=== PATIENT | female | born 1970 | race Caucasian/White ===

== ENCOUNTER 2017-05-19 19:11 | Inpatient (IN) | payer MEDICAID ==
[~2017-05-19] VITALS: Ht 157.5 cm; Wt 62.4 kg
[~2017-05-19 19:11] MED LIST: CALC-600 PO; IRON18TA PO; PREN1TAB49 PO
--- NOTE | 2017-05-19 22:09 | RADRPT ---
PROCEDURE: CHEST - 1 VIEW CLINICAL INDICATION: 46-year-old female with hemoptysis. TECHNIQUE: A single frontal AP semi-erect portable view of the chest was performed. The images we re reviewed on a PACS workstation. COMPARISON: None. FINDINGS: The cardiomediastinal silhouette has a normal appearance. There is a subtle right perihilar infiltr ate with air bronchograms. There is no evidence for congestive heart failure. There is no evidence for pneumothorax. The osseous structures are intact. IMPRESSION: Right perihilar infiltrate. .Delmar Kennedy MD, Date Time Electronically viewed and signed by .Delmar Kennedy MD, on 05/19/2017 22:09 .Momo/
[2017-05-19] MEDS ORDERED: SOD CHLORIDE 0.9% 100 ML ONE (22:23)
[2017-05-19] MEDS ORDERED: IOHEXOL 300MG/ML 150 ML BTL ONE (22:23)
--- NOTE | 2017-05-19 23:34 | RADRPT ---
PROCEDURE: CT Chest with contrast. CLINICAL INDICATION: Hemoptysis. TECHNIQUE: A CT scan of the chest with contrast was performed. Coronal and sagittal reformatted im ages were obtained from the axial source images. 90 cc Omnipaque 300 were administered during examin ation without complication. CTDIvol: 6.18 mGy. DLP: 246.56 mGy-cm. One or more of the following dose reduction techniques were used: - Automated exposure control. - Adjustment of the mA and/or kV according to patient size. - Use of iterative reconstruction technique. COMPARISON: None. FINDINGS: There is no suspicious thyroid lesion. No thoracic lymphadenopathy is seen. The trachea and mainst em bronchi are patent. The heart is not enlarged. There is no pericardial effusion. There is patchy airspace opacities throughout both lungs, most prominent in both upper lobes. There is no pleural effusion or pneumothorax. The patient is status post cholecystectomy. There is no suspicious osseous lesion. IMPRESSION: 1. Patchy airspace opacities throughout both lungs, most consistent with a multifocal pneumonia. RPTAT: HTAR .Benigno Flaherty MD, Date Time Electronically viewed and signed by .Benigno Flaherty MD, on 05/19/2017 23:33 .R/
[2017-05-20] VITALS (10 sets, daily range): BP systolic 96–108; BP diastolic 50–67; PULSE 61–78; RESP 16–18; TEMP 99.4; Ht 157.5 cm; Wt 62.4 kg
[2017-05-20] MEDS ORDERED: ONDANSETRON 4 MG INJ IV PRN
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
[2017-05-20] MEDS: SOD CHLORIDE 0.9% 1,000 ML IV SCH ×2 (01:44→04:59)
[2017-05-20] MEDS ORDERED: NACL 0.9% 3 ML SYG IV SCH (02:00)
[2017-05-20] MEDS ORDERED: ACETAMINOPHEN 325 MG TAB PO PRN ×2 (02:00)
[2017-05-20] MEDS ORDERED: morphine 2 MG INJ IV PRN (02:00)
[2017-05-20] MEDS: PANTOPRAZOLE 40 MG INJ IV SCH ×3 (03:02→17:42)
[2017-05-20] MEDS ORDERED: PANTOPRAZOLE 40 MG INJ IV SCH (06:00)
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
[2017-05-20] MEDS: CEFTRIAXONE 1 GM/50 ML (PMX) 50 ML IVPB SCH (08:15)
[2017-05-20] MEDS ORDERED: POTASSIUM CHLORIDE (SR) 20 MEQ TAB PO STA (11:52)
--- NOTE | 2017-05-20 14:53 | CONS ---
DATE OF ADMISSION: 05/19/2017 DATE OF CONSULTATION: 05/20/2017 REASON FOR CONSULTATION: Hemoptysis. HISTORY OF PRESENT ILLNESS: This is a 46-year-old lady with no past medical history, no prior medications. She had 1 episode of significant hemoptysis yesterday. The patient states it was approximately half a cup of fresh blood. She takes no medications including aspirin or anticoagulation. She has had no sick contacts. No recent travel history. States she was tested for TB 10 years ago and was unremarkable. No fever, no chills. No chest pain or palpitations. On admission, CT chest was performed and demonstrated patchy multifocal pneumonia. PAST MEDICAL HISTORY: Nil. ALLERGIES: NONE. SOCIAL HISTORY: Nonsmoker. No alcohol. No history of drug use. FAMILY HISTORY: Noncontributory. REVIEW OF SYSTEMS: A 12 point review of systems is negative other than that mentioned above. PHYSICAL EXAMINATION: GENERAL: Well-nourished, well-developed lady comfortable at rest, talking in complete sentences. VITAL SIGNS: Currently afebrile, pulse is 72, blood pressure 105/67. O2 saturation is 96 percent on room air. NECK: Supple. No JVD. HEART: S1, S2. No added sounds or murmurs. CHEST: Diminished air entry bilaterally. ABDOMEN: Soft, nontender. No guarding or rebound. EXTREMITIES: No cyanosis, clubbing or edema. NEUROLOGIC: Grossly intact. No focal deficits. IMAGING: CT findings as above. LABORATORY: White count 9.3, hemoglobin 12.4, platelets within normal limits. INR was 1. D-dimer unremarkable. Chemistry within normal limits. IMPRESSION: Hemoptysis with multifocal pneumonia, concerning for atypical organisms and/or Mycobacterium tuberculosis. PLAN: I have requested a sputum, AFB x3. QuantiFERON gold coccidioidomycosis serology. Patient should stay until these are ruled out. In the meantime, she can continue antibiotics for community-acquired pneumonia. Dictated By: Memo Osei MD /beverly/patrick /Document#: [id number]
[2017-05-21] VITALS (12 sets, daily range): BP systolic 97–103; BP diastolic 50–57; PULSE 60–75; RESP 18–19
[2017-05-21] MEDS: PANTOPRAZOLE 40 MG INJ IV SCH ×2 (06:10→18:49)
[2017-05-21] MEDS: SOD CHLORIDE 0.9% 1,000 ML IV SCH ×3 (06:10→14:14)
[2017-05-21] MEDS: CEFTRIAXONE 1 GM/50 ML (PMX) 50 ML IVPB SCH (06:10)
--- NOTE | 2017-05-21 10:36 | PN ---
Date/Time of Note Date/Time of Note DATE: 05/21/17 TIME: 10:33 Assessment/Plan VTE Prophylaxis VTE Prophylaxis Intervention: ambulation Lines/Catheters IV [facility]from [facility] Saline Lock Urinary Cath still in place: No Assessment/Plan Chief Complaint/Hosp Course 1. Hemoptysis. Etiology unclear. The patient is being ruled out for any pulmonary tuberculosis and other causes. Chest CT showing patchy airspace opacities in both lungs consistent with multifocal pneumonia. Stable H&H. 2. Bilateral patchy airspace opacities suggesting multifocal pneumonia. Continue treatment for community acquired pneumonia. The patient being ruled out for atypical causes including coccidioidomycosis and pulmonary tuberculosis. 3. Fluids, electrolytes, and nutrition. Regular diet. 4. DVT prophylaxis. Ambulation. 5. Plan. Continue antimicrobials. Await further studies including sputum AFB , TB QuantiFERON gold, and coccidioidomycosis serology. Case discussed with Dr. White. Problems: Subjective 24 Hr Interval Summary Free Text/Dictation Denies any hemoptysis. Denies any dyspnea. Exam/Review of Systems Vital Signs Vitals Vital Signs Date Time Temp Pulse Resp B/P Pulse Ox O2 Delivery O2 Flow Rate FiO2 05/21/17 08:00 74 05/21/17 07:53 98.0 18 99/55 98 05/20/17 03:00 Room Air 05/19/17 22:30 2.0 Intake and Output 05/20/17 05/20/17 05/21/17 15:00 23:00 07:00 Intake Total 50 ml 490 ml Balance 50 ml 490 ml Exam General: Adequately build 46 year-old female lying in bed in no apparent distress. HEENT: Normocephalic, atraumatic. Eyes: Anicteric sclerae, conjunctivae clear. ENT: Nasal septum midline, oral mucosa moist. Neck supple, no JVD noticed. Respiratory: Bilaterally clear breath sounds. No use of accessory muscles of respiration. No adventitious breath sounds. Cardiovascular: S1, S2 heard. No murmurs or gallops. Abdomen: Soft, nontender, and nondistended. Bowel sounds positive in all 4 quadrants. Genitourinary: Deferred. Extremities: No cyanosis, no clubbing, no edema. Peripheral pulses palpable. Neurologic: Cranial nerves II through XII grossly intact. The patient is awake, alert, and oriented. Skin: Normal skin turgor. No skin rashes. Results Result Diagram: 05/21/17 0656 05/21/17 0656 Results 24 hrs Laboratory Tests Test 05/20/17 11:51 05/20/17 14:05 05/20/17 18:19 05/21/17 06:56 Hemoglobin 12.1 11.8 L 11.6 L Hematocrit 35.8 L 35.3 L 34.3 L Erythrocyte Sedimentation Rate 20 White Blood Count 6.8 # Red Blood Count 3.62 L Mean Corpuscular Volume 94.8 Mean Corpuscular Hemoglobin 32.0 Mean Corpuscular Hemoglobin Concent 33.8 Red Cell Distribution Width 12.8 Platelet Count 157 Mean Platelet Volume 12.0 H Neutrophils % 66.4 Lymphocytes % 25.5 Monocytes % 6.3 Eosinophils % 1.2 Basophils % 0.3 Nucleated Red Blood Cells % 0.0 Neutrophils # 4.5 Lymphocytes # 1.7 Monocytes # 0.4 Eosinophils # 0.1 Basophils # 0.0 Nucleated Red Blood Cells # 0.0 Sodium Level 140 Potassium Level 4.1 Chloride Level 113 H Carbon Dioxide Level 20 L Anion Gap 11 Blood Urea Nitrogen 11 Creatinine 0.59 Glucose Level 99 Calcium Level 8.4 Phosphorus Level 3.3 Magnesium Level 2.1 Medications Medications Current Medications Sodium Chloride (NS) 1,000 ml @ 70 mls/hr [id number] IV Last administered on 05/21 06:20; Admin Dose 70 MLS/HR; Start 05/20/17 at 01:44 Ondansetron HCl (Zofran Inj) 4 mg Q6H PRN IV NAUSEA AND/OR VOMITING; Start 05/20/17 at 02:00 Acetaminophen (Tylenol Tab) 650 mg Q6H PRN PO PAIN LEVEL 1-3 OR FEVER; Start 05/20/17 at 02:00 Morphine Sulfate (morphine) 2 mg Q4H PRN IV PAIN LEVEL 7-10; Start 05/20/17 at 02:00 Pantoprazole 40 mg 40 mg BID@06,18 IV Last administered on 05/21/17 06:10; Admin Dose 40 MG; Start 05/20/17 at 02:00 Ceftriaxone Sodium (Rocephin) 50 ml @ 100 mls/hr Q24H IVPB Last administered on 05/21/17 06:10; Admin Dose 100 MLS/HR; Start 05/20/17 at 07:00 KIKI FERREIRA NP May 21, 2017 10:36
[2017-05-21] MEDS: AZITHROMYCIN 500MG/NS (PMX) 250 ML IVPB SCH (11:32)
--- NOTE | 2017-05-21 16:55 | CONS ---
Date/Time of Note Date/Time of Note DATE: 05/21/17 TIME: 16:51 Consult Date/Type/Reason Admit Date/Time May 19, 2017 at 23:53 Initial Consult Date Type of Consultation: Pulm Subjective No events. No hemoptysis noted. Objective Vital Signs Date Time Temp Pulse Resp B/P Pulse Ox O2 Delivery O2 Flow Rate FiO2 05/21/17 16:00 74 05/21/17 15:59 98.0 18 101/57 98 05/20/17 03:00 Room Air 05/19/17 22:30 2.0 Intake and Output 05/20/17 05/20/17 05/21/17 15:00 23:00 07:00 Intake Total 50 ml 490 ml Balance 50 ml 490 ml Exam HEENT: Neck supple; no JVD; no LAD CVS: RRR, S1 and S2 CHEST: Clear ABD: Soft, NT, + BS EXT: No c/c/e Results/Medications Result Diagram: 05/21/17 0656 05/21/17 0656 Results 24 hrs Laboratory Tests Test 05/20/17 18:19 05/21/17 06:56 Hemoglobin 11.8 L 11.6 L Hematocrit 35.3 L 34.3 L White Blood Count 6.8 # Red Blood Count 3.62 L Mean Corpuscular Volume 94.8 Mean Corpuscular Hemoglobin 32.0 Mean Corpuscular Hemoglobin Concent 33.8 Red Cell Distribution Width 12.8 Platelet Count 157 Mean Platelet Volume 12.0 H Neutrophils % 66.4 Lymphocytes % 25.5 Monocytes % 6.3 Eosinophils % 1.2 Basophils % 0.3 Nucleated Red Blood Cells % 0.0 Neutrophils # 4.5 Lymphocytes # 1.7 Monocytes # 0.4 Eosinophils # 0.1 Basophils # 0.0 Nucleated Red Blood Cells # 0.0 Sodium Level 140 Potassium Level 4.1 Chloride Level 113 H Carbon Dioxide Level 20 L Anion Gap 11 Blood Urea Nitrogen 11 Creatinine 0.59 Glucose Level 99 Calcium Level 8.4 Phosphorus Level 3.3 Magnesium Level 2.1 Medications Current Medications Sodium Chloride (NS) 1,000 ml @ 70 mls/hr [id number] IV Last administered on 05/21t 14:14; Admin Dose 70 MLS/HR; Start 05/20/17 at 01:44 Ondansetron HCl (Zofran Inj) 4 mg Q6H PRN IV NAUSEA AND/OR VOMITING; Start 05/20/17 at 02:00 Acetaminophen (Tylenol Tab) 650 mg Q6H PRN PO PAIN LEVEL 1-3 OR FEVER; Start 05/20/17 at 02:00 Morphine Sulfate (morphine) 2 mg Q4H PRN IV PAIN LEVEL 7-10; Start 05/20/17 at 02:00 Pantoprazole 40 mg 40 mg BID@06,18 IV Last administered on 05/21/17 06:10; Admin Dose 40 MG; Start 05/20/17 at 02:00 Ceftriaxone Sodium 50 ml @ 100 mls/hr Q24H IVPB Last administered on 06:10; Admin Dose 100 MLS/HR; Start 05/20/17 at 07:00 Azithromycin (Zithromax 500mg/ NS (Pmx)) 250 ml @ 250 mls/hr Q24H IVPB Last administered on 05/21/17 11:32; Admin Dose 250 MLS/HR; Start 05/21/17 at 11:30 Assessment/Plan Additional Assessment/Plan IMP: 1. B/L Centrilobular Ground Glass Nodular/Micronodular Opacities--concerning for an bronchocentric process such as mild alveolar hemorrhage vs. subacute HP and less likely atypical infections such as MTB. RECS: 1. Agree with TB work-up 2. Quantify all hemoptysis 3. Obtain SHOLA FAUSTIN NADER MD May 21, 2017 16:55
[2017-05-21] MEDS: ONDANSETRON 4 MG INJ IV PRN (22:54)
[2017-05-22] VITALS (14 sets, daily range): BP systolic 91–128; BP diastolic 58–71; PULSE 64–102; RESP 17–22
[2017-05-22] MEDS: SOD CHLORIDE 0.9% 1,000 ML IV SCH ×2 (06:16→21:27)
[2017-05-22] MEDS: CEFTRIAXONE 1 GM/50 ML (PMX) 50 ML IVPB SCH (06:16)
[2017-05-22] MEDS: PANTOPRAZOLE 40 MG INJ IV SCH ×2 (06:16→17:12)
[2017-05-22] MEDS: AZITHROMYCIN 500MG/NS (PMX) 250 ML IVPB SCH (11:52)
--- NOTE | 2017-05-22 13:57 | PN ---
Date/Time of Note Date/Time of Note DATE: 05/22/17 TIME: 13:56 Assessment/Plan VTE Prophylaxis VTE Prophylaxis Intervention: ambulation Lines/Catheters IV [facility]from [facility] Peripheral IV Urinary Cath still in place: No Assessment/Plan Chief Complaint/Hosp Course 1. Hemoptysis. Etiology unclear. The patient is being ruled out for any pulmonary tuberculosis and other causes. Chest CT showing patchy airspace opacities in both lungs consistent with multifocal pneumonia. Stable H&H. 2. Bilateral patchy airspace opacities suggesting multifocal pneumonia. Continue treatment for community acquired pneumonia. The patient being ruled out for atypical causes including coccidioidomycosis and pulmonary tuberculosis. 3. Fluids, electrolytes, and nutrition. Regular diet. 4. DVT prophylaxis. Ambulation. 5. Plan. Continue antimicrobials. Await further studies including sputum AFB , TB QuantiFERON gold, and coccidioidomycosis serology. Case discussed with Dr. White. Plan of care was explained to the patient's family who was at the bedside. Problems: Subjective 24 Hr Interval Summary Free Text/Dictation The patient had 2 episodes of hemoptysis last night. Exam/Review of Systems Vital Signs Vitals Vital Signs Date Time Temp Pulse Resp B/P Pulse Ox O2 Delivery O2 Flow Rate FiO2 05/22/17 13:36 98.0 78 18 108/59 98 05/20/17 03:00 Room Air 05/19/17 22:30 2.0 Intake and Output 05/21/17 05/21/17 05/22/17 15:00 23:00 07:00 Intake Total 800 ml 200 ml Balance 800 ml 200 ml Exam General: Adequately build 46 year-old female lying in bed in no apparent distress. HEENT: Normocephalic, atraumatic. Eyes: Anicteric sclerae, conjunctivae clear. ENT: Nasal septum midline, oral mucosa moist. Neck supple, no JVD noticed. Respiratory: Bilaterally clear breath sounds. No use of accessory muscles of respiration. No adventitious breath sounds. Cardiovascular: S1, S2 heard. No murmurs or gallops. Abdomen: Soft, nontender, and nondistended. Bowel sounds positive in all 4 quadrants. Genitourinary: Deferred. Extremities: No cyanosis, no clubbing, no edema. Peripheral pulses palpable. Neurologic: Cranial nerves II through XII grossly intact. The patient is awake, alert, and oriented. Skin: Normal skin turgor. No skin rashes. Results Result Diagram: 05/22/17 0728 05/21/17 0656 Results 24 hrs Laboratory Tests Test 05/22/17 07:28 White Blood Count 5.9 Red Blood Count 3.34 L Hemoglobin 10.4 L Hematocrit 31.3 L Mean Corpuscular Volume 93.7 Mean Corpuscular Hemoglobin 31.1 Mean Corpuscular Hemoglobin Concent 33.2 Red Cell Distribution Width 13.0 Platelet Count 151 Mean Platelet Volume 11.9 H Neutrophils % 68.3 Lymphocytes % 24.4 Monocytes % 5.4 Eosinophils % 1.2 Basophils % 0.5 Nucleated Red Blood Cells % 0.0 Neutrophils # 4.0 Lymphocytes # 1.4 Monocytes # 0.3 Eosinophils # 0.1 Basophils # 0.0 Nucleated Red Blood Cells # 0.0 Medications Medications Current Medications Ondansetron HCl (Zofran Inj) 4 mg Q6H PRN IV NAUSEA AND/OR VOMITING Last administered on 05/21/17 22:54; Admin Dose 4 MG; Start 05/20/17 at 02:00 Acetaminophen (Tylenol Tab) 650 mg Q6H PRN PO PAIN LEVEL 1-3 OR FEVER Last administered on 05/21/17 23:08; Admin Dose 650 MG; Start 05/20/17 at 02:00 Morphine Sulfate (morphine) 2 mg Q4H PRN IV PAIN LEVEL 7-10; Start 05/20/17 at 02:00 Pantoprazole 40 mg 40 mg BID@06,18 IV Last administered on 05/22/17 06:16; Admin Dose 40 MG; Start 05/20/17 at 02:00 Ceftriaxone Sodium 50 ml @ 100 mls/hr Q24H IVPB Last administered on 06:16; Admin Dose 100 MLS/HR; Start 05/20/17 at 07:00 Azithromycin (Zithromax 500mg/ NS (Pmx)) 250 ml @ 250 mls/hr Q24H IVPB Last administered on 05/22/17 11:52; Admin Dose 250 MLS/HR; Start 05/21/17 at 11:30 KIKI FERREIRA NP May 22, 2017 13:57
--- NOTE | 2017-05-22 16:54 | CONS ---
Date/Time of Note Date/Time of Note DATE: 05/22/17 TIME: 16:45 Consult Date/Type/Reason Admit Date/Time May 19, 2017 at 23:53 Type of Consultation: Pulm Subjective 2 episodes of hemoptysis ~ 120 ml overnight. Now feels well. Objective Vital Signs Date Time Temp Pulse Resp B/P Pulse Ox O2 Delivery O2 Flow Rate FiO2 05/22/17 16:41 98.0 67 18 112/68 98 05/20/17 03:00 Room Air 05/19/17 22:30 2.0 Intake and Output 05/21/17 05/21/17 05/22/17 15:00 23:00 07:00 Intake Total 800 ml 200 ml Balance 800 ml 200 ml Exam HEENT: Neck supple; no JVD; no LAD CVS: RRR, S1 and S2 CHEST: Clear ABD: Soft, NT, + BS EXT: No c/c/e Results/Medications Result Diagram: 05/22/17 0728 05/21/17 0656 Results 24 hrs Laboratory Tests Test 05/22/17 07:28 White Blood Count 5.9 Red Blood Count 3.34 L Hemoglobin 10.4 L Hematocrit 31.3 L Mean Corpuscular Volume 93.7 Mean Corpuscular Hemoglobin 31.1 Mean Corpuscular Hemoglobin Concent 33.2 Red Cell Distribution Width 13.0 Platelet Count 151 Mean Platelet Volume 11.9 H Neutrophils % 68.3 Lymphocytes % 24.4 Monocytes % 5.4 Eosinophils % 1.2 Basophils % 0.5 Nucleated Red Blood Cells % 0.0 Neutrophils # 4.0 Lymphocytes # 1.4 Monocytes # 0.3 Eosinophils # 0.1 Basophils # 0.0 Nucleated Red Blood Cells # 0.0 Medications Current Medications Ondansetron HCl (Zofran Inj) 4 mg Q6H PRN IV NAUSEA AND/OR VOMITING Last administered on 05/21/17 22:54; Admin Dose 4 MG; Start 05/20/17 at 02:00 Acetaminophen (Tylenol Tab) 650 mg Q6H PRN PO PAIN LEVEL 1-3 OR FEVER Last administered on 05/21/17 23:08; Admin Dose 650 MG; Start 05/20/17 at 02:00 Morphine Sulfate (morphine) 2 mg Q4H PRN IV PAIN LEVEL 7-10; Start 05/20/17 at 02:00 Pantoprazole 40 mg 40 mg BID@06,18 IV Last administered on 05/22/17 06:16; Admin Dose 40 MG; Start 05/20/17 at 02:00 Ceftriaxone Sodium 50 ml @ 100 mls/hr Q24H IVPB Last administered on 06:16; Admin Dose 100 MLS/HR; Start 05/20/17 at 07:00 Azithromycin (Zithromax 500mg/ NS (Pmx)) 250 ml @ 250 mls/hr Q24H IVPB Last administered on 05/22/17 11:52; Admin Dose 250 MLS/HR; Start 05/21/17 at 11:30 Assessment/Plan Additional Assessment/Plan IMP: 1. Hemoptysis with B/L Centrilobular Ground Glass Nodular/Micronodular Opacities --concerning for an bronchocentric process such as mild alveolar hemorrhage vs. subacute HP and less likely atypical infections such as MTB. RECS: 1. Agree with TB work-up 2. Quantify all hemoptysis 3. Obtain ROXIE, ANCA 4. Check CXR now 5. If hemoptysis of 100 ml or more/hr--> transfer to ICU for observation 6. A bronchoscopy may be needed particularly as we are concerned about alveolar hemorrhage TR ARRINGTON MD May 22, 2017 16:54
--- NOTE | 2017-05-22 17:45 | RADRPT ---
PROCEDURE: Portable chest x-ray. CLINICAL INDICATION: 46 years of age, female. Hemoptysis. TECHNIQUE: Portable AP view of the chest. COMPARISON: Chest x-ray and chest CT May 19, 2017 FINDINGS: Cardiomediastinal contours are normal. There is multi focal ground-glass opacity greatest in the right lower lung zone but also in the righ t upper lung zone and left lower lung zone that is similar to prior chest x-ray. This corresponds to ground-glass opacities seen on chest CT. No new pulmonary infiltrates are identified. Negative for pleural effusion or pneumothorax. No acute bony abnormality. IMPRESSION: Multi focal ground-glass opacity in the right greater than left lungs is unchanged from May 19 017. In this clinical setting of hemoptysis, the ground-glass opacities likely represent pulmonary h emorrhage. The appearance may be seen with pulmonary renal syndromes such as Goodpasture's syndrome, idiopathic pulmonary hemorrhage or vasculitis. Pulmonology consultation is advised. RPTAT: HCTS Physician Alexia Date Time Electronically viewed and signed by Physician Alexia on 05/22/2017 17:45 CS/
[2017-05-22] MEDS ORDERED: SOD CHLORIDE 0.9% 1,000 ML IV SCH (19:00)
--- NOTE | 2017-05-22 19:18 | EN ---
Date/Time of Note Date/Time of Note DATE: 05/22/17 TIME: 19:11 Event Note Medicine Medicine Event Note ALLOCATIONS CLERK called on patient secondary to large amount of hemoptysis with desaturation to 89% on room air. Patient BP and HR was stable. Patient c/o discomfort in her throat but denies any chest pain, nausea, dizziness, headache, or shortness of breath. Stat H/H was obtained and patient started on supplemental O2 with improvement of saturations to 90%. Patient was also started on maintenance fluids and transferred to ICU per instructions from Dr. Roblero, Pulmonology earlier today. Dr. Adrian is covering and recommended starting patient on Hycodan 5ml q4hr PRN to suppress urge to cough. Will most likely need bronchoscopy. Instructed also to keep specimen which was radha blood with large clot. Awaiting H/H results and will transfuse if <7 HENNA WARE MD May 22, 2017 19:18
--- NOTE | 2017-05-22 19:18 | EN ---
Date/Time of Note Date/Time of Note DATE: 05/22/17 TIME: 19:11 Event Note Medicine Medicine Event Note MEDIA SALES CONSULTANT called on patient secondary to large amount of hemoptysis with desaturation to 89% on room air. Patient BP and HR was stable. Patient c/o discomfort in her throat but denies any chest pain, nausea, dizziness, headache, or shortness of breath. Stat H/H was obtained and patient started on supplemental O2 with improvement of saturations to 90%. Patient was also started on maintenance fluids and transferred to ICU per instructions from Dr. Roblero, Pulmonology earlier today. Dr. Adrian is covering and recommended starting patient on Hycodan 5ml q4hr PRN to suppress urge to cough. Will most likely need bronchoscopy. Instructed also to keep specimen which was radha blood with large clot. Awaiting H/H results and will transfuse if <7 HENNA WARE MD May 22, 2017 19:18
[2017-05-22] MEDS ORDERED: METHYLPRED. NA SUCC 1,000 MG in DEXTROSE 5% 50 ML IVPB ONE (20:00)
[2017-05-22] MEDS: HYDROCODONE/HOMATROPINE 5ML CUP PO PRN (21:27)
[2017-05-23] VITALS (24 sets, daily range): BP systolic 76–118; BP diastolic 38–81; PULSE 64–102; RESP 16–23
[2017-05-23] MEDS: SOD CHLORIDE 0.9% 1,000 ML IV SCH ×4 (06:53→21:24)
[2017-05-23] MEDS: PANTOPRAZOLE 40 MG INJ IV SCH (06:53)
[2017-05-23] MEDS: CEFTRIAXONE 1 GM/50 ML (PMX) 50 ML IVPB SCH (06:56)
--- NOTE | 2017-05-23 11:30 | CONS ---
Date/Time of Note Date/Time of Note DATE: 05/23/17 TIME: 11:29 Assessment/Plan Assessment/Plan Additional Assessment/Plan Assessment and recommendations; 1. Patient admitted with bilateral pneumonia with significant hemoptysis with complete interval resolution. 2. There has been interval radiological improvement as well. Etiologies possibly include atypical infection. Continue current treatment. Sputum is still pending for AFB stain. Obtain follow-up chest x-ray in 24 hours. Continue current antibiotic regimen. Consultation Date/Type/Reason Admit Date/Time May 19, 2017 at 23:53 Initial Consult Date Type of Consultation: Pulm 24 HR Interval Summary Free Text/Dictation Patient's condition is stable. Denies any further hemoptysis. Denies any shortness of breath, chest pain, wheezing or cough. Denies any fever chills. General exam; young woman, awake and alert. Currently in no distress. Exam/Review of Systems Vital Signs Vitals Vital Signs Date Time Temp Pulse Resp B/P Pulse Ox O2 Delivery O2 Flow Rate FiO2 05/23/17 09:00 72 23 96/62 96 Nasal Cannula 2.0 05/23/17 08:00 98.4 Intake and Output 05/22/17 05/22/17 05/23/17 15:00 23:00 07:00 Intake Total 150 ml 800 ml Output Total 500 ml Balance 150 ml 300 ml Exam HEENT exam; supple neck, no JVD. No lymphadenopathy. Midline trachea. No thyromegaly. Pharynx clear. Patient has good dentition. No oral bleeding seen. Pupils are midsize and reactive to light. Chest exam; clear to auscultation. S1-S2 audible, no murmurs. Regular rhythm. Abdomen exam; soft, nontender. No organomegaly. Bowel sounds audible. Extremities; no peripheral edema. No clubbing. Pulses 2+ bilaterally. RISK REDUCTION COUNSELOR exam; no focal deficit. Results Result Diagram: 05/23/17 0610 05/21/17 0656 Results 24 hrs Laboratory Tests Test 05/22/17 18:58 05/22/17 21:19 05/23/17 06:10 White Blood Count 6.9 5.9 Red Blood Count 3.43 L 3.28 L Hemoglobin 11.2 L 10.5 L Hematocrit 32.0 L 30.7 L Mean Corpuscular Volume 93.3 93.6 Mean Corpuscular Hemoglobin 32.7 32.0 Mean Corpuscular Hemoglobin Concent 35.0 34.2 Red Cell Distribution Width 12.6 12.3 Platelet Count 159 166 Mean Platelet Volume 11.5 H 11.8 H Neutrophils % 55.7 86.0 H Lymphocytes % 37.8 13.3 L Monocytes % 5.3 0.3 Eosinophils % 1.0 0.0 Basophils % 0.1 0.2 Nucleated Red Blood Cells % 0.0 0.0 Neutrophils # 3.8 5.1 Lymphocytes # 2.6 0.8 Monocytes # 0.4 0.0 L Eosinophils # 0.1 0.0 Basophils # 0.0 0.0 Nucleated Red Blood Cells # 0.0 0.0 Creatine Kinase 57 Creatine Kinase Index 0.8 Creatinine Kinase MB (Mass) 0.43 Troponin I < 0.012 Prothrombin Time 14.2 Prothrombin Time Ratio 1.1 INR International Normalized Ratio 1.10 Activated Partial Thromboplast Time 25.8 Medications Medications Current Medications Ondansetron HCl (Zofran Inj) 4 mg Q6H PRN IV NAUSEA AND/OR VOMITING Last administered on 05/21/17 22:54; Admin Dose 4 MG; Start 05/20/17 at 02:00 Acetaminophen (Tylenol Tab) 650 mg Q6H PRN PO PAIN LEVEL 1-3 OR FEVER Last administered on 05/21/17 23:08; Admin Dose 650 MG; Start 05/20/17 at 02:00 Morphine Sulfate (morphine) 2 mg Q4H PRN IV PAIN LEVEL 7-10; Start 05/20/17 at 02:00 Pantoprazole 40 mg 40 mg BID@06,18 IV Last administered on 05/23/17 06:53; Admin Dose 40 MG; Start 05/20/17 at 02:00 Ceftriaxone Sodium 50 ml @ 100 mls/hr Q24H IVPB Last administered on 06:56; Admin Dose 100 MLS/HR; Start 05/20/17 at 07:00 Azithromycin (Zithromax 500mg/ NS (Pmx)) 250 ml @ 250 mls/hr Q24H IVPB Last administered on 05/22/17 11:52; Admin Dose 250 MLS/HR; Start 05/21/17 at 11:30 Hydrocodone Bit/ Homatropine Methylb 5 ml 5 ml Q4 PRN PO cough Last administered on 05/22/17 21:27; Admin Dose 5 ML; Start 05/22/17 at 19:30 Sodium Chloride (NS) 1,000 ml @ 100 mls/hr Q10H IV Last administered on 06:53; Admin Dose 100 MLS/HR; Start 05/22/17 at 19:30; Stop 05/23/17 at 19: 29 PHOEBE HARRIS May 23, 2017 11:30
[2017-05-23] MEDS: AZITHROMYCIN 500MG/NS (PMX) 250 ML IVPB SCH (11:38)
--- NOTE | 2017-05-23 14:37 | PN ---
Date/Time of Note Date/Time of Note DATE: 05/23/17 TIME: 14:35 Assessment/Plan VTE Prophylaxis VTE Prophylaxis Intervention: SCD's Lines/Catheters IV [facility] Type [facility]from [facility] Peripheral IV Urinary Cath still in place: No Assessment/Plan Chief Complaint/Hosp Course Assessment and plan 1. Hemoptysis. First AFB culture negative. Initial CT scan of the chest showed findings consistent with multifocal pneumonia. Recent imaging improved. Continue with antibiotic therapy. Golf Cart Mechanic following. 2. Multifocal pneumonia. Continue with antibiotics. Follow-up on final AFB cultures. DVT prophylaxis: Examination. Disposition plan: Appears to be improving at this time. H&H remained stable. Transfer out of ICU when cleared by consultants. Discussed plan of care with Dr. Merritt Critical CARE time: 30 minutes Problems: Subjective 24 Hr Interval Summary Free Text/Dictation Patient in bed. No reports of shortness of breath. No other further reports of hemoptysis. Exam/Review of Systems Vital Signs Vitals Vital Signs Date Time Temp Pulse Resp B/P Pulse Ox O2 Delivery O2 Flow Rate FiO2 05/23/17 13:00 74 19 88/59 97 Nasal Cannula 05/23/17 12:00 97.9 05/23/17 10:00 2.0 Intake and Output 05/22/17 05/22/17 05/23/17 15:00 23:00 07:00 Intake Total 150 ml 800 ml Output Total 500 ml Balance 150 ml 300 ml Exam Constitutional: alert, oriented Psych: nl mood/affect Head: normocephalic Eyes: nl conjunctiva Neck: non-tender, supple Respiratory: clear to auscultation, normal air movement Cardiovascular: regular rate and rhythm Gastrointestinal: non-tender, soft Musculoskeletal: nl extremities to inspection Neurological: BRICKLAYER PAVING BRICK II-XII intact, nl mental status, nl speech Skin: nl turgor Results Result Diagram: 05/23/17 0610 05/21/17 0656 Results 24 hrs Laboratory Tests Test 05/22/17 18:58 05/22/17 21:19 05/23/17 06:10 White Blood Count 6.9 5.9 Red Blood Count 3.43 L 3.28 L Hemoglobin 11.2 L 10.5 L Hematocrit 32.0 L 30.7 L Mean Corpuscular Volume 93.3 93.6 Mean Corpuscular Hemoglobin 32.7 32.0 Mean Corpuscular Hemoglobin Concent 35.0 34.2 Red Cell Distribution Width 12.6 12.3 Platelet Count 159 166 Mean Platelet Volume 11.5 H 11.8 H Neutrophils % 55.7 86.0 H Lymphocytes % 37.8 13.3 L Monocytes % 5.3 0.3 Eosinophils % 1.0 0.0 Basophils % 0.1 0.2 Nucleated Red Blood Cells % 0.0 0.0 Neutrophils # 3.8 5.1 Lymphocytes # 2.6 0.8 Monocytes # 0.4 0.0 L Eosinophils # 0.1 0.0 Basophils # 0.0 0.0 Nucleated Red Blood Cells # 0.0 0.0 Creatine Kinase 57 Creatine Kinase Index 0.8 Creatinine Kinase MB (Mass) 0.43 Troponin I < 0.012 Prothrombin Time 14.2 Prothrombin Time Ratio 1.1 INR International Normalized Ratio 1.10 Activated Partial Thromboplast Time 25.8 Medications Medications Current Medications Ondansetron HCl (Zofran Inj) 4 mg Q6H PRN IV NAUSEA AND/OR VOMITING Last administered on 05/21/17 22:54; Admin Dose 4 MG; Start 05/20/17 at 02:00 Acetaminophen (Tylenol Tab) 650 mg Q6H PRN PO PAIN LEVEL 1-3 OR FEVER Last administered on 05/21/17 23:08; Admin Dose 650 MG; Start 05/20/17 at 02:00 Morphine Sulfate (morphine) 2 mg Q4H PRN IV PAIN LEVEL 7-10; Start 05/20/17 at 02:00 Pantoprazole 40 mg 40 mg BID@06,18 IV Last administered on 05/23/17 06:53; Admin Dose 40 MG; Start 05/20/17 at 02:00 Ceftriaxone Sodium 50 ml @ 100 mls/hr Q24H IVPB Last administered on 06:56; Admin Dose 100 MLS/HR; Start 05/20/17 at 07:00 Azithromycin (Zithromax 500mg/ NS (Pmx)) 250 ml @ 250 mls/hr Q24H IVPB Last administered on 05/23/17 11:38; Admin Dose 250 MLS/HR; Start 05/21/17 at 11:30 Hydrocodone Bit/ Homatropine Methylb 5 ml 5 ml Q4 PRN PO cough Last administered on 05/22/17 21:27; Admin Dose 5 ML; Start 05/22/17 at 19:30 Sodium Chloride (NS) 1,000 ml @ 100 mls/hr Q10H IV Last administered on 06:53; Admin Dose 100 MLS/HR; Start 05/22/17 at 19:30; Stop 05/23/17 at 19: 29 YADIRA SWANSON May 23, 2017 14:37
[2017-05-23] MEDS: FAMOTIDINE 20 MG INJ IV SCH (21:23)
[2017-05-24] VITALS (23 sets, daily range): BP systolic 85–124; BP diastolic 54–86; PULSE 68–116; RESP 14–26
[2017-05-24] MEDS: PANTOPRAZOLE 40 MG INJ IV SCH ×2 (06:20→18:55)
[2017-05-24] MEDS: CEFTRIAXONE 1 GM/50 ML (PMX) 50 ML IVPB SCH (06:20)
[2017-05-24] MEDS: SOD CHLORIDE 0.9% 1,000 ML IV SCH ×2 (06:21→16:22)
--- NOTE | 2017-05-24 08:39 | RADRPT ---
PROCEDURE: XR Chest 1 View. CLINICAL INDICATION: Shortness of breath. TECHNIQUE: AP view of the chest was obtained. COMPARISON: CHEST 05/22/2017 FINDINGS: The cardiomediastinal silhouette is within normal limits. Diffuse interstitial prominence in both kari ngs is unchanged. Superimposed potential alveolar infiltrates in the bilateral lower lobes are stabl e. Osseous structures are intact. IMPRESSION: Stable diffuse interstitial prominence in both lungs. Interstitial prominence could be chronic. Stable superimposed potential alveolar infiltrates in the bilateral lower lobes. RPTAT: AA .Eris Wilson MD, MD Date Time Electronically viewed and signed by .Eris Wilson MD, MD on 05/24/2017 08:39 .P/
[2017-05-24] MEDS: FAMOTIDINE 20 MG INJ IV SCH ×2 (09:46→21:18)
--- NOTE | 2017-05-24 10:08 | CONS ---
Date/Time of Note Date/Time of Note DATE: 05/24/17 TIME: 10:05 Assessment/Plan Assessment/Plan Additional Assessment/Plan Chest x-ray was reviewed from today which is showing stable bilateral lower lobe interstitial prominence. Assessment and recommendations; 1. Patient admitted with significant hemoptysis with bilateral pneumonia with marked clinical improvement. Possibilities include atypical pneumonia. AFB stain is negative on sputum sample. Continue current treatment. Transfer to medicine floor. Consultation Date/Type/Reason Admit Date/Time May 19, 2017 at 23:53 Type of Consultation: Pulm 24 HR Interval Summary Free Text/Dictation Patient's condition is stable. Denies any further hemoptysis. Denies any shortness of breath, chest pain, wheezing, sputum production. Any fever or chills. General exam; young woman, awake alert, currently in no distress. Exam/Review of Systems Vital Signs Vitals Vital Signs Date Time Temp Pulse Resp B/P Pulse Ox O2 Delivery O2 Flow Rate FiO2 05/24/17 08:00 98.4 74 20 102/67 94 Room Air 05/24/17 07:00 2.0 Intake and Output 05/23/17 05/23/17 05/24/17 15:00 23:00 07:00 Intake Total 1100 ml 1260 ml 700 ml Output Total 600 ml 750 ml 750 ml Balance 500 ml 510 ml -50 ml Exam HEENT exam; supple neck, no JVD. No lymphadenopathy. Midline trachea. No thyromegaly. Pharynx clear. Patient has good dentition. Chest exam; clear to auscultation. S1-S2 audible, no murmurs. Regular rhythm. Abdomen exam; soft, no organomegaly. Nontender. Bowel sounds audible. Extremity exam; no peripheral edema. No clubbing. TALENT ACQUISITION SOURCER exam; no focal deficit. Results Result Diagram: 05/24/17 0500 05/24/17 0500 Results 24 hrs Laboratory Tests Test 05/24/17 05:00 White Blood Count 10.2 # Red Blood Count 2.82 L Hemoglobin 9.0 L Hematocrit 26.3 L Mean Corpuscular Volume 93.3 Mean Corpuscular Hemoglobin 31.9 Mean Corpuscular Hemoglobin Concent 34.2 Red Cell Distribution Width 12.7 Platelet Count 162 Mean Platelet Volume 11.8 H Neutrophils % 76.7 Lymphocytes % 15.9 Monocytes % 7.0 Eosinophils % 0.0 Basophils % 0.1 Nucleated Red Blood Cells % 0.0 Neutrophils # 7.9 H Lymphocytes # 1.6 Monocytes # 0.7 Eosinophils # 0.0 Basophils # 0.0 Nucleated Red Blood Cells # 0.0 Sodium Level 138 Potassium Level 3.8 Chloride Level 113 H Carbon Dioxide Level 22 Anion Gap 7 L Blood Urea Nitrogen 15 Creatinine 0.60 Glucose Level 117 Calcium Level 8.2 L Medications Medications Current Medications Ondansetron HCl (Zofran Inj) 4 mg Q6H PRN IV NAUSEA AND/OR VOMITING Last administered on 05/21/17 22:54; Admin Dose 4 MG; Start 05/20/17 at 02:00 Acetaminophen (Tylenol Tab) 650 mg Q6H PRN PO PAIN LEVEL 1-3 OR FEVER Last administered on 05/21/17 23:08; Admin Dose 650 MG; Start 05/20/17 at 02:00 Morphine Sulfate 2 mg 2 mg Q4H PRN IV PAIN LEVEL 7-10; Start 05/20/17 at 02:00 Ceftriaxone Sodium 50 ml @ 100 mls/hr Q24H IVPB Last administered on 06:20; Admin Dose 100 MLS/HR; Start 05/20/17 at 07:00 Azithromycin (Zithromax 500mg/ NS (Pmx)) 250 ml @ 250 mls/hr Q24H IVPB Last administered on 05/23/17 11:38; Admin Dose 250 MLS/HR; Start 05/21/17 at 11:30 Hydrocodone Bit/ Homatropine Methylb (Hycodan Liquid) 5 ml Q4 PRN PO cough Last administered on 05/22/17 21:27; Admin Dose 5 ML; Start 05/22/17 at 19:30 Famotidine (Pepcid Iv) 20 mg Q12 IV Last administered on 05/24/17 09:46; Admin Dose 20 MG; Start 05/23/17 at 21:00 Pantoprazole 40 mg 40 mg BID@06,18 IV Last administered on 05/24/17 06:20; Admin Dose 40 MG; Start 05/24/17 at 06:00 Sodium Chloride (NS) 1,000 ml @ 100 mls/hr Q10H IV Last administered on 06:21; Admin Dose 100 MLS/HR; Start 05/23/17 at 19:27 PHOEBE HARRIS May 24, 2017 10:08
--- NOTE | 2017-05-24 11:24 | PN ---
Date/Time of Note Date/Time of Note DATE: 05/24/17 TIME: 11:22 Assessment/Plan VTE Prophylaxis VTE Prophylaxis Intervention: SCD's Lines/Catheters IV Catheter Type (from [facility]): Peripheral IV Urinary Cath still in place: No Assessment/Plan Chief Complaint/Hosp Course Assessment and plan 1. Hemoptysis. 2 AFB culture negative. Initial CT scan of the chest showed findings consistent with multifocal pneumonia. Recent imaging improved. Continue with antibiotic therapy. Document Review Specialist following. Appears to be improving at present. 2. Multifocal pneumonia. Continue with antibiotics. Follow-up on final AFB cultures. DVT prophylaxis: Examination. Disposition plan: Appears to be improving at this time. H&H remained stable. We will transfer to [facility] today Discussed plan of care with Dr. Merritt Critical CARE time: 30 minutes Problems: Subjective 24 Hr Interval Summary Free Text/Dictation Seen on room air. Reports that her breathing at this time. No further reports of hemoptysis Exam/Review of Systems Vital Signs Vitals Vital Signs Date Time Temp Pulse Resp B/P Pulse Ox O2 Delivery O2 Flow Rate FiO2 05/24/17 10:00 79 18 88/61 94 Room Air 05/24/17 08:00 98.4 05/24/17 07:00 2.0 Intake and Output 05/23/17 05/23/17 05/24/17 15:00 23:00 07:00 Intake Total 1100 ml 1260 ml 800 ml Output Total 600 ml 750 ml 750 ml Balance 500 ml 510 ml 50 ml Exam Constitutional: alert, oriented Psych: nl mood/affect Head: normocephalic Respiratory: clear to auscultation, normal air movement Cardiovascular: regular rate and rhythm Gastrointestinal: non-tender, soft Musculoskeletal: nl extremities to inspection Neurological: BIOMEDICAL ENGINEERING TECHNOLOGIST II-XII intact, nl mental status Skin: nl turgor Results Result Diagram: 05/24/17 0500 05/24/17 0500 Results 24 hrs Laboratory Tests Test 05/24/17 05:00 White Blood Count 10.2 # Red Blood Count 2.82 L Hemoglobin 9.0 L Hematocrit 26.3 L Mean Corpuscular Volume 93.3 Mean Corpuscular Hemoglobin 31.9 Mean Corpuscular Hemoglobin Concent 34.2 Red Cell Distribution Width 12.7 Platelet Count 162 Mean Platelet Volume 11.8 H Neutrophils % 76.7 Lymphocytes % 15.9 Monocytes % 7.0 Eosinophils % 0.0 Basophils % 0.1 Nucleated Red Blood Cells % 0.0 Neutrophils # 7.9 H Lymphocytes # 1.6 Monocytes # 0.7 Eosinophils # 0.0 Basophils # 0.0 Nucleated Red Blood Cells # 0.0 Sodium Level 138 Potassium Level 3.8 Chloride Level 113 H Carbon Dioxide Level 22 Anion Gap 7 L Blood Urea Nitrogen 15 Creatinine 0.60 Glucose Level 117 Calcium Level 8.2 L Medications Medications Current Medications Ondansetron HCl (Zofran Inj) 4 mg Q6H PRN IV NAUSEA AND/OR VOMITING Last administered on 05/21/17 22:54; Admin Dose 4 MG; Start 05/20/17 at 02:00 Acetaminophen (Tylenol Tab) 650 mg Q6H PRN PO PAIN LEVEL 1-3 OR FEVER Last administered on 05/21/17 23:08; Admin Dose 650 MG; Start 05/20/17 at 02:00 Morphine Sulfate 2 mg 2 mg Q4H PRN IV PAIN LEVEL 7-10; Start 05/20/17 at 02:00 Ceftriaxone Sodium 50 ml @ 100 mls/hr Q24H IVPB Last administered on 06:20; Admin Dose 100 MLS/HR; Start 05/20/17 at 07:00 Azithromycin (Zithromax 500mg/ NS (Pmx)) 250 ml @ 250 mls/hr Q24H IVPB Last administered on 05/23/17 11:38; Admin Dose 250 MLS/HR; Start 05/21/17 at 11:30 Hydrocodone Bit/ Homatropine Methylb (Hycodan Liquid) 5 ml Q4 PRN PO cough Last administered on 05/22/17 21:27; Admin Dose 5 ML; Start 05/22/17 at 19:30 Famotidine (Pepcid Iv) 20 mg Q12 IV Last administered on 05/24/17 09:46; Admin Dose 20 MG; Start 05/23/17 at 21:00 Pantoprazole 40 mg 40 mg BID@06,18 IV Last administered on 05/24/17 06:20; Admin Dose 40 MG; Start 05/24/17 at 06:00 Sodium Chloride (NS) 1,000 ml @ 100 mls/hr Q10H IV Last administered on 06:21; Admin Dose 100 MLS/HR; Start 05/23/17 at 19:27 YADIRA SWANSON May 24, 2017 11:24
--- NOTE | 2017-05-24 11:24 | PN ---
Date/Time of Note Date/Time of Note DATE: 05/24/17 TIME: 11:22 Assessment/Plan VTE Prophylaxis VTE Prophylaxis Intervention: SCD's Lines/Catheters IV [facility]ter Type (from [facility]): Peripheral IV Urinary Cath still in place: No Assessment/Plan Chief Complaint/Hosp Course Assessment and plan 1. Hemoptysis. 2 AFB culture negative. Initial CT scan of the chest showed findings consistent with multifocal pneumonia. Recent imaging improved. Continue with antibiotic therapy. Bobbin Trucker following. Appears to be improving at present. 2. Multifocal pneumonia. Continue with antibiotics. Follow-up on final AFB cultures. DVT prophylaxis: Examination. Disposition plan: Appears to be improving at this time. H&H remained stable. We will transfer to [facility] today Discussed plan of care with Dr. Merritt Critical CARE time: 30 minutes Problems: Subjective 24 Hr Interval Summary Free Text/Dictation Seen on room air. Reports that her breathing at this time. No further reports of hemoptysis Exam/Review of Systems Vital Signs Vitals Vital Signs Date Time Temp Pulse Resp B/P Pulse Ox O2 Delivery O2 Flow Rate FiO2 05/24/17 10:00 79 18 88/61 94 Room Air 05/24/17 08:00 98.4 05/24/17 07:00 2.0 Intake and Output 05/23/17 05/23/17 05/24/17 15:00 23:00 07:00 Intake Total 1100 ml 1260 ml 800 ml Output Total 600 ml 750 ml 750 ml Balance 500 ml 510 ml 50 ml Exam Constitutional: alert, oriented Psych: nl mood/affect Head: normocephalic Respiratory: clear to auscultation, normal air movement Cardiovascular: regular rate and rhythm Gastrointestinal: non-tender, soft Musculoskeletal: nl extremities to inspection Neurological: SENIOR STAFF ACCOUNTANT II-XII intact, nl mental status Skin: nl turgor Results Result Diagram: 05/24/17 0500 05/24/17 0500 Results 24 hrs Laboratory Tests Test 05/24/17 05:00 White Blood Count 10.2 # Red Blood Count 2.82 L Hemoglobin 9.0 L Hematocrit 26.3 L Mean Corpuscular Volume 93.3 Mean Corpuscular Hemoglobin 31.9 Mean Corpuscular Hemoglobin Concent 34.2 Red Cell Distribution Width 12.7 Platelet Count 162 Mean Platelet Volume 11.8 H Neutrophils % 76.7 Lymphocytes % 15.9 Monocytes % 7.0 Eosinophils % 0.0 Basophils % 0.1 Nucleated Red Blood Cells % 0.0 Neutrophils # 7.9 H Lymphocytes # 1.6 Monocytes # 0.7 Eosinophils # 0.0 Basophils # 0.0 Nucleated Red Blood Cells # 0.0 Sodium Level 138 Potassium Level 3.8 Chloride Level 113 H Carbon Dioxide Level 22 Anion Gap 7 L Blood Urea Nitrogen 15 Creatinine 0.60 Glucose Level 117 Calcium Level 8.2 L Medications Medications Current Medications Ondansetron HCl (Zofran Inj) 4 mg Q6H PRN IV NAUSEA AND/OR VOMITING Last administered on 05/21/17 22:54; Admin Dose 4 MG; Start 05/20/17 at 02:00 Acetaminophen (Tylenol Tab) 650 mg Q6H PRN PO PAIN LEVEL 1-3 OR FEVER Last administered on 05/21/17 23:08; Admin Dose 650 MG; Start 05/20/17 at 02:00 Morphine Sulfate 2 mg 2 mg Q4H PRN IV PAIN LEVEL 7-10; Start 05/20/17 at 02:00 Ceftriaxone Sodium 50 ml @ 100 mls/hr Q24H IVPB Last administered on 06:20; Admin Dose 100 MLS/HR; Start 05/20/17 at 07:00 Azithromycin (Zithromax 500mg/ NS (Pmx)) 250 ml @ 250 mls/hr Q24H IVPB Last administered on 05/23/17 11:38; Admin Dose 250 MLS/HR; Start 05/21/17 at 11:30 Hydrocodone Bit/ Homatropine Methylb (Hycodan Liquid) 5 ml Q4 PRN PO cough Last administered on 05/22/17 21:27; Admin Dose 5 ML; Start 05/22/17 at 19:30 Famotidine (Pepcid Iv) 20 mg Q12 IV Last administered on 05/24/17 09:46; Admin Dose 20 MG; Start 05/23/17 at 21:00 Pantoprazole 40 mg 40 mg BID@06,18 IV Last administered on 05/24/17 06:20; Admin Dose 40 MG; Start 05/24/17 at 06:00 Sodium Chloride (NS) 1,000 ml @ 100 mls/hr Q10H IV Last administered on 06:21; Admin Dose 100 MLS/HR; Start 05/23/17 at 19:27 YADIRA SWANSON May 24, 2017 11:24
[2017-05-24] MEDS: AZITHROMYCIN 500MG/NS (PMX) 250 ML IVPB SCH (11:32)
[2017-05-24] MEDS: ONDANSETRON 4 MG INJ IV PRN ×2 (15:03→21:43)
[2017-05-24] MEDS: HYDROCODONE/HOMATROPINE 5ML CUP PO PRN ×3 (15:04→21:43)
[2017-05-25] MEDS: SOD CHLORIDE 0.9% 1,000 ML IV SCH ×3 (00:41→21:32)
[2017-05-25 01:51] VITALS: BP 90/53; RESP 20
[2017-05-25] MEDS: PANTOPRAZOLE 40 MG INJ IV SCH (05:53)
[2017-05-25] MEDS: CEFTRIAXONE 1 GM/50 ML (PMX) 50 ML IVPB SCH (06:00)
[2017-05-25 08:20] VITALS: BP 105/59; RESP 18
[2017-05-25] MEDS: FAMOTIDINE 20 MG INJ IV SCH ×2 (09:15→21:32)
--- NOTE | 2017-05-25 10:10 | PN ---
Date/Time of Note Date/Time of Note DATE: 05/25/17 TIME: 10:09 Assessment/Plan VTE Prophylaxis VTE Prophylaxis Intervention: SCD's Lines/Catheters IV C[facility] Type [facility]from [facility] Peripheral IV Urinary Cath still in place: No Assessment/Plan Chief Complaint/Hosp Course Assessment and plan 1. Hemoptysis. First AFB culture negative. Initial CT scan of the chest showed findings consistent with multifocal pneumonia. Recent imaging improved. Continue with antibiotic therapy. Insurance Sales Associate following. 2. Multifocal pneumonia. Continue with antibiotics. Follow-up on final AFB cultures. DVT prophylaxis: Examination. Disposition plan: Appears to be improving at this time. H&H remained stable. Transfer out of ICU when cleared by consultants. Discussed plan of care with Dr. Merritt Critical CARE time: 30 minutes Problems: Subjective 24 Hr Interval Summary Free Text/Dictation No signs or symptoms of distress at this time. Reports better breathing. Exam/Review of Systems Vital Signs Vitals Vital Signs Date Time Temp Pulse Resp B/P Pulse Ox O2 Delivery O2 Flow Rate FiO2 05/25/17 08:20 98.0 72 18 105/59 97 05/25/17 00:15 Nasal Cannula 2.0 Intake and Output 05/24/17 05/24/17 05/25/17 15:00 23:00 07:00 Intake Total 1600 ml 800 ml 800 ml Balance 1600 ml 800 ml 800 ml Exam Constitutional: alert, oriented Psych: nl mood/affect Head: normocephalic Eyes: nl conjunctiva Neck: non-tender, supple Respiratory: clear to auscultation Gastrointestinal: non-tender, soft Musculoskeletal: nl extremities to inspection Extremities: normal pulses Neurological: LAUNDRY SUPERVISOR II-XII intact, nl mental status, nl speech Results Result Diagram: 05/25/17 0529 05/25/1729 Results 24 hrs Laboratory Tests Test 05/25/17 05:29 White Blood Count 6.9 # Red Blood Count 2.71 L Hemoglobin 8.4 L Hematocrit 25.5 L Mean Corpuscular Volume 94.1 Mean Corpuscular Hemoglobin 31.0 Mean Corpuscular Hemoglobin Concent 32.9 Red Cell Distribution Width 13.1 Platelet Count 154 Mean Platelet Volume 11.5 H Neutrophils % 47.9 Lymphocytes % 45.0 Monocytes % 5.8 Eosinophils % 0.6 Basophils % 0.4 Nucleated Red Blood Cells % 0.0 Neutrophils # 3.3 Lymphocytes # 3.1 H Monocytes # 0.4 Eosinophils # 0.0 Basophils # 0.0 Nucleated Red Blood Cells # 0.0 Sodium Level 139 Potassium Level 3.7 Chloride Level 111 H Carbon Dioxide Level 24 Anion Gap 8 Blood Urea Nitrogen 13 Creatinine 0.61 Glucose Level 88 Calcium Level 7.7 L Medications Medications Current Medications Ondansetron HCl (Zofran Inj) 4 mg Q6H PRN IV NAUSEA AND/OR VOMITING Last administered on 05/24/17 21:43; Admin Dose 4 MG; Start 05/20/17 at 02:00 Acetaminophen (Tylenol Tab) 650 mg Q6H PRN PO PAIN LEVEL 1-3 OR FEVER Last administered on 05/21/17 23:08; Admin Dose 650 MG; Start 05/20/17 at 02:00 Morphine Sulfate 2 mg 2 mg Q4H PRN IV PAIN LEVEL 7-10; Start 05/20/17 at 02:00 Ceftriaxone Sodium 50 ml @ 100 mls/hr Q24H IVPB Last administered on 06:00; Admin Dose 100 MLS/HR; Start 05/20/17 at 07:00 Azithromycin (Zithromax 500mg/ NS (Pmx)) 250 ml @ 250 mls/hr Q24H IVPB Last administered on 05/24/17 11:32; Admin Dose 250 MLS/HR; Start 05/21/17 at 11:30 Hydrocodone Bit/ Homatropine Methylb (Hycodan Liquid) 5 ml Q4 PRN PO cough Last administered on 05/24/17 21:43; Admin Dose 5 ML; Start 05/22/17 at 19:30 Famotidine (Pepcid Iv) 20 mg Q12 IV Last administered on 05/25/17 09:15; Admin Dose 20 MG; Start 05/23/17 at 21:00 Pantoprazole 40 mg 40 mg BID@06,18 IV Last administered on 05/25/17 05:53; Admin Dose 40 MG; Start 05/24/17 at 06:00 Sodium Chloride (NS) 1,000 ml @ 100 mls/hr Q10H IV Last administered on 00:41; Admin Dose 100 MLS/HR; Start 05/23/17 at 19:27 YADIRA SWANSON May 25, 2017 10:10
[2017-05-25] MEDS: AZITHROMYCIN 500MG/NS (PMX) 250 ML IVPB SCH (11:35)
--- NOTE | 2017-05-25 12:10 | CONS ---
Date/Time of Note Date/Time of Note DATE: 05/25/17 TIME: 12:08 Assessment/Plan Assessment/Plan Additional Assessment/Plan Assessment and recommendations; 1. Patient admitted with significant hemoptysis and bilateral irregular nodular infiltrates more pronounced in the upper lobes on CT imaging of the chest. 2. AP standing negative on sputum sample. 3. Drop in hematocrit. Continue current treatment. Patient to undergo bronchoscopy today with transbronchial biopsy from right upper lobe area. Procedure was discussed with the patient and she is agreeable. Consultation Date/Type/Reason Admit Date/Time May 19, 2017 at 23:53 Type of Consultation: Pulm 24 HR Interval Summary Free Text/Dictation Patient's condition is stable. Has been transferred out of ICU to medical floor. According to the patient she had an episode of scant hemoptysis last night. Denies any shortness of breath, fever, chest pain. General exam; young woman, awake alert, currently in no distress. Exam/Review of Systems Vital Signs Vitals Vital Signs Date Time Temp Pulse Resp B/P Pulse Ox O2 Delivery O2 Flow Rate FiO2 05/25/17 08:20 98.0 72 18 105/59 97 05/25/17 00:15 Nasal Cannula 2.0 Intake and Output 05/24/17 05/24/17 05/25/17 15:00 23:00 07:00 Intake Total 1600 ml 800 ml 800 ml Balance 1600 ml 800 ml 800 ml Exam HEENT exam; supple neck, no JVD. No lymphadenopathy. Midline trachea. No thyromegaly. No oral bleeding seen. Patient has fair dentition. Pupils are equal and reactive to light. Chest exam; clear to auscultation. S1-S2 audible, no murmurs. Regular rhythm. Abdomen exam; soft, nontender. No organomegaly. Bowel sounds audible. Extremity exam; no peripheral edema. No clubbing. Pulses 1+ bilaterally. STREET LIGHT REPAIRER HELPER exam; no focal deficit. Results Result Diagram: 05/25/1729 05/25/17 05 Results 24 hrs Laboratory Tests Test 05/25/17 05:29 White Blood Count 6.9 # Red Blood Count 2.71 L Hemoglobin 8.4 L Hematocrit 25.5 L Mean Corpuscular Volume 94.1 Mean Corpuscular Hemoglobin 31.0 Mean Corpuscular Hemoglobin Concent 32.9 Red Cell Distribution Width 13.1 Platelet Count 154 Mean Platelet Volume 11.5 H Neutrophils % 47.9 Lymphocytes % 45.0 Monocytes % 5.8 Eosinophils % 0.6 Basophils % 0.4 Nucleated Red Blood Cells % 0.0 Neutrophils # 3.3 Lymphocytes # 3.1 H Monocytes # 0.4 Eosinophils # 0.0 Basophils # 0.0 Nucleated Red Blood Cells # 0.0 Sodium Level 139 Potassium Level 3.7 Chloride Level 111 H Carbon Dioxide Level 24 Anion Gap 8 Blood Urea Nitrogen 13 Creatinine 0.61 Glucose Level 88 Calcium Level 7.7 L Medications Medications Current Medications Ondansetron HCl (Zofran Inj) 4 mg Q6H PRN IV NAUSEA AND/OR VOMITING Last administered on 05/24/17 21:43; Admin Dose 4 MG; Start 05/20/17 at 02:00 Acetaminophen (Tylenol Tab) 650 mg Q6H PRN PO PAIN LEVEL 1-3 OR FEVER Last administered on 05/21/17 23:08; Admin Dose 650 MG; Start 05/20/17 at 02:00 Morphine Sulfate 2 mg 2 mg Q4H PRN IV PAIN LEVEL 7-10; Start 05/20/17 at 02:00 Ceftriaxone Sodium 50 ml @ 100 mls/hr Q24H IVPB Last administered on 06:00; Admin Dose 100 MLS/HR; Start 05/20/17 at 07:00 Azithromycin (Zithromax 500mg/ NS (Pmx)) 250 ml @ 250 mls/hr Q24H IVPB Last administered on 05/25/17 11:35; Admin Dose 250 MLS/HR; Start 05/21/17 at 11:30 Hydrocodone Bit/ Homatropine Methylb (Hycodan Liquid) 5 ml Q4 PRN PO cough Last administered on 05/24/17 21:43; Admin Dose 5 ML; Start 05/22/17 at 19:30 Famotidine 20 mg 20 mg Q12 IV Last administered on 05/25/17 09:15; Admin Dose 20 MG; Start 05/23/17 at 21:00 Sodium Chloride (NS) 1,000 ml @ 100 mls/hr Q10H IV Last administered on 11:33; Admin Dose 100 MLS/HR; Start 05/23/17 at 19:27 PHOEBE HARRIS May 25, 2017 12:10
[2017-05-25 13:30] VITALS: BP 98/53; RESP 18
[2017-05-25 20:22] VITALS: BP 100/49; RESP 20
[2017-05-25] MEDS: HYDROCODONE/HOMATROPINE 5ML CUP PO PRN (22:21)
[2017-05-25] MEDS: ONDANSETRON 4 MG INJ IV PRN (22:21)
[2017-05-26] VITALS (33 sets, daily range): BP systolic 81–121; BP diastolic 51–87; PULSE 73–118; RESP 12–41
[2017-05-26] MEDS: ONDANSETRON 4 MG INJ IV PRN (05:33)
[2017-05-26] MEDS: HYDROCODONE/HOMATROPINE 5ML CUP PO PRN (05:33)
[2017-05-26] MEDS: CEFTRIAXONE 1 GM/50 ML (PMX) 50 ML IVPB SCH (06:07)
[2017-05-26] MEDS: SOD CHLORIDE 0.9% 1,000 ML IV SCH ×2 (08:38→13:27)
[2017-05-26] MEDS: FAMOTIDINE 20 MG INJ IV SCH ×2 (08:38→20:27)
--- NOTE | 2017-05-26 10:23 | CONS ---
Date/Time of Note Date/Time of Note DATE: 05/26/17 TIME: 10:23 Consultation Date/Type/Reason Admit Date/Time May 19, 2017 at 23:53 Type of Consultation: Pulm 24 HR Interval Summary Free Text/Dictation dictated [id number] Exam/Review of Systems Vital Signs Vitals Vital Signs Date Time Temp Pulse Resp B/P Pulse Ox O2 Delivery O2 Flow Rate FiO2 05/26/17 08:08 98.0 79 18 93/51 97 05/26/17 05:08 2.0 05/25/17 00:15 Nasal Cannula Intake and Output 05/25/17 05/25/17 05/26/17 15:00 23:00 07:00 Intake Total 850 ml 1020 ml 750 ml Balance 850 ml 1020 ml 750 ml Results Result Diagram: 05/25/1752805/25/17528 Medications Medications Current Medications Ondansetron HCl (Zofran Inj) 4 mg Q6H PRN IV NAUSEA AND/OR VOMITING Last administered on 05/26/17 05:33; Admin Dose 4 MG; Start 05/20/17 at 02:00 Acetaminophen (Tylenol Tab) 650 mg Q6H PRN PO PAIN LEVEL 1-3 OR FEVER Last administered on 05/21/17 23:08; Admin Dose 650 MG; Start 05/20/17 at 02:00 Morphine Sulfate 2 mg 2 mg Q4H PRN IV PAIN LEVEL 7-10; Start 05/20/17 at 02:00 Ceftriaxone Sodium 50 ml @ 100 mls/hr Q24H IVPB Last administered on 06:07; Admin Dose 100 MLS/HR; Start 05/20/17 at 07:00 Azithromycin (Zithromax 500mg/ NS (Pmx)) 250 ml @ 250 mls/hr Q24H IVPB Last administered on 05/25/17 11:35; Admin Dose 250 MLS/HR; Start 05/21/17 at 11:30 Hydrocodone Bit/ Homatropine Methylb (Hycodan Liquid) 5 ml Q4 PRN PO cough Last administered on 05/26/17 05:33; Admin Dose 5 ML; Start 05/22/17 at 19:30 Famotidine 20 mg 20 mg Q12 IV Last administered on 05/26/17 08:38; Admin Dose 20 MG; Start 05/23/17 at 21:00 Sodium Chloride (NS) 1,000 ml @ 100 mls/hr Q10H IV Last administered on 08:38; Admin Dose 100 MLS/HR; Start 05/23/17 at 19:27 PHOEBE HARRIS May 26, 2017 10:23
[2017-05-26] MEDS ORDERED: LIDOCAINE 2% (MDV) 20 ML INJ ONE (10:25)
--- NOTE | 2017-05-26 11:29 | OPPN ---
Date/Time of Note Date/Time of Note DATE: 05/26/17 TIME: 11:23 Operative Report Preoperative Diagnosis hemoptyses Postoperative Diagnosis massive alveolar hemorrhage Operation/Procedure Performed patient brought to OR. Sedated by anesthesiologist. Topical anesthesia achieved by 1% lidocaine above cords. Bronchoscope introduced via mouth. pharynx was normal. Vocal cords were normal. Bleeding seen in trachea. Massive amounts of fresh blood seen coming from left lung. patient intubated and had O2 desaturation. Required suctioning with improved )2 saturation. Stat CXER showing right upper lobe infiltrate. Bronchoscopy deferred for now. patient to be transferred to ICU intubated. maintained stable blood pressure. Surgeon see signature line financial assistance advisor dR HARRIS Anesthesia: general Estimated blood loss: 100 - 150 ml's Transfusion Required none Specimen BLOOD CLOT LEFT LUNG. Grafts/Implants none Complications none PHOEBE HARRIS May 26, 2017 11:29
--- NOTE | 2017-05-26 11:29 | OPPN ---
Date/Time of Note Date/Time of Note DATE: 05/26/17 TIME: 11:23 Operative Report Preoperative Diagnosis hemoptyses Postoperative Diagnosis massive alveolar hemorrhage Operation/Procedure Performed patient brought to OR. Sedated by anesthesiologist. Topical anesthesia achieved by 1% lidocaine above cords. Bronchoscope introduced via mouth. pharynx was normal. Vocal cords were normal. Bleeding seen in trachea. Massive amounts of fresh blood seen coming from left lung. patient intubated and had O2 desaturation. Required suctioning with improved )2 saturation. Stat CXER showing right upper lobe infiltrate. Bronchoscopy deferred for now. patient to be transferred to ICU intubated. maintained stable blood pressure. Surgeon see signature line veterinary technician assistant dR HARRIS Anesthesia: general Estimated blood loss: 100 - 150 ml's Transfusion Required none Specimen BLOOD CLOT LEFT LUNG. Grafts/Implants none Complications none PHOEBE HARRIS May 26, 2017 11:29
--- NOTE | 2017-05-26 11:55 | CONS ---
DATE OF ADMISSION: 05/19/2017 DATE OF CONSULTATION: 05/26/2017 HISTORY OF PRESENT ILLNESS: Ms. Greene's condition is stable. The patient, however, still pickard ving significant hemoptysis but denies any shortness of breath, fever, chest pain, wheezing. PHYSICAL EXAMINATION: GENERAL: Young woman, awake, alert, currently in no distress. VITAL SIGNS: Temperature 98 degree Fahrenheit, respiratory rate is 18 per minute, heart rate 80 per minute, blood pressure 130/70, O2 sat 95% on room air. HEENT: Supple neck, no JVD, no lymphadenopathy, midline trachea, no thyromegaly. Pharynx clear, no neck bruits. Patient has good dentition. CHEST: Clear to auscultation. HEART: S1, S2 audible. No murmurs, regular rhythm. ABDOMEN: Soft, nontender, nondistended. Bowel sounds audible. EXTREMITIES: No peripheral edema, no clubbing. Pulses 2+ bilaterally. NEUROLOGIC: No focal deficit. MEDICATIONS: Patient currently on Zithromax and Rocephin. All doses were reviewed. ASSESSMENT AND PLAN: The patient admitted for significant hemoptysis. Bilateral nodular infiltrate s most involving the upper lobes. Etiology is unclear. EB stain is negative on sputum sample. RECOMMENDATIONS: Continue current treatment. Patient is scheduled for bronchoscopy. Procedure was discussed in detail with her. She has signed a consent. A transbronchial biopsy from the right up per lobe also would be obtained. Dictated By: PHOEBE ARDON/SEAMUS Conf#: [id number] [facility]#: [id number]
--- NOTE | 2017-05-26 12:07 | RADRPT ---
PROCEDURE: XR Chest 1 View. CLINICAL INDICATION: Shortness of breath. Apophysis. TECHNIQUE: AP view of the chest was obtained. COMPARISON: May 24, 2017 FINDINGS: The cardiomediastinal silhouette is within normal limits. Endotracheal tube has its tip approximatel y 5.2 cm above the david. Patchy infiltrates are seen throughout the right lung. Scattered atelecta sis is noted in the left lower lobe. Osseous structures are intact. IMPRESSION: Endotracheal tube with its tip approximately 5.2 cm above the david. Patchy infiltrates throughout the right lung. Scattered atelectasis in the left lower lobe. RPTAT: AA .Eris Wilson MD, MD Date Time Electronically viewed and signed by .Eris Wilson MD, on 05/26/2017 12:06 .P/
[2017-05-26] MEDS: PROPOFOL 100 ML IV SCH ×3 (12:33→22:37)
[2017-05-26] MEDS ORDERED: METHYLPREDNISOLONE 125 MG INJ IV SCH ×3 (13:14→18:00)
[2017-05-26] MEDS ORDERED: POTASSIUM CHLORIDE 20 MEQ in SOD CHLORIDE 0.9% 100 ML IVPB ONE (14:45)
[2017-05-26] MEDS ORDERED: METHYLPRED. NA SUCC 1,000 MG in DEXTROSE 5% 50 ML IVPB ONE (15:00)
[2017-05-26] MEDS: FENTAnyl (DRIP) 1000 mcg/100mL 100 ML IV SCH (17:53)
[2017-05-26] MEDS: AZITHROMYCIN 500MG/NS (PMX) 250 ML IVPB SCH (18:09)
[2017-05-26] MEDS: METHYLPRED. NA SUCC 250 MG in DEXTROSE 5% 50 ML IV SCH ×2 (20:27→23:28)
--- NOTE | 2017-05-26 21:34 | PN ---
Date/Time of Note Date/Time of Note DATE: 05/26/17 TIME: 21:27 Assessment/Plan VTE Prophylaxis VTE Prophylaxis Intervention: SCD's Lines/Catheters IV C[facility] Type (from [facility] Peripheral IV Urinary Cath still in place: Yes Reason Cath still needed: other (indicate) (monitor I&O) Assessment/Plan Chief Complaint/Hosp Course Assessment and plan 1. Hemoptysis. s/p bronchoscopy with reported moderate hemorrhaging. Intubated now in ICU. Monitor H&H and provide blood products as needed. Workup for vasculitis pending 2. Multifocal pneumonia. Continue with antibiotics. 2 AFB negative so far. Follow-up on final results DVT prophylaxis: Examination. Disposition plan: Status post bronchoscopy with noted moderate hemorrhaging requiring intubation. Bronchoscopy unable to be fully complete due to hemorrhaging. Vasculitis workup pending. Monitor H&H. Provide a blood products as needed. Discussed plan of care with Dr. Merritt Critical CARE time: 30 minutes Problems: Subjective 24 Hr Interval Summary Free Text/Dictation Patient was seen in ICU. Intubated and sedated. Reportedly had large amounts of bleeding during bronchoscopy. H&H remained stable. Family and RN at bedside Exam/Review of Systems Vital Signs Vitals Vital Signs Date Time Temp Pulse Resp B/P Pulse Ox O2 Delivery O2 Flow Rate FiO2 05/26/17 20:30 80 15 95/56 100 05/26/17 20:00 99.1 Mechanical Ventilator 05/26/17 18:00 70 05/26/17 05:08 2.0 Intake and Output 05/25/17 05/25/17 05/26/17 15:00 23:00 07:00 Intake Total 850 ml 1020 ml 800 ml Balance 850 ml 1020 ml 800 ml Exam Constitutional: other (Sedated and intubated) Head: normocephalic Respiratory: other (Diminished bilateral lung torres. Intubated on mechanical ventilation) Cardiovascular: other Gastrointestinal: soft (Regular rate tachycardic), No tender Neurological: other (intubated ) Results Result Diagram: 05/26/17 6788 05/26/17 1205 Results 24 hrs Laboratory Tests Test 05/26/17 12:05 05/26/17 13:15 05/26/17 13:32 05/26/17 14:40 White Blood Count 5.8 Red Blood Count 2.52 L Hemoglobin 7.8 L 9.2 L Hematocrit 23.6 L 26.5 L Mean Corpuscular Volume 93.7 Mean Corpuscular Hemoglobin 31.0 Mean Corpuscular Hemoglobin Concent 33.1 Red Cell Distribution Width 12.8 Platelet Count 144 Mean Platelet Volume 11.2 H Neutrophils % 62.5 Lymphocytes % 30.5 Monocytes % 5.7 Eosinophils % 0.9 Basophils % 0.2 Nucleated Red Blood Cells % 0.0 Neutrophils # 3.6 Lymphocytes # 1.8 Monocytes # 0.3 Eosinophils # 0.1 Basophils # 0.0 Nucleated Red Blood Cells # 0.0 Prothrombin Time 14.7 H Prothrombin Time Ratio 1.1 INR International Normalized Ratio 1.15 Activated Partial Thromboplast Time 26.4 Sodium Level 138 Potassium Level 3.3 L Chloride Level 109 Carbon Dioxide Level 24 Anion Gap 8 Blood Urea Nitrogen 15 Creatinine 0.55 Glucose Level 100 Calcium Level 7.7 L C-Reactive Protein < 0.5 Complement C3 82 L Complement C4 22 Blood Gas Specimen Source Blood arterial Arterial Blood Date Drawn 05/26/2017 1:20:41 PM Arterial Blood pH (Temp corrected) 7.364 Arterial Blood pCO2 (Temp correct) 35.8 Arterial Blood pO2 (Temp corrected) 147.6 H Arterial Blood HCO3 20.0 L Arterial Blood Base Excess -4.8 L Arterial Blood Oxygen Saturation 98.3 H Reginald Test ACCEPTAB Arterial Blood Gas Puncture Site Left Radial Arterial Blood Carboxyhemoglobin 0.2 Arterial Blood Methemoglobin 0.2 Blood Gas A-a O2 Differential 313.0 H Oxyhemoglobin Percent 97.9 Total Hemoglobin 10.1 L Blood Gas Temperature 37.0 Blood Gas Respiration Rate 12.0 Blood Gas Actual Respiration Rate 21 Blood Gas Modality VENT - AC FiO2 70.0 Blood Gas Tidal Volume 400.0 Blood Gas Low PEEP Setting 5.0 Blood Gas Notified Whom JLD Blood Gas Notified Time 05/26/2017 1:41:36 PM Erythrocyte Sedimentation Rate 12 Test 05/26/17 17:58 Hemoglobin 9.5 L Hematocrit 26.8 L Medications Medications Current Medications Ondansetron HCl (Zofran Inj) 4 mg Q6H PRN IV NAUSEA AND/OR VOMITING Last administered on 05/26/17t 05:33; Admin Dose 4 MG; Start 05/20/17 at 02:00 Acetaminophen (Tylenol Tab) 650 mg Q6H PRN PO PAIN LEVEL 1-3 OR FEVER Last administered on 05/21/17 23:08; Admin Dose 650 MG; Start 05/20/17 at 02:00 Morphine Sulfate 2 mg 2 mg Q4H PRN IV PAIN LEVEL 7-10; Start 05/20/17 at 02:00 ; Status Future Hold Ceftriaxone Sodium 50 ml @ 100 mls/hr Q24H IVPB Last administered on 06:07; Admin Dose 100 MLS/HR; Start 05/20/17 at 07:00 Azithromycin (Zithromax 500mg/ NS (Pmx)) 250 ml @ 250 mls/hr Q24H IVPB Last administered on 05/26/17 18:09; Admin Dose 250 MLS/HR; Start 05/21/17 at 11:30 Hydrocodone Bit/ Homatropine Methylb (Hycodan Liquid) 5 ml Q4 PRN PO cough Last administered on 05/26/17 05:33; Admin Dose 5 ML; Start 05/22/17 at 19:30 Famotidine 20 mg 20 mg Q12 IV Last administered on 05/26/17 20:27; Admin Dose 20 MG; Start 05/23/17 at 21:00 Sodium Chloride 1,000 ml @ 100 mls/hr Q10H IV Last administered on 05/26/17 13:27; Admin Dose 100 MLS/HR; Start 05/23/17 at 19:27 Propofol 100 ml @ 1.872 mls/ hr Q12H IV Last administered on 05/26/17 17:53 ; Admin Dose 18.72 MLS/HR; Start 05/26/17 at 12:00 Fentanyl 100 ml @ 2.5 mls/hr TITRATE IV Last administered on 05/26/17 17:53 ; Admin Dose 2.5 MLS/HR; Start 05/26/17 at 12:00 Methylprednisolone Sodium Succinate/ Dextrose (Solu-Medrol/D5W) 54 ml @ 108 mls /hr Q6 IV Last administered on 05/26/17 20:27; Admin Dose 108 MLS/HR; Start 05/26/17 at 20:00 YADIRA SWANSON May 26, 2017 21:34
[2017-05-27] VITALS (67 sets, daily range): BP systolic 82–111; BP diastolic 48–71; PULSE 66–130; RESP 10–20
[2017-05-27] MEDS: SOD CHLORIDE 0.9% 1,000 ML IV SCH ×2 (02:26→12:46)
[2017-05-27] MEDS: METHYLPRED. NA SUCC 250 MG in DEXTROSE 5% 50 ML IV SCH ×4 (06:33→23:56)
[2017-05-27] MEDS: CEFTRIAXONE 1 GM/50 ML (PMX) 50 ML IVPB SCH (06:33)
[2017-05-27] MEDS: PROPOFOL 100 ML IV SCH ×2 (06:43→12:31)
[2017-05-27] MEDS: FAMOTIDINE 20 MG INJ IV SCH ×2 (08:03→20:42)
--- NOTE | 2017-05-27 10:01 | CONS ---
Date/Time of Note Date/Time of Note DATE: 05/27/17 TIME: 09:55 Assessment/Plan Assessment/Plan Additional Assessment/Plan Ventilator settings; assist control of 12, tidal volume 400, PEEP of 5, 45% FiO2. Patient is currently on fentanyl at 50 mics per hour, propofol 25 mics per kilogram per minute. Assessment and recommendations; 1. Patient admitted with hemoptysis and underwent bronchoscopic evaluation yesterday after getting an AFB negative sputum sample. However as soon as the bronchoscope was introduced into the left main stem bronchus, patient had massive alveolar hemorrhage which required intubation. Etiology of alveolar hemorrhage is currently undiagnosed. Patient is awaiting further workup including connective tissue disease workup. Has been started on high-dose Solu- Medrol with significant improvement in alveolar hemorrhage. 2. Anemia. 3. No clinical evidence of any coagulopathy. 4. Bilateral pneumonia with upper lobe nodular predominance. Continue current supportive care. Transfuse 1 unit packed RBC. Will obtain follow-up chest x-ray. Patient will need to have an open lung biopsy performed. Continue Solu-Medrol at current dosing with tapering in the next 24 hours. Current antibiotics as well. 35 minutes of critical care time was spent evaluating the patient. Consultation Date/Type/Reason Admit Date/Time May 19, 2017 at 23:53 Type of Consultation: Pulmonary/critical care 24 HR Interval Summary Free Text/Dictation Patient's condition is critical but stable. Patient underwent bronchoscopy yesterday however as soon as the scope was inserted into the left mainstem bronchus there was a massive gush of blood which was seen coming from the left lower lobe this was followed by intubation by the anesthesiologist, the patient did have O2 desaturation however after intubation the patient was revived successfully and was then transferred to ICU intubated and on mechanical ventilation. A stat chest x-ray was done which is showing increasing right upper lobe infiltrate indicative of alveolar hemorrhage. The patient has not required any blood transfusion or any other blood products. There is marked reduction in hemorrhagic secretions through the endotracheal tube. Patient also has remained hemodynamically stable. General exam; young woman, orally intubated, sedated, currently in no distress. Exam/Review of Systems Vital Signs Vitals Vital Signs Date Time Temp Pulse Resp B/P Pulse Ox O2 Delivery O2 Flow Rate FiO2 05/27/17 08:00 98.7 77 11 94/65 95 Mechanical Ventilator 05/27/17 06:09 45 05/26/17 05:08 2.0 Intake and Output 05/26/17 05/26/17 05/27/17 15:00 23:00 07:00 Intake Total 1634.498 ml 1338.644 ml 1078.496 ml Output Total 1550 ml 1655 ml 270 ml Balance 84.498 ml -316.356 ml 808.496 ml Exam HEENT exam; supple neck, no JVD. No lymphadenopathy. Midline trachea. No thyromegaly. Orally intubated. Patient has fair dentition. Pupils are midsize and reactive to light. Chest exam; clear to auscultation. S1-S2 audible, no murmurs. Regular rhythm. Abdomen exam; soft, no organomegaly. Bowel sounds audible. Abdomen is nondistended. Extremity exam; no edema. Pulses 1+ bilaterally. [employer]IST exam; patient is sedated. Results Result Diagram: 05/27/17 0606 05/27/17 0606 Results 24 hrs Laboratory Tests Test 05/26/17 12:05 05/26/17 13:15 05/26/17 13:32 05/26/17 14:40 White Blood Count 5.8 Red Blood Count 2.52 L Hemoglobin 7.8 L 9.2 L Hematocrit 23.6 L 26.5 L Mean Corpuscular Volume 93.7 Mean Corpuscular Hemoglobin 31.0 Mean Corpuscular Hemoglobin Concent 33.1 Red Cell Distribution Width 12.8 Platelet Count 144 Mean Platelet Volume 11.2 H Neutrophils % 62.5 Lymphocytes % 30.5 Monocytes % 5.7 Eosinophils % 0.9 Basophils % 0.2 Nucleated Red Blood Cells % 0.0 Neutrophils # 3.6 Lymphocytes # 1.8 Monocytes # 0.3 Eosinophils # 0.1 Basophils # 0.0 Nucleated Red Blood Cells # 0.0 Prothrombin Time 14.7 H Prothrombin Time Ratio 1.1 INR International Normalized Ratio 1.15 Activated Partial Thromboplast Time 26.4 Sodium Level 138 Potassium Level 3.3 L Chloride Level 109 Carbon Dioxide Level 24 Anion Gap 8 Blood Urea Nitrogen 15 Creatinine 0.55 Glucose Level 100 Calcium Level 7.7 L C-Reactive Protein < 0.5 Complement C3 82 L Complement C4 22 Blood Gas Specimen Source Blood arterial Arterial Blood Date Drawn 05/26/2017 1:20:41 PM Arterial Blood pH (Temp corrected) 7.364 Arterial Blood pCO2 (Temp correct) 35.8 Arterial Blood pO2 (Temp corrected) 147.6 H Arterial Blood HCO3 20.0 L Arterial Blood Base Excess -4.8 L Arterial Blood Oxygen Saturation 98.3 H Reginald Test ACCEPTAB Arterial Blood Gas Puncture Site Left Radial Arterial Blood Carboxyhemoglobin 0.2 Arterial Blood Methemoglobin 0.2 Blood Gas A-a O2 Differential 313.0 H Oxyhemoglobin Percent 97.9 Total Hemoglobin 10.1 L Blood Gas Temperature 37.0 Blood Gas Respiration Rate 12.0 Blood Gas Actual Respiration Rate 21 Blood Gas Modality VENT - AC FiO2 70.0 Blood Gas Tidal Volume 400.0 Blood Gas Low PEEP Setting 5.0 Blood Gas Notified Whom STEVAND Blood Gas Notified Time 05/26/2017 1:41:36 PM Rheumatoid Factor Screen NEGATIVE Erythrocyte Sedimentation Rate 12 Test 05/26/17 17:58 05/27/17 00:27 05/27/17 05:00 05/27/17 06:06 Hemoglobin 9.5 L 8.0 L 7.5 L Hematocrit 26.8 L 23.5 L 21.9 L Blood Gas Specimen Source Blood arterial Arterial Blood Date Drawn 05/27/2017 5:40:32 AM Arterial Blood pH (Temp corrected) 7.373 Arterial Blood pCO2 (Temp correct) 40.9 Arterial Blood pO2 (Temp corrected) 128.9 H Arterial Blood HCO3 23.3 Arterial Blood Base Excess -1.8 Arterial Blood Oxygen Saturation 97.9 Reginald Test ACCEPTAB Arterial Blood Gas Puncture Site Right Radial Arterial Blood Carboxyhemoglobin 0.3 Arterial Blood Methemoglobin 0.4 Blood Gas A-a O2 Differential 217.8 H Oxyhemoglobin Percent 97.2 Total Hemoglobin 9.0 L Blood Gas Temperature 37.0 Blood Gas Respiration Rate 12.0 Blood Gas Actual Respiration Rate 15 Blood Gas Modality VENT - AC FiO2 55.0 Blood Gas Tidal Volume 400.0 Blood Gas Low PEEP Setting 5.0 Blood Gas Notified Whom MARY JANE Blood Gas Notified Time 05/27/2017 5:54:23 AM White Blood Count 8.5 # Red Blood Count 2.38 L Mean Corpuscular Volume 92.0 Mean Corpuscular Hemoglobin 31.5 Mean Corpuscular Hemoglobin Concent 34.2 Red Cell Distribution Width 12.9 Platelet Count 164 Mean Platelet Volume 11.6 H Neutrophils % 91.5 H Lymphocytes % 7.3 L Monocytes % 0.5 Eosinophils % 0.0 Basophils % 0.0 Nucleated Red Blood Cells % 0.0 Neutrophils # 7.8 H Lymphocytes # 0.6 L Monocytes # 0.0 L Eosinophils # 0.0 Basophils # 0.0 Nucleated Red Blood Cells # 0.0 Sodium Level 138 Potassium Level 4.1 Chloride Level 110 Carbon Dioxide Level 23 Anion Gap 9 Blood Urea Nitrogen 15 Creatinine 0.49 Glucose Level 148 # Calcium Level 8.1 L Magnesium Level 2.0 Medications Medications Current Medications Ondansetron HCl (Zofran Inj) 4 mg Q6H PRN IV NAUSEA AND/OR VOMITING Last administered on 05/26/17 05:33; Admin Dose 4 MG; Start 05/20/17 at 02:00 Acetaminophen (Tylenol Tab) 650 mg Q6H PRN PO PAIN LEVEL 1-3 OR FEVER Last administered on 05/21/17 23:08; Admin Dose 650 MG; Start 05/20/17 at 02:00 Morphine Sulfate 2 mg 2 mg Q4H PRN IV PAIN LEVEL 7-10; Start 05/20/17 at 02:00 ; Status Future Hold Ceftriaxone Sodium 50 ml @ 100 mls/hr Q24H IVPB Last administered on 06:33; Admin Dose 100 MLS/HR; Start 05/20/17 at 07:00 Azithromycin (Zithromax 500mg/ NS (Pmx)) 250 ml @ 250 mls/hr Q24H IVPB Last administered on 05/26/17 18:09; Admin Dose 250 MLS/HR; Start 05/21/17 at 11:30 Hydrocodone Bit/ Homatropine Methylb (Hycodan Liquid) 5 ml Q4 PRN PO cough Last administered on 05/26/17 05:33; Admin Dose 5 ML; Start 05/22/17 at 19:30 Famotidine 20 mg 20 mg Q12 IV Last administered on 05/27/17 08:03; Admin Dose 20 MG; Start 05/23/17 at 21:00 Sodium Chloride 1,000 ml @ 100 mls/hr Q10H IV Last administered on 05/27/17 02:26; Admin Dose 100 MLS/HR; Start 05/23/17 at 19:27 Propofol 100 ml @ 1.872 mls/ hr Q12H IV Last administered on 05/27/17 06:43 ; Admin Dose 11.232 MLS/HR; Start 05/26/17 at 12:00 Fentanyl 100 ml @ 2.5 mls/hr TITRATE IV Last administered on 05/26/17 17:53 ; Admin Dose 2.5 MLS/HR; Start 05/26/17 at 12:00 Methylprednisolone Sodium Succinate/ Dextrose (Solu-Medrol/D5W) 54 ml @ 108 mls /hr Q6 IV Last administered on 05/27/17 06:33; Admin Dose 108 MLS/HR; Start 05/26/17 at 20:00 PHOEBE HARRIS May 27, 2017 10:01
--- NOTE | 2017-05-27 10:16 | RADRPT ---
PROCEDURE: Chest radiograph CLINICAL INDICATION: Hemoptysis. COMPARISON: Radiograph 05/26/2017. TECHNIQUE: Single frontal chest radiograph. FINDINGS: The endotracheal tube terminates approximately 6 cm above the david. The enteric tube courses below the diaphragm of the field of view. Alveolar opacity in the right upper, mid, and lower lung which may represent pneumonia or blood. The left lung is clear. No pleural effusions. The cardiomediastinal silhouette is normal. No suspicious bone lesion. IMPRESSION: 1. Alveolar opacity right upper, mid, and lower lung which may represent pneumonia, edema, or alveo lar blood. 2. All support lines and tubes in appropriate position. RPTAT: AA Physician Eloisa Date Time Electronically viewed and signed by Physician Eloisa on 05/27/2017 10:16 LG/
[2017-05-27] MEDS: AZITHROMYCIN 500MG/NS (PMX) 250 ML IVPB SCH (11:53)
[2017-05-27] MEDS: FENTAnyl (DRIP) 1000 mcg/100mL 100 ML IV SCH (12:31)
--- NOTE | 2017-05-27 14:22 | PN ---
Date/Time of Note Date/Time of Note DATE: 05/27/17 TIME: 14:19 Assessment/Plan VTE Prophylaxis VTE Prophylaxis Intervention: SCD's Lines/Catheters IV C[facility]ter Type (from [facility] Peripheral IV Urinary Cath still in place: Yes Reason Cath still needed: other (indicate) (intubated on ventilator ) Assessment/Plan Assessment/Plan . 1. Acute respiratory failure due to hemoptysis- Intubated on ventilator 2. Hemoptysis s/p Bronchoscopy showed moderate hemorrhaging, vasculitis work up has been sent, pending so far. 3. Multifocal pneumonia. Continue with antibiotics. 2 AFB negative so far. DVT prophylaxis: SCD, no heparin/lovenox due to hemoptysis Subjective 24 Hr Interval Summary Free Text/Dictation remains intubated, s/p bronchoscopy which showed pulmonary hemorrhages and pt required intubation. Subjective hx not possible: pt non-verbal, pt critical status Exam/Review of Systems Vital Signs Vitals Vital Signs Date Time Temp Pulse Resp B/P Pulse Ox O2 Delivery O2 Flow Rate FiO2 05/27/17 12:45 92 15 98/67 96 05/27/17 12:00 99.1 Mechanical Ventilator 05/27/17 11:00 45 05/26/17 05:08 2.0 Intake and Output 05/26/17 05/26/17 05/27/17 15:00 23:00 07:00 Intake Total 1634.498 ml 1338.644 ml 1078.496 ml Output Total 1550 ml 1655 ml 270 ml Balance 84.498 ml -316.356 ml 808.496 ml Exam Constitutional: other (Sedated and intubated) Head: normocephalic Respiratory: other (Diminished bilateral lung torres. Intubated on mechanical ventilation) Cardiovascular: other Gastrointestinal: soft (Regular rate tachycardic), No tender Neurological: other (intubated ) Results Result Diagram: 05/27/17 1156 05/27/17 0606 Results 24 hrs Laboratory Tests Test 05/26/17 14:40 05/26/17 17:58 05/27/17 00:27 05/27/17 05:00 Erythrocyte Sedimentation Rate 12 Hemoglobin 9.5 L 8.0 L Hematocrit 26.8 L 23.5 L Blood Gas Specimen Source Blood arterial Arterial Blood Date Drawn 05/27/2017 5:40:32 AM Arterial Blood pH (Temp corrected) 7.373 Arterial Blood pCO2 (Temp correct) 40.9 Arterial Blood pO2 (Temp corrected) 128.9 H Arterial Blood HCO3 23.3 Arterial Blood Base Excess -1.8 Arterial Blood Oxygen Saturation 97.9 Reginald Test ACCEPTAB Arterial Blood Gas Puncture Site Right Radial Arterial Blood Carboxyhemoglobin 0.3 Arterial Blood Methemoglobin 0.4 Blood Gas A-a O2 Differential 217.8 H Oxyhemoglobin Percent 97.2 Total Hemoglobin 9.0 L Blood Gas Temperature 37.0 Blood Gas Respiration Rate 12.0 Blood Gas Actual Respiration Rate 15 Blood Gas Modality VENT - AC FiO2 55.0 Blood Gas Tidal Volume 400.0 Blood Gas Low PEEP Setting 5.0 Blood Gas Notified Whom MA Blood Gas Notified Time 05/27/2017 5:54:23 AM Test 05/27/17 06:06 05/27/17 11:56 White Blood Count 8.5 # Red Blood Count 2.38 L Hemoglobin 7.5 L 9.0 L Hematocrit 21.9 L 27.0 #L Mean Corpuscular Volume 92.0 Mean Corpuscular Hemoglobin 31.5 Mean Corpuscular Hemoglobin Concent 34.2 Red Cell Distribution Width 12.9 Platelet Count 164 Mean Platelet Volume 11.6 H Neutrophils % 91.5 H Lymphocytes % 7.3 L Monocytes % 0.5 Eosinophils % 0.0 Basophils % 0.0 Nucleated Red Blood Cells % 0.0 Neutrophils # 7.8 H Lymphocytes # 0.6 L Monocytes # 0.0 L Eosinophils # 0.0 Basophils # 0.0 Nucleated Red Blood Cells # 0.0 Sodium Level 138 Potassium Level 4.1 Chloride Level 110 Carbon Dioxide Level 23 Anion Gap 9 Blood Urea Nitrogen 15 Creatinine 0.49 Glucose Level 148 # Calcium Level 8.1 L Magnesium Level 2.0 Medications Medications Current Medications Ondansetron HCl (Zofran Inj) 4 mg Q6H PRN IV NAUSEA AND/OR VOMITING Last administered on 05/26/17 05:33; Admin Dose 4 MG; Start 05/20/17 at 02:00 Acetaminophen (Tylenol Tab) 650 mg Q6H PRN PO PAIN LEVEL 1-3 OR FEVER Last administered on 05/21/17 23:08; Admin Dose 650 MG; Start 05/20/17 at 02:00 Morphine Sulfate 2 mg 2 mg Q4H PRN IV PAIN LEVEL 7-10; Start 05/20/17 at 02:00 ; Status Future Hold Ceftriaxone Sodium 50 ml @ 100 mls/hr Q24H IVPB Last administered on 06:33; Admin Dose 100 MLS/HR; Start 05/20/17 at 07:00 Azithromycin (Zithromax 500mg/ NS (Pmx)) 250 ml @ 250 mls/hr Q24H IVPB Last administered on 05/27/17 11:53; Admin Dose 250 MLS/HR; Start 05/21/17 at 11:30 Hydrocodone Bit/ Homatropine Methylb (Hycodan Liquid) 5 ml Q4 PRN PO cough Last administered on 05/26/17 05:33; Admin Dose 5 ML; Start 05/22/17 at 19:30 Famotidine 20 mg 20 mg Q12 IV Last administered on 05/27/17 08:03; Admin Dose 20 MG; Start 05/23/17 at 21:00 Sodium Chloride 1,000 ml @ 100 mls/hr Q10H IV Last administered on 05/27/17 12:46; Admin Dose 100 MLS/HR; Start 05/23/17 at 19:27 Propofol 100 ml @ 1.872 mls/ hr Q12H IV Last administered on 05/27/17 12:31 ; Admin Dose 11.232 MLS/HR; Start 05/26/17 at 12:00 Fentanyl 100 ml @ 2.5 mls/hr TITRATE IV Last administered on 05/27/17 12:31 ; Admin Dose 5 MLS/HR; Start 05/26/17 at 12:00 Methylprednisolone Sodium Succinate/ Dextrose (Solu-Medrol/D5W) 54 ml @ 108 mls /hr Q6 IV Last administered on 05/27/17 12:37; Admin Dose 108 MLS/HR; Start 05/26/17 at 20:00 MADHU ANTHONY MD May 27, 2017 14:22
--- NOTE | 2017-05-27 15:58 | CONS ---
DATE OF ADMISSION: 05/19/2017 DATE OF CONSULTATION: REASON FOR CONSULTATION: Evaluation for possible lung biopsy. HISTORY OF PRESENT ILLNESS: This is a 47-year-old female admitted because of hemoptysis, underwent a bronchoscopy which was negative except for signs of hemorrhage. The patient does not have a diagn osis at the present time and I have been asked to evaluate the patient for a possible open lung biop sy. PAST MEDICAL HISTORY: Anemia bilateral pneumonia. ALLERGIES: NONE. SOCIAL HISTORY: No smoking, drinking or drug use. MEDICATIONS: List reviewed. PHYSICAL EXAMINATION: GENERAL: The patient is awake. VITAL SIGNS: Blood pressure is 98/67, pulse is 92, respirations 15, saturation 96% on room air. CARDIOVASCULAR: Regular rate and rhythm. LUNGS: Diminished breath sounds at bases. ABDOMEN: Soft. EXTREMITIES: Warm. LABORATORY VALUES: Hemoglobin 9, platelet count 164. INR 1.15 with a PTE of 14.7, PTT of 26.4. Chest CT has been done which has showed patchy airspace opacities throughout both lungs, most consis tent with multifocal pneumonia. IMPRESSION: Multifocal pneumonia, possible vasculitis. RECOMMENDATIONS: We will proceed with video-assisted thoracic surgery, lung biopsy. Discussed with the pulmonary service. Will discuss with the patient. Dictated By: NASH AVENDANO/SEAMUS Conf#: [id number] DID#: [id number]
[2017-05-28] VITALS (35 sets, daily range): BP systolic 83–115; BP diastolic 46–89; PULSE 70–106; RESP 11–25
[2017-05-28] MEDS: PROPOFOL 100 ML IV SCH (02:08)
[2017-05-28] MEDS: SOD CHLORIDE 0.9% 1,000 ML IV SCH ×2 (02:08→16:39)
[2017-05-28] MEDS: CEFTRIAXONE 1 GM/50 ML (PMX) 50 ML IVPB SCH (06:06)
[2017-05-28] MEDS: METHYLPRED. NA SUCC 250 MG in DEXTROSE 5% 50 ML IV SCH (06:06)
[2017-05-28] MEDS: FENTAnyl (DRIP) 1000 mcg/100mL 100 ML IV SCH (06:14)
[2017-05-28] MEDS: FAMOTIDINE 20 MG INJ IV SCH ×2 (09:43→21:08)
--- NOTE | 2017-05-28 09:46 | CONS ---
Date/Time of Note Date/Time of Note DATE: 05/28/17 TIME: 09:45 Consultation Date/Type/Reason Admit Date/Time May 19, 2017 at 23:53 Type of Consultation: Pulmonary/critical care 24 HR Interval Summary Free Text/Dictation dictated [id number] Exam/Review of Systems Vital Signs Vitals Vital Signs Date Time Temp Pulse Resp B/P Pulse Ox O2 Delivery O2 Flow Rate FiO2 05/28/17 08:00 99.0 77 12 98/63 96 Mechanical Ventilator 05/28/17 05:06 45 05/26/17 05:08 2.0 Intake and Output 05/27/17 05/27/17 05/28/17 15:00 23:00 07:00 Intake Total 1230.112 ml 706.464 ml 1054 ml Output Total 370 ml 430 ml 260 ml Balance 860.112 ml 276.464 ml 794 ml Results Result Diagram: 05/28/17 0448 05/28/17 0448 Results 24 hrs Laboratory Tests Test 05/27/17 11:56 05/27/17 18:05 05/28/17 04:48 05/28/17 05:03 Hemoglobin 9.0 L 8.5 L 8.2 L Hematocrit 27.0 #L 24.6 L 23.9 L White Blood Count 12.2 #H Red Blood Count 2.55 L Mean Corpuscular Volume 93.7 Mean Corpuscular Hemoglobin 32.2 Mean Corpuscular Hemoglobin Concent 34.3 Red Cell Distribution Width 13.8 Platelet Count 169 Mean Platelet Volume 11.6 H Neutrophils % 93.3 H Lymphocytes % 4.7 L Monocytes % 1.5 Eosinophils % 0.0 Basophils % 0.1 Nucleated Red Blood Cells % 0.0 Neutrophils # 11.4 H Lymphocytes # 0.6 L Monocytes # 0.2 L Eosinophils # 0.0 Basophils # 0.0 Nucleated Red Blood Cells # 0.0 Sodium Level 140 Potassium Level 3.5 Chloride Level 109 Carbon Dioxide Level 25 Anion Gap 10 Blood Urea Nitrogen 16 Creatinine 0.47 Glucose Level 162 Calcium Level 8.0 L Lab Scanned Report BLOOD TRANSFUSION Medications Medications Current Medications Ondansetron HCl (Zofran Inj) 4 mg Q6H PRN IV NAUSEA AND/OR VOMITING Last administered on 05/26/17t 05:33; Admin Dose 4 MG; Start 05/20/17 at 02:00 Acetaminophen (Tylenol Tab) 650 mg Q6H PRN PO PAIN LEVEL 1-3 OR FEVER Last administered on 05/21/17 23:08; Admin Dose 650 MG; Start 05/20/17 at 02:00 Morphine Sulfate 2 mg 2 mg Q4H PRN IV PAIN LEVEL 7-10; Start 05/20/17 at 02:00 ; Status Future Hold Ceftriaxone Sodium 50 ml @ 100 mls/hr Q24H IVPB Last administered on 06:06; Admin Dose 100 MLS/HR; Start 05/20/17 at 07:00 Azithromycin (Zithromax 500mg/ NS (Pmx)) 250 ml @ 250 mls/hr Q24H IVPB Last administered on 05/27/17 11:53; Admin Dose 250 MLS/HR; Start 05/21/17 at 11:30 Hydrocodone Bit/ Homatropine Methylb (Hycodan Liquid) 5 ml Q4 PRN PO cough Last administered on 05/26/17 05:33; Admin Dose 5 ML; Start 05/22/17 at 19:30 Famotidine 20 mg 20 mg Q12 IV Last administered on 05/27/17 20:42; Admin Dose 20 MG; Start 05/23/17 at 21:00 Sodium Chloride 1,000 ml @ 75 mls/hr [id number] IV Last administered on 02:08; Admin Dose 75 MLS/HR; Start 05/23/17 at 19:27 Propofol 100 ml @ 1.872 mls/ hr Q12H IV Last administered on 05/28/17 02:08 ; Admin Dose 11.232 MLS/HR; Start 05/26/17 at 12:00 Fentanyl 100 ml @ 2.5 mls/hr TITRATE IV Last administered on 05/28/17 06:14 ; Admin Dose 5 MLS/HR; Start 05/26/17 at 12:00 Methylprednisolone Sodium Succinate/ Dextrose (Solu-Medrol/D5W) 54 ml @ 108 mls /hr Q6 IV Last administered on 05/28/17 06:06; Admin Dose 108 MLS/HR; Start 05/26/17 at 20:00 PHOEBE HARRIS May 28, 2017 09:45
--- NOTE | 2017-05-28 12:57 | PN ---
Date/Time of Note Date/Time of Note DATE: 05/28/17 TIME: 12:50 Assessment/Plan VTE Prophylaxis VTE Prophylaxis Intervention: SCD's Lines/Catheters IV C[facility]ter Type (from [facility]): Peripheral IV Urinary Cath still in place: Yes Reason Cath still needed: other (indicate) (monitor I&O) Assessment/Plan Chief Complaint/Hosp Course Assessment and plan 1. Hemoptysis. s/p bronchoscopy with reported moderate hemorrhaging. Was intubated now extubated. Remains in ICU. Tentative plan for lung biopsy. Will follow up. 2. Multifocal pneumonia. Continue with antibiotics. AFB negative 3. 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 DVT prophylaxis: Examination. Disposition plan: Vasculitis workup is pending. Tentative plan for lung biopsy on May 30, 2017. Will follow up Discussed plan of care with Dr. Merritt Critical CARE time: 30 minutes Problems: Subjective 24 Hr Interval Summary Free Text/Dictation Extubated at this time. No reports of shortness of breath. Comfortable at present. Exam/Review of Systems Vital Signs Vitals Vital Signs Date Time Temp Pulse Resp B/P Pulse Ox O2 Delivery O2 Flow Rate FiO2 05/28/17 12:00 94 05/28/17 11:00 16 104/58 93 Mechanical Ventilator 05/28/17 08:00 99.0 05/28/17 05:06 45 05/26/17 05:08 2.0 Intake and Output 05/27/17 05/27/17 05/28/17 15:00 23:00 07:00 Intake Total 1230.112 ml 706.464 ml 1054 ml Output Total 370 ml 430 ml 260 ml Balance 860.112 ml 276.464 ml 794 ml Exam Constitutional: alert, oriented Psych: nl mood/affect Head: normocephalic Eyes: nl conjunctiva Neck: non-tender, supple Respiratory: clear to auscultation, normal air movement Cardiovascular: regular rate and rhythm Gastrointestinal: non-tender, soft Extremities: normal pulses Neurological: nl mental status, nl speech Skin: nl turgor Results Result Diagram: 05/28/17 0448 05/28/17 0448 Results 24 hrs Laboratory Tests Test 05/27/17 18:05 05/28/17 04:48 05/28/17 05:03 Hemoglobin 8.5 L 8.2 L Hematocrit 24.6 L 23.9 L White Blood Count 12.2 #H Red Blood Count 2.55 L Mean Corpuscular Volume 93.7 Mean Corpuscular Hemoglobin 32.2 Mean Corpuscular Hemoglobin Concent 34.3 Red Cell Distribution Width 13.8 Platelet Count 169 Mean Platelet Volume 11.6 H Neutrophils % 93.3 H Lymphocytes % 4.7 L Monocytes % 1.5 Eosinophils % 0.0 Basophils % 0.1 Nucleated Red Blood Cells % 0.0 Neutrophils # 11.4 H Lymphocytes # 0.6 L Monocytes # 0.2 L Eosinophils # 0.0 Basophils # 0.0 Nucleated Red Blood Cells # 0.0 Sodium Level 140 Potassium Level 3.5 Chloride Level 109 Carbon Dioxide Level 25 Anion Gap 10 Blood Urea Nitrogen 16 Creatinine 0.47 Glucose Level 162 Calcium Level 8.0 L Lab Scanned Report BLOOD TRANSFUSION Medications Medications Current Medications Ondansetron HCl (Zofran Inj) 4 mg Q6H PRN IV NAUSEA AND/OR VOMITING Last administered on 05/26/17 05:33; Admin Dose 4 MG; Start 05/20/17 at 02:00 Acetaminophen (Tylenol Tab) 650 mg Q6H PRN PO PAIN LEVEL 1-3 OR FEVER Last administered on 05/21/17 23:08; Admin Dose 650 MG; Start 05/20/17 at 02:00 Morphine Sulfate 2 mg 2 mg Q4H PRN IV PAIN LEVEL 7-10; Start 05/20/17 at 02:00 ; Status Future Hold Ceftriaxone Sodium 50 ml @ 100 mls/hr Q24H IVPB Last administered on 06:06; Admin Dose 100 MLS/HR; Start 05/20/17 at 07:00 Azithromycin (Zithromax 500mg/ NS (Pmx)) 250 ml @ 250 mls/hr Q24H IVPB Last administered on 05/27/17 11:53; Admin Dose 250 MLS/HR; Start 05/21/17 at 11:30 Hydrocodone Bit/ Homatropine Methylb (Hycodan Liquid) 5 ml Q4 PRN PO cough Last administered on 05/26/17 05:33; Admin Dose 5 ML; Start 05/22/17 at 19:30 Famotidine 20 mg 20 mg Q12 IV Last administered on 05/28/17 09:43; Admin Dose 20 MG; Start 05/23/17 at 21:00 Sodium Chloride 1,000 ml @ 75 mls/hr [id number] IV Last administered on 02:08; Admin Dose 75 MLS/HR; Start 05/23/17 at 19:27 Propofol 100 ml @ 1.872 mls/ hr Q12H IV Last administered on 05/28/17 02:08 ; Admin Dose 11.232 MLS/HR; Start 05/26/17 at 12:00 Fentanyl (Sublimaze) 100 ml @ 2.5 mls/hr TITRATE IV Last administered on 05/28 06:14; Admin Dose 5 MLS/HR; Start 05/26/17 at 12:00 Methylprednisolone Sodium Succinate (Solu-Medrol) 125 mg Q8 IV ; Start at 14:00 YADIRA SWANSON May 28, 2017 12:57
[2017-05-28] MEDS: AZITHROMYCIN 500MG/NS (PMX) 250 ML IVPB SCH (12:59)
--- NOTE | 2017-05-28 13:55 | CONS ---
DATE OF ADMISSION: 05/19/2017 DATE OF CONSULTATION: 05/28/2017 HISTORY OF PRESENT ILLNESS: Ms. Greene's condition remains critical, but stable. The patient despite being on sedation is completely awake, alert and has remained hemodynamically stable. There has been marked reduction in hemorrhagic secretions coming from the endotracheal tube. GENERAL: Young woman, awake, alert, currently in no distress, orally intubated. VITAL SIGNS: Temperature 98 degree Fahrenheit, respiratory rate is 18 per minute, heart rate 80 per minute, blood pressure 110/70, O2 sat 98% on current ventilator settings. HEENT: Supple neck, no JVD, no lymphadenopathy, midline trachea, no thyromegaly , orally intubated. Patient has fair dentition. Pupils are mid-size, reactive to light. CHEST: Clear to auscultation. HEART: S1, S2 audible. No murmurs, regular rhythm. ABDOMEN: Soft, nontender, nondistended. Bowel sounds audible. EXTREMITIES: No edema, no clubbing. NEUROLOGIC: No focal deficit. LABORATORY DATA: Today white count is 12.2, hemoglobin 8.2, platelet count of 169. BNP panel is normal. MEDICATIONS: Reviewed. The patient is currently on Solu-Medrol 250 mg q.6h. Intravenous Zithromax and Rocephin. Other medications were reviewed as well. Ventilator settings are AC of 12, tidal volume 400, PEEP of 5, 35% FIO2. The patient is currently on propofol 25 mcg/kg per minute and fentanyl 50 mcg per hour. ASSESSMENT AND PLAN: 1. Patient admitted with hemoptysis with CT scan and chest x-ray findings showing multifocal nodular infiltrates with upper lobe predominance. The patient underwent bronchoscopic evaluation; however, as soon as the scope was introduced in the left mainstem there was massive amount of blood seen coming through the left main stem bronchus. The procedure was aborted. The patient did not undergo any kind of biopsy, was intubated and transferred to ICU and started on high dose Solu-Medrol with marked clinical improvement. 2. Possible underlying vasculitis. 3. Anemia, status post 1 unit packed RBC transfusion yesterday. RECOMMENDATIONS: Currently, she is doing well. I would recommend extubating her. The patient has been seen by Dr. Ennis, the cardiothoracic surgeon and is scheduled for open lung biopsy sometime early next week. I did have a very detailed discussion with the patient's at bedside and answered all his questions. Meanwhile Solu-Medrol dosing would be reduced to 125 mg q.6 hours for an additional 24 hours. We will obtain followup chest x-ray in 24 hours as well. Dictated By: PHOEBE ARDON/SEAMUS Conf#: [id number] DID#: [id number] MTDD
[2017-05-28] MEDS: METHYLPREDNISOLONE 125 MG INJ IV SCH ×2 (15:43→21:08)
--- NOTE | 2017-05-28 15:52 | PN ---
Date/Time of Note Date/Time of Note DATE: 05/28/17 TIME: 15:52 Assessment/Plan Lines/Catheters IV Catheter Type (from Nrsg): Peripheral IV Carlson in Place (from Nrsg): Yes Assessment/Plan Chief Complaint/Hosp Course IMPRESSION: Multifocal pneumonia, possible vasculitis. RECOMMENDATIONS: We will proceed with video-assisted thoracic surgery, lung biopsy.next week Discussed with the pulmonary service. Will discuss with the patient. Problems: Subjective 24 Hr Interval Summary Constitutional: improved Pain Control: mild Exam/Review of Systems Vital Signs Vitals Vital Signs Date Time Temp Pulse Resp B/P Pulse Ox O2 Delivery O2 Flow Rate FiO2 05/28/17 12:00 94 05/28/17 11:00 16 104/58 93 Mechanical Ventilator 05/28/17 09:44 3.0 05/28/17 08:37 35 05/28/17 08:00 99.0 Intake and Output 05/27/17 05/27/17 05/28/17 15:00 23:00 07:00 Intake Total 1230.112 ml 706.464 ml 1054 ml Output Total 370 ml 430 ml 260 ml Balance 860.112 ml 276.464 ml 794 ml Exam Neck: non-tender, supple Respiratory: clear to auscultation, normal air movement Cardiovascular: nl pulses, regular rate and rhythm Results Result Diagram: 05/28/178 05/28/17447 NASH ZAVALA MD May 28, 2017 15:52
[2017-05-29] VITALS (24 sets, daily range): BP systolic 91–118; BP diastolic 56–80; PULSE 56–98; RESP 15–25
[2017-05-29] MEDS: CEFTRIAXONE 1 GM/50 ML (PMX) 50 ML IVPB SCH (06:35)
[2017-05-29] MEDS: METHYLPREDNISOLONE 125 MG INJ IV SCH (06:35)
[2017-05-29] MEDS: SOD CHLORIDE 0.9% 1,000 ML IV SCH ×2 (06:35→20:48)
[2017-05-29] MEDS: FAMOTIDINE 20 MG INJ IV SCH ×2 (08:34→20:46)
--- NOTE | 2017-05-29 09:02 | RADRPT ---
PROCEDURE: XR Chest 1 View. CLINICAL INDICATION: Shortness of breath. TECHNIQUE: AP view of the chest was obtained. COMPARISON: May 27, 2017 FINDINGS: The cardiomediastinal silhouette is within normal limits. Patchy infiltrates throughout the right kari ng have decreased. Mild residual remains. Scattered atelectasis is noted in the left lower lobe. End otracheal and nasogastric tubes have been removed. Osseous structures are intact. IMPRESSION: Interval decrease in patchy infiltrates throughout the right lung. Mild residual remains. Scattered atelectasis in the left lower lobe. RPTAT: AA .Eris Wilson MD, Date Time Electronically viewed and signed by .Eris Wilson MD, on 05/29/2017 09:02 .P/
--- NOTE | 2017-05-29 09:42 | PN ---
Date/Time of Note Date/Time of Note DATE: 05/29/17 TIME: 09:41 Assessment/Plan Lines/Catheters IV Catheter Type (from Nrs): Peripheral IV Carlson in Place (from Nrsg): Yes Assessment/Plan Chief Complaint/Hosp Course IMPRESSION: Multifocal pneumonia, possible vasculitis. RECOMMENDATIONS: We will proceed with video-assisted thoracic surgery, lung biopsy.tomorrow Discussed with the pulmonary service. Will discuss with the patient. Problems: Subjective 24 Hr Interval Summary Constitutional: improved Pain Control: mild Exam/Review of Systems Vital Signs Vitals Vital Signs Date Time Temp Pulse Resp B/P Pulse Ox O2 Delivery O2 Flow Rate FiO2 05/29/17 08:00 66 05/29/17 07:00 20 103/62 94 Nasal Cannula 2.0 05/29/17 00:00 99.3 05/28/17 08:37 35 Intake and Output 05/28/17 05/28/17 05/29/17 15:00 23:00 07:00 Intake Total 867.448 ml 600 ml 575 ml Output Total 730 ml 1380 ml 425 ml Balance 137.448 ml -780 ml 150 ml Exam ENMT: mucosa pink and moist, nl external ears & nose, nl lips & teeth, nl nasal mucosa & septum Neck: non-tender, supple Respiratory: clear to auscultation, normal air movement Cardiovascular: nl pulses, regular rate and rhythm Results Result Diagram: 05/29/177 05/29/17 0427 NAHS ZAVALA MD May 29, 2017 09:42
--- NOTE | 2017-05-29 10:13 | CONS ---
Date/Time of Note Date/Time of Note DATE: 05/29/17 TIME: 10:09 Assessment/Plan Assessment/Plan Additional Assessment/Plan Chest x-ray was reviewed from today which is showing marked improvement in extensive right ill without infiltrates. Next Assessment and recommendations; 1. Patient admitted with significant hemoptysis due to alveolar hemorrhage, etiology is unclear at this point. Possibly underlying vasculitis. Connective tissue disease workup is pending. 2. Patient underwent bronchoscopic evaluation however as soon as the bronchoscope was introduced into the left mainstem bronchus there was a massive gush of blood seen coming through the left lower lobe requiring intubation and transferring the patient to ICU however patient has done very well over the last 48 hours and is now extubated with marked radiological and clinical improvement. 3. Anemia with stable hematocrit. Decrease Solu-Medrol to 40 mg every 8 hours. Continue current antibiotics. Patient potentially could benefit from a repeat CT of the chest prior to subjecting her to open lung biopsy. I would recommend waiting 48 hours for reassessment. Meanwhile continue current supportive care. Consultation Date/Type/Reason Admit Date/Time May 19, 2017 at 23:53 Type of Consultation: Pulmonary/critical care 24 HR Interval Summary Free Text/Dictation Patient's condition is stable. She was extubated yesterday afternoon. Patient denies any further hemoptysis. Complains of very minimal shortness of breath. Denies any chest pain, fever or chills. General exam; young woman, awake alert, currently in no distress. Exam/Review of Systems Vital Signs Vitals Vital Signs Date Time Temp Pulse Resp B/P Pulse Ox O2 Delivery O2 Flow Rate FiO2 05/29/17 08:00 66 05/29/17 08:00 Nasal Cannula 2.0 05/29/17 07:00 20 103/62 94 05/29/17 00:00 99.3 05/28/17 08:37 35 Intake and Output 05/28/17 05/28/17 05/29/17 15:00 23:00 07:00 Intake Total 867.448 ml 600 ml 575 ml Output Total 730 ml 1380 ml 425 ml Balance 137.448 ml -780 ml 150 ml Exam HEENT exam; supple neck, no JVD. No lymphadenopathy. Midline trachea. No thyromegaly. Pharynx is clear. Patient has fair dentition. Chest exam; clear to auscultation. S1-S2 audible, no murmurs. Regular rhythm. Abdomen exam; soft, nontender. No organomegaly. Bowel sounds audible. Extremity exam; no peripheral edema. No clubbing. Pulses 1+ bilaterally. PLASTICS FABRICATOR OR WELDER exam; no focal deficit. Results Result Diagram: 05/29/177 05/29/17426 Results 24 hrs Laboratory Tests Test 05/29/17 04:27 White Blood Count 10.9 H Red Blood Count 2.60 L Hemoglobin 8.5 L Hematocrit 24.5 L Mean Corpuscular Volume 94.2 Mean Corpuscular Hemoglobin 32.7 Mean Corpuscular Hemoglobin Concent 34.7 Red Cell Distribution Width 14.2 Platelet Count 164 Mean Platelet Volume 11.5 H Neutrophils % 88.0 H Lymphocytes % 5.5 L Monocytes % 5.6 Eosinophils % 0.0 Basophils % 0.0 Nucleated Red Blood Cells % 0.0 Neutrophils # 9.6 H Lymphocytes # 0.6 L Monocytes # 0.6 Eosinophils # 0.0 Basophils # 0.0 Nucleated Red Blood Cells # 0.0 Sodium Level 143 Potassium Level 3.4 L Chloride Level 110 Carbon Dioxide Level 26 Anion Gap 10 Blood Urea Nitrogen 13 Creatinine 0.43 L Glucose Level 145 Calcium Level 7.9 L Medications Medications Current Medications Ondansetron HCl (Zofran Inj) 4 mg Q6H PRN IV NAUSEA AND/OR VOMITING Last administered on 05/26/17 05:33; Admin Dose 4 MG; Start 05/20/17 at 02:00 Acetaminophen (Tylenol Tab) 650 mg Q6H PRN PO PAIN LEVEL 1-3 OR FEVER Last administered on 05/21/17 23:08; Admin Dose 650 MG; Start 05/20/17 at 02:00 Morphine Sulfate 2 mg 2 mg Q4H PRN IV PAIN LEVEL 7-10; Start 05/20/17 at 02:00 ; Status Future Hold Ceftriaxone Sodium 50 ml @ 100 mls/hr Q24H IVPB Last administered on 06:35; Admin Dose 100 MLS/HR; Start 05/20/17 at 07:00 Azithromycin (Zithromax 500mg/ NS (Pmx)) 250 ml @ 250 mls/hr Q24H IVPB Last administered on 05/28/17 12:59; Admin Dose 250 MLS/HR; Start 05/21/17 at 11:30 Hydrocodone Bit/ Homatropine Methylb (Hycodan Liquid) 5 ml Q4 PRN PO cough Last administered on 05/26/17 05:33; Admin Dose 5 ML; Start 05/22/17 at 19:30 Famotidine 20 mg 20 mg Q12 IV Last administered on 05/29/17 08:34; Admin Dose 20 MG; Start 05/23/17 at 21:00 Sodium Chloride (NS) 1,000 ml @ 75 mls/hr [id number] IV Last administered on 06:35; Admin Dose 75 MLS/HR; Start 05/23/17 at 19:27 Methylprednisolone Sodium Succinate (Solu-Medrol) 125 mg Q8 IV Last administered on 05/29/17 06:35; Admin Dose 125 MG; Start 05/28/17 at 14:00 PHOEBE HARRIS May 29, 2017 10:13
[2017-05-29] MEDS: HYDROCODONE/HOMATROPINE 5ML CUP PO PRN (12:04)
[2017-05-29] MEDS: AZITHROMYCIN 500MG/NS (PMX) 250 ML IVPB SCH (12:04)
--- NOTE | 2017-05-29 13:39 | PN ---
Date/Time of Note Date/Time of Note DATE: 05/29/17 TIME: 13:37 Assessment/Plan VTE Prophylaxis VTE Prophylaxis Intervention: SCD's Lines/Catheters IV [facility] Type (from [facility] Peripheral IV Urinary Cath still in place: Yes Reason Cath still needed: other (indicate) (monitor I&O) Assessment/Plan Chief Complaint/Hosp Course Assessment and plan 1. Hemoptysis. s/p bronchoscopy with reported moderate hemorrhaging. Was intubated now extubated. Remains in ICU. Tentative plan for lung biopsy. Will follow up. 2. Multifocal pneumonia. Continue with antibiotics. AFB negative 3. Follow- up with supervisor scouring pads recommendations. Chest x-ray slightly improved. Continue pulmonary regimen. DVT prophylaxis: Ambulation and SCDs Disposition plan: Vasculitis workup is pending. Tentative plan for lung biopsy on May 30, 2017. Check a.m. labs. Antitussives added for cough. Discussed plan of care with Dr. Merritt Critical CARE time: 30 minutes Problems: Subjective 24 Hr Interval Summary Free Text/Dictation Alert and oriented. No signs of distress at this time. No further reports of hemoptysis. Family remains at bedside. Exam/Review of Systems Vital Signs Vitals Vital Signs Date Time Temp Pulse Resp B/P Pulse Ox O2 Delivery O2 Flow Rate FiO2 05/29/17 10:00 78 23 96/73 94 Nasal Cannula 2.0 05/29/17 08:00 98.4 05/28/17 08:37 35 Intake and Output 05/28/17 05/28/17 05/29/17 15:00 23:00 07:00 Intake Total 867.448 ml 600 ml 575 ml Output Total 730 ml 1380 ml 600 ml Balance 137.448 ml -780 ml -25 ml Exam Constitutional: alert, oriented Psych: nl mood/affect Head: normocephalic Eyes: nl conjunctiva Neck: non-tender, supple Respiratory: clear to auscultation, normal air movement Cardiovascular: regular rate and rhythm Gastrointestinal: non-tender, soft Extremities: normal pulses Neurological: nl mental status, nl speech Skin: nl turgor Results Result Diagram: 05/29/177 05/29/17426 Results 24 hrs Laboratory Tests Test 05/29/17 04:27 White Blood Count 10.9 H Red Blood Count 2.60 L Hemoglobin 8.5 L Hematocrit 24.5 L Mean Corpuscular Volume 94.2 Mean Corpuscular Hemoglobin 32.7 Mean Corpuscular Hemoglobin Concent 34.7 Red Cell Distribution Width 14.2 Platelet Count 164 Mean Platelet Volume 11.5 H Neutrophils % 88.0 H Lymphocytes % 5.5 L Monocytes % 5.6 Eosinophils % 0.0 Basophils % 0.0 Nucleated Red Blood Cells % 0.0 Neutrophils # 9.6 H Lymphocytes # 0.6 L Monocytes # 0.6 Eosinophils # 0.0 Basophils # 0.0 Nucleated Red Blood Cells # 0.0 Sodium Level 143 Potassium Level 3.4 L Chloride Level 110 Carbon Dioxide Level 26 Anion Gap 10 Blood Urea Nitrogen 13 Creatinine 0.43 L Glucose Level 145 Calcium Level 7.9 L Medications Medications Current Medications Ondansetron HCl (Zofran Inj) 4 mg Q6H PRN IV NAUSEA AND/OR VOMITING Last administered on 05/26/17 05:33; Admin Dose 4 MG; Start 05/20/17 at 02:00 Acetaminophen (Tylenol Tab) 650 mg Q6H PRN PO PAIN LEVEL 1-3 OR FEVER Last administered on 05/21/17 23:08; Admin Dose 650 MG; Start 05/20/17 at 02:00 Morphine Sulfate 2 mg 2 mg Q4H PRN IV PAIN LEVEL 7-10; Start 05/20/17 at 02:00 ; Status Future Hold Ceftriaxone Sodium 50 ml @ 100 mls/hr Q24H IVPB Last administered on 06:35; Admin Dose 100 MLS/HR; Start 05/20/17 at 07:00 Azithromycin (Zithromax 500mg/ NS (Pmx)) 250 ml @ 250 mls/hr Q24H IVPB Last administered on 05/29/17 12:04; Admin Dose 250 MLS/HR; Start 05/21/17 at 11:30 Hydrocodone Bit/ Homatropine Methylb (Hycodan Liquid) 5 ml Q4 PRN PO cough Last administered on 05/29/17 12:04; Admin Dose 5 ML; Start 05/22/17 at 19:30 Famotidine 20 mg 20 mg Q12 IV Last administered on 05/29/17 08:34; Admin Dose 20 MG; Start 05/23/17 at 21:00 Sodium Chloride (NS) 1,000 ml @ 75 mls/hr [id number] IV Last administered on t 06:35; Admin Dose 75 MLS/HR; Start 05/23/17 at 19:27 Methylprednisolone Sodium Succinate (Solu-Medrol) 40 mg Q8 IV ; Start 05/29/17 at 14:00 Benzonatate (Tessalon) 200 mg TID PO ; Start 05/29/17 at 14:00 Guaifenesin/ Codeine Phosphate (Robitussin Ac Liquid Cup) 5 ml Q4H PRN PO cough ; Start 05/29/17 at 13:00 YADIRA SWANSON May 29, 2017 13:39
[2017-05-29] MEDS ORDERED: POTASSIUM CHLORIDE (SR) 20 MEQ TAB PO STA (13:45)
[2017-05-29] MEDS: METHYLPREDNISOLONE 40 MG INJ IV SCH ×2 (14:45→20:48)
[2017-05-29] MEDS: BENZONATATE 100 MG CAP PO SCH ×2 (14:45→20:46)
[2017-05-29] MEDS: GUAIFENESIN/CODEINE 5ML CUP PO PRN ×2 (18:27→21:23)
[2017-05-30] VITALS (35 sets, daily range): BP systolic 96–143; BP diastolic 60–81; PULSE 50–83; RESP 12–26
[2017-05-30] MEDS: CEFTRIAXONE 1 GM/50 ML (PMX) 50 ML IVPB SCH (05:22)
[2017-05-30] MEDS: METHYLPREDNISOLONE 40 MG INJ IV SCH ×3 (05:22→22:18)
[2017-05-30] MEDS: SOD CHLORIDE 0.9% 1,000 ML IV SCH ×2 (05:22→22:20)
[2017-05-30] MEDS: FAMOTIDINE 20 MG INJ IV SCH ×2 (08:13→20:54)
[2017-05-30] MEDS: BENZONATATE 100 MG CAP PO SCH ×3 (08:13→21:00)
--- NOTE | 2017-05-30 08:52 | PN ---
Date/Time of Note Date/Time of Note DATE: 05/30/17 TIME: 08:51 Assessment/Plan VTE Prophylaxis VTE Prophylaxis Intervention: SCD's Lines/Catheters IV [facility] Type [facility]from [facility] Saline Lock Urinary Cath still in place: Yes Reason Cath still needed: other (indicate) Assessment/Plan Chief Complaint/Hosp Course 1. Hemoptysis. Etiology unclear. Possible underlying vasculitis. Chest CT showing patchy airspace opacities in both lungs consistent with multifocal pneumonia. Status post bronchoscopy on 05/26/2017 that revealed bleeding in the trachea and massive amounts of fresh blood coming from the left lung. The patient was consequently intubated and transferred to ICU. The patient was later extubated. Plan for VATS and lung biopsy. 2. Bilateral patchy airspace opacities suggesting multifocal pneumonia. Continue treatment for community acquired pneumonia. 3. Anemia secondary to acute blood loss. Status post transfusion of blood products 4. Fluids, electrolytes, and nutrition. Regular diet. Currently NPO for procedure. 5. DVT prophylaxis. SCDs. 5. Plan. Await VATS and lung biopsy today. Case discussed with Dr. White. Critical Care time: 35 minutes. Plan of care was explained to the patient and the family. Problems: Subjective 24 Hr Interval Summary Free Text/Dictation Anxious about the surgery today. Denies any pain. Exam/Review of Systems Vital Signs Vitals Vital Signs Date Time Temp Pulse Resp B/P Pulse Ox O2 Delivery O2 Flow Rate FiO2 05/30/17 08:00 61 05/30/17 06:00 18 89 Nasal Cannula 5.0 05/30/17 04:00 98.1 05/28/17 08:37 35 Intake and Output 05/29/17 05/29/17 05/30/17 15:00 23:00 07:00 Intake Total 1240 ml 355 ml 1075 ml Output Total 1575 ml 400 ml 750 ml Balance -335 ml -45 ml 325 ml Exam General: Adequately build 46 year-old female lying in bed in no apparent distress. HEENT: Normocephalic, atraumatic. Eyes: Anicteric sclerae, conjunctivae clear. ENT: Nasal septum midline, oral mucosa moist. Neck supple, no JVD noticed. Respiratory: Bilaterally clear breath sounds. No use of accessory muscles of respiration. No adventitious breath sounds. Cardiovascular: S1, S2 heard. No murmurs or gallops. Abdomen: Soft, nontender, and nondistended. Bowel sounds positive in all 4 quadrants. Genitourinary: Deferred. Extremities: No cyanosis, no clubbing, no edema. Peripheral pulses palpable. Neurologic: Cranial nerves II through XII grossly intact. The patient is awake, alert, and oriented. Skin: Normal skin turgor. No skin rashes. Results Result Diagram: 05/30/17 0445 05/30/17 0445 Results 24 hrs Laboratory Tests Test 05/30/17 04:45 White Blood Count 10.6 Red Blood Count 2.75 L Hemoglobin 8.8 L Hematocrit 26.2 L Mean Corpuscular Volume 95.3 Mean Corpuscular Hemoglobin 32.0 Mean Corpuscular Hemoglobin Concent 33.6 Red Cell Distribution Width 14.0 Platelet Count 161 Mean Platelet Volume 11.3 H Neutrophils % 85.0 H Lymphocytes % 7.4 L Monocytes % 6.7 Eosinophils % 0.0 Basophils % 0.1 Nucleated Red Blood Cells % 0.2 H Neutrophils # 9.0 H Lymphocytes # 0.8 Monocytes # 0.7 Eosinophils # 0.0 Basophils # 0.0 Nucleated Red Blood Cells # 0.0 Prothrombin Time 15.1 H Prothrombin Time Ratio 1.2 INR International Normalized Ratio 1.18 Activated Partial Thromboplast Time 24.8 L Sodium Level 142 Potassium Level 3.6 Chloride Level 109 Carbon Dioxide Level 28 Anion Gap 9 Blood Urea Nitrogen 15 Creatinine 0.45 Glucose Level 128 Calcium Level 8.4 Medications Medications Current Medications Ondansetron HCl (Zofran Inj) 4 mg Q6H PRN IV NAUSEA AND/OR VOMITING Last administered on 05/26/17 05:33; Admin Dose 4 MG; Start 05/20/17 at 02:00 Acetaminophen (Tylenol Tab) 650 mg Q6H PRN PO PAIN LEVEL 1-3 OR FEVER Last administered on 05/21/17 23:08; Admin Dose 650 MG; Start 05/20/17 at 02:00 Morphine Sulfate 2 mg 2 mg Q4H PRN IV PAIN LEVEL 7-10; Start 05/20/17 at 02:00 ; Status Future Hold Ceftriaxone Sodium 50 ml @ 100 mls/hr Q24H IVPB Last administered on 05:22; Admin Dose 100 MLS/HR; Start 05/20/17 at 07:00 Azithromycin (Zithromax 500mg/ NS (Pmx)) 250 ml @ 250 mls/hr Q24H IVPB Last administered on 05/29/17 12:04; Admin Dose 250 MLS/HR; Start 05/21/17 at 11:30 Hydrocodone Bit/ Homatropine Methylb (Hycodan Liquid) 5 ml Q4 PRN PO cough Last administered on 05/29/17 12:04; Admin Dose 5 ML; Start 05/22/17 at 19:30 Famotidine 20 mg 20 mg Q12 IV Last administered on 05/30/17 08:13; Admin Dose 20 MG; Start 05/23/17 at 21:00 Sodium Chloride (NS) 1,000 ml @ 75 mls/hr [id number] IV Last administered on 05:22; Admin Dose 75 MLS/HR; Start 05/23/17 at 19:27 Methylprednisolone Sodium Succinate (Solu-Medrol) 40 mg Q8 IV Last administered on 05/30/17 05:22; Admin Dose 40 MG; Start 05/29/17 at 14:00 Benzonatate (Tessalon) 200 mg TID PO Last administered on 05/30/17 08:13; Admin Dose 200 MG; Start 05/29/17 at 14:00 Guaifenesin/ Codeine Phosphate (Robitussin Ac Liquid Cup) 5 ml Q4H PRN PO cough Last administered on 05/29/17 21:23; Admin Dose 5 ML; Start 05/29/17 at 13:00 KIKI FERREIRA NP May 30, 2017 08:52
--- NOTE | 2017-05-30 10:39 | CONS ---
Date/Time of Note Date/Time of Note DATE: 05/30/17 TIME: 10:37 Assessment/Plan Assessment/Plan Additional Assessment/Plan Assessment and recommendations; 1. Patient admitted with bilateral upper lobe pulmonary alveolar hemorrhage with significant interval improvement. Vasculitis workup is still pending. 2. Status post respiratory failure due to massive irregular hemorrhage now status post extubation. 3. Anemia. 4. No peripheral stigmata of any connective tissue disorder. 5. Preserved renal function. Patient scheduled for open lung biopsy today. Will decrease Solu-Medrol dosing. Consultation Date/Type/Reason Admit Date/Time May 19, 2017 at 23:53 Type of Consultation: Pulmonary/critical care 24 HR Interval Summary Free Text/Dictation Patient's condition remains stable. Denies any further hemoptysis. Denies any shortness of breath. General exam; young female, awake alert, currently in no distress. Exam/Review of Systems Vital Signs Vitals Vital Signs Date Time Temp Pulse Resp B/P Pulse Ox O2 Delivery O2 Flow Rate FiO2 05/30/17 10:00 73 22 109/71 92 Nasal Cannula 5.0 05/30/17 08:00 98.1 05/28/17 08:37 35 Intake and Output 05/29/17 05/29/17 05/30/17 15:00 23:00 07:00 Intake Total 1240 ml 355 ml 1200 ml Output Total 1575 ml 400 ml 975 ml Balance -335 ml -45 ml 225 ml Exam HEENT exam; supple neck, no JVD. No lymphadenopathy. Midline trachea. No thyromegaly. Pharynx is clear. Patient has good dentition. Chest exam; clear to auscultation. S1-S2 audible, no murmurs. Regular rhythm. Abdomen exam; soft, no organomegaly. Bowel sounds audible. Extremity exam; no peripheral edema. No clubbing. Pulses 2+ bilaterally. 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 Results Result Diagram: 05/30/17 0445 05/30/17 0445 Results 24 hrs Laboratory Tests Test 05/30/17 04:45 White Blood Count 10.6 Red Blood Count 2.75 L Hemoglobin 8.8 L Hematocrit 26.2 L Mean Corpuscular Volume 95.3 Mean Corpuscular Hemoglobin 32.0 Mean Corpuscular Hemoglobin Concent 33.6 Red Cell Distribution Width 14.0 Platelet Count 161 Mean Platelet Volume 11.3 H Neutrophils % 85.0 H Lymphocytes % 7.4 L Monocytes % 6.7 Eosinophils % 0.0 Basophils % 0.1 Nucleated Red Blood Cells % 0.2 H Neutrophils # 9.0 H Lymphocytes # 0.8 Monocytes # 0.7 Eosinophils # 0.0 Basophils # 0.0 Nucleated Red Blood Cells # 0.0 Prothrombin Time 15.1 H Prothrombin Time Ratio 1.2 INR International Normalized Ratio 1.18 Activated Partial Thromboplast Time 24.8 L Sodium Level 142 Potassium Level 3.6 Chloride Level 109 Carbon Dioxide Level 28 Anion Gap 9 Blood Urea Nitrogen 15 Creatinine 0.45 Glucose Level 128 Calcium Level 8.4 Medications Medications Current Medications Ondansetron HCl (Zofran Inj) 4 mg Q6H PRN IV NAUSEA AND/OR VOMITING Last administered on 05/26/17 05:33; Admin Dose 4 MG; Start 05/20/17 at 02:00 Acetaminophen (Tylenol Tab) 650 mg Q6H PRN PO PAIN LEVEL 1-3 OR FEVER Last administered on 05/21/17 23:08; Admin Dose 650 MG; Start 05/20/17 at 02:00 Morphine Sulfate 2 mg 2 mg Q4H PRN IV PAIN LEVEL 7-10; Start 05/20/17 at 02:00 ; Status Future Hold Ceftriaxone Sodium 50 ml @ 100 mls/hr Q24H IVPB Last administered on 05:22; Admin Dose 100 MLS/HR; Start 05/20/17 at 07:00 Azithromycin (Zithromax 500mg/ NS (Pmx)) 250 ml @ 250 mls/hr Q24H IVPB Last administered on 05/29/17 12:04; Admin Dose 250 MLS/HR; Start 05/21/17 at 11:30 Hydrocodone Bit/ Homatropine Methylb (Hycodan Liquid) 5 ml Q4 PRN PO cough Last administered on 05/29/17 12:04; Admin Dose 5 ML; Start 05/22/17 at 19:30 Famotidine 20 mg 20 mg Q12 IV Last administered on 05/30/17 08:13; Admin Dose 20 MG; Start 05/23/17 at 21:00 Sodium Chloride (NS) 1,000 ml @ 75 mls/hr [id number] IV Last administered on 05:22; Admin Dose 75 MLS/HR; Start 05/23/17 at 19:27 Methylprednisolone Sodium Succinate (Solu-Medrol) 40 mg Q8 IV Last administered on 05/30/17 05:22; Admin Dose 40 MG; Start 05/29/17 at 14:00 Benzonatate (Tessalon) 200 mg TID PO Last administered on 05/30/17 08:13; Admin Dose 200 MG; Start 05/29/17 at 14:00 Guaifenesin/ Codeine Phosphate (Robitussin Ac Liquid Cup) 5 ml Q4H PRN PO cough Last administered on 05/29/17 21:23; Admin Dose 5 ML; Start 05/29/17 at 13:00 PHOEBE HARRIS May 30, 2017 10:39
[2017-05-30] MEDS: AZITHROMYCIN 500MG/NS (PMX) 250 ML IVPB SCH (11:30)
[2017-05-30] MEDS ORDERED: BISACODYL (EC) 5 MG TAB PO PRN (17:00)
[2017-05-30] MEDS ORDERED: MINERAL OIL LIGHT 10 ML VIAL ONE (17:56)
[2017-05-30] MEDS ORDERED: PROPOFOL 20 ML ONE (18:10)
[2017-05-30] MEDS ORDERED: GLYCOPYRROLATE 0.4 MG INJ ONE (18:10)
[2017-05-30] MEDS ORDERED: CEFAZOLIN 1 GM INJ ONE (18:10)
[2017-05-30] MEDS ORDERED: FENTAnyl 50 MCG/ML VIAL ONE ×3 (18:10→19:46)
[2017-05-30] MEDS ORDERED: ROCURONIUM 50 MG INJ ONE (18:10)
[2017-05-30] MEDS ORDERED: DEXAMETHASONE 4 MG/ML 1 ML INJ ONE (18:11)
[2017-05-30] MEDS ORDERED: ONDANSETRON 4 MG INJ ONE (18:11)
[2017-05-30] MEDS ORDERED: MIDAZOLAM 1 MG/ML 2 ML INJ ONE (18:13)
[2017-05-30] MEDS ORDERED: SUGAMMADEX SODIUM 200 MG/2 ML VIAL IV ONE (19:27)
[2017-05-30] MEDS ORDERED: FENTAnyl 50 MCG/ML VIAL IV PRN ×3 (19:30)
[2017-05-30] MEDS ORDERED: MIDAZOLAM 1 MG/ML 2 ML INJ IV PRN (19:30)
[2017-05-30] MEDS ORDERED: TRIMETHOBENZAMIDE 100 MG/ML VIAL IM PRN (19:30)
[2017-05-30] MEDS ORDERED: DIPHENHYDRAMINE 50 MG INJ IV PRN (19:30)
[2017-05-30] MEDS ORDERED: HYDROmorphONE 0.5 MG/0.5 ML SYG IV PRN (19:30)
[2017-05-30] MEDS ORDERED: hydrALAzine 20 MG INJ IV PRN (19:30)
[2017-05-30] MEDS ORDERED: EPHEDrine SULFATE 50 MG/5 ML SYG IV PRN (19:30)
[2017-05-30] MEDS ORDERED: ALBUTEROL 0.083% (NEB) 2.5 MG/3 ML AMP HHN PRN (19:30)
[2017-05-30] MEDS ORDERED: ONDANSETRON 4 MG INJ IV PRN (19:30)
[2017-05-30] MEDS ORDERED: LABETALOL HCL 20MG INJ IV PRN (19:30)
[2017-05-30] MEDS ORDERED: HYDROmorphONE 1 MG/ML SYG IV PRN (19:30)
[2017-05-30] MEDS ORDERED: IPRATROPIUM (NEB) 0.5 MG/2.5 ML AMP HHN PRN (19:30)
--- NOTE | 2017-05-30 19:33 | OPR ---
Date/Time of Note Date/Time of Note DATE: 05/30/17 TIME: 19:29 Operative Report Procedure Date: May 30, 2017 Preoperative Diagnosis Hemoptysis Postoperative Diagnosis Hemoptysis Operation/Procedure Performed Right video-assisted thoracic surgery Lysis of adhesions, decortication Right upper lobe right lower lobe lung wedge resection Surgeon see signature line Surgical Asst None Anesthesia Type: general Estimated Blood Loss: minimal Transfusion none Specimen Right upper lobe right lower lobe Grafts/Implants Chest tube none Tubes/Drains Chest tube Complications None none Indications Dictated Procedure Description Patient was taken to the operating after induction of general anesthesia bronchoscopy was done old clot was seen in the right mainstem bronchus which was aspirated patient was placed in the left lateral decubitus position Draped in usual sterile fashion I made a 1 cm incision in the eighth intercostal space mid axillary line 12 mm trocar was advanced into the pleural cavity Arthroscopy was done Large amount of adhesions were noted Second 5 mm trocar was advanced to the tip of the scapula The third 12 mm trocar was advanced in the midclavicular line fifth intercostal space Adhesions were lysed Lung was decorticated 3 wedge resections were done to from the upper lobe one from the lower lobe There all done with the stapler By 5 cm in length No bleeding was noted 28 [place] chest tube was placed into the pleural cavity brought out through a lower stab wound secured to skin using 2 silk sutures The other 2 incisions were closed using 2-0 Vicryl suture in a running and subcuticular skin closure Tolerated procedure well Hemodynamically stable throughout the operation NASH ZAVALA MD May 30, 2017 19:33
[2017-05-30] MEDS ORDERED: FAMOTIDINE 20 MG INJ ONE (19:46)
[2017-05-30] MEDS: HYDROmorphONE 0.5 MG/0.5 ML SYG IV PRN ×2 (20:21→20:35)
[2017-05-30] MEDS: POLYETHYLENE GLYCOL 17 GM PACKET PO SCH (21:00)
--- NOTE | 2017-05-30 23:36 | RADRPT ---
PROCEDURE: XR Chest. CLINICAL INDICATION: No pneumothorax. TECHNIQUE: Single AP portable chest. COMPARISON: 04/03/2017 Chest x-ray FINDINGS: The cardiomediastinal silhouette is within normal limits of size. Right base consolidation/atelectas is and or pleural effusion. The right chest tube in place. Small persistent right apical pneumothora x of less than 5%. Mild vascular prominence. The left lung is clear The osseous structures and soft tissues are unremarkable. IMPRESSION: 1. Right chest tube in place with persistent 5% apical pneumothorax . Right chest tube in place. 2. Right base consolidation/atelectasis and/or pleural effusion. RPTAT:AAJJ Physician Haroon Date Time Electronically viewed and signed by Physician Haroon on 05/30/2017 23:36 RACHEL/
[2017-05-31] VITALS (60 sets, daily range): BP systolic 102–150; BP diastolic 55–84; PULSE 53–74; RESP 8–29
[2017-05-31] MEDS: HYDROmorphONE 1 MG/ML SYG IV PRN ×5 (00:55→21:24)
[2017-05-31] MEDS: METHYLPREDNISOLONE 40 MG INJ IV SCH ×3 (05:49→21:13)
[2017-05-31] MEDS: CEFTRIAXONE 1 GM/50 ML (PMX) 50 ML IVPB SCH (06:29)
[2017-05-31] MEDS ORDERED: POTASSIUM CHLORIDE 20 MEQ POWDER FOR ORAL SOLN PO ONE (09:00)
[2017-05-31] MEDS: POLYETHYLENE GLYCOL 17 GM PACKET PO SCH ×2 (09:00→21:00)
--- NOTE | 2017-05-31 09:03 | PN ---
Date/Time of Note Date/Time of Note DATE: 05/31/17 TIME: 09:01 Assessment/Plan VTE Prophylaxis VTE Prophylaxis Intervention: SCD's Lines/Catheters IV C[facility] Type (from [facility]): Saline Lock Urinary Cath still in place: Yes Reason Cath still needed: other (indicate) Assessment/Plan Chief Complaint/Hosp Course 1. Hemoptysis. Etiology unclear. Possible underlying vasculitis. Chest CT showing patchy airspace opacities in both lungs consistent with multifocal pneumonia. Status post bronchoscopy on 05/26/2017 that revealed bleeding in the trachea and massive amounts of fresh blood coming from the left lung. The patient was consequently intubated and transferred to ICU. The patient was later extubated. S/P right VATS with lysis of adhesions, decortication, right upper lobe right lower lobe lung wedge resection and lung biopsy on 05/30/2017. 2. Bilateral patchy airspace opacities suggesting multifocal pneumonia. Continue treatment for community acquired pneumonia. 3. Anemia secondary to acute blood loss. Status post transfusion of blood products 4. Fluids, electrolytes, and nutrition. Resume diet as tolerated. 5. DVT prophylaxis. SCDs. 5. Plan. Replete potassium. Awake further recommendations from consultants. Case discussed with Dr. White. Critical Care time: 35 minutes. Problems: Subjective 24 Hr Interval Summary Free Text/Dictation Complains of right chest wall pain. Exam/Review of Systems Vital Signs Vitals Vital Signs Date Time Temp Pulse Resp B/P Pulse Ox O2 Delivery O2 Flow Rate FiO2 05/31/17 07:30 59 11 116/61 96 05/31/17 04:00 98.0 Mask 10.0 05/28/17 08:37 35 Intake and Output 05/30/17 05/30/17 05/31/17 15:00 23:00 07:00 Intake Total 795 ml 2000 ml 525 ml Output Total 1100 ml 1115 ml 735 ml Balance -305 ml 885 ml -210 ml Exam General: Adequately build 46 year-old female lying in bed in no apparent distress. HEENT: Normocephalic, atraumatic. Eyes: Anicteric sclerae, conjunctivae clear. ENT: Nasal septum midline, oral mucosa moist. Neck supple, no JVD noticed. Respiratory: Bilaterally diminished breath sounds. No use of accessory muscles of respiration. No adventitious breath sounds. Right sided chest tube to PleurVac, draining sanguineous fluid. Cardiovascular: S1, S2 heard. No murmurs or gallops. Abdomen: Soft, nontender, and nondistended. Bowel sounds positive in all 4 quadrants. Genitourinary: Deferred. Extremities: No cyanosis, no clubbing, no edema. Peripheral pulses palpable. Neurologic: Cranial nerves II through XII grossly intact. The patient is awake, alert, and oriented. Skin: Normal skin turgor. No skin rashes. Results Result Diagram: 05/31/1742905/31/17429 Results 24 hrs Laboratory Tests Test 05/31/17 04:30 05/31/17 05:35 White Blood Count 15.1 #H Red Blood Count 3.07 L Hemoglobin 9.9 L Hematocrit 28.6 L Mean Corpuscular Volume 93.2 Mean Corpuscular Hemoglobin 32.2 Mean Corpuscular Hemoglobin Concent 34.6 Red Cell Distribution Width 14.6 H Platelet Count 158 Mean Platelet Volume 11.2 H Neutrophils % 89.3 H Lymphocytes % 4.6 L Monocytes % 5.4 Eosinophils % 0.0 Basophils % 0.1 Nucleated Red Blood Cells % 0.0 Neutrophils # 13.5 H Lymphocytes # 0.7 L Monocytes # 0.8 Eosinophils # 0.0 Basophils # 0.0 Nucleated Red Blood Cells # 0.0 Sodium Level 140 Potassium Level 3.4 L Chloride Level 108 Carbon Dioxide Level 26 Anion Gap 9 Blood Urea Nitrogen 18 Creatinine 0.41 L Glucose Level 111 Calcium Level 8.1 L Phosphorus Level 4.4 Magnesium Level 2.1 Lab Scanned Report BLOOD TRANSFUSION Medications Medications Current Medications Ondansetron HCl (Zofran Inj) 4 mg Q6H PRN IV NAUSEA AND/OR VOMITING Last administered on 05/26/17 05:33; Admin Dose 4 MG; Start 05/20/17 at 02:00 Acetaminophen (Tylenol Tab) 650 mg Q6H PRN PO PAIN LEVEL 1-3 OR FEVER Last administered on 05/21/17 23:08; Admin Dose 650 MG; Start 05/20/17 at 02:00 Morphine Sulfate 2 mg 2 mg Q4H PRN IV PAIN LEVEL 7-10; Start 05/20/17 at 02:00 ; Status Future Hold Ceftriaxone Sodium 50 ml @ 100 mls/hr Q24H IVPB Last administered on 06:29; Admin Dose 100 MLS/HR; Start 05/20/17 at 07:00 Azithromycin (Zithromax 500mg/ NS (Pmx)) 250 ml @ 250 mls/hr Q24H IVPB Last administered on 05/30/17 11:30; Admin Dose 250 MLS/HR; Start 05/21/17 at 11:30 Hydrocodone Bit/ Homatropine Methylb (Hycodan Liquid) 5 ml Q4 PRN PO cough Last administered on 05/29/17 12:04; Admin Dose 5 ML; Start 05/22/17 at 19:30 Famotidine 20 mg 20 mg Q12 IV Last administered on 05/30/17 20:54; Admin Dose 20 MG; Start 05/23/17 at 21:00 Sodium Chloride (NS) 1,000 ml @ 75 mls/hr [id number] IV Last administered on 22:20; Admin Dose 75 MLS/HR; Start 05/23/17 at 19:27 Methylprednisolone Sodium Succinate (Solu-Medrol) 40 mg Q8 IV Last administered on 05/31/17 05:49; Admin Dose 40 MG; Start 05/29/17 at 14:00 Benzonatate (Tessalon) 200 mg TID PO Last administered on 05/30/17 08:13; Admin Dose 200 MG; Start 05/29/17 at 14:00 Guaifenesin/ Codeine Phosphate (Robitussin Ac Liquid Cup) 5 ml Q4H PRN PO cough Last administered on 05/29/17 21:23; Admin Dose 5 ML; Start 05/29/17 at 13:00 Bisacodyl (Dulcolax) 10 mg DAILY PRN PO CONSTIPATION; Start 05/30/17 at 17:00 ; Stop 06/14/17 at 08:00 Polyethylene Glycol (Miralax) 17 gm BID PO ; Start 05/30/17 at 21:00; Stop at 08:00 Hydromorphone HCl (Dilaudid) 1 mg Q4H PRN IV PAIN Last administered on 05:20; Admin Dose 1 MG; Start 05/30/17 at 23:30 Potassium Chloride (Potassium Chloride Pwd/Soln) 30 meq ONCE ONCE PO ; Start 05/31/17 at 09:00; Stop 05/31/17 at 09:01; Status UNV KIKI FERREIRA NP May 31, 2017 09:03
[2017-05-31] MEDS: FAMOTIDINE 20 MG INJ IV SCH ×2 (09:20→21:13)
[2017-05-31] MEDS: BENZONATATE 100 MG CAP PO SCH ×3 (09:20→21:12)
[2017-05-31] MEDS: SOD CHLORIDE 0.9% 1,000 ML IV SCH (10:38)
--- NOTE | 2017-05-31 11:03 | CONS ---
Date/Time of Note Date/Time of Note DATE: 05/31/17 TIME: 11:01 Assessment/Plan Assessment/Plan Additional Assessment/Plan Assessment and recommendations; 1. Patient admitted with significant alveolar hemorrhage. Status post VATS yesterday with right upper and right lower lobe biopsies. 2. Likely underlying vasculitis. Possibly atypical pneumonia. Vasculitis workup is pending. 3. Anemia status post blood transfusion with stable hematocrit. 4. Interval resolution of hemoptysis. Continue current treatment. Patient can be transferred to the medical floor. Further recommendations to be done once biopsy results are obtained. Consultation Date/Type/Reason Admit Date/Time May 19, 2017 at 23:53 Type of Consultation: Pulmonary/critical care 24 HR Interval Summary Free Text/Dictation Patient's condition is stable. Underwent right VATS procedure. Right upper lobe and right lower lobe wedge biopsies were done. Patient denies any chest pain, any further hemoptysis. Complains of very minimal right sided chest pain at chest tube insertion site. General exam; young woman, awake alert, currently in no distress. Exam/Review of Systems Vital Signs Vitals Vital Signs Date Time Temp Pulse Resp B/P Pulse Ox O2 Delivery O2 Flow Rate FiO2 05/31/17 09:45 63 14 116/59 93 Mask 10.0 05/31/17 08:00 98.4 05/28/17 08:37 35 Intake and Output 05/30/17 05/30/17 05/31/17 15:00 23:00 07:00 Intake Total 795 ml 2000 ml 600 ml Output Total 1100 ml 1115 ml 765 ml Balance -305 ml 885 ml -165 ml Exam HEENT exam; supple neck, no JVD. No lymphadenopathy. Midline trachea. No thyromegaly. Patient has fair dentition. Chest exam; mild crackles right upper lobe. Right-sided chest tube in place. Left lung is clear to auscultation. S1-S2 audible, no murmurs. Regular rhythm. Abdomen exam; soft, nontender. No organomegaly. Bowel sounds audible. Extremity exam; no peripheral edema. No clubbing. 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 Results Result Diagram: 05/31/17 0430 05/31/17 0430 Results 24 hrs Laboratory Tests Test 05/31/17 04:30 05/31/17 05:35 White Blood Count 15.1 #H Red Blood Count 3.07 L Hemoglobin 9.9 L Hematocrit 28.6 L Mean Corpuscular Volume 93.2 Mean Corpuscular Hemoglobin 32.2 Mean Corpuscular Hemoglobin Concent 34.6 Red Cell Distribution Width 14.6 H Platelet Count 158 Mean Platelet Volume 11.2 H Neutrophils % 89.3 H Lymphocytes % 4.6 L Monocytes % 5.4 Eosinophils % 0.0 Basophils % 0.1 Nucleated Red Blood Cells % 0.0 Neutrophils # 13.5 H Lymphocytes # 0.7 L Monocytes # 0.8 Eosinophils # 0.0 Basophils # 0.0 Nucleated Red Blood Cells # 0.0 Sodium Level 140 Potassium Level 3.4 L Chloride Level 108 Carbon Dioxide Level 26 Anion Gap 9 Blood Urea Nitrogen 18 Creatinine 0.41 L Glucose Level 111 Calcium Level 8.1 L Phosphorus Level 4.4 Magnesium Level 2.1 Lab Scanned Report BLOOD TRANSFUSION Medications Medications Current Medications Ondansetron HCl (Zofran Inj) 4 mg Q6H PRN IV NAUSEA AND/OR VOMITING Last administered on 05/26/17 05:33; Admin Dose 4 MG; Start 05/20/17 at 02:00 Acetaminophen (Tylenol Tab) 650 mg Q6H PRN PO PAIN LEVEL 1-3 OR FEVER Last administered on 05/21/17 23:08; Admin Dose 650 MG; Start 05/20/17 at 02:00 Morphine Sulfate 2 mg 2 mg Q4H PRN IV PAIN LEVEL 7-10; Start 05/20/17 at 02:00 ; Status Future Hold Ceftriaxone Sodium 50 ml @ 100 mls/hr Q24H IVPB Last administered on 06:29; Admin Dose 100 MLS/HR; Start 05/20/17 at 07:00 Azithromycin (Zithromax 500mg/ NS (Pmx)) 250 ml @ 250 mls/hr Q24H IVPB Last administered on 05/30/17 11:30; Admin Dose 250 MLS/HR; Start 05/21/17 at 11:30 Hydrocodone Bit/ Homatropine Methylb (Hycodan Liquid) 5 ml Q4 PRN PO cough Last administered on 05/29/17 12:04; Admin Dose 5 ML; Start 05/22/17 at 19:30 Famotidine 20 mg 20 mg Q12 IV Last administered on 10/17/17at 09:20; Admin Dose 20 MG; Start 05/23/17 at 21:00 Sodium Chloride (NS) 1,000 ml @ 75 mls/hr [id number] IV Last administered on 10:38; Admin Dose 75 MLS/HR; Start 05/23/17 at 19:27 Methylprednisolone Sodium Succinate (Solu-Medrol) 40 mg Q8 IV Last administered on 05/31/17 05:49; Admin Dose 40 MG; Start 05/29/17 at 14:00 Benzonatate (Tessalon) 200 mg TID PO Last administered on 05/31/17 09:20; Admin Dose 200 MG; Start 05/29/17 at 14:00 Guaifenesin/ Codeine Phosphate (Robitussin Ac Liquid Cup) 5 ml Q4H PRN PO cough Last administered on 05/29/17 21:23; Admin Dose 5 ML; Start 05/29/17 at 13:00 Bisacodyl (Dulcolax) 10 mg DAILY PRN PO CONSTIPATION; Start 05/30/17 at 17:00 ; Stop 06/14/17 at 08:00 Polyethylene Glycol (Miralax) 17 gm BID PO ; Start 05/30/17 at 21:00; Stop at 08:00 Hydromorphone HCl (Dilaudid) 1 mg Q4H PRN IV PAIN Last administered on 10:38; Admin Dose 1 MG; Start 05/30/17 at 23:30 PHOEBE HARRIS May 31, 2017 11:03
[2017-05-31] MEDS: AZITHROMYCIN 500MG/NS (PMX) 250 ML IVPB SCH (11:12)
--- NOTE | 2017-05-31 16:44 | PN ---
Date/Time of Note Date/Time of Note DATE: 05/31/17 TIME: 16:43 Assessment/Plan Lines/Catheters IV Catheter Type (from Nrs): Saline Lock Carlson in Place (from Nrs): Yes Assessment/Plan Chief Complaint/Hosp Course IMPRESSION: Multifocal pneumonia, possible vasculitis. SP VATS Lung BX will continue CT Sxn Problems: Subjective 24 Hr Interval Summary Constitutional: improved Pain Control: mild Exam/Review of Systems Vital Signs Vitals Vital Signs Date Time Temp Pulse Resp B/P Pulse Ox O2 Delivery O2 Flow Rate FiO2 05/31/17 16:30 58 12 111/56 95 Mask 10.0 05/31/17 16:00 98.4 05/28/17 08:37 35 Intake and Output 05/30/17 05/30/17 05/31/17 15:00 23:00 07:00 Intake Total 795 ml 2000 ml 600 ml Output Total 1100 ml 1115 ml 765 ml Balance -305 ml 885 ml -165 ml Exam ENMT: mucosa pink and moist, nl external ears & nose, nl lips & teeth, nl nasal mucosa & septum Neck: non-tender, supple Respiratory: clear to auscultation, normal air movement Cardiovascular: nl pulses, regular rate and rhythm Results Result Diagram: 05/31/17 0430 05/31/17 0430 NASH ZAVALA MD May 31, 2017 16:44
[2017-06-01] VITALS (30 sets, daily range): BP systolic 96–134; BP diastolic 58–84; PULSE 51–82; RESP 11–28
[2017-06-01] MEDS: HYDROmorphONE 1 MG/ML SYG IV PRN ×4 (02:06→17:30)
[2017-06-01] MEDS: SOD CHLORIDE 0.9% 1,000 ML IV SCH ×3 (05:49→20:15)
[2017-06-01] MEDS: METHYLPREDNISOLONE 40 MG INJ IV SCH ×3 (05:49→22:33)
[2017-06-01] MEDS: CEFTRIAXONE 1 GM/50 ML (PMX) 50 ML IVPB SCH (06:19)
[2017-06-01] MEDS: POLYETHYLENE GLYCOL 17 GM PACKET PO SCH ×2 (09:00→21:16)
--- NOTE | 2017-06-01 09:10 | PN ---
Date/Time of Note Date/Time of Note DATE: 06/01/17 TIME: 09:09 Assessment/Plan VTE Prophylaxis VTE Prophylaxis Intervention: SCD's Lines/Catheters IV [facility] Type (from [facility]): Peripheral IV Urinary Cath still in place: Yes Reason Cath still needed: other (indicate) Assessment/Plan Chief Complaint/Hosp Course 1. Hemoptysis. Etiology unclear. Possible underlying vasculitis. Chest CT showing patchy airspace opacities in both lungs consistent with multifocal pneumonia. Status post bronchoscopy on 05/26/2017 that revealed bleeding in the trachea and massive amounts of fresh blood coming from the left lung. The patient was consequently intubated and transferred to ICU. The patient was later extubated. S/P right VATS with lysis of adhesions, decortication, right upper lobe right lower lobe lung wedge resection and lung biopsy on 05/30/2017. 2. Bilateral patchy airspace opacities suggesting multifocal pneumonia. Continue treatment for community acquired pneumonia. 3. Anemia secondary to acute blood loss. Status post transfusion of blood products 4. Fluids, electrolytes, and nutrition. Resume diet as tolerated. 5. DVT prophylaxis. SCDs. 5. Plan. Awake further recommendations from consultants. May transfer the patient out of ICU if cleared by CT Surgery. Case discussed with Dr. White. Critical Care time: 35 minutes. Problems: Subjective 24 Hr Interval Summary Free Text/Dictation Right chest wall pain better. Exam/Review of Systems Vital Signs Vitals Vital Signs Date Time Temp Pulse Resp B/P Pulse Ox O2 Delivery O2 Flow Rate FiO2 06/01/17 08:00 58 06/01/17 04:00 97 8.0 06/01/17 04:00 98.0 17 105/73 06/01/17 03:56 60 05/31/17 20:00 Simple Mask Intake and Output 05/31/17 05/31/17 06/01/17 15:00 23:00 07:00 Intake Total 600 ml 225 ml 10 ml Output Total 655 ml 352 ml 1640 ml Balance -55 ml -127 ml -1630 ml Exam General: Adequately build 46 year-old female lying in bed in no apparent distress. HEENT: Normocephalic, atraumatic. Eyes: Anicteric sclerae, conjunctivae clear. ENT: Nasal septum midline, oral mucosa moist. Neck supple, no JVD noticed. Respiratory: Bilaterally diminished breath sounds. No use of accessory muscles of respiration. No adventitious breath sounds. Right sided chest tube to PleurVac, draining sanguineous fluid. Cardiovascular: S1, S2 heard. No murmurs or gallops. Abdomen: Soft, nontender, and nondistended. Bowel sounds positive in all 4 quadrants. Genitourinary: Deferred. Extremities: No cyanosis, no clubbing, no edema. Peripheral pulses palpable. Neurologic: Cranial nerves II through XII grossly intact. The patient is awake, alert, and oriented. Skin: Normal skin turgor. No skin rashes. Results Result Diagram: 06/01/17 04306/01/17 043 Results 24 hrs Laboratory Tests Test 06/01/17 04:30 White Blood Count 8.8 # Red Blood Count 3.19 L Hemoglobin 9.9 L Hematocrit 29.4 L Mean Corpuscular Volume 92.2 Mean Corpuscular Hemoglobin 31.0 Mean Corpuscular Hemoglobin Concent 33.7 Red Cell Distribution Width 14.3 Platelet Count 155 Mean Platelet Volume 11.7 H Neutrophils % 90.7 H Lymphocytes % 5.6 L Monocytes % 3.1 Eosinophils % 0.0 Basophils % 0.1 Nucleated Red Blood Cells % 0.0 Neutrophils # 8.0 H Lymphocytes # 0.5 L Monocytes # 0.3 Eosinophils # 0.0 Basophils # 0.0 Nucleated Red Blood Cells # 0.0 Sodium Level 134 L Potassium Level 3.8 Chloride Level 105 Carbon Dioxide Level 23 Anion Gap 10 Blood Urea Nitrogen 14 Creatinine 0.35 L Glucose Level 95 Calcium Level 8.0 L Phosphorus Level 4.0 Magnesium Level 2.1 Total Bilirubin 1.0 Direct Bilirubin 0.00 Indirect Bilirubin 1.0 Aspartate Amino Transf (AST/SGOT) 15 Alanine Aminotransferase (ALT/SGPT) 35 Alkaline Phosphatase 54 Total Protein 5.2 L Albumin 2.8 L Globulin 2.40 Albumin/Globulin Ratio 1.16 Medications Medications Current Medications Ondansetron HCl (Zofran Inj) 4 mg Q6H PRN IV NAUSEA AND/OR VOMITING Last administered on 05/26/17 05:33; Admin Dose 4 MG; Start 05/20/17 at 02:00 Acetaminophen (Tylenol Tab) 650 mg Q6H PRN PO PAIN LEVEL 1-3 OR FEVER Last administered on 05/21/17 23:08; Admin Dose 650 MG; Start 05/20/17 at 02:00 Morphine Sulfate 2 mg 2 mg Q4H PRN IV PAIN LEVEL 7-10; Start 05/20/17 at 02:00 ; Status Future Hold Ceftriaxone Sodium 50 ml @ 100 mls/hr Q24H IVPB Last administered on 06:19; Admin Dose 100 MLS/HR; Start 05/20/17 at 07:00 Azithromycin (Zithromax 500mg/ NS (Pmx)) 250 ml @ 250 mls/hr Q24H IVPB Last administered on 05/31/17 11:12; Admin Dose 250 MLS/HR; Start 05/21/17 at 11:30 Hydrocodone Bit/ Homatropine Methylb (Hycodan Liquid) 5 ml Q4 PRN PO cough Last administered on 05/29/17 12:04; Admin Dose 5 ML; Start 05/22/17 at 19:30 Famotidine 20 mg 20 mg Q12 IV Last administered on 05/31/17 21:13; Admin Dose 20 MG; Start 05/23/17 at 21:00 Sodium Chloride (NS) 1,000 ml @ 75 mls/hr [id number] IV Last administered on 05:49; Admin Dose 75 MLS/HR; Start 05/23/17 at 19:27 Methylprednisolone Sodium Succinate (Solu-Medrol) 40 mg Q8 IV Last administered on 06/01/17 05:49; Admin Dose 40 MG; Start 05/29/17 at 14:00 Benzonatate (Tessalon) 200 mg TID PO Last administered on 05/31/17 21:12; Admin Dose 200 MG; Start 05/29/17 at 14:00 Guaifenesin/ Codeine Phosphate (Robitussin Ac Liquid Cup) 5 ml Q4H PRN PO cough Last administered on 05/29/17 21:23; Admin Dose 5 ML; Start 05/29/17 at 13:00 Bisacodyl (Dulcolax) 10 mg DAILY PRN PO CONSTIPATION; Start 05/30/17 at 17:00 ; Stop 06/14/17 at 08:00 Polyethylene Glycol (Miralax) 17 gm BID PO ; Start 05/30/17 at 21:00; Stop at 08:00 Hydromorphone HCl (Dilaudid) 1 mg Q4H PRN IV PAIN Last administered on t 05:51; Admin Dose 1 MG; Start 05/30/17 at 23:30 KIKI FERREIRA NP Jun 01, 2017 09:10
[2017-06-01] MEDS: FAMOTIDINE 20 MG INJ IV SCH ×2 (09:24→21:20)
[2017-06-01] MEDS: BENZONATATE 100 MG CAP PO SCH ×3 (09:24→21:17)
--- NOTE | 2017-06-01 11:04 | CONS ---
Date/Time of Note Date/Time of Note DATE: 06/01/17 TIME: 11:03 Consultation Date/Type/Reason Admit Date/Time May 19, 2017 at 23:53 Type of Consultation: Pulmonary/critical care 24 HR Interval Summary Free Text/Dictation Patient's condition is stable. Denies any further hemoptysis or chest pain. Denies any shortness of breath. General exam; young woman, awake, currently in no distress. Exam/Review of Systems Vital Signs Vitals Vital Signs Date Time Temp Pulse Resp B/P Pulse Ox O2 Delivery O2 Flow Rate FiO2 06/01/17 10:00 63 20 108/65 93 Nasal Cannula 6.0 06/01/17 08:00 98.3 06/01/17 03:56 60 Intake and Output 05/31/17 05/31/17 06/01/17 15:00 23:00 07:00 Intake Total 600 ml 225 ml 10 ml Output Total 655 ml 352 ml 1640 ml Balance -55 ml -127 ml -1630 ml Exam HEENT exam; supple neck, no JVD. No lymphadenopathy. Midline trachea. No thyromegaly. Patient has fair dentition. Chest exam; diminished but clear breath sounds. S1-S2 audible, no murmurs. Regular rhythm. Right-sided chest tube in place. Abdomen exam; soft, nontender. No organomegaly. Bowel sounds audible. Extremity exam; no peripheral edema. No clubbing. [employer] exam; no focal deficit. Results Result Diagram: 06/01/17 0430 06/01/17 0430 Results 24 hrs Laboratory Tests Test 06/01/17 04:30 White Blood Count 8.8 # Red Blood Count 3.19 L Hemoglobin 9.9 L Hematocrit 29.4 L Mean Corpuscular Volume 92.2 Mean Corpuscular Hemoglobin 31.0 Mean Corpuscular Hemoglobin Concent 33.7 Red Cell Distribution Width 14.3 Platelet Count 155 Mean Platelet Volume 11.7 H Neutrophils % 90.7 H Lymphocytes % 5.6 L Monocytes % 3.1 Eosinophils % 0.0 Basophils % 0.1 Nucleated Red Blood Cells % 0.0 Neutrophils # 8.0 H Lymphocytes # 0.5 L Monocytes # 0.3 Eosinophils # 0.0 Basophils # 0.0 Nucleated Red Blood Cells # 0.0 Sodium Level 134 L Potassium Level 3.8 Chloride Level 105 Carbon Dioxide Level 23 Anion Gap 10 Blood Urea Nitrogen 14 Creatinine 0.35 L Glucose Level 95 Calcium Level 8.0 L Phosphorus Level 4.0 Magnesium Level 2.1 Total Bilirubin 1.0 Direct Bilirubin 0.00 Indirect Bilirubin 1.0 Aspartate Amino Transf (AST/SGOT) 15 Alanine Aminotransferase (ALT/SGPT) 35 Alkaline Phosphatase 54 Total Protein 5.2 L Albumin 2.8 L Globulin 2.40 Albumin/Globulin Ratio 1.16 Medications Medications Current Medications Ondansetron HCl (Zofran Inj) 4 mg Q6H PRN IV NAUSEA AND/OR VOMITING Last administered on 05/26/17 05:33; Admin Dose 4 MG; Start 05/20/17 at 02:00 Acetaminophen (Tylenol Tab) 650 mg Q6H PRN PO PAIN LEVEL 1-3 OR FEVER Last administered on 05/21/17 23:08; Admin Dose 650 MG; Start 05/20/17 at 02:00 Morphine Sulfate 2 mg 2 mg Q4H PRN IV PAIN LEVEL 7-10; Start 05/20/17 at 02:00 ; Status Future Hold Ceftriaxone Sodium 50 ml @ 100 mls/hr Q24H IVPB Last administered on 06:19; Admin Dose 100 MLS/HR; Start 05/20/17 at 07:00 Azithromycin (Zithromax 500mg/ NS (Pmx)) 250 ml @ 250 mls/hr Q24H IVPB Last administered on 05/31/17 11:12; Admin Dose 250 MLS/HR; Start 05/21/17 at 11:30 Hydrocodone Bit/ Homatropine Methylb (Hycodan Liquid) 5 ml Q4 PRN PO cough Last administered on 05/29/17 12:04; Admin Dose 5 ML; Start 05/22/17 at 19:30 Famotidine 20 mg 20 mg Q12 IV Last administered on 06/01/17 09:24; Admin Dose 20 MG; Start 05/23/17 at 21:00 Sodium Chloride (NS) 1,000 ml @ 75 mls/hr [id number] IV Last administered on 05:49; Admin Dose 75 MLS/HR; Start 05/23/17 at 19:27 Methylprednisolone Sodium Succinate (Solu-Medrol) 40 mg Q8 IV Last administered on 06/01/17 05:49; Admin Dose 40 MG; Start 05/29/17 at 14:00 Benzonatate (Tessalon) 200 mg TID PO Last administered on 06/01/17 09:24; Admin Dose 200 MG; Start 05/29/17 at 14:00 Guaifenesin/ Codeine Phosphate (Robitussin Ac Liquid Cup) 5 ml Q4H PRN PO cough Last administered on 05/29/17 21:23; Admin Dose 5 ML; Start 05/29/17 at 13:00 Bisacodyl (Dulcolax) 10 mg DAILY PRN PO CONSTIPATION; Start 05/30/17 at 17:00 ; Stop 06/14/17 at 08:00 Polyethylene Glycol (Miralax) 17 gm BID PO ; Start 05/30/17 at 21:00; Stop at 08:00 Hydromorphone HCl (Dilaudid) 1 mg Q4H PRN IV PAIN Last administered on 05:51; Admin Dose 1 MG; Start 05/30/17 at 23:30 PHOEBE HARRIS Jun 01, 2017 11:04
[2017-06-01] MEDS: AZITHROMYCIN 500MG/NS (PMX) 250 ML IVPB SCH (12:20)
--- NOTE | 2017-06-01 13:10 | PN ---
Date/Time of Note Date/Time of Note DATE: 06/01/17 TIME: 13:09 Assessment/Plan Lines/Catheters IV Catheter Type (from Nrsg): Peripheral IV Carlson in Place (from Nrsg): Yes Assessment/Plan Chief Complaint/Hosp Course IMPRESSION: Multifocal pneumonia, possible vasculitis. SP VATS Lung BX output 102cc will continue CT Sxn Problems: Subjective 24 Hr Interval Summary Constitutional: improved Pain Control: mild Exam/Review of Systems Vital Signs Vitals Vital Signs Date Time Temp Pulse Resp B/P Pulse Ox O2 Delivery O2 Flow Rate FiO2 06/01/17 12:00 98.4 66 21 106/66 93 Nasal Cannula 6.0 06/01/17 03:56 60 Intake and Output 05/31/17 05/31/17 06/01/17 15:00 23:00 07:00 Intake Total 850 ml 225 ml 135 ml Output Total 655 ml 352 ml 1640 ml Balance 195 ml -127 ml -1505 ml Exam ENMT: mucosa pink and moist, nl external ears & nose, nl lips & teeth, nl nasal mucosa & septum Neck: non-tender, supple Respiratory: clear to auscultation, normal air movement Cardiovascular: nl pulses, regular rate and rhythm Gastrointestinal: nl liver, spleen, non-tender, soft Results Result Diagram: 06/01/1742906/01/17429 NASH ZAVALA MD Jun 01, 2017 13:10
[2017-06-01] MEDS: HYDROCODONE/APAP (7.5/325) TAB PO PRN (16:24)
--- NOTE | 2017-06-01 19:18 | RADRPT ---
PROCEDURE: XR Chest. CLINICAL INDICATION: Chest tube placement. TECHNIQUE: Single frontal chest x-ray. COMPARISON: 05/30/2017 FINDINGS: There is unchanged right-sided chest tube with tip overlying the anterior margin of the right first rib. There is increased right apical pneumothorax now approximately 10%. There is redemonstrated radha vation right hemidiaphragm with basilar atelectasis versus infiltrate.. Mediastinum is slightly shif nahid to the right is consistent with basilar volume loss. There is no congestive heart failure.. . Th e osseous structures are unremarkable. IMPRESSION: Interval increase in size of a right apical pneumothorax. Otherwise no change. Findings reported to ICU nurse Lisa on 06/01/2017 7:13:47 PM. RPTAT: HMVK .Main Espinoza MD, Date Time Electronically viewed and signed by .Main Espinoza MD, on 06/01/2017 19:17 .K/
[2017-06-02] VITALS (26 sets, daily range): BP systolic 93–125; BP diastolic 57–80; PULSE 52–68; RESP 12–29
[2017-06-02] MEDS: HYDROmorphONE 1 MG/ML SYG IV PRN ×4 (00:32→20:24)
[2017-06-02] MEDS: METHYLPREDNISOLONE 40 MG INJ IV SCH ×2 (06:28→13:12)
[2017-06-02] MEDS: CEFTRIAXONE 1 GM/50 ML (PMX) 50 ML IVPB SCH (06:28)
--- NOTE | 2017-06-02 07:33 | RADRPT ---
AMENDMENT: 06/02/2017 7:37:20 AM Andrae Yu M.d IMPRESSION: Right-sided chest tube in place with decreased right apical pneumothorax. Small residual right apica l pneumothorax remains. Elevated right hemidiaphragm with right basilar atelectasis or consolidation and volume loss unchang ed. PROCEDURE: XR Chest. CLINICAL INDICATION: Chest tube placement . TECHNIQUE: Single frontal chest x-ray. COMPARISON: 06/01/2017 FINDINGS: There is a right-sided chest tube in place unchanged. Resolution of previous small right apical pneu mothorax is noted. Persistent atelectasis or consolidation is seen in the right lung base. There is elevation of the right hemidiaphragm. Left lung is clear. .. The cardiomediastinal silhouette is un remarkable. The osseous structures are intact. IMPRESSION: Right-sided chest tube in place with resolution of right apical pneumothorax. Elevated right hemidiaphragm with right basilar atelectasis or consolidation and volume loss unchang ed. RPTAT: QQ .Andrae Yu MD, MD Date Time Electronically viewed and signed by .Andrae Yu MD, on 06/02/2017 07:37 .L/
--- NOTE | 2017-06-02 08:54 | PN ---
Date/Time of Note Date/Time of Note DATE: 06/02/17 TIME: 08:52 Assessment/Plan VTE Prophylaxis VTE Prophylaxis Intervention: SCD's Lines/Catheters IV [facility]ter Type (from [facility]): Peripheral IV Urinary Cath still in place: Yes Reason Cath still needed: other (indicate) Assessment/Plan Chief Complaint/Hosp Course 1. Hemoptysis. Etiology unclear. Possible underlying vasculitis. Chest CT showing patchy airspace opacities in both lungs consistent with multifocal pneumonia. Status post bronchoscopy on 05/26/2017 that revealed bleeding in the trachea and massive amounts of fresh blood coming from the left lung. The patient was consequently intubated and transferred to ICU. The patient was later extubated. S/P right VATS with lysis of adhesions, decortication, right upper lobe right lower lobe lung wedge resection and lung biopsy on 05/30/2017. 2. Bilateral patchy airspace opacities suggesting multifocal pneumonia. Continue treatment for community acquired pneumonia. 3. Anemia secondary to acute blood loss. Status post transfusion of blood products 4. Fluids, electrolytes, and nutrition. Resume diet as tolerated. 5. DVT prophylaxis. SCDs. 5. Plan. Awake further recommendations from consultants. Keep the patient in ICU. Case discussed with Dr. White. Critical Care time: 35 minutes. Problems: Subjective 24 Hr Interval Summary Free Text/Dictation The patient was scheduled to be transferred out of the intensive care unit on . Meanwhile, the patient started having progressive dyspnea and hypoxia. Therefore, the patient's FiO2 was increased and the patient's transfer was canceled. The patient's chest x-ray that was done on 06/01/2017 in the afternoon showed a right apical pneumothorax which has been resolved on the latest x-ray done on 06/02/2017. Exam/Review of Systems Vital Signs Vitals Vital Signs Date Time Temp Pulse Resp B/P Pulse Ox O2 Delivery O2 Flow Rate FiO2 06/02/17 05:34 100 06/02/17 04:00 54 06/02/17 03:30 23 100 06/02/17 03:00 96/63 06/02/17 00:00 98.7 Non Rebreather 06/01/17 18:00 15.0 Intake and Output 06/01/17 06/01/17 06/02/17 15:00 23:00 07:00 Intake Total 1490 ml 300 ml 150 ml Output Total 1620 ml 803 ml 90 ml Balance -130 ml -503 ml 60 ml Exam General: Adequately build 46 year-old female lying in bed in mild respiratory apparent distress. HEENT: Normocephalic, atraumatic. Eyes: Anicteric sclerae, conjunctivae clear. ENT: Nasal septum midline, oral mucosa moist. Neck supple, no JVD noticed. Respiratory: Bilaterally diminished breath sounds. Use of accessory muscles of respiration. Right sided chest tube to PleurVac, draining sanguineous fluid. Cardiovascular: S1, S2 heard. No murmurs or gallops. Abdomen: Soft, nontender, and nondistended. Bowel sounds positive in all 4 quadrants. Genitourinary: Deferred. Extremities: No cyanosis, no clubbing, no edema. Peripheral pulses palpable. Neurologic: Cranial nerves II through XII grossly intact. The patient is awake, alert, and oriented. Skin: Normal skin turgor. No skin rashes. Results Result Diagram: 06/02/17 0500 06/02/17 0500 Results 24 hrs Laboratory Tests Test 06/01/17 17:36 06/02/17 05:00 Blood Gas Specimen Source Blood arterial Arterial Blood Date Drawn 06/01/2017 5:55:43 PM Arterial Blood pH (Temp corrected) 7.474 H Arterial Blood pCO2 (Temp correct) 34.1 L Arterial Blood pO2 (Temp corrected) 56.2 L Arterial Blood HCO3 24.5 Arterial Blood Base Excess 1.3 Arterial Blood Oxygen Saturation 89.7 L Reginald Test ACCEPTAB Arterial Blood Gas Puncture Site Right Radial Arterial Blood Carboxyhemoglobin 0.3 Arterial Blood Methemoglobin 0.1 Blood Gas A-a O2 Differential 261.9 H Oxyhemoglobin Percent 89.3 L Total Hemoglobin 12.2 Blood Gas Temperature 37.0 Blood Gas Modality MASK - VENTI FiO2 50.0 Blood Gas Notified Whom DT Blood Gas Notified Time 06/01/2017 6:01:37 PM White Blood Count 11.4 #H Red Blood Count 3.52 L Hemoglobin 11.5 L Hematocrit 32.6 L Mean Corpuscular Volume 92.6 Mean Corpuscular Hemoglobin 32.7 Mean Corpuscular Hemoglobin Concent 35.3 Red Cell Distribution Width 14.1 Platelet Count 180 Mean Platelet Volume 11.5 H Neutrophils % 90.8 H Lymphocytes % 4.9 L Monocytes % 3.8 Eosinophils % 0.0 Basophils % 0.1 Nucleated Red Blood Cells % 0.0 Neutrophils # 10.3 H Lymphocytes # 0.6 L Monocytes # 0.4 Eosinophils # 0.0 Basophils # 0.0 Nucleated Red Blood Cells # 0.0 Sodium Level 137 Potassium Level 3.8 Chloride Level 104 Carbon Dioxide Level 26 Anion Gap 11 Blood Urea Nitrogen 12 Creatinine 0.38 L Glucose Level 122 Calcium Level 8.0 L Phosphorus Level 3.7 Magnesium Level 2.2 Medications Medications Current Medications Ondansetron HCl (Zofran Inj) 4 mg Q6H PRN IV NAUSEA AND/OR VOMITING Last administered on 05/26/17 05:33; Admin Dose 4 MG; Start 05/20/17 at 02:00 Acetaminophen (Tylenol Tab) 650 mg Q6H PRN PO PAIN LEVEL 1-3 OR FEVER Last administered on 05/21/17 23:08; Admin Dose 650 MG; Start 05/20/17 at 02:00 Morphine Sulfate 2 mg 2 mg Q4H PRN IV PAIN LEVEL 7-10; Start 05/20/17 at 02:00 ; Status Future Hold Ceftriaxone Sodium 50 ml @ 100 mls/hr Q24H IVPB Last administered on 06:28; Admin Dose 100 MLS/HR; Start 05/20/17 at 07:00 Azithromycin (Zithromax 500mg/ NS (Pmx)) 250 ml @ 250 mls/hr Q24H IVPB Last administered on 06/01/17 12:20; Admin Dose 250 MLS/HR; Start 05/21/17 at 11:30 Hydrocodone Bit/ Homatropine Methylb (Hycodan Liquid) 5 ml Q4 PRN PO cough Last administered on 05/29/17 12:04; Admin Dose 5 ML; Start 05/22/17 at 19:30 Famotidine 20 mg 20 mg Q12 IV Last administered on 06/01/17 21:20; Admin Dose 20 MG; Start 05/23/17 at 21:00 Sodium Chloride (NS) 1,000 ml @ 75 mls/hr [id number] IV Last administered on 20:15; Admin Dose 75 MLS/HR; Start 05/23/17 at 19:27 Methylprednisolone Sodium Succinate (Solu-Medrol) 40 mg Q8 IV Last administered on 06/02/17 06:28; Admin Dose 40 MG; Start 05/29/17 at 14:00 Benzonatate (Tessalon) 200 mg TID PO Last administered on 06/01/17 21:17; Admin Dose 200 MG; Start 05/29/17 at 14:00 Guaifenesin/ Codeine Phosphate (Robitussin Ac Liquid Cup) 5 ml Q4H PRN PO cough Last administered on 05/29/17 21:23; Admin Dose 5 ML; Start 05/29/17 at 13:00 Bisacodyl (Dulcolax) 10 mg DAILY PRN PO CONSTIPATION; Start 05/30/17 at 17:00 ; Stop 06/14/17 at 08:00 Polyethylene Glycol (Miralax) 17 gm BID PO Last administered on 06/01/17 21: 16; Admin Dose 17 GM; Start 05/30/17 at 21:00; Stop 06/14/17 at 08:00 Hydromorphone HCl (Dilaudid) 1 mg Q4H PRN IV PAIN Last administered on 06:40; Admin Dose 1 MG; Start 05/30/17 at 23:30 Acetaminophen/ Hydrocodone Bitart ([place] (7.5-325)) 1 tab Q4H PRN PO Pain Last administered on 06/01/17 16:24; Admin Dose 1 TAB; Start 06/01/17 at 15:30 KIKI FERREIRA NP Jun 02, 2017 08:54
[2017-06-02] MEDS: POLYETHYLENE GLYCOL 17 GM PACKET PO SCH ×2 (09:00→21:00)
[2017-06-02] MEDS: BENZONATATE 100 MG CAP PO SCH ×3 (09:25→21:51)
[2017-06-02] MEDS: FAMOTIDINE 20 MG INJ IV SCH ×2 (09:26→21:51)
--- NOTE | 2017-06-02 10:54 | CONS ---
Date/Time of Note Date/Time of Note DATE: 06/02/17 TIME: 10:51 Consult Date/Type/Reason Admit Date/Time May 19, 2017 at 23:53 Initial Consult Date Type of Consultation: Pulmonary/critical care Subjective Still hypoxic, awake and alert Objective Vital Signs Date Time Temp Pulse Resp B/P Pulse Ox O2 Delivery O2 Flow Rate FiO2 06/02/17 10:15 95 100 06/02/17 09:00 58 21 98/67 Non Rebreather 06/02/17 08:00 98.2 06/01/17 18:00 15.0 Intake and Output 06/01/17 06/01/17 06/02/17 15:00 23:00 07:00 Intake Total 1490 ml 300 ml 150 ml Output Total 1620 ml 803 ml 220 ml Balance -130 ml -503 ml -70 ml Exam GENERAL: Well-nourished well-developed lady comfortable at rest VITAL SIGNS: per chart NECK: Supple. No JVD or lymphadenopathy. CARDIAC EXAM: S1, S2. No added sounds or murmurs. CHEST: Diminished air entry right base. ABDOMEN: Soft, nontender. No guarding or rebound. EXTREMITIES: No cyanosis, clubbing or edema. NEUROLOGIC: Generalized weakness. No focal deficits. Results/Medications Result Diagram: 06/02/17 0500 06/02/17 0500 Results 24 hrs Chest x-ray Right lower lobe infiltrate low lung volumes Laboratory Tests Test 06/01/17 17:36 06/02/17 05:00 Blood Gas Specimen Source Blood arterial Arterial Blood Date Drawn 06/01/2017 5:55:43 PM Arterial Blood pH (Temp corrected) 7.474 H Arterial Blood pCO2 (Temp correct) 34.1 L Arterial Blood pO2 (Temp corrected) 56.2 L Arterial Blood HCO3 24.5 Arterial Blood Base Excess 1.3 Arterial Blood Oxygen Saturation 89.7 L Reginald Test ACCEPTAB Arterial Blood Gas Puncture Site Right Radial Arterial Blood Carboxyhemoglobin 0.3 Arterial Blood Methemoglobin 0.1 Blood Gas A-a O2 Differential 261.9 H Oxyhemoglobin Percent 89.3 L Total Hemoglobin 12.2 Blood Gas Temperature 37.0 Blood Gas Modality MASK - VENTI FiO2 50.0 Blood Gas Notified Whom DT Blood Gas Notified Time 06/01/2017 6:01:37 PM White Blood Count 11.4 #H Red Blood Count 3.52 L Hemoglobin 11.5 L Hematocrit 32.6 L Mean Corpuscular Volume 92.6 Mean Corpuscular Hemoglobin 32.7 Mean Corpuscular Hemoglobin Concent 35.3 Red Cell Distribution Width 14.1 Platelet Count 180 Mean Platelet Volume 11.5 H Neutrophils % 90.8 H Lymphocytes % 4.9 L Monocytes % 3.8 Eosinophils % 0.0 Basophils % 0.1 Nucleated Red Blood Cells % 0.0 Neutrophils # 10.3 H Lymphocytes # 0.6 L Monocytes # 0.4 Eosinophils # 0.0 Basophils # 0.0 Nucleated Red Blood Cells # 0.0 Sodium Level 137 Potassium Level 3.8 Chloride Level 104 Carbon Dioxide Level 26 Anion Gap 11 Blood Urea Nitrogen 12 Creatinine 0.38 L Glucose Level 122 Calcium Level 8.0 L Phosphorus Level 3.7 Magnesium Level 2.2 Medications Current Medications Ondansetron HCl (Zofran Inj) 4 mg Q6H PRN IV NAUSEA AND/OR VOMITING Last administered on 05/26/17 05:33; Admin Dose 4 MG; Start 05/20/17 at 02:00 Acetaminophen (Tylenol Tab) 650 mg Q6H PRN PO PAIN LEVEL 1-3 OR FEVER Last administered on 05/21/17 23:08; Admin Dose 650 MG; Start 05/20/17 at 02:00 Morphine Sulfate 2 mg 2 mg Q4H PRN IV PAIN LEVEL 7-10; Start 05/20/17 at 02:00 ; Status Future Hold Ceftriaxone Sodium 50 ml @ 100 mls/hr Q24H IVPB Last administered on 06:28; Admin Dose 100 MLS/HR; Start 05/20/17 at 07:00 Azithromycin (Zithromax 500mg/ NS (Pmx)) 250 ml @ 250 mls/hr Q24H IVPB Last administered on 06/01/17 12:20; Admin Dose 250 MLS/HR; Start 05/21/17 at 11:30 Hydrocodone Bit/ Homatropine Methylb (Hycodan Liquid) 5 ml Q4 PRN PO cough Last administered on 05/29/17 12:04; Admin Dose 5 ML; Start 05/22/17 at 19:30 Famotidine 20 mg 20 mg Q12 IV Last administered on 06/02/17 09:26; Admin Dose 20 MG; Start 05/23/17 at 21:00 Sodium Chloride (NS) 1,000 ml @ 75 mls/hr [id number] IV Last administered on 20:15; Admin Dose 75 MLS/HR; Start 05/23/17 at 19:27 Methylprednisolone Sodium Succinate (Solu-Medrol) 40 mg Q8 IV Last administered on 06/02/17 06:28; Admin Dose 40 MG; Start 05/29/17 at 14:00 Benzonatate (Tessalon) 200 mg TID PO Last administered on 06/02/17 09:25; Admin Dose 200 MG; Start 05/29/17 at 14:00 Guaifenesin/ Codeine Phosphate (Robitussin Ac Liquid Cup) 5 ml Q4H PRN PO cough Last administered on 05/29/17 21:23; Admin Dose 5 ML; Start 05/29/17 at 13:00 Bisacodyl (Dulcolax) 10 mg DAILY PRN PO CONSTIPATION; Start 05/30/17 at 17:00 ; Stop 06/14/17 at 08:00 Polyethylene Glycol (Miralax) 17 gm BID PO Last administered on 06/01/17 21: 16; Admin Dose 17 GM; Start 05/30/17 at 21:00; Stop 06/14/17 at 08:00 Hydromorphone HCl (Dilaudid) 1 mg Q4H PRN IV PAIN Last administered on 06:40; Admin Dose 1 MG; Start 05/30/17 at 23:30 Acetaminophen/ Hydrocodone Bitart ([place] (7.5-325)) 1 tab Q4H PRN PO Pain Last administered on 06/01/17 16:24; Admin Dose 1 TAB; Start 06/01/17 at 15:30 Assessment/Plan Chief Complaint/Hosp Course Assessment 1. Significant massive hemoptysis etiology remains unclear. 2. Status post lung biopsy preliminary pathology noted 3. Possible underlying vasculitis results pending 4. Hypoxemic respiratory failure with volume loss and atelectasis noted. Plan 1. Trial of high flow O2 2. Incentive spirometry encourage out of bed 3. Chest tube management 4. Continue steroid taper Continue ICU care Problems: MYKE MOREL MD, [facility] Jun 02, 2017 10:54
[2017-06-02] MEDS: SOD CHLORIDE 0.9% 1,000 ML IV SCH (11:10)
[2017-06-02] MEDS: AZITHROMYCIN 500MG/NS (PMX) 250 ML IVPB SCH (11:10)
--- NOTE | 2017-06-02 12:35 | PN ---
Date/Time of Note Date/Time of Note DATE: 06/02/17 TIME: 12:35 Assessment/Plan Lines/Catheters IV Catheter Type (from Nrs): Peripheral IV Carlson in Place (from Nrs): Yes Assessment/Plan Chief Complaint/Hosp Course IMPRESSION: Multifocal pneumonia, possible vasculitis. SP VATS Lung BX CXR IMPRESSION: Right-sided chest tube in place with resolution of right apical pneumothorax. Elevated right hemidiaphragm with right basilar atelectasis or consolidation and volume loss unchanged. will continue CT Sxn Problems: Subjective 24 Hr Interval Summary Constitutional: improved Pain Control: mild Exam/Review of Systems Vital Signs Vitals Vital Signs Date Time Temp Pulse Resp B/P Pulse Ox O2 Delivery O2 Flow Rate FiO2 06/02/17 11:18 96 100 06/02/17 09:00 58 21 98/67 Non Rebreather 06/02/17 08:00 98.2 06/01/17 18:00 15.0 Intake and Output 06/01/17 06/01/17 06/02/17 15:00 23:00 07:00 Intake Total 1490 ml 300 ml 150 ml Output Total 1620 ml 803 ml 220 ml Balance -130 ml -503 ml -70 ml Exam Respiratory: clear to auscultation, normal air movement Cardiovascular: nl pulses, regular rate and rhythm Gastrointestinal: nl liver, spleen, non-tender, soft Results Result Diagram: 06/02/17 0500 06/02/17 0500 NASH ZAVALA MD Jun 02, 2017 12:35
[2017-06-02] MEDS: HYDROCODONE/APAP (7.5/325) TAB PO PRN (17:09)
[2017-06-02] MEDS: METHYLPREDNISOLONE 125 MG INJ IV SCH (21:51)
[2017-06-03] VITALS (24 sets, daily range): BP systolic 91–122; BP diastolic 59–79; PULSE 53–86; RESP 13–27
[2017-06-03] MEDS: METHYLPREDNISOLONE 125 MG INJ IV SCH ×3 (06:02→21:46)
[2017-06-03] MEDS: CEFTRIAXONE 1 GM/50 ML (PMX) 50 ML IVPB SCH (06:34)
[2017-06-03] MEDS: HYDROmorphONE 1 MG/ML SYG IV PRN ×3 (08:39→22:52)
--- NOTE | 2017-06-03 08:48 | PN ---
Date/Time of Note Date/Time of Note DATE: 06/03/17 TIME: 08:46 Assessment/Plan VTE Prophylaxis VTE Prophylaxis Intervention: SCD's Lines/Catheters IV [facility] Type [facility]from [facility] Saline Lock Urinary Cath still in place: Yes Reason Cath still needed: other (indicate) Assessment/Plan Chief Complaint/Hosp Course 1. Hemoptysis. Etiology unclear. Possible underlying vasculitis. Chest CT showing patchy airspace opacities in both lungs consistent with multifocal pneumonia. Status post bronchoscopy on 05/26/2017 that revealed bleeding in the trachea and massive amounts of fresh blood coming from the left lung. The patient was consequently intubated and transferred to ICU. The patient was later extubated. S/P right VATS with lysis of adhesions, decortication, right upper lobe right lower lobe lung wedge resection and lung biopsy on 05/30/2017. 2. Acute hypoxic respiratory failure. Continue supplemental O2. Wean off O2 as tolerated. On IV steroids as per Pulmonology. 3. Bilateral patchy airspace opacities suggesting multifocal pneumonia. S/P treatment for community acquired pneumonia. 4. Anemia secondary to acute blood loss. Status post transfusion of blood products 5. Fluids, electrolytes, and nutrition. Regular diet as tolerated. 6. DVT prophylaxis. SCDs. 7. Plan. Awake further recommendations from consultants. Keep the patient in ICU. Wean off O2 as tolerated. Case discussed with Dr. White. Critical Care time: 35 minutes. Problems: Subjective 24 Hr Interval Summary Free Text/Dictation The patient remains on 100% NRB. Exam/Review of Systems Vital Signs Vitals Vital Signs Date Time Temp Pulse Resp B/P Pulse Ox O2 Delivery O2 Flow Rate FiO2 06/03/17 06:00 53 19 95/68 100 Non Rebreather 06/03/17 04:14 100 06/03/17 04:00 98.2 06/01/17 18:00 15.0 Intake and Output 06/02/17 06/02/17 06/03/17 15:00 23:00 07:00 Intake Total 1190 ml 200 ml Output Total 1490 ml 640 ml 530 ml Balance -300 ml -440 ml -530 ml Exam General: Adequately build 46 year-old female lying in bed in mild respiratory apparent distress. HEENT: Normocephalic, atraumatic. Eyes: Anicteric sclerae, conjunctivae clear. ENT: Nasal septum midline, oral mucosa moist. Neck supple, no JVD noticed. Respiratory: Bilaterally diminished breath sounds. Use of accessory muscles of respiration. Right sided chest tube to PleurVac, draining sanguineous fluid. Cardiovascular: S1, S2 heard. No murmurs or gallops. Abdomen: Soft, nontender, and nondistended. Bowel sounds positive in all 4 quadrants. Genitourinary: Deferred. Extremities: No cyanosis, no clubbing, no edema. Peripheral pulses palpable. Neurologic: Cranial nerves II through XII grossly intact. The patient is awake, alert, and oriented. Skin: Normal skin turgor. No skin rashes. Results Result Diagram: 06/03/17 0547 06/03/17 0547 Results 24 hrs Laboratory Tests Test 06/02/17 14:46 06/03/17 05:47 06/03/17 07:00 Blood Gas Specimen Source Blood arterial Blood arterial Arterial Blood Date Drawn 06/02/2017 3:00:51 PM 06/03/2017 6:12:47 AM Arterial Blood pH (Temp corrected) 7.473 H 7.471 H Arterial Blood pCO2 (Temp correct) 30.1 L 30.5 L Arterial Blood pO2 (Temp corrected) 50.2 *L 79.0 L Arterial Blood HCO3 21.6 L 21.7 L Arterial Blood Base Excess -1.0 -0.9 Arterial Blood Oxygen Saturation 86.7 L 95.4 Reginald Test ACCEPTAB ACCEPTAB Arterial Blood Gas Puncture Site Right Radial Right Radial Arterial Blood Carboxyhemoglobin 0.1 0.3 Arterial Blood Methemoglobin 0.3 0.2 Blood Gas A-a O2 Differential 632.7 H 603.5 H Oxyhemoglobin Percent 86.4 L 94.9 Total Hemoglobin 13.4 13.7 Blood Gas Temperature 37.0 37.0 Blood Gas Modality MASK - NRB MASK - NRB FiO2 100.0 100.0 Blood Gas Critical Value Read Back A GRACE JON Blood Gas Notified Whom ISRAEL TREJO Blood Gas Notified Time 06/02/2017 3:10:22 PM 06/03/2017 6:25:21 AM White Blood Count 15.1 #H Red Blood Count 3.94 L Hemoglobin 12.8 Hematocrit 36.3 L Mean Corpuscular Volume 92.1 Mean Corpuscular Hemoglobin 32.5 Mean Corpuscular Hemoglobin Concent 35.3 Red Cell Distribution Width 13.9 Platelet Count 217 # Mean Platelet Volume 11.3 H Neutrophils % 92.6 H Lymphocytes % 3.2 L Monocytes % 3.5 Eosinophils % 0.0 Basophils % 0.1 Nucleated Red Blood Cells % 0.0 Neutrophils # 14.0 H Lymphocytes # 0.5 L Monocytes # 0.5 Eosinophils # 0.0 Basophils # 0.0 Nucleated Red Blood Cells # 0.0 Sodium Level 135 Potassium Level 4.0 Chloride Level 104 Carbon Dioxide Level 27 Anion Gap 8 Blood Urea Nitrogen 18 Creatinine 0.47 Glucose Level 137 Calcium Level 8.4 Phosphorus Level 3.9 Magnesium Level 2.3 Medications Medications Current Medications Ondansetron HCl (Zofran Inj) 4 mg Q6H PRN IV NAUSEA AND/OR VOMITING Last administered on 05/26/17 05:33; Admin Dose 4 MG; Start 05/20/17 at 02:00 Acetaminophen (Tylenol Tab) 650 mg Q6H PRN PO PAIN LEVEL 1-3 OR FEVER Last administered on 05/21/17 23:08; Admin Dose 650 MG; Start 05/20/17 at 02:00 Morphine Sulfate 2 mg 2 mg Q4H PRN IV PAIN LEVEL 7-10; Start 05/20/17 at 02:00 ; Status Future Hold Ceftriaxone Sodium 50 ml @ 100 mls/hr Q24H IVPB Last administered on 06:34; Admin Dose 100 MLS/HR; Start 05/20/17 at 07:00 Azithromycin (Zithromax 500mg/ NS (Pmx)) 250 ml @ 250 mls/hr Q24H IVPB Last administered on 06/02/17 11:10; Admin Dose 250 MLS/HR; Start 05/21/17 at 11:30 Hydrocodone Bit/ Homatropine Methylb (Hycodan Liquid) 5 ml Q4 PRN PO cough Last administered on 05/29/17 12:04; Admin Dose 5 ML; Start 05/22/17 at 19:30 Famotidine (Pepcid Iv) 20 mg Q12 IV Last administered on 06/02/17 21:51; Admin Dose 20 MG; Start 05/23/17 at 21:00 Benzonatate (Tessalon) 200 mg TID PO Last administered on 06/02/17 21:51; Admin Dose 200 MG; Start 05/29/17 at 14:00 Guaifenesin/ Codeine Phosphate (Robitussin Ac Liquid Cup) 5 ml Q4H PRN PO cough Last administered on 05/29/17 21:23; Admin Dose 5 ML; Start 05/29/17 at 13:00 Bisacodyl (Dulcolax) 10 mg DAILY PRN PO CONSTIPATION; Start 05/30/17 at 17:00 ; Stop 06/14/17 at 08:00 Polyethylene Glycol (Miralax) 17 gm BID PO Last administered on 06/01/17 21: 16; Admin Dose 17 GM; Start 05/30/17 at 21:00; Stop 06/14/17 at 08:00 Hydromorphone HCl (Dilaudid) 1 mg Q4H PRN IV PAIN Last administered on 08:39; Admin Dose 1 MG; Start 05/30/17 at 23:30 Acetaminophen/ Hydrocodone Bitart ([place] (7.5-325)) 1 tab Q4H PRN PO Pain Last administered on 06/02/17 17:09; Admin Dose 1 TAB; Start 06/01/17 at 15:30 Methylprednisolone Sodium Succinate (Solu-Medrol) 80 mg Q8 IV Last administered on 06/03/17 06:02; Admin Dose 80 MG; Start 06/02/17 at 22:00 KIKI FERREIRA NP Jun 03, 2017 08:48
--- NOTE | 2017-06-03 09:22 | RADRPT ---
PROCEDURE: XR Chest. CLINICAL INDICATION: Pneumonia, CHF TECHNIQUE: AP Portable chest. COMPARISON: CHEST 06/02/2017; CHEST 06/01/2017 FINDINGS: Right chest tube remains in place. There is persistent right pleural pneumothorax and probable colla psed right lower lobe. The left lung is clear. The aorta is normal. The osseous structures are intact. IMPRESSION: Persistent right pneumothorax and probable collapse of right lower lobe. Right chest tube in place.. Physician Blayne Date Time Electronically viewed and signed by Abi Osei Physician on 06/03/2017 09:21 CS/
--- NOTE | 2017-06-03 09:35 | CONS ---
Date/Time of Note Date/Time of Note DATE: 06/03/17 TIME: 09:32 Assessment/Plan Assessment/Plan Additional Assessment/Plan Chest x-ray was reviewed from today which is showing right upper lobe atelectasis. Right-sided chest tube is in place. No acute infiltrates identified. There is interval resolution of right upper lobe infiltrative changes. Next Assessment and recommendations; next 1. Patient admitted with alveolar hemorrhage etiology is unclear. Vasculitis workup is so far negative. 2. Status post VATS biopsy on the right side. Findings are nonspecific revealing only alveolar hemorrhage. 3. Status post respiratory failure. 4. Right lower lobe atelectasis. 5. Marked interval resolution of infiltrative changes. 6. Hypoxemia due to VQ mismatch from atelectasis. Continue current treatment. Will obtain triple phase CT chest with contrast to rule out AV malformation. Consultation Date/Type/Reason Admit Date/Time May 19, 2017 at 23:53 Type of Consultation: Pulmonary/critical care 24 HR Interval Summary Free Text/Dictation Patient's condition is stable. Denies any shortness of breath, any further hemoptysis. General exam; young female, awake alert, currently in no distress. Exam/Review of Systems Vital Signs Vitals Vital Signs Date Time Temp Pulse Resp B/P Pulse Ox O2 Delivery O2 Flow Rate FiO2 06/03/17 08:00 Non Rebreather 15.0 06/03/17 08:00 98.5 54 25 98/65 100 06/03/17 04:14 100 Intake and Output 06/02/17 06/02/17 06/03/17 15:00 23:00 07:00 Intake Total 1190 ml 200 ml Output Total 1490 ml 640 ml 530 ml Balance -300 ml -440 ml -530 ml Exam HEENT exam; supple neck, no JVD. No lymphadenopathy. Midline trachea. No thyromegaly. Pharynx is clear. Patient has good dentition. Chest exam; diminished breath sounds right lower lobe. Right-sided chest tube in place. Rest of the lung torres are clear. S1-S2 audible, no murmurs. Regular rhythm. Abdomen exam; soft, nondistended. No organomegaly. Bowel sounds audible. Extremity exam; no peripheral edema. Pulses 2+ bilaterally. No clubbing. DERMATOLOGY NURSE PRACTITIONER exam; no focal deficit. Results Result Diagram: 06/03/1754606/03/17546 Results 24 hrs Laboratory Tests Test 06/02/17 14:46 06/03/17 05:47 06/03/17 07:00 Blood Gas Specimen Source Blood arterial Blood arterial Arterial Blood Date Drawn 06/02/2017 3:00:51 PM 06/03/2017 6:12:47 AM Arterial Blood pH (Temp corrected) 7.473 H 7.471 H Arterial Blood pCO2 (Temp correct) 30.1 L 30.5 L Arterial Blood pO2 (Temp corrected) 50.2 *L 79.0 L Arterial Blood HCO3 21.6 L 21.7 L Arterial Blood Base Excess -1.0 -0.9 Arterial Blood Oxygen Saturation 86.7 L 95.4 Reginald Test ACCEPTAB ACCEPTAB Arterial Blood Gas Puncture Site Right Radial Right Radial Arterial Blood Carboxyhemoglobin 0.1 0.3 Arterial Blood Methemoglobin 0.3 0.2 Blood Gas A-a O2 Differential 632.7 H 603.5 H Oxyhemoglobin Percent 86.4 L 94.9 Total Hemoglobin 13.4 13.7 Blood Gas Temperature 37.0 37.0 Blood Gas Modality MASK - NRB MASK - NRB FiO2 100.0 100.0 Blood Gas Critical Value Read Back A GRACE JON Blood Gas Notified Whom ISRAEL TREJO Blood Gas Notified Time 06/02/2017 3:10:22 PM 06/03/2017 6:25:21 AM White Blood Count 15.1 #H Red Blood Count 3.94 L Hemoglobin 12.8 Hematocrit 36.3 L Mean Corpuscular Volume 92.1 Mean Corpuscular Hemoglobin 32.5 Mean Corpuscular Hemoglobin Concent 35.3 Red Cell Distribution Width 13.9 Platelet Count 217 # Mean Platelet Volume 11.3 H Neutrophils % 92.6 H Lymphocytes % 3.2 L Monocytes % 3.5 Eosinophils % 0.0 Basophils % 0.1 Nucleated Red Blood Cells % 0.0 Neutrophils # 14.0 H Lymphocytes # 0.5 L Monocytes # 0.5 Eosinophils # 0.0 Basophils # 0.0 Nucleated Red Blood Cells # 0.0 Sodium Level 135 Potassium Level 4.0 Chloride Level 104 Carbon Dioxide Level 27 Anion Gap 8 Blood Urea Nitrogen 18 Creatinine 0.47 Glucose Level 137 Calcium Level 8.4 Phosphorus Level 3.9 Magnesium Level 2.3 Medications Medications Current Medications Ondansetron HCl (Zofran Inj) 4 mg Q6H PRN IV NAUSEA AND/OR VOMITING Last administered on 05/26/17 05:33; Admin Dose 4 MG; Start 05/20/17 at 02:00 Acetaminophen (Tylenol Tab) 650 mg Q6H PRN PO PAIN LEVEL 1-3 OR FEVER Last administered on 05/21/17 23:08; Admin Dose 650 MG; Start 05/20/17 at 02:00 Morphine Sulfate (morphine) 2 mg Q4H PRN IV PAIN LEVEL 7-10; Start 05/20/17 at 02:00; Status Future Hold Hydrocodone Bit/ Homatropine Methylb (Hycodan Liquid) 5 ml Q4 PRN PO cough Last administered on 05/29/17 12:04; Admin Dose 5 ML; Start 05/22/17 at 19:30 Famotidine (Pepcid Iv) 20 mg Q12 IV Last administered on 06/02/17 21:51; Admin Dose 20 MG; Start 05/23/17 at 21:00 Benzonatate (Tessalon) 200 mg TID PO Last administered on 06/02/17 21:51; Admin Dose 200 MG; Start 05/29/17 at 14:00 Guaifenesin/ Codeine Phosphate (Robitussin Ac Liquid Cup) 5 ml Q4H PRN PO cough Last administered on 05/29/17 21:23; Admin Dose 5 ML; Start 05/29/17 at 13:00 Bisacodyl (Dulcolax) 10 mg DAILY PRN PO CONSTIPATION; Start 05/30/17 at 17:00 ; Stop 06/14/17 at 08:00 Polyethylene Glycol (Miralax) 17 gm BID PO Last administered on 06/01/17 21: 16; Admin Dose 17 GM; Start 05/30/17 at 21:00; Stop 06/14/17 at 08:00 Hydromorphone HCl (Dilaudid) 1 mg Q4H PRN IV PAIN Last administered on 08:39; Admin Dose 1 MG; Start 05/30/17 at 23:30 Acetaminophen/ Hydrocodone Bitart ([place] (7.5-325)) 1 tab Q4H PRN PO Pain Last administered on 06/02/17 17:09; Admin Dose 1 TAB; Start 06/01/17 at 15:30 Methylprednisolone Sodium Succinate (Solu-Medrol) 80 mg Q8 IV Last administered on 06/03/17t 06:02; Admin Dose 80 MG; Start 06/02/17 at 22:00 PHOEBE HARRIS Jun 03, 2017 09:35
[2017-06-03] MEDS: ACETYLCYSTEINE 20% 4 ML VIAL NEB SCH ×3 (10:00→19:14)
[2017-06-03] MEDS: FAMOTIDINE 20 MG INJ IV SCH ×2 (10:26→20:45)
[2017-06-03] MEDS: BENZONATATE 100 MG CAP PO SCH ×3 (10:26→20:46)
[2017-06-03] MEDS: POLYETHYLENE GLYCOL 17 GM PACKET PO SCH ×2 (10:26→21:00)
--- NOTE | 2017-06-03 13:43 | PN ---
Date/Time of Note Date/Time of Note DATE: 06/03/17 TIME: 13:43 Assessment/Plan Lines/Catheters IV Catheter Type (from Nrs): Peripheral IV Carlson in Place (from Nrs): Yes Assessment/Plan Chief Complaint/Hosp Course IMPRESSION: Multifocal pneumonia, possible vasculitis. SP VATS Lung BX CXR CT 120cc IMPRESSION: Right-sided chest tube in place with resolution of right apical pneumothorax. Elevated right hemidiaphragm with right basilar atelectasis or consolidation and volume loss unchanged. will continue CT Sxn Problems: Subjective 24 Hr Interval Summary Constitutional: improved Pain Control: mild Exam/Review of Systems Vital Signs Vitals Vital Signs Date Time Temp Pulse Resp B/P Pulse Ox O2 Delivery O2 Flow Rate FiO2 06/03/17 08:00 Non Rebreather 15.0 06/03/17 08:00 57 06/03/17 08:00 98.5 25 98/65 100 06/03/17 04:14 100 Intake and Output 06/02/17 06/02/17 06/03/17 14:59 22:59 06:59 Intake Total 1240 ml 275 ml Output Total 1520 ml 670 ml 600 ml Balance -280 ml -395 ml -600 ml Exam ENMT: mucosa pink and moist, nl external ears & nose, nl lips & teeth, nl nasal mucosa & septum Neck: non-tender, supple Respiratory: clear to auscultation, normal air movement Cardiovascular: nl pulses, regular rate and rhythm Results Result Diagram: 06/03/17 0547 06/03/17 0547 NASH ZAVALA MD Jun 03, 2017 13:43
[2017-06-03] MEDS: ALBUTEROL 0.083% (NEB) 2.5 MG/3 ML AMP HHN SCH ×2 (14:30→19:14)
[2017-06-03] MEDS ORDERED: SOD CHLORIDE 0.9% 100 ML ONE (22:09)
[2017-06-03] MEDS ORDERED: IOHEXOL 100 ML ONE (22:09)
--- NOTE | 2017-06-03 23:28 | RADRPT ---
PROCEDURE: CT angiogram chest. CLINICAL INDICATION: Shortness of breath. TECHNIQUE: CT angiogram of the chest was performed utilizing axial images with reconstructions in sagittal and coronal planes following the intravenous administration of 90 cc Omnipaque 350 contrast . The administered radiation dose is CTDI 12.4 mGy, DLP 456 mGy-cm. One or more of the following dos e reduction techniques were used: automated exposure control, adjustment of the mA and/or kV accordi ng to patient size and/or use of iterative reconstruction technique. 3D and / or MIPS reformats wer e performed. COMPARISON: No pertinent prior examinations are submitted for comparison. FINDINGS: Pulmonary angiogram: The pulmonary arteries are adequately opacified to the level of the segmental pulmonary artery branches. There is minimal respiratory motion artifact. There is no evidence of p ulmonary embolus. Aortogram: There is no evidence of aortic dissection or aneurysm. Major branches of the aorta are patent. Chest: There is small right pneumothorax status post placement of a chest tube. Extensive consolidation of the right lower and middle lobes is noted. Some extensive airspace disease is also seen throughout t he right upper lobe. Some minimal perihilar airspace opacity is noted in the left upper and lower lobes. Some mild depend ent atelectasis is noted in the left lower lobe. Some fluid and debris are noted throughout the right mainstem bronchus and throughout the right lung . No definite pleural effusions are seen. The heart is normal in size. No pericardial effusion is seen. No definite mediastinal or hilar adeno jesse is identified. Visualized Upper abdomen: Prior cholecystectomy is noted. Osseous structures: Unremarkable. IMPRESSION: No evidence of pulmonary embolus. Small right pneumothorax status post chest tube placement. Extensive airspace disease throughout the right lung as well as slightly in the left perihilar lung likely due to pneumonia. Fluid and debris are noted throughout the right lung bronchi. RPTAT: HIKT .Jones Abdi MD, Date Time Electronically viewed and signed by .Jones Abdi MD, on 06/03/2017 23:28 .T/
[2017-06-03] MEDS: HYDROCODONE/APAP (7.5/325) TAB PO PRN (23:54)
[2017-06-04] VITALS (29 sets, daily range): BP systolic 96–160; BP diastolic 63–103; PULSE 53–108; RESP 10–24
[2017-06-04] MEDS ORDERED: HYDROmorphONE 1 MG/ML SYG IV ONE (00:43)
[2017-06-04] MEDS: ACETYLCYSTEINE 20% 4 ML VIAL NEB SCH ×4 (01:17→20:22)
[2017-06-04] MEDS: ALBUTEROL 0.083% (NEB) 2.5 MG/3 ML AMP HHN SCH ×4 (01:17→20:07)
[2017-06-04] MEDS ORDERED: PANTOPRAZOLE (EC) 40 MG TAB PO SCH (06:00)
[2017-06-04] MEDS: METHYLPREDNISOLONE 125 MG INJ IV SCH ×3 (06:12→21:30)
[2017-06-04] MEDS: HYDROmorphONE 1 MG/ML SYG IV PRN ×4 (07:11→21:54)
--- NOTE | 2017-06-04 07:55 | RADRPT ---
PROCEDURE: Chest radiograph CLINICAL INDICATION: Respiratory distress, desaturating. COMPARISON: CT 06/03/2017. TECHNIQUE: Single frontal chest radiograph. FINDINGS: Moderate right apical pneumothorax. Right chest tube terminates at the lung apex. Right chest opacity with volume loss consistent with atelectasis The left lung is hyperinflated. The heart border is obscured by right chest atelectasis. No suspicious bone lesion. IMPRESSION: Overall, no change from 06/03/2017. CT when allowing for differences in modality. 1. Moderate right apical pneumothorax with draining chest tube in expected position. 2. Atelectasis involving the entire right lung. RPTAT: EE Physician Eloisa Date Time Electronically viewed and signed by Physician Eloisa on 06/04/2017 07:55 /
[2017-06-04] MEDS: BENZONATATE 100 MG CAP PO SCH ×3 (09:00→21:28)
[2017-06-04] MEDS: POLYETHYLENE GLYCOL 17 GM PACKET PO SCH ×2 (09:00→21:00)
--- NOTE | 2017-06-04 09:59 | RADRPT ---
PROCEDURE: XR Chest. CLINICAL INDICATION: Respiratory distress TECHNIQUE: Single AP portable chest. COMPARISON: 06/04/2017 Chest x-ray FINDINGS: Opacification of the right hemithorax with right thoracic chest tube in place with distal tip at the right apex. Of the right cardiac border is silhouetted by airspace opacity which may reflect pleur al effusion, consolidation, or atelectasis. The left lung is clear. Approximately 577 right apical persistent pneumothorax. The osseous structures and soft tissues are unremarkable. IMPRESSION: 1. Opacification of the right hemithorax with persistent right 5-10% in pneumothorax with stable tyler st tube position. 2. The left lung is clear . RPTAT: HH Physician Haroon Date Time Electronically viewed and signed by Physician Haroon on 06/04/2017 09:59 RACHEL/
--- NOTE | 2017-06-04 13:14 | CONS ---
Date/Time of Note Date/Time of Note DATE: 06/04/17 TIME: 13:07 Consult Date/Type/Reason Admit Date/Time May 19, 2017 at 23:53 Type of Consultation: Pulmonary/critical care Subjective Severe hypoxemia on non-rebreather. Though no increased work of breathing noted. Complete right lung ATX with large air leak. Objective Vital Signs Date Time Temp Pulse Resp B/P Pulse Ox O2 Delivery O2 Flow Rate FiO2 06/04/17 12:00 108 06/04/17 09:00 11 122/72 89 High Flow Non Rebreather 06/04/17 08:00 15.0 06/04/17 08:00 98.1 06/04/17 05:20 80 Intake and Output 06/03/17 06/03/17 06/04/17 15:00 23:00 07:00 Intake Total 90 ml 25 ml Output Total 480 ml 640 ml 555 ml Balance -390 ml -615 ml -555 ml Exam HEENT: Neck supple; no JVD; no LAD CVS: RRR, S1 and S2 CHEST: Absent R BS and coarse BS ABD: Soft, NT, + BS EXT: No c/c/e Results/Medications Result Diagram: 06/04/17 0543 06/04/17 0543 Results 24 hrs Laboratory Tests Test 06/04/17 05:43 06/04/17 06:28 06/04/17 09:20 White Blood Count 23.1 #H Red Blood Count 4.24 Hemoglobin 13.8 Hematocrit 39.2 Mean Corpuscular Volume 92.5 Mean Corpuscular Hemoglobin 32.5 Mean Corpuscular Hemoglobin Concent 35.2 Red Cell Distribution Width 14.1 Platelet Count 238 Mean Platelet Volume 11.4 H Neutrophils % 94.9 H Lymphocytes % 1.9 L Monocytes % 2.4 Eosinophils % 0.0 Basophils % 0.1 Nucleated Red Blood Cells % 0.0 Neutrophils # 21.9 H Lymphocytes # 0.4 L Monocytes # 0.6 Eosinophils # 0.0 Basophils # 0.0 Nucleated Red Blood Cells # 0.0 Sodium Level 135 Potassium Level 4.1 Chloride Level 103 Carbon Dioxide Level 26 Anion Gap 10 Blood Urea Nitrogen 18 Creatinine 0.42 L Glucose Level 162 Calcium Level 8.9 Phosphorus Level 3.9 Magnesium Level 2.2 Blood Gas Specimen Source Blood arterial Blood arterial Arterial Blood Date Drawn 06/04/2017 6:40:50 AM 06/04/2017 9:50:32 AM Arterial Blood pH (Temp corrected) 7.500 H 7.483 H Arterial Blood pCO2 (Temp correct) 30.0 L 31.5 L Arterial Blood pO2 (Temp corrected) 37.9 *L 37.3 *L Arterial Blood HCO3 22.9 23.1 Arterial Blood Base Excess 0.8 0.6 Arterial Blood Oxygen Saturation 75.6 L 73.0 L Reginald Test ACCEPTAB ACCEPTAB Arterial Blood Gas Puncture Site Right Radial Right Radial Arterial Blood Carboxyhemoglobin 0.4 0.4 Arterial Blood Methemoglobin 0.2 0.1 Blood Gas A-a O2 Differential 645.1 H 644.2 H Oxyhemoglobin Percent 75.1 L 72.6 L Total Hemoglobin 15.0 15.0 Blood Gas Temperature 37.0 37.0 Blood Gas Modality HFNC HFNC FiO2 100.0 100.0 Blood Gas Critical Value Read Back K NIGHAT ZAVALA Blood Gas Notified Whom UP RT Blood Gas Notified Time 06/04/2017 6:51:57 AM 06/04/2017 9:57:56 AM Medications Current Medications Ondansetron HCl (Zofran Inj) 4 mg Q6H PRN IV NAUSEA AND/OR VOMITING Last administered on 05/26/17 05:33; Admin Dose 4 MG; Start 05/20/17 at 02:00 Acetaminophen (Tylenol Tab) 650 mg Q6H PRN PO PAIN LEVEL 1-3 OR FEVER Last administered on 05/21/17 23:08; Admin Dose 650 MG; Start 05/20/17 at 02:00 Morphine Sulfate (morphine) 2 mg Q4H PRN IV PAIN LEVEL 7-10; Start 05/20/17 at 02:00; Status Future Hold Hydrocodone Bit/ Homatropine Methylb (Hycodan Liquid) 5 ml Q4 PRN PO cough Last administered on 05/29/17 12:04; Admin Dose 5 ML; Start 05/22/17 at 19:30 Benzonatate (Tessalon) 200 mg TID PO Last administered on 06/03/17 20:46; Admin Dose 200 MG; Start 05/29/17 at 14:00 Guaifenesin/ Codeine Phosphate (Robitussin Ac Liquid Cup) 5 ml Q4H PRN PO cough Last administered on 05/29/17 21:23; Admin Dose 5 ML; Start 05/29/17 at 13:00 Bisacodyl (Dulcolax) 10 mg DAILY PRN PO CONSTIPATION; Start 05/30/17 at 17:00 ; Stop 06/14/17 at 08:00 Polyethylene Glycol (Miralax) 17 gm BID PO Last administered on 06/03/17 10: 26; Admin Dose 17 GM; Start 05/30/17 at 21:00; Stop 06/14/17 at 08:00 Hydromorphone HCl (Dilaudid) 1 mg Q4H PRN IV PAIN Last administered on 12:57; Admin Dose 1 MG; Start 05/30/17 at 23:30 Acetaminophen/ Hydrocodone Bitart ([place] (7.5-325)) 1 tab Q4H PRN PO Pain Last administered on 06/03/17 23:54; Admin Dose 1 TAB; Start 06/01/17 at 15:30 Methylprednisolone Sodium Succinate (Solu-Medrol) 80 mg Q8 IV Last administered on 06/04/17 06:12; Admin Dose 80 MG; Start 06/02/17 at 22:00 Pantoprazole (Protonix Tab) 40 mg DAILY@06 PO Last administered on 06/04/17 06:12; Admin Dose 40 MG; Start 06/04/17 at 06:00 Assessment/Plan Additional Assessment/Plan IMP: 1. Hypoxemic Resp Failure--s/p VATS bx and lobectomy for DAH--now with complete right lung ATX. Notable shunt physiology. 2. Complete Right Lung ATX--concern for proximal mucus plug. Consider RML Torsion. 3. DAH--etiology unclear. 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 Aggressive CPT/suctioning 2. May need a bronchoscopy however would need intubation first 3. Discuss care with CT surgery--> observe for possible torsion of RML 4. CT to 20 cm H20 suction 5. Send additional serologies--ROXIE, ESR, DsDNA. CRP 6. Monitor closely in ICU 40 min cc time TR ARRINGTON MD Jun 04, 2017 13:14
--- NOTE | 2017-06-04 13:43 | PN ---
Date/Time of Note Date/Time of Note DATE: 06/04/17 TIME: 13:40 Assessment/Plan VTE Prophylaxis VTE Prophylaxis Intervention: SCD's Lines/Catheters IV C[facility]ter Type (from [facility]): Peripheral IV Urinary Cath still in place: Yes Reason Cath still needed: other (indicate) Assessment/Plan Chief Complaint/Hosp Course 1. Hemoptysis. Etiology unclear. Possible underlying vasculitis. Chest CT showing patchy airspace opacities in both lungs consistent with multifocal pneumonia. Status post bronchoscopy on 05/26/2017 that revealed bleeding in the trachea and massive amounts of fresh blood coming from the left lung. The patient was consequently intubated and transferred to ICU. The patient was later extubated. S/P right VATS with lysis of adhesions, decortication, right upper lobe, right lower lobe lung wedge resection and lung biopsy on 05/30/2017. 2. Acute hypoxic respiratory failure. Continue supplemental O2. Wean off O2 as tolerated. On IV steroids as per Pulmonology. 3. Bilateral patchy airspace opacities suggesting multifocal pneumonia. S/P treatment for community acquired pneumonia. 4. Anemia secondary to acute blood loss. Status post transfusion of blood products 5. Fluids, electrolytes, and nutrition. Regular diet as tolerated. 6. DVT prophylaxis. SCDs. 7. Plan. Awake further recommendations from consultants. Keep the patient in ICU. Wean off O2 as tolerated. Case discussed with Dr. White. Critical Care time: 35 minutes. Problems: Subjective 24 Hr Interval Summary Free Text/Dictation The patient was on high flow oxygen. The patient was desaturating. Therefore, the patient had to be put on nonrebreather mask on the top of high flow oxygen. Exam/Review of Systems Vital Signs Vitals Vital Signs Date Time Temp Pulse Resp B/P Pulse Ox O2 Delivery O2 Flow Rate FiO2 06/04/17 12:00 108 06/04/17 09:00 11 122/72 89 High Flow Non Rebreather 06/04/17 08:00 15.0 06/04/17 08:00 98.1 06/04/17 05:20 80 Intake and Output 06/03/17 06/03/17 06/04/17 15:00 23:00 07:00 Intake Total 90 ml 25 ml Output Total 480 ml 640 ml 555 ml Balance -390 ml -615 ml -555 ml Exam General: Adequately build 46 year-old female lying in bed in mild to moderate respiratory apparent distress. HEENT: Normocephalic, atraumatic. Eyes: Anicteric sclerae, conjunctivae clear. ENT: Nasal septum midline, oral mucosa moist. Neck supple, no JVD noticed. Respiratory: Bilaterally diminished breath sounds. Use of accessory muscles of respiration. Right sided chest tube to PleurVac, draining sanguineous fluid. Cardiovascular: S1, S2 heard. No murmurs or gallops. Abdomen: Soft, nontender, and nondistended. Bowel sounds positive in all 4 quadrants. Genitourinary: Deferred. Extremities: No cyanosis, no clubbing, no edema. Peripheral pulses palpable. Neurologic: Cranial nerves II through XII grossly intact. The patient is awake, alert, and oriented. Skin: Normal skin turgor. No skin rashes. Results Result Diagram: 06/04/17 0543 06/04/17 0543 Results 24 hrs Laboratory Tests Test 06/04/17 05:43 06/04/17 06:28 06/04/17 09:20 White Blood Count 23.1 #H Red Blood Count 4.24 Hemoglobin 13.8 Hematocrit 39.2 Mean Corpuscular Volume 92.5 Mean Corpuscular Hemoglobin 32.5 Mean Corpuscular Hemoglobin Concent 35.2 Red Cell Distribution Width 14.1 Platelet Count 238 Mean Platelet Volume 11.4 H Neutrophils % 94.9 H Lymphocytes % 1.9 L Monocytes % 2.4 Eosinophils % 0.0 Basophils % 0.1 Nucleated Red Blood Cells % 0.0 Neutrophils # 21.9 H Lymphocytes # 0.4 L Monocytes # 0.6 Eosinophils # 0.0 Basophils # 0.0 Nucleated Red Blood Cells # 0.0 Sodium Level 135 Potassium Level 4.1 Chloride Level 103 Carbon Dioxide Level 26 Anion Gap 10 Blood Urea Nitrogen 18 Creatinine 0.42 L Glucose Level 162 Calcium Level 8.9 Phosphorus Level 3.9 Magnesium Level 2.2 Blood Gas Specimen Source Blood arterial Blood arterial Arterial Blood Date Drawn 06/04/2017 6:40:50 AM 06/04/2017 9:50:32 AM Arterial Blood pH (Temp corrected) 7.500 H 7.483 H Arterial Blood pCO2 (Temp correct) 30.0 L 31.5 L Arterial Blood pO2 (Temp corrected) 37.9 *L 37.3 *L Arterial Blood HCO3 22.9 23.1 Arterial Blood Base Excess 0.8 0.6 Arterial Blood Oxygen Saturation 75.6 L 73.0 L Reginald Test ACCEPTAB ACCEPTAB Arterial Blood Gas Puncture Site Right Radial Right Radial Arterial Blood Carboxyhemoglobin 0.4 0.4 Arterial Blood Methemoglobin 0.2 0.1 Blood Gas A-a O2 Differential 645.1 H 644.2 H Oxyhemoglobin Percent 75.1 L 72.6 L Total Hemoglobin 15.0 15.0 Blood Gas Temperature 37.0 37.0 Blood Gas Modality HFNC HFNC FiO2 100.0 100.0 Blood Gas Critical Value Read Back K NIGHAT ZAVALA Blood Gas Notified Whom UP RT Blood Gas Notified Time 06/04/2017 6:51:57 AM 06/04/2017 9:57:56 AM Medications Medications Current Medications Ondansetron HCl (Zofran Inj) 4 mg Q6H PRN IV NAUSEA AND/OR VOMITING Last administered on 05/26/17 05:33; Admin Dose 4 MG; Start 05/20/17 at 02:00 Acetaminophen (Tylenol Tab) 650 mg Q6H PRN PO PAIN LEVEL 1-3 OR FEVER Last administered on 05/21/17 23:08; Admin Dose 650 MG; Start 05/20/17 at 02:00 Morphine Sulfate (morphine) 2 mg Q4H PRN IV PAIN LEVEL 7-10; Start 05/20/17 at 02:00; Status Future Hold Hydrocodone Bit/ Homatropine Methylb (Hycodan Liquid) 5 ml Q4 PRN PO cough Last administered on 05/29/17 12:04; Admin Dose 5 ML; Start 05/22/17 at 19:30 Benzonatate (Tessalon) 200 mg TID PO Last administered on 06/03/17 20:46; Admin Dose 200 MG; Start 05/29/17 at 14:00 Guaifenesin/ Codeine Phosphate (Robitussin Ac Liquid Cup) 5 ml Q4H PRN PO cough Last administered on 05/29/17 21:23; Admin Dose 5 ML; Start 05/29/17 at 13:00 Bisacodyl (Dulcolax) 10 mg DAILY PRN PO CONSTIPATION; Start 05/30/17 at 17:00 ; Stop 06/14/17 at 08:00 Polyethylene Glycol (Miralax) 17 gm BID PO Last administered on 06/03/17 10: 26; Admin Dose 17 GM; Start 05/30/17 at 21:00; Stop 06/14/17 at 08:00 Hydromorphone HCl (Dilaudid) 1 mg Q4H PRN IV PAIN Last administered on 12:57; Admin Dose 1 MG; Start 05/30/17 at 23:30 Acetaminophen/ Hydrocodone Bitart ([place] (7.5-325)) 1 tab Q4H PRN PO Pain Last administered on 06/03/17 23:54; Admin Dose 1 TAB; Start 06/01/17 at 15:30 Methylprednisolone Sodium Succinate (Solu-Medrol) 80 mg Q8 IV Last administered on 06/04/17 06:12; Admin Dose 80 MG; Start 06/02/17 at 22:00 Pantoprazole (Protonix Tab) 40 mg DAILY@06 PO Last administered on 06/04/17 06:12; Admin Dose 40 MG; Start 06/04/17 at 06:00 KIKI FERREIRA NP Jun 04, 2017 13:43
--- NOTE | 2017-06-04 18:06 | PN ---
Date/Time of Note Date/Time of Note DATE: 06/04/17 TIME: 18:04 Assessment/Plan Lines/Catheters IV Catheter Type (from Nrsg): Peripheral IV Carlson in Place (from Nrsg): Yes Assessment/Plan Chief Complaint/Hosp Course IMPRESSION: Multifocal pneumonia, possible vasculitis. SP VATS Lung BX CXR with 5% PTX CT 45cc IMPRESSION: small PTX pt with opacification of the right lung, ? bleeding and mucous plug Elevated right hemidiaphragm with right basilar atelectasis or consolidation and volume loss unchanged. will continue CT Sxn Problems: Subjective 24 Hr Interval Summary Constitutional: improved Pain Control: mild Exam/Review of Systems Vital Signs Vitals Vital Signs Date Time Temp Pulse Resp B/P Pulse Ox O2 Delivery O2 Flow Rate FiO2 06/04/17 16:00 98.2 59 12 125/69 97 High Flow Non Rebreather 06/04/17 08:00 15.0 06/04/17 05:20 80 Intake and Output 06/03/17 06/03/17 06/04/17 15:00 23:00 07:00 Intake Total 90 ml 25 ml Output Total 480 ml 640 ml 595 ml Balance -390 ml -615 ml -595 ml Exam Neck: non-tender, supple Respiratory: clear to auscultation, normal air movement, No congested cough, No crackles/rales, No diminished breath sounds, No intercostal retraction, No labored breathing, No other, No respirations, No tactile fremitus, No wheezing Gastrointestinal: nl liver, spleen, non-tender, soft Results Result Diagram: 06/04/17 0543 06/04/17 0543 NASH ZAVALA MD Jun 04, 2017 18:06
--- NOTE | 2017-06-04 23:09 | RADRPT ---
PROCEDURE: XR Chest. CLINICAL INDICATION: Oxygen desaturation. TECHNIQUE: Portable AP semi erect view of the chest was obtained. COMPARISON: 06/04/2017 at 09:20 a.m. FINDINGS: The cardiomediastinal silhouette is within normal limits, A again deviated to the right because of t he right lower lobe volume loss. Right-sided chest tube remains in good position with a tiny right apical pneumothorax stable. Dense consolidation of the right lower lobe is again noted with slight i mprovement in aeration of the right lung compared to earlier the same day. The left lung remains derrick ar. No left pleural effusion is seen. The osseous structures are intact with no evidence for acute abnormality. RPTAT:HJJR IMPRESSION: 1. Slight interval improvement in aeration of the right lung compared to earlier the same day. 2. Persistent dense consolidation of the right lower lobe with associated retraction of the trachea and mediastinal structures to the right of midline consistent with volume loss. 3. Tiny right apical pneumothorax is unchanged in this patient with a right-sided chest tube. Physician Malcom Date Time Electronically viewed and signed by Physician Malcom on 06/04/2017 23:09 /
[2017-06-05] VITALS (95 sets, daily range): BP systolic 77–151; BP diastolic 22–109; PULSE 61–128; RESP 12–34
[2017-06-05] MEDS: ACETYLCYSTEINE 20% 4 ML VIAL NEB SCH ×5 (02:00→19:47)
[2017-06-05] MEDS ORDERED: ETOMIDATE 20 MG INJ ONE (02:00)
[2017-06-05] MEDS ORDERED: SUCCINYLCHOLINE CHLORIDE 100 MG/5 ML SYG IV ONE (02:00)
[2017-06-05] MEDS: ALBUTEROL 0.083% (NEB) 2.5 MG/3 ML AMP HHN SCH ×4 (02:00→19:47)
[2017-06-05] MEDS ORDERED: FENTAnyl (DRIP) 1000 mcg/100mL 100 ML IV ONE (02:07)
[2017-06-05] MEDS ORDERED: LORAZEPAM 2 MG INJ ONE (02:26)
[2017-06-05] MEDS ORDERED: PROPOFOL 100 ML ONE (02:28)
[2017-06-05] MEDS: PROPOFOL 100 ML IV SCH ×4 (02:30→21:36)
[2017-06-05] MEDS ORDERED: LORAZEPAM 2 MG INJ IV ONE ×2 (02:30→04:00)
[2017-06-05] MEDS: FENTAnyl (DRIP) 1000 mcg/100mL 100 ML IV SCH ×3 (02:30→21:28)
--- NOTE | 2017-06-05 02:44 | EN ---
Date/Time of Note Date/Time of Note DATE: 06/05/17 TIME: 02:38 ER Progress Note I was called to the ICU by Dr. Olsen for a patient in respiratory distress with hypoxemic respiratory failure. Patient had had a VATS procedure with lung resection recently. She has a right-sided chest tube. Recent x-ray showed increased opacification of the right lung and a recent CT showed possible obstruction with atelectasis. The chest tube appeared to be operating appropriately. The patient was satting 89-90% on nonrebreather mask. The family was consented verbally for intubation. The patient had been intubated previously and was extubated 4-5 days ago. I reviewed her potassium and it was most recently between 3.6. RSI was given with 20 no grams etomidate and 120 mg succinylcholine. The patient was intubated with a MAC 4 blade by direct laryngoscopy with placement of an 8 oh ET tube to allow for bronchoscopy. The tube secured at 21 cm at the tooth. Placement was confirmed by positive end- tidal CO2, following of the tube, breath sounds auscultated bilaterally, and chest x-ray demonstrating appropriate placement. The patient was noted to have desaturation to approximately 60%. He was also noted at this time but the waterseal for the right-sided chest tube was not bubbling. The tubing was applied to different suction apparatus, and tubing was ensured to be free of kinks, and it was noted that there was improved bubbling through the water seal. Patient's O2 sat also began to rise slightly. There is no evidence of pneumothorax on chest x-ray. I reviewed the patient's prior chest x-rays and also the patient's prior CT of the chest due to persistent hypoxemia, and it appeared that there is lung parenchymal disease which may be causing shunt phenomenon. However, the patient was satting was 90% with nonrebreather, and sats were in the 70s after intubation. I adjusted the patient's vent settings to lower tidal volumes due to poor aeration of the right lung in order to avoid volume trauma. I also adjusted the patient's PEEP, and there was slight improvement in oxygenation. After reviewing the chest x-ray, ET tube was also pulled back by 1 cm. The patient was put on a propofol drip for sedation and subsequently was noted to have hypotension with a systolic blood pressure in the 80s. I was requested to place a central line. Consent was obtained in writing from the family. The patient was positioned in Trendelenburg and a left subclavian central line was placed. Endotracheal Intubation by me: Pre assessment performed. Pre-oxygenation performed with 100% oxygen RSI: Performed w/o complication or hypoxic events. Medications as ordered. Blade: Mac 4 ET Tube: 8 cm Depth: 21 cm at the lip Intubation confirmed by colorimetric CO2, equal breath sounds, quiet over the stomach. Chest X-ray 1V Interpreted by me: 1 cm above the david ET tube. Normal soft tissue, No pneumothorax. Significant opacification of the right lung. Tracheal deviation to the right. Central Line Placement by me: Patient consented, sterilely draped, full prep, gown, glove, mask, time out performed. Anesthesia: 1% lidocaine locally, 5 cc Location: Left subclavian Device: Multiple lumen Technique: Seldinger technique. Secured with suture. Results: Venous return from all ports with easy saline flush. No complications. Guide wire retrieved and disposed of. Chest X-ray 1V Interpreted by me: Central line in SVC, Normal soft tissue, No evidence of pneumothorax. Dr. Olsen discussed the chest x-ray with the radiologist who believes there is a 5-10% pneumothorax, but on my read I do not see a pneumothorax. During placement of the central line there was no ruff of air and the subclavian vein was accessed easily and close to the clavicle. Chest x-ray will be repeated at 2 hour interval to evaluate for pneumothorax, and if there is evidence of pneumothorax, a chest tube will be placed. Critical Care Time: 40 minutes Treatments/Evaluations: Close monitoring and treatment of unstable vital signs and cardiorespiratory while maintaining tight balance of fluid, respiratory, and cardiac interventions. This time includes discussing the case with the patient's family and the patient's primary physician, Dr. Olsen. This time includes active management at the bedside and troubleshooting of low oxygen saturations in the post intubation period, including adjustment to the chest tube apparatus and vent settings, reassessment of patient's endotracheal tube, repositioning of the patient, and review of prior imaging. This time does not include all procedures stated elsewhere in this record. WANDA JOHN MD Jun 05, 2017 02:44
--- NOTE | 2017-06-05 02:52 | RADRPT ---
PROCEDURE: XR Chest. CLINICAL INDICATION: Intubation. TECHNIQUE: Single frontal chest x-ray. COMPARISON: 06/04/2017 FINDINGS: Endotracheal tube has been placed with the tip at level of clavicles, 4.9 cm above the david.. Righ t apical chest tube is present. There is redemonstrated mediastinal shift to the right compatible wi th volume loss. There is redemonstrated consolidation/atelectasis throughout the right lung, increas ed as compared to prior study. There is small amount of remaining aerated lung at the right lung ape x. There is a termination the right mainstem bronchus. No pneumothorax is identified.. Heart is mil dly enlarged. Left lung is clear. Remainder study is unchanged.. IMPRESSION: Endotracheal tube tip above david. Increased consolidation/atelectasis involving the right lung. Ot herwise no change. RPTAT: HMVK .Main Espinoza MD, MD Date Time Electronically viewed and signed by .Main Espinoza MD, on 06/05/2017 02:52 .K/
[2017-06-05] MEDS ORDERED: NORepinephrine 8MG/250 ML (PMX 250 ML IV SCH (03:00)
[2017-06-05] MEDS ORDERED: LIDOCAINE 4% (MPF) 5 ML INJ HHN SCH (03:30)
[2017-06-05] MEDS ORDERED: LIDOCAINE 4% SOLUTION 50 ML BTL MT ONE (04:00)
--- NOTE | 2017-06-05 04:00 | RADRPT ---
PROCEDURE: XR Chest. CLINICAL INDICATION: Central line placement TECHNIQUE: Single frontal view of the chest was obtained COMPARISON: 06/05/2017 at 02:13 a.m. FINDINGS: Left subclavian catheter tip near atriocaval junction. There is the suggestion of approximate 5% lef t apical pneumothorax appearing since previous study. Right chest tube with tip in right apical usman on is again seen with near complete opacification of the right chest again seen. Endotracheal tube t ip approximately 4.3 cm above the david. ECG leads projected over the chest. Evaluation of the size of the cardiac silhouette is limited due to loss of visualization of the right heart border. Surgic al clips in right upper quadrant of abdomen. IMPRESSION: Left subclavian catheter tip near atriocaval junction. Approximate 5% left apical pneumothorax appea ring since previous study. Right chest tube with tip in right apical region is again seen with near complete opacification of the right chest again seen. There is appearance of a small approximate 5 - 10% right apical pneumothorax again seen. The mediastinum appears to be further displaced to the ri ght suggesting a possible left tension pneumothorax. Critical result discussed with Dr. Olsen at 0 3:55 a.m. on 06/05/2017. RPTAT: HJES .Andrae Bland MD, MD Date Time Electronically viewed and signed by .Andrae Bland MD, on 06/05/2017 04:00 .S/
--- NOTE | 2017-06-05 04:20 | EN ---
Date/Time of Note Date/Time of Note DATE: 06/05/17 TIME: 04:16 Event Note Medicine Medicine Event Note Emergency bronchosocpy, dictated. #[id number]. Thick mucous/blood clotting R lung. Partially removed with sats improved from 60% to low 80's. Still residual in RML/LL. No active bleeding. No significant inflammation. L clear. d/w IM, CTS. Advise repeat bronchoscopy with rigid and/or larger adult flexible scope in controlled setting later today, depending on course. NASEEM NUÑEZ MD Jun 05, 2017 04:20
--- NOTE | 2017-06-05 04:20 | EN ---
Date/Time of Note Date/Time of Note DATE: 06/05/17 TIME: 04:16 Event Note Medicine Medicine Event Note Emergency bronchosocpy, dictated. #[id number]. Thick mucous/blood clotting R lung. Partially removed with sats improved from 60% to low 80's. Still residual in RML/LL. No active bleeding. No significant inflammation. L clear. d/w IM, CTS. Advise repeat bronchoscopy with rigid and/or larger adult flexible scope in controlled setting later today, depending on course. NASEEM NUÑEZ MD Jun 05, 2017 04:20
--- NOTE | 2017-06-05 04:38 | EN ---
Date/Time of Note Date/Time of Note DATE: 06/05/17 TIME: 04:29 Event Note Medicine Medicine Event Note Was called by the radiologist injection molder regarding abnormal chest xray findings. Chest x-ray was done post left subclavian central line placement. There appears to be a new left-sided pneumothorax about 5-10%. There is also concern for possible tension pneumo. These chest x-ray findings were discussed with the loan review officer Dr. Sixto keane. Upon review of previous chest x-rays the findings of the mediastinal shift were also seen. Patient's blood pressure at this time is stable. She is currently intubated. And she is just undergone bronchoscopy. This x-ray was done prior to the bronchoscopy. We will reorder a chest x-ray status post bronchoscopy. And then repeat chest x-ray in approximately 2 hours. If there are any changing in findings or worsening of clinical condition we we will insert a chest tube. MELODY DO Jun 05, 2017 04:38
--- NOTE | 2017-06-05 04:38 | EN ---
Date/Time of Note Date/Time of Note DATE: 06/05/17 TIME: 04:29 Event Note Medicine Medicine Event Note Was called by the radiologist instrument and control service person regarding abnormal chest xray findings. Chest x-ray was done post left subclavian central line placement. There appears to be a new left-sided pneumothorax about 5-10%. There is also concern for possible tension pneumo. These chest x-ray findings were discussed with the transit mixer operator Dr. Sixto keane. Upon review of previous chest x-rays the findings of the mediastinal shift were also seen. Patient's blood pressure at this time is stable. She is currently intubated. And she is just undergone bronchoscopy. This x-ray was done prior to the bronchoscopy. We will reorder a chest x-ray status post bronchoscopy. And then repeat chest x-ray in approximately 2 hours. If there are any changing in findings or worsening of clinical condition we we will insert a chest tube. MELODY DO Jun 05, 2017 04:38
[2017-06-05] MEDS: SOD CHLORIDE 0.9% 1,000 ML IV SCH (05:58)
[2017-06-05] MEDS ORDERED: SOD CHLORIDE 0.9% 1,000 ML IV ONE (06:00)
[2017-06-05] MEDS ORDERED: PANTOPRAZOLE 40 MG INJ IV SCH (06:00)
[2017-06-05] MEDS: METHYLPREDNISOLONE 125 MG INJ IV SCH ×3 (06:09→22:35)
[2017-06-05] MEDS ORDERED: LIDOCAINE 1%/EPI 30 ML INJ INJ STA (06:37)
[2017-06-05] MEDS ORDERED: LIDOCAINE 1% (MDV) 20 ML INJ ONE (06:37)
--- NOTE | 2017-06-05 07:14 | EN ---
Date/Time of Note Date/Time of Note DATE: 06/05/17 TIME: 07:12 ER Progress Note I was called to the ICU for placement of the chest tube due to new left-sided pneumothorax that developed after intubation and left subclavian central line placement. Is unclear if pneumothorax was due to complication of subclavian line placement, or volume trauma with poor ventilation of right lung after intubation. Exam: Vital signs: Pulse 120, blood pressure 88/71, O2 sat 97% General: Patient sedated. No acute distress. Pulmonary: Breath sounds equal bilaterally, diminished at right base. Cor: Tachycardia, regular rhythm, no murmur Chest Tube Placement by me: Consent obtained from family by phone, patient sterilely draped, full prep, gown , glove, mask, time out performed. Anesthesia: 1% with epinephrine lidocaine locally, 10 cc Location: Mid-Anterior Axillary Line, approximate 5th intercostal Device: 20 Algerian chest tube Technique: Vertical incision, blunt dissection above the superior rib border , tactile confirmation, insertion by trocar Results: Chest tube fogging, Bubbling through waterseal with suction. Secured with suture and taping. No complications. Attached to waterseal. Chest X-ray 1V Pending. WANDA JOHN MD Jun 05, 2017 07:14
--- NOTE | 2017-06-05 07:18 | RADRPT ---
PROCEDURE: XR Chest. CLINICAL INDICATION: Shortness of breath. Post bronchoscopy. TECHNIQUE: Single frontal view. COMPARISON: 06/05/2017. 0316 hours. FINDINGS: The endotracheal tube, nasogastric tube, right chest tube, and left subclavian vein catheter remain in satisfactory position. There is improved aeration of the right lung with atelectasis throughout t he right lower lung zone and improved aeration of the right upper lung zone. The left lung is clear. There is shift of the mediastinum to the right. The heart size is indeterminate. There is a small right pleural effusion. There is no left pleural effusion. There is no right pneumothorax. There is a left pneumothorax, larger than seen previously now measur ing approximately 40%. IMPRESSION: 1. Improved aeration of the right lung. 2. Larger left pneumothorax, now measuring approximately 40%. 3. No other change from 06/05/2017. Call report: A call report of the findings was made to the patient's nurse Doreen on 06/05/2017 at 0 714 hours. She informed me that a chest tube had just been inserted. RPTAT: QQ .Wale Villanueva MD, MD Date Time Electronically viewed and signed by .Wale Villanueva MD, on 06/05/2017 07:18 .R/
[2017-06-05] MEDS: ALBUTEROL 18 GM INHALER INH SCH ×2 (08:00→10:30)
--- NOTE | 2017-06-05 08:09 | RADRPT ---
PROCEDURE: XR Chest. CLINICAL INDICATION: New left chest tube insertion. Dyspnea. Follow up. Left-sided pneumothorax. F ollow-up. TECHNIQUE: Single frontal chest x-ray. COMPARISON: Chest x-ray 06/05/2017 and 6:04 a.m., performed approximately 90 minutes earlier. FINDINGS: Left chest tube has been placed. The left chest tube is located in the left mid to upper lung region . There is no obvious or definite pneumothorax. Right chest tube is stable. Dense opacification thr oughout most of the right hemithorax is seen and there is probably a right pleural effusion. Partial /complete collapse of the right lower lung is seen as well. There is mediastinal deviation to the ri ght side due to volume loss on the right side. Endotracheal tube and nasogastric tube are both ident ified in good location and stable over time. No pneumothorax is seen on the right side. Left subclav pernell central line is seen with the tip in the superior vena cava. The osseous structures are otherwis e unremarkable. IMPRESSION: 1. Dense opacification involving the right hemithorax, with partial/complete collapse of the right lower lung and significant volume loss on the right side. As a result there is mediastinal deviation to the right side. 2. Right-sided chest tube in place, in stable and good location with associated underlying opacific ation as described above. There is no visible pneumothorax on the right side. 3. New left-sided chest tube has been placed with the tip going into the left mid lung zone, withou t evidence for obvious or visible pneumothorax on the left side. The left-sided pneumothorax seen pr eviously is now resolved. RPTAT: PP .Lonny Atwood MD, Date Time Electronically viewed and signed by .Lonny Atwood MD, MD on 06/05/2017 08:09 .B/
[2017-06-05] MEDS: BENZONATATE 100 MG CAP PO SCH ×3 (08:43→20:51)
[2017-06-05] MEDS: POLYETHYLENE GLYCOL 17 GM PACKET PO SCH ×2 (08:43→20:51)
--- NOTE | 2017-06-05 08:43 | PN ---
Date/Time of Note Date/Time of Note DATE: 06/05/17 TIME: 08:39 Assessment/Plan VTE Prophylaxis VTE Prophylaxis Intervention: SCD's Lines/Catheters IV Catheter Type (from [facility]): Peripheral IV Central line still needed: Yes Urinary Cath still in place: Yes Reason Cath still needed: other (indicate) Assessment/Plan Chief Complaint/Hosp Course 1. Hemoptysis. Etiology unclear. Possible underlying vasculitis. Chest CT showing patchy airspace opacities in both lungs consistent with multifocal pneumonia. Status post bronchoscopy on 05/26/2017 that revealed bleeding in the trachea and massive amounts of fresh blood coming from the left lung. The patient was consequently intubated and transferred to ICU. The patient was later extubated. S/P right VATS with lysis of adhesions, decortication, right upper lobe, right lower lobe lung wedge resection and lung biopsy on 2016. The patient had to be reintubated on 06/05/2027 because of worsening hypoxia. 2. Acute hypoxic respiratory failure. Continue mechanical ventilation. On IV steroids as per Pulmonology. 3. Severe sepsis with tachycardia, tachypnea, significant leukocytosis, lactic acidosis, and hyperglycemia [patient non-diabetic] on 06/05/2017. Will start the patient on broad-spectrum antibiotics. Will trend lactic acid levels. 4. Anemia secondary to acute blood loss. Status post transfusion of blood products 5. Fluids, electrolytes, and nutrition. NPO. 6. DVT prophylaxis. SCDs. 7. Plan. Start broad spectrum antibiotics. The patient's condition is critical. The patient remains on 100% FiO2 with high PEEP with saturations in the low 80s to high 70s. Case discussed with Dr. White. Critical Care time: 45 minutes. Problems: Subjective 24 Hr Interval Summary Free Text/Dictation The patient was desaturating over last night. Therefore, the patient had to be intubated emergently and started on mechanical ventilation. The patient continued to be severely hypoxic despite being on a mechanical ventilator. Hence the patient underwent an emergent bronchoscopy. The transportation equipment painter was able to take out thick mucus and blood clotting from the right lung with resultant improvement the saturation from 60s to low 80s. There was no active bleeding. The patient had a left subclavian triple-lumen catheter put in by the ER physician. The patient subsequently developed a left apical pneumothorax measuring approximately 40%. Therefore, the patient had a left- sided chest tube inserted with resolution of the left apical pneumothorax. Exam/Review of Systems Vital Signs Vitals Vital Signs Date Time Temp Pulse Resp B/P Pulse Ox O2 Delivery O2 Flow Rate FiO2 06/05/17 07:45 91 25 112/84 95 06/05/17 07:00 Mechanical Ventilator 06/05/17 04:30 100 06/05/17 04:00 97.2 06/04/17 08:00 15.0 Intake and Output 06/04/17 06/04/17 06/05/17 15:00 23:00 07:00 Intake Total 274.38 ml Output Total 370 ml 460 ml 230 ml Balance -370 ml -460 ml 44.38 ml Exam General: Adequately build 46 year-old female lying in bed in moderate respiratory apparent distress, orally intubated and on mechanical ventilation. HEENT: Normocephalic, atraumatic. Eyes: Anicteric sclerae, conjunctivae clear. ENT: Nasal septum midline, oral mucosa is dry. Neck supple, no JVD noticed. Respiratory: Bilaterally diminished breath sounds. Use of accessory muscles of respiration. Right sided chest tube to PleurVac. New left sided chest tube connected to PleurVac. Cardiovascular: S1, S2 heard. No murmurs or gallops. Tachycardia Abdomen: Soft, nontender, and nondistended. Bowel sounds positive in all 4 quadrants. Genitourinary: Carlson catheter. Extremities: No cyanosis, no clubbing, no edema. Peripheral pulses palpable. Neurologic: Sedated. Skin: Normal skin turgor. No skin rashes. Results Result Diagram: 06/05/17 0500 06/05/17 0500 Results 24 hrs Laboratory Tests Test 06/04/17 09:20 06/04/17 14:13 06/04/17 21:48 06/05/17 01:01 Blood Gas Specimen Source Blood arterial Blood arterial Blood arterial Arterial Blood Date Drawn 06/04/2017 9:50:32 AM 06/04/2017 9:55:30 PM 06/05/2017 1:18:00 AM Arterial Blood pH (Temp corrected) 7.483 H 7.512 H 7.458 H Arterial Blood pCO2 (Temp correct) 31.5 L 27.0 L 29.9 L Arterial Blood pO2 (Temp corrected) 37.3 *L 30.2 *L 45.4 *L Arterial Blood HCO3 23.1 21.2 L 20.7 L Arterial Blood Base Excess 0.6 -0.2 -1.8 Arterial Blood Oxygen Saturation 73.0 L 63.8 L 82.2 L Reginald Test ACCEPTAB ACCEPTAB ACCEPTAB Arterial Blood Gas Puncture Site Right Radial Right Radial Left Radial Arterial Blood Carboxyhemoglobin 0.4 0.3 0.2 Arterial Blood Methemoglobin 0.1 0.2 0.3 Blood Gas A-a O2 Differential 644.2 H 655.8 H 637.7 H Oxyhemoglobin Percent 72.6 L 63.5 L 81.8 L Total Hemoglobin 15.0 15.7 15.9 Blood Gas Temperature 37.0 37.0 37.0 Blood Gas Modality HFNC HFNC HFNC FiO2 100.0 100.0 100.0 Blood Gas Critical Value Read Back DR. SALLY NIXON I R.N Blood Gas Notified Whom RT d ali field agent MM Blood Gas Notified Time 06/04/2017 9:57:56 AM 06/04/2017 10:05:47 PM 06/05/2017 1:25:00 AM Erythrocyte Sedimentation Rate 2 C-Reactive Protein < 0.5 Blood Gas Actual Respiration Rate 16 Test 06/05/17 05:00 06/05/17 05:25 White Blood Count 30.4 #H Red Blood Count 4.40 Hemoglobin 14.3 Hematocrit 40.3 Mean Corpuscular Volume 91.6 Mean Corpuscular Hemoglobin 32.5 Mean Corpuscular Hemoglobin Concent 35.5 Red Cell Distribution Width 14.3 Platelet Count 288 # Mean Platelet Volume 11.8 H Neutrophils % Lymphocytes % Monocytes % Eosinophils % Basophils % Nucleated Red Blood Cells % 0.0 Neutrophils # Lymphocytes # Monocytes # Eosinophils # Basophils # Nucleated Red Blood Cells # Blood Gas Specimen Source Blood arterial Arterial Blood Date Drawn 06/05/2017 5:01:38 AM Arterial Blood pH (Temp corrected) 7.441 Arterial Blood pCO2 (Temp correct) 34.7 L Arterial Blood pO2 (Temp corrected) 52.7 *L Arterial Blood HCO3 23.1 Arterial Blood Base Excess -0.4 Arterial Blood Oxygen Saturation 86.9 L Reginald Test ACCEPTAB Arterial Blood Gas Puncture Site Left Radial Arterial Blood Carboxyhemoglobin 0.1 Arterial Blood Methemoglobin 0.3 Blood Gas A-a O2 Differential 625.6 H Oxyhemoglobin Percent 86.6 L Total Hemoglobin 15.4 Blood Gas Temperature 37.0 Blood Gas Respiration Rate 24.0 Blood Gas Actual Respiration Rate 27 Blood Gas Modality VENT - AC FiO2 100.0 Blood Gas Tidal Volume 400.0 Blood Gas Low PEEP Setting 10.0 Blood Gas Critical Value Read Back Doug DISLA R.N Blood Gas Notified Whom MM Blood Gas Notified Time 06/05/2017 5:17:07 AM Sodium Level 137 Potassium Level 3.8 Chloride Level 104 Carbon Dioxide Level 23 Anion Gap 14 Blood Urea Nitrogen 32 #H Creatinine 0.46 Glucose Level 225 H Calcium Level 9.0 Phosphorus Level 3.6 Magnesium Level 2.3 Lactic Acid Level 2.1 H Medications Medications Current Medications Ondansetron HCl (Zofran Inj) 4 mg Q6H PRN IV NAUSEA AND/OR VOMITING Last administered on 05/26/17 05:33; Admin Dose 4 MG; Start 05/20/17 at 02:00 Acetaminophen (Tylenol Tab) 650 mg Q6H PRN PO PAIN LEVEL 1-3 OR FEVER Last administered on 05/21/17 23:08; Admin Dose 650 MG; Start 05/20/17 at 02:00 Morphine Sulfate (morphine) 2 mg Q4H PRN IV PAIN LEVEL 7-10; Start 05/20/17 at 02:00; Status Future Hold Hydrocodone Bit/ Homatropine Methylb (Hycodan Liquid) 5 ml Q4 PRN PO cough Last administered on 05/29/17 12:04; Admin Dose 5 ML; Start 05/22/17 at 19:30 Benzonatate (Tessalon) 200 mg TID PO Last administered on 06/04/17 21:28; Admin Dose 200 MG; Start 05/29/17 at 14:00 Guaifenesin/ Codeine Phosphate (Robitussin Ac Liquid Cup) 5 ml Q4H PRN PO cough Last administered on 05/29/17 21:23; Admin Dose 5 ML; Start 05/29/17 at 13:00 Bisacodyl (Dulcolax) 10 mg DAILY PRN PO CONSTIPATION; Start 05/30/17 at 17:00 ; Stop 06/14/17 at 08:00 Polyethylene Glycol (Miralax) 17 gm BID PO Last administered on 06/03/17 10: 26; Admin Dose 17 GM; Start 05/30/17 at 21:00; Stop 06/14/17 at 08:00 Hydromorphone HCl (Dilaudid) 1 mg Q4H PRN IV PAIN Last administered on 21:54; Admin Dose 1 MG; Start 05/30/17 at 23:30 Acetaminophen/ Hydrocodone Bitart ([place] (7.5-325)) 1 tab Q4H PRN PO Pain Last administered on 06/03/17 23:54; Admin Dose 1 TAB; Start 06/01/17 at 15:30 Methylprednisolone Sodium Succinate 80 mg 80 mg Q8 IV Last administered on 06:09; Admin Dose 80 MG; Start 06/02/17 at 22:00 Propofol 100 ml @ 1.872 mls/ hr Q12H IV Last administered on 06/05/17 07:25 ; Admin Dose 14.976 MLS/HR; Start 06/05/17 at 02:30 Fentanyl 100 ml @ 2.5 mls/hr TITRATE IV Last administered on 06/05/17 02:30 ; Admin Dose 2.5 MLS/HR; Start 06/05/17 at 02:30 Norepinephrine 250 ml @ 1.875 mls/ hr TITRATE IV Last administered on 02:30; Admin Dose 3.75 MLS/HR; Start 06/05/17 at 03:00 Sodium Chloride (NS) 1,000 ml @ 70 mls/hr [id number] IV Last administered on 05:58; Admin Dose 70 MLS/HR; Start 06/05/17 at 05:30 Pantoprazole 40 mg 40 mg DAILY@06 IV Last administered on 06/05/17 06:09; Admin Dose 40 MG; Start 06/05/17 at 06:00 Piperacillin Sod/ Tazobactam Sod (Zosyn 3.375gm/ 100 ml (Pmx)) 100 ml @ 200 mls /hr Q8 IVPB ; Start 06/05/17 at 14:00; Status KIKI CRAIG NP Jun 05, 2017 08:43
[2017-06-05] MEDS ORDERED: VANCOMYCIN IV PER PHARMACY XX SCH (09:00)
[2017-06-05] MEDS: PIPER-TAZO 3.375 GM IV (PMX) 100 ML IVPB SCH ×3 (09:16→22:35)
[2017-06-05] MEDS ORDERED: VANCOMYCIN 1.25 GM in SOD CHLORIDE 0.9% 250 ML IVPB SCH (10:00)
--- NOTE | 2017-06-05 11:15 | CONS ---
Date/Time of Note Date/Time of Note DATE: 06/05/17 TIME: 11:07 Consult Date/Type/Reason Admit Date/Time May 19, 2017 at 23:53 Type of Consultation: Pulmonary/critical care Subjective Multiple overnight events. 1. Intubated for worsening respiratory distress; 2. Underwent bronchoscopy for R sided mucus plugging; 3. Developed an iatrogenic left-sided PTX s/p subclavian CVC placement; 4. s/p L chest tube thoracostomy. Objective Vital Signs Date Time Temp Pulse Resp B/P Pulse Ox O2 Delivery O2 Flow Rate FiO2 06/05/17 10:00 92 19 100/66 92 Mechanical Ventilator 06/05/17 08:00 97.9 06/05/17 04:30 100 06/04/17 08:00 15.0 Intake and Output 06/04/17 06/04/17 06/05/17 15:00 23:00 07:00 Intake Total 274.38 ml Output Total 370 ml 460 ml 280 ml Balance -370 ml -460 ml -5.62 ml Exam EENT: Neck supple; no JVD; no LAD CVS: RRR, S1 and S2 CHEST: Absent R BS and coarse BS ABD: Soft, NT, + BS EXT: No c/c/e Results/Medications Result Diagram: 06/05/17 0500 06/05/17 0500 Results 24 hrs Laboratory Tests Test 06/04/17 14:13 06/04/17 21:48 06/05/17 01:01 06/05/17 05:00 Erythrocyte Sedimentation Rate 2 C-Reactive Protein < 0.5 Blood Gas Specimen Source Blood arterial Blood arterial Blood arterial Arterial Blood Date Drawn 06/04/2017 9:55:30 PM 06/05/2017 1:18:00 AM 06/05/2017 5:01:38 AM Arterial Blood pH (Temp corrected) 7.512 H 7.458 H 7.441 Arterial Blood pCO2 (Temp correct) 27.0 L 29.9 L 34.7 L Arterial Blood pO2 (Temp corrected) 30.2 *L 45.4 *L 52.7 *L Arterial Blood HCO3 21.2 L 20.7 L 23.1 Arterial Blood Base Excess -0.2 -1.8 -0.4 Arterial Blood Oxygen Saturation 63.8 L 82.2 L 86.9 L Reginald Test ACCEPTAB ACCEPTAB ACCEPTAB Arterial Blood Gas Puncture Site Right Radial Left Radial Left Radial Arterial Blood Carboxyhemoglobin 0.3 0.2 0.1 Arterial Blood Methemoglobin 0.2 0.3 0.3 Blood Gas A-a O2 Differential 655.8 H 637.7 H 625.6 H Oxyhemoglobin Percent 63.5 L 81.8 L 86.6 L Total Hemoglobin 15.7 15.9 15.4 Blood Gas Temperature 37.0 37.0 37.0 Blood Gas Actual Respiration Rate 16 27 Blood Gas Modality HFNC HFNC VENT - AC FiO2 100.0 100.0 100.0 Blood Gas Critical Value Read Back s Adelia De La Vega rn, R.N, K R.N Blood Gas Notified Whom d ali motor vehicle representative MM MM Blood Gas Notified Time 06/04/2017 10:05:47 PM 06/05/2017 1:25:00 AM 06/05/2017 5:17:07 AM White Blood Count 30.4 #H Red Blood Count 4.40 Hemoglobin 14.3 Hematocrit 40.3 Mean Corpuscular Volume 91.6 Mean Corpuscular Hemoglobin 32.5 Mean Corpuscular Hemoglobin Concent 35.5 Red Cell Distribution Width 14.3 Platelet Count 288 # Mean Platelet Volume 11.8 H Neutrophils % Segmented Neutrophils % (Manual) 85 H Band Neutrophils % (Manual) 2 Lymphocytes % Lymphocytes % (Manual) 2 L Monocytes % Monocytes % (Manual) 11 Eosinophils % Basophils % Nucleated Red Blood Cells % 0.0 Neutrophils # Neutrophils # (Manual) 26.0 H Band Neutrophils # 0.6 Absolute Lymphocytes (Manual) 0.6 L Lymphocytes # Monocytes # Absolute Monocytes (Manual) 3.3 H Eosinophils # Basophils # Nucleated Red Blood Cells # Platelet Estimate NORMAL Poikilocytosis 3+ Anisocytosis 1+ Microcytosis 1+ Blood Gas Respiration Rate 24.0 Blood Gas Tidal Volume 400.0 Blood Gas Low PEEP Setting 10.0 Sodium Level 137 Potassium Level 3.8 Chloride Level 104 Carbon Dioxide Level 23 Anion Gap 14 Blood Urea Nitrogen 32 #H Creatinine 0.46 Glucose Level 225 H Calcium Level 9.0 Phosphorus Level 3.6 Magnesium Level 2.3 Test 06/05/17 05:25 06/05/17 08:10 06/05/17 10:42 Lactic Acid Level 2.1 H 1.5 Total Bilirubin 1.0 Direct Bilirubin 0.00 Indirect Bilirubin 1.0 Aspartate Amino Transf (AST/SGOT) 22 Alanine Aminotransferase (ALT/SGPT) 34 Alkaline Phosphatase 71 Total Protein 5.8 L Albumin 3.0 L Blood Gas Specimen Source Blood arterial Arterial Blood Date Drawn 06/05/2017 10:45:37 AM Arterial Blood pH (Temp corrected) 7.411 Arterial Blood pCO2 (Temp correct) 36.8 Arterial Blood pO2 (Temp corrected) 48.4 *L Arterial Blood HCO3 22.9 Arterial Blood Base Excess -1.3 Arterial Blood Oxygen Saturation 82.9 L Reginald Test ACCEPTAB Arterial Blood Gas Puncture Site Right Radial Arterial Blood Carboxyhemoglobin 0.3 Arterial Blood Methemoglobin 0.3 Blood Gas A-a O2 Differential 627.8 H Oxyhemoglobin Percent 82.4 L Total Hemoglobin 13.7 Blood Gas Temperature 37.0 Blood Gas Respiration Rate 24.0 Blood Gas Actual Respiration Rate 28 Blood Gas Modality VENT - AC FiO2 100.0 Blood Gas Tidal Volume 400.0 Blood Gas Low PEEP Setting 10.0 Blood Gas Critical Value Read Back G MILO RN Blood Gas Notified Whom TM Blood Gas Notified Time 06/05/2017 11:02:09 AM Medications Current Medications Ondansetron HCl (Zofran Inj) 4 mg Q6H PRN IV NAUSEA AND/OR VOMITING Last administered on 05/26/17 05:33; Admin Dose 4 MG; Start 05/20/17 at 02:00 Acetaminophen (Tylenol Tab) 650 mg Q6H PRN PO PAIN LEVEL 1-3 OR FEVER Last administered on 05/21/17 23:08; Admin Dose 650 MG; Start 05/20/17 at 02:00 Morphine Sulfate (morphine) 2 mg Q4H PRN IV PAIN LEVEL 7-10; Start 05/20/17 at 02:00; Status Future Hold Hydrocodone Bit/ Homatropine Methylb (Hycodan Liquid) 5 ml Q4 PRN PO cough Last administered on 05/29/17 12:04; Admin Dose 5 ML; Start 05/22/17 at 19:30 Benzonatate (Tessalon) 200 mg TID PO Last administered on 06/04/17 21:28; Admin Dose 200 MG; Start 05/29/17 at 14:00 Guaifenesin/ Codeine Phosphate (Robitussin Ac Liquid Cup) 5 ml Q4H PRN PO cough Last administered on 05/29/17 21:23; Admin Dose 5 ML; Start 05/29/17 at 13:00 Bisacodyl (Dulcolax) 10 mg DAILY PRN PO CONSTIPATION; Start 05/30/17 at 17:00 ; Stop 06/14/17 at 08:00 Polyethylene Glycol (Miralax) 17 gm BID PO Last administered on 06/03/17 10: 26; Admin Dose 17 GM; Start 05/30/17 at 21:00; Stop 06/14/17 at 08:00 Hydromorphone HCl (Dilaudid) 1 mg Q4H PRN IV PAIN Last administered on 21:54; Admin Dose 1 MG; Start 05/30/17 at 23:30 Acetaminophen/ Hydrocodone Bitart ([place] (7.5-325)) 1 tab Q4H PRN PO Pain Last administered on 06/03/17 23:54; Admin Dose 1 TAB; Start 06/01/17 at 15:30 Methylprednisolone Sodium Succinate 80 mg 80 mg Q8 IV Last administered on 06:09; Admin Dose 80 MG; Start 06/02/17 at 22:00 Propofol 100 ml @ 1.872 mls/ hr Q12H IV Last administered on 06/05/17 07:25 ; Admin Dose 14.976 MLS/HR; Start 06/05/17 at 02:30 Fentanyl 100 ml @ 2.5 mls/hr TITRATE IV Last administered on 06/05/17 02:30 ; Admin Dose 2.5 MLS/HR; Start 06/05/17 at 02:30 Norepinephrine 250 ml @ 1.875 mls/ hr TITRATE IV Last administered on 02:30; Admin Dose 3.75 MLS/HR; Start 06/05/17 at 03:00 Sodium Chloride (NS) 1,000 ml @ 70 mls/hr [id number] IV Last administered on 05:58; Admin Dose 70 MLS/HR; Start 06/05/17 at 05:30 Pantoprazole 40 mg 40 mg DAILY@06 IV Last administered on 06/05/17 06:09; Admin Dose 40 MG; Start 06/05/17 at 06:00 Piperacillin Sod/ Tazobactam Sod 100 ml @ 200 mls/hr Q8 IVPB Last administered on 06/05/17 09:16; Admin Dose 200 MLS/HR; Start 06/05/17 at 09: 00 Vancomycin HCl 1.25 gm/Sodium Chloride 250 ml @ 83.333 mls/ hr ONCE@10 IVPB Last administered on 06/05/17 10:42; Admin Dose 83.333 MLS/HR; Start at 10:00; Stop 06/05/17 at 15:00 Vancomycin HCl (Vancocin) 250 ml @ 125 mls/hr Q12H IVPB ; Start 06/05/17 at 18 :00 Assessment/Plan Additional Assessment/Plan IMP: 1. Hypoxemic Resp Failure--s/p VATS bx for DAH complicated by right sided PTX and mucus plugging with complete ATX. Now intubated again. 2. Complete Right Lung ATX--concern for proximal mucus plug. Some improvement s/ p bronch, however, severe hypoxemia may require repeat bronchoscopy. 3. 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 Also, consider idiopathic pulmonary hemosiderosis. 4. Left sided iatrogenic PTX-s/p chest tube RECS: 1. Aggressive CPT/suctioning; repeat bronchoscopy today 2. Both chest tubes to 20 cm H20 suction 3. Increased PEEP 12 cm H20 4. 2D ECHO with bubble 5. [id number], ESR, DsDNA. 6. Continue systemic CS 40 min cc time TR ARRINGTON MD Jun 05, 2017 11:15
[2017-06-05] MEDS ORDERED: NA BICARBONATE 8.4% 50 ML SYG IV STA (11:40)
[2017-06-05] MEDS ORDERED: LIDOCAINE 1% (MPF) 30 ML INJ INJ ONE (12:00)
[2017-06-05] MEDS ORDERED: ACETYLCYSTEINE 20% 4 ML VIAL NEB ONE (12:00)
--- NOTE | 2017-06-05 13:45 | EN ---
Date/Time of Note Date/Time of Note DATE: 06/05/17 TIME: 13:43 Event Note Surgery Surgery Event Note Events noted pt now with bilateral CT PTX resolved will continue CT sxn Bronchoscopy pulm NASH Simmons MD Jun 05, 2017 13:45
--- NOTE | 2017-06-05 15:00 | RADRPT ---
PROCEDURE: XR Chest. CLINICAL INDICATION: Status post bronchoscopy. TECHNIQUE: Single AP portable chest. COMPARISON: 06/05/2017 Chest x-ray FINDINGS: The cardiomediastinal silhouette is within normal limits of size. The endotracheal tube tip is 6.5 c m above the david. NG tube tip overlying the body of the stomach. Right and left chest tubes in tanmay ce .Left subclavian catheter tip overlying the cavoatrial junction. Resolution of right pleural effu jessee with right upper lobe atelectasis. The lungs are otherwise clear without pleural effusion or f ocal consolidation. No pneumothorax. The osseous structures and soft tissues are unremarkable. IMPRESSION: 1. No postprocedural pneumothorax. Resolution of right pleural effusion. Support devices in stable p osition. RPTAT: HH Physician Haroon Date Time Electronically viewed and signed by Physician Haroon on 06/05/2017 15:00 RACHEL/
--- NOTE | 2017-06-05 16:46 | OPR ---
DATE OF OPERATION: PROCEDURE: Bronchoscopy. INDICATION: Severe hypoxemic respiratory failure due to right lung atelectasis secondary to mucus p lugging. CONSENT: After the risks, alternatives, and benefits of procedure were described to the family, a s igned informed consent was obtained. MEDICATIONS: Propofol drip as per orders. TECHNIQUE: Patient was on mechanical ventilation receiving 100% FIO2. Via an adaptor attached to t he endotracheal tube, a flexible bronchoscope was advanced into the distal trachea and both airways were inspected. The left tracheobronchial tree was intact with no obvious endoluminal lesions. On the right side, there was extensive mucus plugging with blood clots completely occluding the bronchu s intermedius. The patient received numerous rounds of combination of saline, bicarbonate and Mucom yst with aggressive suctioning performed over a prolonged period of time, which enabled removal of t he mucus plugs and blood clots from the bronchus intermedius. After completion of the procedure, th e bronchus intermedius was patent and the right middle lobe and right lower lobe orifices were inspe cted and appeared intact without any further obstruction. The procedure was completed and patient r esumed on mechanical ventilation with prior settings. COMPLICATIONS: None. FOLLOWUP STUDIES: Chest x-ray has been ordered will be obtained. Dictated By: TR ARRINGTON MD NK/SEAMUS Conf#: [id number] DID#: [id number] CC: MYKE MOREL MD;*EndCC*
[2017-06-05] MEDS: VANCOMYCIN 1 GM in NS 250 ML IVPB SCH (18:12)
[2017-06-05] MEDS: FAMOTIDINE 20 MG INJ IV SCH (20:38)
[2017-06-06] VITALS (102 sets, daily range): BP systolic 79–126; BP diastolic 50–77; PULSE 61–115; RESP 18–26
[2017-06-06] MEDS: SOD CHLORIDE 0.9% 1,000 ML IV SCH ×2 (00:04→13:28)
[2017-06-06] MEDS: ACETYLCYSTEINE 20% 4 ML VIAL NEB SCH ×4 (01:24→21:01)
[2017-06-06] MEDS: ALBUTEROL 0.083% (NEB) 2.5 MG/3 ML AMP HHN SCH ×6 (01:24→21:01)
--- NOTE | 2017-06-06 01:56 | SP ---
DATE OF PROCEDURE: 06/05/2017 PROCEDURE: Bronchoscopy. INDICATION: Respiratory failure with progressive hypoxemia and atelectasis. CONSENT: The patient is unable to give consent. Informed consent was obtained from the family. Th e procedure, its risks and rationale were discussed. DESCRIPTION OF PROCEDURE: The patient was premedicated with heavy sedation on intravenous Versed an d Diprivan. She was given 3 mL of 4% lidocaine by inline nebulizer and examination was performed us ing the flexible fiberoptic bronchoscope, which was introduced in the endotracheal tube by the usual Portex adapter. Examination of the distal trachea showed some modest secretions. The main david was sharp and clear. Examination of the left bronchial tube was done quickly with no significant se cretions or inflammation seen. Examination of the right lung showed complete occlusion from the dis deepa right main stem bronchus of the right upper lobe and right middle and lower lobes. There is thi ck brown clotted blood and mucus seen extensively. This was painstakingly removed with suction and forceps, and a moderately large amount was able to be removed. There was still moderate residual at the completion of the procedure. The right upper lobe 3 segments were seen with a small amount of residual secretions and no significant inflammation. The right middle and lower lobe bronchi could not be fully entered due to the secretion and plugging. No active bleeding was seen. No endobronch ial mass lesions were seen. No major inflammation was seen and no other abnormalities were noted. General bronchial washings were collected and sent for Gram stain and culture. The patient tolerate d the procedure well. Oxygen saturations improved from the high 50s to low 60s up to the low 80s by the completion of the procedure. Post-procedure monitoring will be done routinely. X-ray will be done in a couple of hours. BRONCHOSCOPIC IMPRESSION: Extensive right lung mucous plugging, status post right lung surgery. To the extent visible, the bronchial tree appeared intact. SUGGESTIONS: At this point, continue full ventilator support, preferential left decubitus position. Continue Mucomyst and lavage. Discussed with thoracic surgery, would consider repeat bronchoscopy later today, preferably with a rigid bronchoscope and/or larger adult bronchoscope with a larger fo rceps and suction ability to remove residual secretions. Dictated By: NASEEM RAJAN/SEAMUS Conf#: [id number] DID#: [id number]
[2017-06-06] MEDS ORDERED: SOD CHLORIDE 0.9% 500 ML IV ONE (02:00)
[2017-06-06] MEDS ORDERED: NORepinephrine 8MG/250 ML (PMX 250 ML IV SCH (02:00)
[2017-06-06] MEDS: METHYLPREDNISOLONE 125 MG INJ IV SCH ×3 (05:44→21:12)
[2017-06-06] MEDS: VANCOMYCIN 1 GM in NS 250 ML IVPB SCH ×2 (05:44→19:36)
[2017-06-06] MEDS: PIPER-TAZO 3.375 GM IV (PMX) 100 ML IVPB SCH ×3 (06:35→21:12)
[2017-06-06] MEDS: FENTAnyl (DRIP) 1000 mcg/100mL 100 ML IV SCH ×2 (06:36→16:37)
[2017-06-06] MEDS: POLYETHYLENE GLYCOL 17 GM PACKET PO SCH ×2 (11:00→21:12)
[2017-06-06] MEDS: FAMOTIDINE 20 MG INJ IV SCH ×2 (11:00→21:12)
[2017-06-06] MEDS: BENZONATATE 100 MG CAP PO SCH ×3 (11:01→21:12)
--- NOTE | 2017-06-06 12:39 | CONS ---
Date/Time of Note Date/Time of Note DATE: 06/06/17 TIME: 12:37 Consult Date/Type/Reason Admit Date/Time May 19, 2017 at 23:53 Type of Consultation: Pulmonary/critical care Subjective Events noted. Continues mechanical ventilation remains comfortable follows simple commands. Objective Vital Signs Date Time Temp Pulse Resp B/P Pulse Ox O2 Delivery O2 Flow Rate FiO2 06/06/17 12:15 81 24 100/57 99 Mechanical Ventilator 06/06/17 12:00 98.1 06/06/17 11:05 40 06/04/17 08:00 15.0 Intake and Output 06/05/17 06/05/17 06/06/17 15:00 23:00 07:00 Intake Total 2083.726 ml 959.706 ml 1111.88 ml Output Total 405 ml 303 ml 311 ml Balance 1678.726 ml 656.706 ml 800.88 ml Exam PHYSICAL EXAMINATION GENERAL: Well-nourished well-developed lady comfortable at rest orally intubated VITAL SIGNS: see below. HEENT: Pupils equal, round, and reactive to light. CARDIAC: S1, S2, no added sounds or murmurs CHEST: Diminished air entry bilaterally. ABDOMEN: Mildly distended. Bowel sounds present no guarding or rebound EXTREMITIES: No cyanosis, clubbing edema +1 NEUROLOGIC: Generalized weakness Results/Medications Result Diagram: 06/06/17 0435 06/06/17 0435 Results 24 hrs Chest x-ray The cardiomediastinal silhouette is within normal limits of size. The endotracheal tube tip is 6.5 cm above the david. NG tube tip overlying the body of the stomach. Right and left chest tubes in place .Left subclavian catheter tip overlying the cavoatrial junction. Resolution of right pleural effusion with right upper lobe atelectasis. The lungs are otherwise clear without pleural effusion or focal consolidation. No pneumothorax. The osseous structures and soft tissues are unremarkable. Laboratory Tests Test 06/05/17 12:45 06/05/17 18:38 06/06/17 04:35 06/06/17 05:00 Lactic Acid Level 1.5 2.1 H 1.6 White Blood Count 22.3 #H Red Blood Count 3.02 #L Hemoglobin 9.9 #L Hematocrit 28.0 #L Mean Corpuscular Volume 92.7 Mean Corpuscular Hemoglobin 32.8 Mean Corpuscular Hemoglobin Concent 35.4 Red Cell Distribution Width 15.2 H Platelet Count 151 # Mean Platelet Volume 11.3 H Neutrophils % 94.1 H Lymphocytes % 1.2 L Monocytes % 3.9 Eosinophils % 0.0 Basophils % 0.1 Nucleated Red Blood Cells % 0.0 Neutrophils # 21.0 H Lymphocytes # 0.3 L Monocytes # 0.9 Eosinophils # 0.0 Basophils # 0.0 Nucleated Red Blood Cells # 0.0 Sodium Level 140 Potassium Level 3.3 L Chloride Level 110 Carbon Dioxide Level 25 Anion Gap 8 Blood Urea Nitrogen 17 # Creatinine 0.38 L Glucose Level 164 Calcium Level 7.7 L Phosphorus Level 2.3 #L Magnesium Level 2.2 Total Bilirubin 0.5 Direct Bilirubin 0.00 Indirect Bilirubin 0.5 Aspartate Amino Transf (AST/SGOT) 15 Alanine Aminotransferase (ALT/SGPT) 30 Alkaline Phosphatase 57 Total Protein 4.4 #L Albumin 2.3 L Globulin 2.10 Albumin/Globulin Ratio 1.09 Blood Gas Specimen Source Blood arterial Arterial Blood Date Drawn 06/06/2017 6:10:20 AM Arterial Blood pH (Temp corrected) 7.498 H Arterial Blood pCO2 (Temp correct) 24.7 L Arterial Blood pO2 (Temp corrected) 160.7 H Arterial Blood HCO3 18.7 L Arterial Blood Base Excess -3.2 L Arterial Blood Oxygen Saturation 98.4 H Reginald Test ACCEPTAB Arterial Blood Gas Puncture Site Right Radial Arterial Blood Carboxyhemoglobin 0.3 Arterial Blood Methemoglobin 0.5 Blood Gas A-a O2 Differential 239.9 H Oxyhemoglobin Percent 97.6 Total Hemoglobin 11.0 L Blood Gas Temperature 37.0 Blood Gas Respiration Rate 24.0 Blood Gas Actual Respiration Rate 24 Blood Gas Modality VENT - AC FiO2 60.0 Blood Gas Tidal Volume 450.0 Blood Gas Low PEEP Setting 5.0 Blood Gas Inspiratory Pressure 22.0 Blood Gas Notified Whom KM Blood Gas Notified Time 06/06/2017 6:29:02 AM Medications Current Medications Ondansetron HCl (Zofran Inj) 4 mg Q6H PRN IV NAUSEA AND/OR VOMITING Last administered on 05/26/17 05:33; Admin Dose 4 MG; Start 05/20/17 at 02:00 Acetaminophen (Tylenol Tab) 650 mg Q6H PRN PO PAIN LEVEL 1-3 OR FEVER Last administered on 05/21/17 23:08; Admin Dose 650 MG; Start 05/20/17 at 02:00 Morphine Sulfate (morphine) 2 mg Q4H PRN IV PAIN LEVEL 7-10; Start 05/20/17 at 02:00; Status Future Hold Hydrocodone Bit/ Homatropine Methylb (Hycodan Liquid) 5 ml Q4 PRN PO cough Last administered on 05/29/17 12:04; Admin Dose 5 ML; Start 05/22/17 at 19:30 Benzonatate (Tessalon) 200 mg TID PO Last administered on 06/06/17 11:01; Admin Dose 200 MG; Start 05/29/17 at 14:00 Guaifenesin/ Codeine Phosphate (Robitussin Ac Liquid Cup) 5 ml Q4H PRN PO cough Last administered on 05/29/17 21:23; Admin Dose 5 ML; Start 05/29/17 at 13:00 Bisacodyl (Dulcolax) 10 mg DAILY PRN PO CONSTIPATION; Start 05/30/17 at 17:00 ; Stop 06/14/17 at 08:00 Polyethylene Glycol (Miralax) 17 gm BID PO Last administered on 06/06/17 11: 00; Admin Dose 17 GM; Start 05/30/17 at 21:00; Stop 06/14/17 at 08:00 Hydromorphone HCl (Dilaudid) 1 mg Q4H PRN IV PAIN Last administered on 21:54; Admin Dose 1 MG; Start 05/30/17 at 23:30 Acetaminophen/ Hydrocodone Bitart ([place] (7.5-325)) 1 tab Q4H PRN PO Pain Last administered on 06/03/17 23:54; Admin Dose 1 TAB; Start 06/01/17 at 15:30 Methylprednisolone Sodium Succinate 80 mg 80 mg Q8 IV Last administered on 05:44; Admin Dose 80 MG; Start 06/02/17 at 22:00 Propofol 100 ml @ 1.872 mls/ hr Q12H IV Last administered on 06/05/17 21:36 ; Admin Dose 7.488 MLS/HR; Start 06/05/17 at 02:30 Fentanyl 100 ml @ 2.5 mls/hr TITRATE IV Last administered on 06/06/17 06:36 ; Admin Dose 10 MLS/HR; Start 06/05/17 at 02:30 Sodium Chloride 1,000 ml @ 70 mls/hr [id number] IV Last administered on 00:04; Admin Dose 70 MLS/HR; Start 06/05/17 at 05:30 Piperacillin Sod/ Tazobactam Sod 100 ml @ 200 mls/hr Q8 IVPB Last administered on 06/06/17 06:35; Admin Dose 200 MLS/HR; Start 06/05/17 at 09: 00 Vancomycin HCl 250 ml @ 125 mls/hr Q12H IVPB Last administered on 06/06/17 05:44; Admin Dose 125 MLS/HR; Start 06/05/17 at 18:00 Norepinephrine/ Dextrose (Levophed/D5W) 500 ml @ 0 mls/hr TITRATE IV ; Start at 17:00 Miscellaneous Information (*Rx Drug Level Order Reminder*) VANCO TROUGH @ 1, 700 ON ... ONCE ONCE XX ; Start 06/06/17 at 17:00; Stop 06/06/17 at 17:01 Famotidine 20 mg 20 mg Q12 IV Last administered on 06/06/17 11:00; Admin Dose 20 MG; Start 06/05/17 at 21:00 Norepinephrine 250 ml @ 1.875 mls/ hr TITRATE IV ; Start 06/06/17 at 02:00 Potassium Chloride/Sodium Chloride (KCl/NS) 110 ml @ 55 mls/hr ONCE ONCE IVPB ; Start 06/06/17 at 13:00; Stop 06/06/17 at 14:59 Assessment/Plan Chief Complaint/Hosp Course IMP: 1. Hypoxemic Resp Failure--s/p VATS bx for DAH complicated by right sided PTX and mucus plugging with complete ATX. Status post intubation and bronchoscopy 2 2. Resolution of lung atelectasis. 3. 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 Also, consider idiopathic pulmonary hemosiderosis. 4. Left sided iatrogenic PTX-s/p chest tube RECS: 1. Continue mechanical ventilation no interventions today will attempt CPAP weaning trial tomorrow. 2. Both chest tubes to 20 cm H20 suction 3. Increase PEEP as tolerated 4. 2D ECHO with bubble 5. Nnvovs-cn-CNG, ESR, DsDNA. 6. Continue systemic CS 40 min cc time Problems: MYKE MOREL MD, [facility] Jun 06, 2017 12:39
[2017-06-06] MEDS ORDERED: POTASSIUM CHLORIDE 20 MEQ in SOD CHLORIDE 0.9% 100 ML IVPB ONE (13:00)
--- NOTE | 2017-06-06 13:53 | PN ---
Date/Time of Note Date/Time of Note DATE: 06/06/17 TIME: 13:46 Assessment/Plan VTE Prophylaxis VTE Prophylaxis Intervention: SCD's Lines/Catheters IV Catheter Type (from [facility]): Central Line Central line still needed: Yes Urinary Cath still in place: Yes Reason Cath still needed: other (indicate) (monitor I&O) Assessment/Plan Chief Complaint/Hosp Course Assessment and plan 1. Hemoptysis. CT scan of the chest showing opacities in both lungs consistent with pneumonia. Patient did have bronchoscopy on May 26, 2017 but had massive amount of bleeding and tracheal area. Patient was intubated and placed in ICU and had right-sided VATS with lysis of adhesions in the cortication of the right upper lobe and right lower lobe lung wedge with resection and lung biopsy on May 31, 2017. Subsequently patient was intubated again on June 05 due to worse breathing. Continue vent liberation per construction safety consultant. Follow-up with recommendations. Etiology of hemoptysis still unknown. Will follow up with consultants 2. Acute hypoxic respiratory failure. Continue on bronchodilators and IV steroids per construction safety consultant 3. Sepsis suspect secondary to pneumonia. Continue antibiotics. 4. Anemia from acute blood loss. Patient status post blood transfusion. Monitor for now. Disposition plan: Continue antibiotics. Continue vent liberation per construction safety consultant. Follow-up for vasculitis workup. possible idiopathic pulmonary hemosiderosis per pulm. continue on steroid. monitor H&H. noted with sudden drop today. follow up on lab Discussed plan of care with Dr. Merritt Problems: Subjective 24 Hr Interval Summary Free Text/Dictation Remains intubated at this time. No s/s distress and at this time. Exam/Review of Systems Vital Signs Vitals Vital Signs Date Time Temp Pulse Resp B/P Pulse Ox O2 Delivery O2 Flow Rate FiO2 06/06/17 12:15 81 24 100/57 99 Mechanical Ventilator 06/06/17 12:00 98.1 06/06/17 11:05 40 06/04/17 08:00 15.0 Intake and Output 06/05/17 06/05/17 06/06/17 14:59 22:59 06:59 Intake Total 2086.220 ml 882.202 ml 1299.36 ml Output Total 385 ml 318 ml 301 ml Balance 1701.220 ml 564.202 ml 998.36 ml Exam Constitutional: other (Intubated and sedated) Respiratory: diminished breath sounds (More lung bases) Cardiovascular: other Gastrointestinal: non-tender, soft (Regular rate) Musculoskeletal: nl extremities to inspection Extremities: normal pulses Neurological: other (Intubated and sedated) Skin: nl turgor Results Result Diagram: 06/06/17 0435 06/06/17 0435 Results 24 hrs Laboratory Tests Test 06/05/17 18:38 06/06/17 04:35 06/06/17 05:00 Lactic Acid Level 2.1 H 1.6 White Blood Count 22.3 #H Red Blood Count 3.02 #L Hemoglobin 9.9 #L Hematocrit 28.0 #L Mean Corpuscular Volume 92.7 Mean Corpuscular Hemoglobin 32.8 Mean Corpuscular Hemoglobin Concent 35.4 Red Cell Distribution Width 15.2 H Platelet Count 151 # Mean Platelet Volume 11.3 H Neutrophils % 94.1 H Lymphocytes % 1.2 L Monocytes % 3.9 Eosinophils % 0.0 Basophils % 0.1 Nucleated Red Blood Cells % 0.0 Neutrophils # 21.0 H Lymphocytes # 0.3 L Monocytes # 0.9 Eosinophils # 0.0 Basophils # 0.0 Nucleated Red Blood Cells # 0.0 Sodium Level 140 Potassium Level 3.3 L Chloride Level 110 Carbon Dioxide Level 25 Anion Gap 8 Blood Urea Nitrogen 17 # Creatinine 0.38 L Glucose Level 164 Calcium Level 7.7 L Phosphorus Level 2.3 #L Magnesium Level 2.2 Total Bilirubin 0.5 Direct Bilirubin 0.00 Indirect Bilirubin 0.5 Aspartate Amino Transf (AST/SGOT) 15 Alanine Aminotransferase (ALT/SGPT) 30 Alkaline Phosphatase 57 Total Protein 4.4 #L Albumin 2.3 L Globulin 2.10 Albumin/Globulin Ratio 1.09 Blood Gas Specimen Source Blood arterial Arterial Blood Date Drawn 06/06/2017 6:10:20 AM Arterial Blood pH (Temp corrected) 7.498 H Arterial Blood pCO2 (Temp correct) 24.7 L Arterial Blood pO2 (Temp corrected) 160.7 H Arterial Blood HCO3 18.7 L Arterial Blood Base Excess -3.2 L Arterial Blood Oxygen Saturation 98.4 H Reginald Test ACCEPTAB Arterial Blood Gas Puncture Site Right Radial Arterial Blood Carboxyhemoglobin 0.3 Arterial Blood Methemoglobin 0.5 Blood Gas A-a O2 Differential 239.9 H Oxyhemoglobin Percent 97.6 Total Hemoglobin 11.0 L Blood Gas Temperature 37.0 Blood Gas Respiration Rate 24.0 Blood Gas Actual Respiration Rate 24 Blood Gas Modality VENT - AC FiO2 60.0 Blood Gas Tidal Volume 450.0 Blood Gas Low PEEP Setting 5.0 Blood Gas Inspiratory Pressure 22.0 Blood Gas Notified Whom KM Blood Gas Notified Time 06/06/2017 6:29:02 AM Medications Medications Current Medications Ondansetron HCl (Zofran Inj) 4 mg Q6H PRN IV NAUSEA AND/OR VOMITING Last administered on 05/26/17 05:33; Admin Dose 4 MG; Start 05/20/17 at 02:00 Acetaminophen (Tylenol Tab) 650 mg Q6H PRN PO PAIN LEVEL 1-3 OR FEVER Last administered on 05/21/17 23:08; Admin Dose 650 MG; Start 05/20/17 at 02:00 Morphine Sulfate (morphine) 2 mg Q4H PRN IV PAIN LEVEL 7-10; Start 05/20/17 at 02:00; Status Future Hold Hydrocodone Bit/ Homatropine Methylb (Hycodan Liquid) 5 ml Q4 PRN PO cough Last administered on 05/29/17 12:04; Admin Dose 5 ML; Start 05/22/17 at 19:30 Benzonatate (Tessalon) 200 mg TID PO Last administered on 06/06/17 13:27; Admin Dose 200 MG; Start 05/29/17 at 14:00 Guaifenesin/ Codeine Phosphate (Robitussin Ac Liquid Cup) 5 ml Q4H PRN PO cough Last administered on 05/29/17 21:23; Admin Dose 5 ML; Start 05/29/17 at 13:00 Bisacodyl (Dulcolax) 10 mg DAILY PRN PO CONSTIPATION; Start 05/30/17 at 17:00 ; Stop 06/14/17 at 08:00 Polyethylene Glycol (Miralax) 17 gm BID PO Last administered on 06/06/17 11: 00; Admin Dose 17 GM; Start 05/30/17 at 21:00; Stop 06/14/17 at 08:00 Hydromorphone HCl (Dilaudid) 1 mg Q4H PRN IV PAIN Last administered on 21:54; Admin Dose 1 MG; Start 05/30/17 at 23:30 Acetaminophen/ Hydrocodone Bitart ([place] (7.5325)) 1 tab Q4H PRN PO Pain Last administered on 06/03/17 23:54; Admin Dose 1 TAB; Start 06/01/17 at 15:30 Methylprednisolone Sodium Succinate 80 mg 80 mg Q8 IV Last administered on 13:27; Admin Dose 80 MG; Start 06/02/17 at 22:00 Propofol 100 ml @ 1.872 mls/ hr Q12H IV Last administered on 06/05/17 21:36 ; Admin Dose 7.488 MLS/HR; Start 06/05/17 at 02:30 Fentanyl 100 ml @ 2.5 mls/hr TITRATE IV Last administered on 06/06/17 06:36 ; Admin Dose 10 MLS/HR; Start 06/05/17 at 02:30 Sodium Chloride 1,000 ml @ 70 mls/hr [id number] IV Last administered on 13:28; Admin Dose 70 MLS/HR; Start 06/05/17 at 05:30 Piperacillin Sod/ Tazobactam Sod 100 ml @ 200 mls/hr Q8 IVPB Last administered on 06/06/17 13:26; Admin Dose 200 MLS/HR; Start 06/05/17 at 09: 00 Vancomycin HCl 250 ml @ 125 mls/hr Q12H IVPB Last administered on 06/06/17 05:44; Admin Dose 125 MLS/HR; Start 06/05/17 at 18:00 Norepinephrine/ Dextrose (Levophed/D5W) 500 ml @ 0 mls/hr TITRATE IV ; Start at 17:00 Miscellaneous Information (*Rx Drug Level Order Reminder*) VANCO TROUGH @ 1, 700 ON ... ONCE ONCE XX ; Start 06/06/17 at 17:00; Stop 06/06/17 at 17:01 Famotidine 20 mg 20 mg Q12 IV Last administered on 06/06/17 11:00; Admin Dose 20 MG; Start 06/05/17 at 21:00 Norepinephrine 250 ml @ 1.875 mls/ hr TITRATE IV ; Start 06/06/17 at 02:00 Potassium Chloride/Sodium Chloride (KCl/NS) 110 ml @ 55 mls/hr ONCE ONCE IVPB Last administered on 06/06/17t 13:27; Admin Dose 55 MLS/HR; Start 06/06/17 at 13:00; Stop 06/06/17 at 14:59 YADIRA SWANSON Jun 06, 2017 13:53
--- NOTE | 2017-06-06 15:11 | PN ---
Date/Time of Note Date/Time of Note DATE: 06/06/17 TIME: 15:06 Assessment/Plan Lines/Catheters IV Catheter Type (from Nrsg): Central Line Carlson in Place (from Nrsg): Yes Assessment/Plan Chief Complaint/Hosp Course IMPRESSION: Multifocal pneumonia, possible vasculitis. SP VATS Lung BX IMPRESSION: will continue CT Sxn Problems: Subjective 24 Hr Interval Summary Constitutional: improved Pain Control: mild Exam/Review of Systems Vital Signs Vitals Vital Signs Date Time Temp Pulse Resp B/P Pulse Ox O2 Delivery O2 Flow Rate FiO2 06/06/17 14:00 83 24 89/50 100 Mechanical Ventilator 06/06/17 12:00 98.1 06/06/17 11:05 40 06/04/17 08:00 15.0 Intake and Output 06/05/17 06/05/17 06/06/17 15:00 23:00 07:00 Intake Total 2083.726 ml 959.706 ml 1111.88 ml Output Total 405 ml 303 ml 311 ml Balance 1678.726 ml 656.706 ml 800.88 ml Exam ENMT: mucosa pink and moist, nl external ears & nose, nl lips & teeth, nl nasal mucosa & septum Neck: non-tender, supple Respiratory: clear to auscultation, normal air movement Cardiovascular: nl pulses, regular rate and rhythm Results Result Diagram: 06/06/17 0435 06/06/17 0435 NASH ZAVALA MD Jun 06, 2017 15:11
[2017-06-06] MEDS: PROPOFOL 100 ML IV SCH ×2 (17:19→23:29)
[2017-06-07] VITALS (94 sets, daily range): BP systolic 76–129; BP diastolic 52–112; PULSE 62–110; RESP 10–24
[2017-06-07] MEDS: ALBUTEROL 0.083% (NEB) 2.5 MG/3 ML AMP HHN SCH ×4 (01:03→20:17)
[2017-06-07] MEDS: ACETYLCYSTEINE 20% 4 ML VIAL NEB SCH ×2 (01:04→09:21)
[2017-06-07] MEDS: SOD CHLORIDE 0.9% 1,000 ML IV SCH ×2 (01:33→19:42)
[2017-06-07] MEDS: VANCOMYCIN 1 GM in NS 250 ML IVPB SCH ×3 (02:30→19:40)
[2017-06-07] MEDS: FENTAnyl (DRIP) 1000 mcg/100mL 100 ML IV SCH (02:34)
[2017-06-07] MEDS: PIPER-TAZO 3.375 GM IV (PMX) 100 ML IVPB SCH ×3 (05:40→21:54)
[2017-06-07] MEDS: METHYLPREDNISOLONE 125 MG INJ IV SCH ×3 (05:41→21:19)
[2017-06-07] MEDS ORDERED: POTASSIUM CHLORIDE (SR) 20 MEQ TAB PO SCH (06:30)
[2017-06-07] MEDS: POTASSIUM CHLORIDE 20 MEQ POWDER FOR ORAL SOLN GTB SCH ×2 (08:16→12:26)
[2017-06-07] MEDS: POLYETHYLENE GLYCOL 17 GM PACKET PO SCH ×2 (08:37→21:19)
[2017-06-07] MEDS: BENZONATATE 100 MG CAP PO SCH ×3 (08:37→21:19)
[2017-06-07] MEDS: FAMOTIDINE 20 MG INJ IV SCH ×2 (08:37→21:19)
--- NOTE | 2017-06-07 08:47 | RADRPT ---
Echocardiogram Report Patient Name: GARRY HOLMAN Gender: Female Date: 1970 Study Date: 06-Jun-2017 Nurse Practitioner Home Assessments: [facility] Location: [address] Ref. Physician: TR ARRINGTON Quality: Adequate Procedures: Transthoracic echocardiogram examination. Indications: R/O AVM. 2D/M Mode Doppler Measurement Value Normal Range Measurement Value Normal Range AV Peak Marvin 1.0 m/sec AV Peak PG 3.7 mmHg LVOT Peak Marvin 0.7 m/sec Findings Left Ventricle: Normal left ventricular cavity size. The left ventricle is not well visualized. Mitral Valve: Normal appearance and function of the mitral valve with trace physiologic regurgitation. The mitral valve is not well visualized. Aortic Valve: The aortic valve is not well visualized. Tricuspid Valve: The tricuspid valve is not well visualized. IVC: Normal size inferior vena cava with no respiratory collapse, due to ventilator. Conclusions Probably Normal left ventricular cavity size and systolic function The left ventricle is not well visualized. . very suboptimal study. Electronically Signed By: Ismael Oconnor 06-Jun-2017 17:14:19 -0700 Patient Name: GARRY HOLMAN Study Date: 06-Jun-[id number]
--- NOTE | 2017-06-07 08:47 | RADRPT ---
Echocardiogram Report Patient Name: GARRY HOLMAN Gender: Female Date: 1970 Study Date: 06-Jun-2017 Instrument Mechanics Supervisor: [facility] Location: [address] Ref. Physician: TR ARRINGTON Quality: Adequate Procedures: Transthoracic echocardiogram examination. Indications: R/O AVM. 2D/M Mode Doppler Measurement Value Normal Range Measurement Value Normal Range AV Peak Marvin 1.0 m/sec AV Peak PG 3.7 mmHg LVOT Peak Marvin 0.7 m/sec Findings Left Ventricle: Normal left ventricular cavity size. The left ventricle is not well visualized. Mitral Valve: Normal appearance and function of the mitral valve with trace physiologic regurgitation. The mitral valve is not well visualized. Aortic Valve: The aortic valve is not well visualized. Tricuspid Valve: The tricuspid valve is not well visualized. IVC: Normal size inferior vena cava with no respiratory collapse, due to ventilator. Conclusions Probably Normal left ventricular cavity size and systolic function The left ventricle is not well visualized. . very suboptimal study. Electronically Signed By: Ismael Oconnor 06-Jun-2017 17:14:19 -0700 Patient Name: GARRY HOLMAN Study Date: 06-Jun-[id number]
--- NOTE | 2017-06-07 11:06 | CONS ---
Date/Time of Note Date/Time of Note DATE: 06/07/17 TIME: 11:00 Consult Date/Type/Reason Admit Date/Time May 19, 2017 at 23:53 Type of Consultation: Pulmonary/critical care Subjective Patient remains orally intubated. No further hemoptysis. Awake alert and oriented. Objective Vital Signs Date Time Temp Pulse Resp B/P Pulse Ox O2 Delivery O2 Flow Rate FiO2 06/07/17 08:00 104 06/07/17 06:30 24 102/58 100 06/07/17 04:51 40 06/07/17 04:00 98.0 06/06/17 20:00 Mechanical Ventilator 06/04/17 08:00 15.0 Intake and Output 06/06/17 06/06/17 06/07/17 15:00 23:00 07:00 Intake Total 1049.6 ml 996.20 ml 687.5 ml Output Total 328 ml 320 ml 275 ml Balance 721.6 ml 676.20 ml 412.5 ml Exam PHYSICAL EXAMINATION GENERAL: Well-nourished well-developed lady comfortable at rest orally intubated VITAL SIGNS: see below. HEENT: Pupils equal, round, and reactive to light. CARDIAC: S1, S2, no added sounds or murmurs CHEST: Diminished air entry bilaterally. ABDOMEN: Mildly distended. Bowel sounds present no guarding or rebound EXTREMITIES: No cyanosis, clubbing edema +1 NEUROLOGIC: Generalized weakness Results/Medications Result Diagram: 06/07/17 0430 06/07/17 0430 Results 24 hrs Chest x-ray shows no pneumothoraces bilateral chest tubes. Laboratory Tests Test 06/06/17 17:15 06/07/17 04:30 06/07/17 10:00 Hemoglobin 9.5 L 8.5 L Hematocrit 27.2 L 25.3 L Vancomycin Level Trough < 5.0 L White Blood Count 17.3 #H Red Blood Count 2.66 L Mean Corpuscular Volume 95.1 Mean Corpuscular Hemoglobin 32.0 Mean Corpuscular Hemoglobin Concent 33.6 Red Cell Distribution Width 15.6 H Platelet Count 118 #L Mean Platelet Volume 11.5 H Neutrophils % 94.2 H Lymphocytes % 1.3 L Monocytes % 3.7 Eosinophils % 0.0 Basophils % 0.1 Nucleated Red Blood Cells % 0.0 Neutrophils # 16.3 H Lymphocytes # 0.2 L Monocytes # 0.6 Eosinophils # 0.0 Basophils # 0.0 Nucleated Red Blood Cells # 0.0 Sodium Level 139 Potassium Level 2.8 *L Chloride Level 110 Carbon Dioxide Level 22 Anion Gap 10 Blood Urea Nitrogen 14 Creatinine 0.36 L Glucose Level 167 Calcium Level 7.6 L Blood Gas Specimen Source Blood arterial Arterial Blood Date Drawn 06/07/2017 10:00:08 AM Arterial Blood pH (Temp corrected) 7.438 Arterial Blood pCO2 (Temp correct) 29.4 L Arterial Blood pO2 (Temp corrected) 100.7 H Arterial Blood HCO3 19.4 L Arterial Blood Base Excess -3.8 L Arterial Blood Oxygen Saturation 97.2 Reginald Test ACCEPTAB Arterial Blood Gas Puncture Site Left Radial Arterial Blood Carboxyhemoglobin 0.3 Arterial Blood Methemoglobin 0.4 Blood Gas A-a O2 Differential 78.7 H Oxyhemoglobin Percent 96.5 Total Hemoglobin 10.9 L Blood Gas Temperature 37.0 Blood Gas Actual Respiration Rate 14 Blood Gas Modality VENT - CPAP FiO2 30.0 Blood Gas Low PEEP Setting 5.0 Blood Gas Pressure Support 10 Blood Gas Notified Whom JLD Blood Gas Notified Time 06/07/2017 10:28:00 AM Medications Current Medications Ondansetron HCl (Zofran Inj) 4 mg Q6H PRN IV NAUSEA AND/OR VOMITING Last administered on 05/26/17 05:33; Admin Dose 4 MG; Start 05/20/17 at 02:00 Acetaminophen (Tylenol Tab) 650 mg Q6H PRN PO PAIN LEVEL 1-3 OR FEVER Last administered on 05/21/17 23:08; Admin Dose 650 MG; Start 05/20/17 at 02:00 Morphine Sulfate (morphine) 2 mg Q4H PRN IV PAIN LEVEL 7-10; Start 05/20/17 at 02:00; Status Future Hold Hydrocodone Bit/ Homatropine Methylb (Hycodan Liquid) 5 ml Q4 PRN PO cough Last administered on 05/29/17 12:04; Admin Dose 5 ML; Start 05/22/17 at 19:30 Benzonatate (Tessalon) 200 mg TID PO Last administered on 06/07/17 08:37; Admin Dose 200 MG; Start 05/29/17 at 14:00 Guaifenesin/ Codeine Phosphate (Robitussin Ac Liquid Cup) 5 ml Q4H PRN PO cough Last administered on 05/29/17 21:23; Admin Dose 5 ML; Start 05/29/17 at 13:00 Bisacodyl (Dulcolax) 10 mg DAILY PRN PO CONSTIPATION; Start 05/30/17 at 17:00 ; Stop 06/14/17 at 08:00 Polyethylene Glycol (Miralax) 17 gm BID PO Last administered on 06/07/17 08: 37; Admin Dose 17 GM; Start 05/30/17 at 21:00; Stop 06/14/17 at 08:00 Hydromorphone HCl (Dilaudid) 1 mg Q4H PRN IV PAIN Last administered on 21:54; Admin Dose 1 MG; Start 05/30/17 at 23:30 Acetaminophen/ Hydrocodone Bitart ([place] (7.5-325)) 1 tab Q4H PRN PO Pain Last administered on 06/03/17 23:54; Admin Dose 1 TAB; Start 06/01/17 at 15:30 Methylprednisolone Sodium Succinate 80 mg 80 mg Q8 IV Last administered on 05:41; Admin Dose 80 MG; Start 06/02/17 at 22:00 Propofol 100 ml @ 1.872 mls/ hr Q12H IV Last administered on 06/06/17 23:29 ; Admin Dose 7.488 MLS/HR; Start 06/05/17 at 02:30 Fentanyl 100 ml @ 2.5 mls/hr TITRATE IV Last administered on 06/07/17 02:34 ; Admin Dose 10 MLS/HR; Start 06/05/17 at 02:30 Sodium Chloride 1,000 ml @ 70 mls/hr [id number] IV Last administered on 01:33; Admin Dose 70 MLS/HR; Start 06/05/17 at 05:30 Piperacillin Sod/ Tazobactam Sod 100 ml @ 200 mls/hr Q8 IVPB Last administered on 06/07/17 05:40; Admin Dose 200 MLS/HR; Start 06/05/17 at 09: 00 Norepinephrine/ Dextrose (Levophed/D5W) 500 ml @ 0 mls/hr TITRATE IV Last administered on 06/06/17 18:18; Admin Dose 1.87 MLS/HR; Start 06/05/17 at 17: 00 Famotidine 20 mg 20 mg Q12 IV Last administered on 06/07/17 08:37; Admin Dose 20 MG; Start 06/05/17 at 21:00 Vancomycin HCl (Vancocin) 250 ml @ 125 mls/hr Q8H IVPB Last administered on 02:30; Admin Dose 125 MLS/HR; Start 06/07/17 at 03:00 Potassium Chloride (Potassium Chloride Pwd/Soln) 40 meq Q4H GTB Last administered on 06/07/17 08:16; Admin Dose 40 MEQ; Start 06/07/17 at 08:00; Stop 06/07/17 at 12:01 Assessment/Plan Chief Complaint/Hosp Course IMP: 1. Hypoxemic Resp Failure--s/p VATS bx for DAH complicated by right sided PTX and mucus plugging with complete ATX. Status post intubation and bronchoscopy 2 2. Resolution of lung atelectasis. 3. 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 Also, consider idiopathic pulmonary hemosiderosis. 4. Left sided iatrogenic PTX-s/p chest tube radiographically improved RECS: 1. CPAP trial today hopefully safely extubate. 2. Both chest tubes to 20 cm H20 suction, chest tubes were stable following extubation. 3. Continue steroids 4. 2D ECHO with bubble study. 5. Serologies are negative to date. Problems: MYKE MOREL MD, [facility] Jun 07, 2017 11:06
--- NOTE | 2017-06-07 11:47 | RADRPT ---
PROCEDURE: XR Chest. CLINICAL INDICATION: Pneumonia TECHNIQUE: Single AP portable chest. COMPARISON: 06/05/2017 Chest x-ray FINDINGS: The cardiomediastinal silhouette is within normal limits of size. Stable position of bilateral chest tubes, endotracheal, NG tube and left central venous catheter. Mild hypoinflation. Mild vascular co ngestion without focal consolidation or pleural effusion No pneumothorax. The osseous structures and soft tissues are unremarkable. IMPRESSION: 1. Mild vascular congestion and hypoinflation. No pneumothorax or pleural effusion. No focal consoli dation. 2. Support devices in stable and satisfactory position. . RPTAT:AAJJ Physician Haroon Date Time Electronically viewed and signed by Physician Haroon on 06/07/2017 11:47 RACHEL/
--- NOTE | 2017-06-07 11:59 | PN ---
Date/Time of Note Date/Time of Note DATE: 06/07/17 TIME: 11:58 Assessment/Plan Lines/Catheters IV Catheter Type (from Nrsg): Central Line Carlson in Place (from Nrsg): Yes Assessment/Plan Chief Complaint/Hosp Course IMPRESSION: Multifocal pneumonia, possible vasculitis. SP VATS Lung BX IMPRESSION: will continue CT Sxn Problems: Subjective 24 Hr Interval Summary Constitutional: improved Pain Control: mild Exam/Review of Systems Vital Signs Vitals Vital Signs Date Time Temp Pulse Resp B/P Pulse Ox O2 Delivery O2 Flow Rate FiO2 06/07/17 08:00 104 06/07/17 06:30 24 102/58 100 06/07/17 04:51 40 06/07/17 04:00 98.0 06/06/17 20:00 Mechanical Ventilator 06/04/17 08:00 15.0 Intake and Output 06/06/17 06/06/17 06/07/17 15:00 23:00 07:00 Intake Total 1049.6 ml 996.20 ml 687.5 ml Output Total 328 ml 320 ml 275 ml Balance 721.6 ml 676.20 ml 412.5 ml Exam ENMT: mucosa pink and moist, nl external ears & nose, nl lips & teeth, nl nasal mucosa & septum Neck: non-tender, supple Respiratory: clear to auscultation, normal air movement Cardiovascular: nl pulses, regular rate and rhythm Results Result Diagram: 06/07/170 06/07/17429 NASH ZAVALA MD Jun 07, 2017 11:59
[2017-06-07] MEDS: PROPOFOL 100 ML IV SCH (14:30)
--- NOTE | 2017-06-07 15:34 | PN ---
Date/Time of Note Date/Time of Note DATE: 06/07/17 TIME: 15:31 Assessment/Plan VTE Prophylaxis VTE Prophylaxis Intervention: SCD's Lines/Catheters IV [facility] Type [facility] Central Line Central line still needed: Yes Urinary Cath still in place: Yes Reason Cath still needed: other (indicate) (monitor I&O) Assessment/Plan Chief Complaint/Hosp Course Assessment and plan 1. Hemoptysis. CT scan of the chest showing opacities in both lungs consistent with pneumonia. Patient did have bronchoscopy on May 26, 2017 but had massive amount of bleeding and tracheal area. Patient was intubated and placed in ICU and had right-sided VATS with lysis of adhesions in the of the right upper lobe and right lower lobe lung wedge with resection and lung biopsy on May 31, 2017. Subsequently patient was intubated again on June 05 due to worse breathing. extubated now. continue with pulm recs 2. Acute hypoxic respiratory failure. Continue on bronchodilators and IV steroids per salvage machine operator 3. Sepsis suspect secondary to pneumonia. Continue antibiotics. 4. Anemia from acute blood loss. Patient status post blood transfusion. Monitor for now. Disposition plan: Patient extubated at this time. Monitor respiratory status. Continue antibiotics. Transfer out of ICU when cleared by consultants Discussed plan of care with Dr. Merritt Critical CARE time: 30 minute Problems: Subjective 24 Hr Interval Summary Free Text/Dictation Alert and oriented. Reports better breathing Exam/Review of Systems Vital Signs Vitals Vital Signs Date Time Temp Pulse Resp B/P Pulse Ox O2 Delivery O2 Flow Rate FiO2 06/07/17 12:30 74 13 98/54 100 Nasal Cannula 3.0 06/07/17 12:00 98.5 06/07/17 04:51 40 Intake and Output 06/06/17 06/06/17 06/07/17 15:00 23:00 07:00 Intake Total 1049.6 ml 996.20 ml 687.5 ml Output Total 328 ml 320 ml 275 ml Balance 721.6 ml 676.20 ml 412.5 ml Exam Constitutional: alert, oriented Neck: non-tender, supple Respiratory: other (No obvious wheezing or rhonchi) Cardiovascular: other (Regular rate) Gastrointestinal: non-tender, soft Musculoskeletal: nl extremities to inspection Neurological: VERIFICATION MANAGER II-XII intact, nl mental status Results Result Diagram: 06/07/17 0430 06/07/17 1244 Results 24 hrs Laboratory Tests Test 06/06/17 17:15 06/07/17 04:30 06/07/17 10:00 06/07/17 12:07 Hemoglobin 9.5 L 8.5 L Hematocrit 27.2 L 25.3 L Vancomycin Level Trough < 5.0 L White Blood Count 17.3 #H Red Blood Count 2.66 L Mean Corpuscular Volume 95.1 Mean Corpuscular Hemoglobin 32.0 Mean Corpuscular Hemoglobin Concent 33.6 Red Cell Distribution Width 15.6 H Platelet Count 118 #L Mean Platelet Volume 11.5 H Neutrophils % 94.2 H Lymphocytes % 1.3 L Monocytes % 3.7 Eosinophils % 0.0 Basophils % 0.1 Nucleated Red Blood Cells % 0.0 Neutrophils # 16.3 H Lymphocytes # 0.2 L Monocytes # 0.6 Eosinophils # 0.0 Basophils # 0.0 Nucleated Red Blood Cells # 0.0 Sodium Level 139 Potassium Level 2.8 *L Chloride Level 110 Carbon Dioxide Level 22 Anion Gap 10 Blood Urea Nitrogen 14 Creatinine 0.36 L Glucose Level 167 Calcium Level 7.6 L Blood Gas Specimen Source Blood arterial Arterial Blood Date Drawn 06/07/2017 10:00:08 AM Arterial Blood pH (Temp corrected) 7.438 Arterial Blood pCO2 (Temp correct) 29.4 L Arterial Blood pO2 (Temp corrected) 100.7 H Arterial Blood HCO3 19.4 L Arterial Blood Base Excess -3.8 L Arterial Blood Oxygen Saturation 97.2 Reginald Test ACCEPTAB Arterial Blood Gas Puncture Site Left Radial Arterial Blood Carboxyhemoglobin 0.3 Arterial Blood Methemoglobin 0.4 Blood Gas A-a O2 Differential 78.7 H Oxyhemoglobin Percent 96.5 Total Hemoglobin 10.9 L Blood Gas Temperature 37.0 Blood Gas Actual Respiration Rate 14 Blood Gas Modality VENT - CPAP FiO2 30.0 Blood Gas Low PEEP Setting 5.0 Blood Gas Pressure Support 10 Blood Gas Notified Whom JLD Blood Gas Notified Time 06/07/2017 10:28:00 AM Lab Scanned Report REFERENCE LAB Test 06/07/17 12:44 Potassium Level 3.1 L Medications Medications Current Medications Ondansetron HCl (Zofran Inj) 4 mg Q6H PRN IV NAUSEA AND/OR VOMITING Last administered on 05/26/17t 05:33; Admin Dose 4 MG; Start 05/20/17 at 02:00 Acetaminophen (Tylenol Tab) 650 mg Q6H PRN PO PAIN LEVEL 1-3 OR FEVER Last administered on 05/21/17 23:08; Admin Dose 650 MG; Start 05/20/17 at 02:00 Morphine Sulfate (morphine) 2 mg Q4H PRN IV PAIN LEVEL 7-10; Start 05/20/17 at 02:00; Status Future Hold Hydrocodone Bit/ Homatropine Methylb (Hycodan Liquid) 5 ml Q4 PRN PO cough Last administered on 05/29/17 12:04; Admin Dose 5 ML; Start 05/22/17 at 19:30 Benzonatate (Tessalon) 200 mg TID PO Last administered on 06/07/17 12:25; Admin Dose 200 MG; Start 05/29/17 at 14:00 Guaifenesin/ Codeine Phosphate (Robitussin Ac Liquid Cup) 5 ml Q4H PRN PO cough Last administered on 05/29/17 21:23; Admin Dose 5 ML; Start 05/29/17 at 13:00 Bisacodyl (Dulcolax) 10 mg DAILY PRN PO CONSTIPATION; Start 05/30/17 at 17:00 ; Stop 06/14/17 at 08:00 Polyethylene Glycol (Miralax) 17 gm BID PO Last administered on 06/07/17 08: 37; Admin Dose 17 GM; Start 05/30/17 at 21:00; Stop 06/14/17 at 08:00 Hydromorphone HCl (Dilaudid) 1 mg Q4H PRN IV PAIN Last administered on 21:54; Admin Dose 1 MG; Start 05/30/17 at 23:30 Acetaminophen/ Hydrocodone Bitart ([place] (7.5-325)) 1 tab Q4H PRN PO Pain Last administered on 06/03/17 23:54; Admin Dose 1 TAB; Start 06/01/17 at 15:30 Methylprednisolone Sodium Succinate 80 mg 80 mg Q8 IV Last administered on 14:55; Admin Dose 80 MG; Start 06/02/17 at 22:00 Propofol 100 ml @ 1.872 mls/ hr Q12H IV Last administered on 06/06/17 23:29 ; Admin Dose 7.488 MLS/HR; Start 06/05/17 at 02:30 Fentanyl 100 ml @ 2.5 mls/hr TITRATE IV Last administered on 06/07/17 02:34 ; Admin Dose 10 MLS/HR; Start 06/05/17 at 02:30 Sodium Chloride 1,000 ml @ 70 mls/hr [id number] IV Last administered on 01:33; Admin Dose 70 MLS/HR; Start 06/05/17 at 05:30 Piperacillin Sod/ Tazobactam Sod 100 ml @ 200 mls/hr Q8 IVPB Last administered on 06/07/17 14:56; Admin Dose 200 MLS/HR; Start 06/05/17 at 09: 00 Norepinephrine/ Dextrose (Levophed/D5W) 500 ml @ 0 mls/hr TITRATE IV Last administered on 06/06/17 18:18; Admin Dose 1.87 MLS/HR; Start 06/05/17 at 17: 00 Famotidine 20 mg 20 mg Q12 IV Last administered on 06/07/17 08:37; Admin Dose 20 MG; Start 06/05/17 at 21:00 Vancomycin HCl (Vancocin) 250 ml @ 125 mls/hr Q8H IVPB Last administered on 12:25; Admin Dose 125 MLS/HR; Start 06/07/17 at 03:00 Miscellaneous Information (*Rx Drug Level Order Reminder*) 1 ONCE ONCE XX ; Start 06/08/17 at 02:00; Stop 06/08/17 at 02:01 YADIRA SWANSON Jun 07, 2017 15:34
[2017-06-07] MEDS ORDERED: ALBUTEROL 0.083% (NEB) 2.5 MG/3 ML AMP HHN SCH (20:00)
[2017-06-07] MEDS: HYDROCODONE/APAP (7.5/325) TAB PO PRN (21:55)
[2017-06-08] VITALS (61 sets, daily range): BP systolic 93–122; BP diastolic 51–79; PULSE 55–110; RESP 15–22
[2017-06-08] MEDS: ALBUTEROL 0.083% (NEB) 2.5 MG/3 ML AMP HHN SCH ×4 (01:49→20:06)
[2017-06-08] MEDS: PROPOFOL 100 ML IV SCH (02:30)
[2017-06-08] MEDS: VANCOMYCIN 1.25 GM in SOD CHLORIDE 0.9% 250 ML IVPB SCH ×3 (03:31→18:49)
[2017-06-08] MEDS: PIPER-TAZO 3.375 GM IV (PMX) 100 ML IVPB SCH ×3 (05:37→21:13)
[2017-06-08] MEDS: METHYLPREDNISOLONE 125 MG INJ IV SCH ×3 (05:37→21:13)
[2017-06-08] MEDS ORDERED: POTASSIUM CHLORIDE (SR) 20 MEQ TAB PO ONE (06:45)
[2017-06-08] MEDS: SOD CHLORIDE 0.9% 1,000 ML IV SCH (09:00)
[2017-06-08] MEDS: FAMOTIDINE 20 MG INJ IV SCH (09:02)
[2017-06-08] MEDS: POLYETHYLENE GLYCOL 17 GM PACKET PO SCH ×2 (09:02→20:15)
[2017-06-08] MEDS: HYDROCODONE/APAP (7.5/325) TAB PO PRN (09:03)
[2017-06-08] MEDS: BENZONATATE 100 MG CAP PO SCH ×3 (09:04→20:15)
--- NOTE | 2017-06-08 11:53 | CONS ---
Date/Time of Note Date/Time of Note DATE: 06/08/17 TIME: 11:51 Assessment/Plan Assessment/Plan Additional Assessment/Plan Assessment and recommendations; 1. Patient admitted with alveolar hemorrhage with a very stormy hospital course requiring 2 intubations. Now successfully extubated with marked radiological and clinical improvement. 2. Anemia, status post blood confusion. 3. Status post 2 bronchoscopies. 4. Status post open lung biopsy with nonspecific findings. 5. So far workup for vasculitis has been negative. 6. Underlying diagnosis likely is vasculitis. Continue current supportive care. Consider removing chest tube on the left side in 24 hours. Consultation Date/Type/Reason Admit Date/Time May 19, 2017 at 23:53 Type of Consultation: Pulmonary/critical care 24 HR Interval Summary Free Text/Dictation Patient's condition is markedly improved. She is completely awake and alert. Denies any shortness of breath, hemoptysis. General exam; young woman, awake alert, currently in no distress. Exam/Review of Systems Vital Signs Vitals Vital Signs Date Time Temp Pulse Resp B/P Pulse Ox O2 Delivery O2 Flow Rate FiO2 06/08/17 11:30 71 20 99/58 95 Room Air 06/08/17 08:00 98.6 06/08/17 01:50 4.0 36 Intake and Output 06/07/17 06/07/17 06/08/17 15:00 23:00 07:00 Intake Total 860 ml 1010 ml 800 ml Output Total 500 ml 630 ml 840 ml Balance 360 ml 380 ml -40 ml Exam HEENT exam; supple neck, no JVD. No lymphadenopathy. Midline trachea. No thyromegaly. Pharynx is clear. Patient has fair dentition. Chest exam; clear to auscultation. Bilateral chest tubes are in place. S1-S2 audible, no murmurs. Regular rhythm. Abdomen exam; soft, nontender. No organomegaly. Bowel sounds audible. Next Extremity exam; no peripheral edema. Pulses 1+ bilaterally. No clubbing. 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 Results Result Diagram: 06/08/17 0340 06/08/17 0340 Results 24 hrs Laboratory Tests Test 06/07/17 12:07 06/07/17 12:44 06/08/17 02:13 06/08/17 03:40 Lab Scanned Report REFERENCE LAB Potassium Level 3.1 L 3.3 L Vancomycin Level Trough 8.0 L White Blood Count 17.5 H Red Blood Count 2.74 L Hemoglobin 8.7 L Hematocrit 26.1 L Mean Corpuscular Volume 95.3 Mean Corpuscular Hemoglobin 31.8 Mean Corpuscular Hemoglobin Concent 33.3 Red Cell Distribution Width 15.4 H Platelet Count 125 L Mean Platelet Volume 11.7 H Neutrophils % 95.6 H Lymphocytes % 1.2 L Monocytes % 2.4 Eosinophils % 0.0 Basophils % 0.1 Nucleated Red Blood Cells % 0.0 Neutrophils # 16.8 H Lymphocytes # 0.2 L Monocytes # 0.4 Eosinophils # 0.0 Basophils # 0.0 Nucleated Red Blood Cells # 0.0 Sodium Level 137 Chloride Level 108 Carbon Dioxide Level 25 Anion Gap 7 L Blood Urea Nitrogen 7 Creatinine 0.32 L Glucose Level 171 Calcium Level 8.0 L Medications Medications Current Medications Ondansetron HCl (Zofran Inj) 4 mg Q6H PRN IV NAUSEA AND/OR VOMITING Last administered on 05/26/17 05:33; Admin Dose 4 MG; Start 05/20/17 at 02:00 Acetaminophen (Tylenol Tab) 650 mg Q6H PRN PO PAIN LEVEL 1-3 OR FEVER Last administered on 05/21/17 23:08; Admin Dose 650 MG; Start 05/20/17 at 02:00 Morphine Sulfate (morphine) 2 mg Q4H PRN IV PAIN LEVEL 7-10; Start 05/20/17 at 02:00; Status Future Hold Hydrocodone Bit/ Homatropine Methylb (Hycodan Liquid) 5 ml Q4 PRN PO cough Last administered on 05/29/17 12:04; Admin Dose 5 ML; Start 05/22/17 at 19:30 Benzonatate (Tessalon) 200 mg TID PO Last administered on 06/08/17 09:04; Admin Dose 200 MG; Start 05/29/17 at 14:00 Guaifenesin/ Codeine Phosphate (Robitussin Ac Liquid Cup) 5 ml Q4H PRN PO cough Last administered on 05/29/17 21:23; Admin Dose 5 ML; Start 05/29/17 at 13:00 Bisacodyl (Dulcolax) 10 mg DAILY PRN PO CONSTIPATION; Start 05/30/17 at 17:00 ; Stop 06/14/17 at 08:00 Polyethylene Glycol (Miralax) 17 gm BID PO Last administered on 06/08/17 09: 02; Admin Dose 17 GM; Start 05/30/17 at 21:00; Stop 06/14/17 at 08:00 Hydromorphone HCl (Dilaudid) 1 mg Q4H PRN IV PAIN Last administered on 21:54; Admin Dose 1 MG; Start 05/30/17 at 23:30 Acetaminophen/ Hydrocodone Bitart ([place] (7.5-325)) 1 tab Q4H PRN PO Pain Last administered on 06/08/17 09:03; Admin Dose 1 TAB; Start 06/01/17 at 15:30 Methylprednisolone Sodium Succinate 80 mg 80 mg Q8 IV Last administered on 05:37; Admin Dose 80 MG; Start 06/02/17 at 22:00 Fentanyl 100 ml @ 2.5 mls/hr TITRATE IV Last administered on 06/07/17 02:34 ; Admin Dose 10 MLS/HR; Start 06/05/17 at 02:30 Sodium Chloride 1,000 ml @ 70 mls/hr [id number] IV Last administered on 19:42; Admin Dose 70 MLS/HR; Start 06/05/17 at 05:30 Piperacillin Sod/ Tazobactam Sod 100 ml @ 200 mls/hr Q8 IVPB Last administered on 06/08/17 05:37; Admin Dose 200 MLS/HR; Start 06/05/17 at 09: 00 Norepinephrine/ Dextrose (Levophed/D5W) 500 ml @ 0 mls/hr TITRATE IV Last administered on 06/06/17 18:18; Admin Dose 1.87 MLS/HR; Start 06/05/17 at 17: 00 Famotidine 20 mg 20 mg Q12 IV Last administered on 06/08/17 09:02; Admin Dose 20 MG; Start 06/05/17 at 21:00 Vancomycin HCl/ Sodium Chloride (Vancocin/NS) 250 ml @ 83.333 mls/ hr Q8H IVPB Last administered on 06/08/17 11:13; Admin Dose 83.333 MLS/HR; Start at 03:00 Miscellaneous Information (*Rx Drug Level Order Reminder*) VANCOMYCIN TROUGH AT 1000 ONCE ONCE XX ; Start 06/09/17 at 10:00; Stop 06/09/17 at 10:01 PHOEBE HARRIS Jun 08, 2017 11:53
[2017-06-08] MEDS ORDERED: PENDING SANTYL ORDER FOR WOUND CARE XX PRN (15:30)
--- NOTE | 2017-06-08 15:30 | PN ---
Date/Time of Note Date/Time of Note DATE: 06/08/17 TIME: 15:27 Assessment/Plan VTE Prophylaxis VTE Prophylaxis Intervention: SCD's Lines/Catheters IV C[facility] Type ([facility] Saline Lock Urinary Cath still in place: Yes Reason Cath still needed: other (indicate) (monitor I&O) Assessment/Plan Chief Complaint/Hosp Course Assessment and plan 1. Hemoptysis. CT scan of the chest showing opacities in both lungs consistent with pneumonia. Patient did have bronchoscopy on May 26, 2017 but had massive amount of bleeding and tracheal area. Patient was intubated and placed in ICU and had right-sided VATS with lysis of adhesions in the of the right upper lobe and right lower lobe lung wedge with resection and lung biopsy on May 31, 2017. Subsequently patient was intubated again on June 05 due to worse breathing. Patient now extubated. no s/s of respiratory distress. continue with pulmonary recs. 2. Acute hypoxic respiratory failure. Continue on bronchodilators and IV steroids per industrial trainer 3. Sepsis suspect secondary to pneumonia. Continue antibiotics. 4. Anemia from acute blood loss. Patient status post blood transfusion. Monitor for now. Disposition plan: transfer out of icu when cleared by consultants. continue pulmonary tx. Discussed plan of care with Dr. Merritt Critical CARE time: 30 minute Problems: Subjective 24 Hr Interval Summary Free Text/Dictation alert and oriented no respiratory distress seen. Exam/Review of Systems Vital Signs Vitals Vital Signs Date Time Temp Pulse Resp B/P Pulse Ox O2 Delivery O2 Flow Rate FiO2 06/08/17 15:19 62 14 97 21 06/08/17 12:30 101/63 Room Air 06/08/17 12:00 98.6 06/08/17 01:50 4.0 Intake and Output 06/07/17 06/07/17 06/08/17 15:00 23:00 07:00 Intake Total 860 ml 1010 ml 900 ml Output Total 500 ml 630 ml 870 ml Balance 360 ml 380 ml 30 ml Exam Constitutional: alert, oriented Neck: non-tender, supple Respiratory: other (No obvious wheezing or rhonchi) Cardiovascular: other (Regular rate) Gastrointestinal: non-tender, soft Musculoskeletal: nl extremities to inspection Neurological: ASSEMBLER CRIMPER II-XII intact, nl mental status Results Result Diagram: 06/08/1733906/08/17339 Results 24 hrs Laboratory Tests Test 06/08/17 02:13 06/08/17 03:40 Vancomycin Level Trough 8.0 L White Blood Count 17.5 H Red Blood Count 2.74 L Hemoglobin 8.7 L Hematocrit 26.1 L Mean Corpuscular Volume 95.3 Mean Corpuscular Hemoglobin 31.8 Mean Corpuscular Hemoglobin Concent 33.3 Red Cell Distribution Width 15.4 H Platelet Count 125 L Mean Platelet Volume 11.7 H Neutrophils % 95.6 H Lymphocytes % 1.2 L Monocytes % 2.4 Eosinophils % 0.0 Basophils % 0.1 Nucleated Red Blood Cells % 0.0 Neutrophils # 16.8 H Lymphocytes # 0.2 L Monocytes # 0.4 Eosinophils # 0.0 Basophils # 0.0 Nucleated Red Blood Cells # 0.0 Sodium Level 137 Potassium Level 3.3 L Chloride Level 108 Carbon Dioxide Level 25 Anion Gap 7 L Blood Urea Nitrogen 7 Creatinine 0.32 L Glucose Level 171 Calcium Level 8.0 L Medications Medications Current Medications Ondansetron HCl (Zofran Inj) 4 mg Q6H PRN IV NAUSEA AND/OR VOMITING Last administered on 05/26/17 05:33; Admin Dose 4 MG; Start 05/20/17 at 02:00 Acetaminophen (Tylenol Tab) 650 mg Q6H PRN PO PAIN LEVEL 1-3 OR FEVER Last administered on 05/21/17 23:08; Admin Dose 650 MG; Start 05/20/17 at 02:00 Morphine Sulfate (morphine) 2 mg Q4H PRN IV PAIN LEVEL 7-10; Start 05/20/17 at 02:00; Status Future Hold Hydrocodone Bit/ Homatropine Methylb (Hycodan Liquid) 5 ml Q4 PRN PO cough Last administered on 05/29/17 12:04; Admin Dose 5 ML; Start 05/22/17 at 19:30 Benzonatate (Tessalon) 200 mg TID PO Last administered on 06/08/17 14:00; Admin Dose 200 MG; Start 05/29/17 at 14:00 Guaifenesin/ Codeine Phosphate (Robitussin Ac Liquid Cup) 5 ml Q4H PRN PO cough Last administered on 05/29/17 21:23; Admin Dose 5 ML; Start 05/29/17 at 13:00 Bisacodyl (Dulcolax) 10 mg DAILY PRN PO CONSTIPATION; Start 05/30/17 at 17:00 ; Stop 06/14/17 at 08:00 Polyethylene Glycol (Miralax) 17 gm BID PO Last administered on 06/08/17 09: 02; Admin Dose 17 GM; Start 05/30/17 at 21:00; Stop 06/14/17 at 08:00 Hydromorphone HCl (Dilaudid) 1 mg Q4H PRN IV PAIN Last administered on 21:54; Admin Dose 1 MG; Start 05/30/17 at 23:30 Acetaminophen/ Hydrocodone Bitart ([place] (7.5-325)) 1 tab Q4H PRN PO Pain Last administered on 06/08/17 09:03; Admin Dose 1 TAB; Start 06/01/17 at 15:30 Methylprednisolone Sodium Succinate 80 mg 80 mg Q8 IV Last administered on 14:01; Admin Dose 80 MG; Start 06/02/17 at 22:00 Fentanyl 100 ml @ 2.5 mls/hr TITRATE IV Last administered on 06/07/17 02:34 ; Admin Dose 10 MLS/HR; Start 06/05/17 at 02:30 Sodium Chloride 1,000 ml @ 70 mls/hr [id number] IV Last administered on 19:42; Admin Dose 70 MLS/HR; Start 06/05/17 at 05:30 Piperacillin Sod/ Tazobactam Sod 100 ml @ 200 mls/hr Q8 IVPB Last administered on 06/08/17 14:01; Admin Dose 200 MLS/HR; Start 06/05/17 at 09: 00 Norepinephrine/ Dextrose (Levophed/D5W) 500 ml @ 0 mls/hr TITRATE IV Last administered on 06/06/17 18:18; Admin Dose 1.87 MLS/HR; Start 06/05/17 at 17: 00 Famotidine 20 mg 20 mg Q12 IV Last administered on 06/08/17 09:02; Admin Dose 20 MG; Start 06/05/17 at 21:00 Vancomycin HCl/ Sodium Chloride (Vancocin/NS) 250 ml @ 83.333 mls/ hr Q8H IVPB Last administered on 06/08/17 11:13; Admin Dose 83.333 MLS/HR; Start at 03:00 Miscellaneous Information (*Rx Drug Level Order Reminder*) VANCOMYCIN TROUGH AT 1000 ONCE ONCE XX ; Start 06/09/17 at 10:00; Stop 06/09/17 at 10:01 YADIRA SWANSON Jun 08, 2017 15:30
--- NOTE | 2017-06-08 16:33 | RADRPT ---
PROCEDURE: XR Chest. CLINICAL INDICATION: Shortness of breath. TECHNIQUE: Single frontal view. COMPARISON: 06/07/2017. FINDINGS: The endotracheal tube and nasogastric tube have been removed. The bilateral chest tubes and the left subclavian vein catheter remain in satisfactory position. There is patchy air space disease in the right upper lobe, unchanged. The lungs are otherwise clear. The heart size is normal. There is no pleural effusion. There is no pneumothorax. IMPRESSION: 1. Endotracheal tube and nasogastric tube removed. 2. Bilateral chest tubes and left subclavian vein catheter in satisfactory position. 3. Right upper lobe air space disease, unchanged. RPTAT: QQ .Wale Villanueva MD, Date Time Electronically viewed and signed by .Wale Villanueva MD, on 06/08/2017 16:32 .R/
--- NOTE | 2017-06-08 19:13 | PN ---
Date/Time of Note Date/Time of Note DATE: 06/08/17 TIME: 19:12 Assessment/Plan Lines/Catheters IV Catheter Type (from Nrsg): Saline Lock Carlson in Place (from Nrsg): Yes Assessment/Plan Chief Complaint/Hosp Course IMPRESSION: Multifocal pneumonia, possible vasculitis. SP VATS Lung BX IMPRESSION: will continue CT Sxn Problems: Subjective 24 Hr Interval Summary Constitutional: improved Pain Control: mild Exam/Review of Systems Vital Signs Vitals Vital Signs Date Time Temp Pulse Resp B/P Pulse Ox O2 Delivery O2 Flow Rate FiO2 06/08/17 18:00 65 15 106/65 95 Room Air 06/08/17 16:00 98.5 06/08/17 15:19 21 06/08/17 09:10 4.0 Intake and Output 06/07/17 06/07/17 06/08/17 15:00 23:00 07:00 Intake Total 860 ml 1010 ml 900 ml Output Total 500 ml 630 ml 870 ml Balance 360 ml 380 ml 30 ml Exam ENMT: mucosa pink and moist, nl external ears & nose, nl lips & teeth, nl nasal mucosa & septum Neck: non-tender, supple Respiratory: clear to auscultation, normal air movement Cardiovascular: nl pulses, regular rate and rhythm Results Result Diagram: 06/08/17 0340 06/08/17 034 NASH ZAVALA MD Jun 08, 2017 19:13
[2017-06-09] VITALS (24 sets, daily range): BP systolic 90–117; BP diastolic 36–79; PULSE 53–86; RESP 16–22
[2017-06-09] MEDS: SOD CHLORIDE 0.9% 1,000 ML IV SCH ×2 (00:05→13:40)
[2017-06-09] MEDS: ALBUTEROL 0.083% (NEB) 2.5 MG/3 ML AMP HHN SCH ×4 (01:46→20:30)
[2017-06-09] MEDS: VANCOMYCIN 1.25 GM in SOD CHLORIDE 0.9% 250 ML IVPB SCH ×3 (03:36→19:04)
[2017-06-09] MEDS: METHYLPREDNISOLONE 125 MG INJ IV SCH ×3 (05:09→21:28)
[2017-06-09] MEDS: PIPER-TAZO 3.375 GM IV (PMX) 100 ML IVPB SCH ×3 (05:09→21:28)
[2017-06-09] MEDS: PANTOPRAZOLE (EC) 40 MG TAB PO SCH (05:25)
--- NOTE | 2017-06-09 08:42 | RADRPT ---
PROCEDURE: XR Chest. CLINICAL INDICATION: Shortness of breath. TECHNIQUE: Single frontal view. COMPARISON: 06/08/2017. FINDINGS: The bilateral chest tubes and the left subclavian vein catheter remain in satisfactory position. The re is patchy air space disease in the right upper lobe, unchanged. The lungs are otherwise clear. The heart size is normal. There is no pleural effusion. There is no pneumothorax. IMPRESSION: 1. Unchanged right upper lobe pneumonia. 2. Bilateral chest tubes. RPTAT: QQ .Wale Villanueva MD, MD Date Time Electronically viewed and signed by .Wale Villanueva MD, MD on 06/09/2017 08:04 .R/
[2017-06-09] MEDS: BENZONATATE 100 MG CAP PO SCH ×3 (09:05→21:28)
[2017-06-09] MEDS: POLYETHYLENE GLYCOL 17 GM PACKET PO SCH ×2 (09:05→21:00)
--- NOTE | 2017-06-09 10:32 | PN ---
Date/Time of Note Date/Time of Note DATE: 06/09/17 TIME: 10:29 Assessment/Plan Lines/Catheters IV Catheter Type (from [facility]): Saline Lock Carlson in Place (from [facility]): Yes Assessment/Plan Chief Complaint/Hosp Course IMPRESSION: Multifocal pneumonia, possible vasculitis. SP VATS Lung BX IMPRESSION: will place CT on water seal repeat CXR Problems: Subjective 24 Hr Interval Summary Constitutional: improved Exam/Review of Systems Vital Signs Vitals Vital Signs Date Time Temp Pulse Resp B/P Pulse Ox O2 Delivery O2 Flow Rate FiO2 06/09/17 10:00 74 20 111/36 94 Room Air 06/09/17 08:17 21 06/09/17 08:00 98.5 06/08/17 09:10 4.0 Intake and Output 06/08/17 06/08/17 06/09/17 14:59 22:59 06:59 Intake Total 930 ml 1114.99 ml 1010.00 ml Output Total 785 ml 1494 ml 1420 ml Balance 145 ml -379.01 ml -410.00 ml Exam ENMT: mucosa pink and moist, nl external ears & nose, nl lips & teeth, nl nasal mucosa & septum Neck: non-tender, supple Respiratory: clear to auscultation, normal air movement Cardiovascular: nl pulses, regular rate and rhythm Results Result Diagram: 06/09/17 0500 06/09/17 0500 NASH ZAVALA MD Jun 09, 2017 10:32
--- NOTE | 2017-06-09 10:32 | PN ---
Date/Time of Note Date/Time of Note DATE: 06/09/17 TIME: 10:29 Assessment/Plan Lines/Catheters IV Catheter Type (from [facility]): Saline Lock Carlson in Place (from [facility]): Yes Assessment/Plan Chief Complaint/Hosp Course IMPRESSION: Multifocal pneumonia, possible vasculitis. SP VATS Lung BX IMPRESSION: will place CT on water seal repeat CXR Problems: Subjective 24 Hr Interval Summary Constitutional: improved Exam/Review of Systems Vital Signs Vitals Vital Signs Date Time Temp Pulse Resp B/P Pulse Ox O2 Delivery O2 Flow Rate FiO2 06/09/17 10:00 74 20 111/36 94 Room Air 06/09/17 08:17 21 06/09/17 08:00 98.5 06/08/17 09:10 4.0 Intake and Output 06/08/17 06/08/17 06/09/17 14:59 22:59 06:59 Intake Total 930 ml 1114.99 ml 1010.00 ml Output Total 785 ml 1494 ml 1420 ml Balance 145 ml -379.01 ml -410.00 ml Exam ENMT: mucosa pink and moist, nl external ears & nose, nl lips & teeth, nl nasal mucosa & septum Neck: non-tender, supple Respiratory: clear to auscultation, normal air movement Cardiovascular: nl pulses, regular rate and rhythm Results Result Diagram: 06/09/17 0500 06/09/17 0500 NASH ZAVALA MD Jun 09, 2017 10:32
--- NOTE | 2017-06-09 11:20 | CONS ---
Date/Time of Note Date/Time of Note DATE: 06/09/17 TIME: 11:17 Assessment/Plan Assessment/Plan Additional Assessment/Plan Chest x-ray was reviewed from today which is showing continued improvement in right upper lobe infiltrative changes. Bilateral chest tubes are in place. No pneumothoraces on either side. No other infiltrative changes noted. Assessment and recommendations; 1. Patient admitted with alveolar hemorrhage, etiology still unclear. Patient has undergone extensive workup including open lung biopsy which is nondiagnostic. 2. Vasculitis workup also is negative so far. 3. Status post left iatrogenic pneumothorax. 4. Anemia and thrombocytopenia. 5. Status post multiple bronchoscopies due to mucus plugging involving the right mainstem bronchus. Continue current supportive care. Remove chest tubes. I did have a detailed discussion of the patient's mother as well as patient's and answered all their questions. We will continue with current Solu-Medrol dosing. Consultation Date/Type/Reason Admit Date/Time May 19, 2017 at 23:53 Type of Consultation: Pulmonary/critical care 24 HR Interval Summary Free Text/Dictation Patient's condition is stable. Denies any shortness of breath, chest pain, wheezing, cough or any further hemoptysis. General exam; young woman, awake and alert. Currently in no distress. Exam/Review of Systems Vital Signs Vitals Vital Signs Date Time Temp Pulse Resp B/P Pulse Ox O2 Delivery O2 Flow Rate FiO2 06/09/17 10:00 74 20 111/36 94 Room Air 06/09/17 08:17 21 06/09/17 08:00 98.5 06/08/17 09:10 4.0 Intake and Output 06/08/17 06/08/17 06/09/17 15:00 23:00 07:00 Intake Total 865 ml 1149.99 ml 1110.00 ml Output Total 855 ml 1594 ml 1220 ml Balance 10 ml -444.01 ml -110.00 ml Exam HEENT exam; supple neck, no JVD. No lymphadenopathy. Midline trachea. No thyromegaly. Pharynx is clear. Patient has good dentition. Chest exam; clear to auscultation. S1-S2 audible, no murmurs. Regular rhythm. Bilateral chest tubes are in place. No air leak detected in the Pleur-evac chambers. Abdomen exam; soft, nontender. No organomegaly. Extremity exam; no peripheral edema. SUPERVISOR ESTERS AND EMULSIFIERS exam; no focal deficit. Results Result Diagram: 06/09/17 0500 06/09/17 0500 Results 24 hrs Laboratory Tests Test 06/09/17 05:00 06/09/17 10:05 White Blood Count 14.5 H Red Blood Count 2.75 L Hemoglobin 8.8 L Hematocrit 25.9 L Mean Corpuscular Volume 94.2 Mean Corpuscular Hemoglobin 32.0 Mean Corpuscular Hemoglobin Concent 34.0 Red Cell Distribution Width 14.8 H Platelet Count 109 L Mean Platelet Volume 11.2 H Neutrophils % 92.0 H Lymphocytes % 2.3 L Monocytes % 4.6 Eosinophils % 0.0 Basophils % 0.1 Nucleated Red Blood Cells % 0.0 Neutrophils # 13.3 H Lymphocytes # 0.3 L Monocytes # 0.7 Eosinophils # 0.0 Basophils # 0.0 Nucleated Red Blood Cells # 0.0 Sodium Level 139 Potassium Level 3.1 L Chloride Level 106 Carbon Dioxide Level 25 Anion Gap 11 Blood Urea Nitrogen 7 Creatinine 0.31 L Glucose Level 148 Calcium Level 7.7 L Vancomycin Level Trough 10.5 Medications Medications Current Medications Ondansetron HCl (Zofran Inj) 4 mg Q6H PRN IV NAUSEA AND/OR VOMITING Last administered on 05/26/17 05:33; Admin Dose 4 MG; Start 05/20/17 at 02:00 Acetaminophen (Tylenol Tab) 650 mg Q6H PRN PO PAIN LEVEL 1-3 OR FEVER Last administered on 05/21/17 23:08; Admin Dose 650 MG; Start 05/20/17 at 02:00 Morphine Sulfate (morphine) 2 mg Q4H PRN IV PAIN LEVEL 7-10; Start 05/20/17 at 02:00; Status Future Hold Hydrocodone Bit/ Homatropine Methylb (Hycodan Liquid) 5 ml Q4 PRN PO cough Last administered on 05/29/17 12:04; Admin Dose 5 ML; Start 05/22/17 at 19:30 Benzonatate (Tessalon) 200 mg TID PO Last administered on 06/09/17 09:05; Admin Dose 200 MG; Start 05/29/17 at 14:00 Guaifenesin/ Codeine Phosphate (Robitussin Ac Liquid Cup) 5 ml Q4H PRN PO cough Last administered on 05/29/17 21:23; Admin Dose 5 ML; Start 05/29/17 at 13:00 Bisacodyl (Dulcolax) 10 mg DAILY PRN PO CONSTIPATION; Start 05/30/17 at 17:00 ; Stop 06/14/17 at 08:00 Polyethylene Glycol (Miralax) 17 gm BID PO Last administered on 06/09/17 09: 05; Admin Dose 17 GM; Start 05/30/17 at 21:00; Stop 06/14/17 at 08:00 Hydromorphone HCl (Dilaudid) 1 mg Q4H PRN IV PAIN Last administered on 21:54; Admin Dose 1 MG; Start 05/30/17 at 23:30 Acetaminophen/ Hydrocodone Bitart ([place] (7.5-325)) 1 tab Q4H PRN PO Pain Last administered on 06/08/17 09:03; Admin Dose 1 TAB; Start 06/01/17 at 15:30 Methylprednisolone Sodium Succinate 80 mg 80 mg Q8 IV Last administered on 05:09; Admin Dose 80 MG; Start 06/02/17 at 22:00 Fentanyl 100 ml @ 2.5 mls/hr TITRATE IV Last administered on 06/07/17 02:34 ; Admin Dose 10 MLS/HR; Start 06/05/17 at 02:30 Sodium Chloride 1,000 ml @ 70 mls/hr [id number] IV Last administered on 00:05; Admin Dose 70 MLS/HR; Start 06/05/17 at 05:30 Piperacillin Sod/ Tazobactam Sod 100 ml @ 200 mls/hr Q8 IVPB Last administered on 06/09/17 05:09; Admin Dose 200 MLS/HR; Start 06/05/17 at 09: 00 Norepinephrine 16 mg/Dextrose 500 ml @ 0 mls/hr TITRATE IV Last administered on 06/06/17 18:18; Admin Dose 1.87 MLS/HR; Start 06/05/17 at 17:00 Vancomycin HCl/ Sodium Chloride (Vancocin/NS) 250 ml @ 83.333 mls/ hr Q8H IVPB Last administered on 06/09/17 03:36; Admin Dose 83.333 MLS/HR; Start at 03:00 Miscellaneous Information (Pending [facility] Order For Wound Care) This patient pickard... PRN PRN XX WOUND CARE; Start 06/08/17 at 15:30 Pantoprazole (Protonix Tab) 40 mg DAILY@06 PO Last administered on 06/09/17t 05:25; Admin Dose 40 MG; Start 06/09/17 at 06:00 PHOEBE HARRIS Jun 09, 2017 11:20
[2017-06-09] MEDS ORDERED: POTASSIUM CHLORIDE 250 ML IVPB ONE (13:30)
--- NOTE | 2017-06-09 13:47 | PN ---
Date/Time of Note Date/Time of Note DATE: 06/09/17 TIME: 13:43 Assessment/Plan VTE Prophylaxis VTE Prophylaxis Intervention: SCD's Lines/Catheters IV Catheter Type (from [facility]): Saline Lock Urinary Cath still in place: Yes Reason Cath still needed: other (indicate) (monitor I&O) Assessment/Plan Chief Complaint/Hosp Course Assessment and plan 1. Hemoptysis. CT scan of the chest showing opacities in both lungs consistent with pneumonia. Patient did have bronchoscopy on May 26, 2017 but had massive amount of bleeding and tracheal area. Patient was intubated and placed in ICU and had right-sided VATS with lysis of adhesions in the of the right upper lobe and right lower lobe lung wedge with resection and lung biopsy on May 31, 2017. Subsequently patient was intubated again on June 05 due to worse breathing. extubated now. Of note, vasculitis workup remains negative. 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 Acute hypoxic respiratory failure. Continue on bronchodilators and IV steroids per railroad purchasing agent 3. Sepsis suspect secondary to pneumonia. Continue antibiotics. 4. Anemia from acute blood loss. Patient status post blood transfusion. Monitor for now. Disposition plan: Patient extubated at this time. Breathing appears to be improving. DC chest tube per railroad purchasing agent. Transfer out of ICU once cleared by consultants Discussed plan of care with Dr. Merritt Critical CARE time: 30 minute Problems: Subjective 24 Hr Interval Summary Free Text/Dictation no shortness of breath. no further reports of hemoptysis Exam/Review of Systems Vital Signs Vitals Vital Signs Date Time Temp Pulse Resp B/P Pulse Ox O2 Delivery O2 Flow Rate FiO2 06/09/17 13:00 70 21 103/68 95 Room Air 06/09/17 12:00 98.0 06/09/17 08:17 21 06/08/17 09:10 4.0 Intake and Output 06/08/17 06/08/17 06/09/17 15:00 23:00 07:00 Intake Total 865 ml 1149.99 ml 1110.00 ml Output Total 855 ml 1594 ml 1220 ml Balance 10 ml -444.01 ml -110.00 ml Exam Constitutional: alert, oriented Neck: non-tender, supple Respiratory: other (No obvious wheezing or rhonchi) unchanged. chest tube on left flank Cardiovascular: other (Regular rate) Gastrointestinal: non-tender, soft Musculoskeletal: nl extremities to inspection Neurological: ALLIED HEALTH PROFESSIONAL II-XII intact, nl mental status Results Result Diagram: 06/09/17 0500 06/09/17 0500 Results 24 hrs Laboratory Tests Test 06/09/17 05:00 06/09/17 10:05 White Blood Count 14.5 H Red Blood Count 2.75 L Hemoglobin 8.8 L Hematocrit 25.9 L Mean Corpuscular Volume 94.2 Mean Corpuscular Hemoglobin 32.0 Mean Corpuscular Hemoglobin Concent 34.0 Red Cell Distribution Width 14.8 H Platelet Count 109 L Mean Platelet Volume 11.2 H Neutrophils % 92.0 H Lymphocytes % 2.3 L Monocytes % 4.6 Eosinophils % 0.0 Basophils % 0.1 Nucleated Red Blood Cells % 0.0 Neutrophils # 13.3 H Lymphocytes # 0.3 L Monocytes # 0.7 Eosinophils # 0.0 Basophils # 0.0 Nucleated Red Blood Cells # 0.0 Sodium Level 139 Potassium Level 3.1 L Chloride Level 106 Carbon Dioxide Level 25 Anion Gap 11 Blood Urea Nitrogen 7 Creatinine 0.31 L Glucose Level 148 Calcium Level 7.7 L Vancomycin Level Trough 10.5 Medications Medications Current Medications Ondansetron HCl (Zofran Inj) 4 mg Q6H PRN IV NAUSEA AND/OR VOMITING Last administered on 05/26/17 05:33; Admin Dose 4 MG; Start 05/20/17 at 02:00 Acetaminophen (Tylenol Tab) 650 mg Q6H PRN PO PAIN LEVEL 1-3 OR FEVER Last administered on 05/21/17 23:08; Admin Dose 650 MG; Start 05/20/17 at 02:00 Morphine Sulfate (morphine) 2 mg Q4H PRN IV PAIN LEVEL 7-10; Start 05/20/17 at 02:00; Status Future Hold Hydrocodone Bit/ Homatropine Methylb (Hycodan Liquid) 5 ml Q4 PRN PO cough Last administered on 05/29/17 12:04; Admin Dose 5 ML; Start 05/22/17 at 19:30 Benzonatate (Tessalon) 200 mg TID PO Last administered on 06/09/17 12:26; Admin Dose 200 MG; Start 05/29/17 at 14:00 Guaifenesin/ Codeine Phosphate (Robitussin Ac Liquid Cup) 5 ml Q4H PRN PO cough Last administered on 05/29/17 21:23; Admin Dose 5 ML; Start 05/29/17 at 13:00 Bisacodyl (Dulcolax) 10 mg DAILY PRN PO CONSTIPATION; Start 05/30/17 at 17:00 ; Stop 06/14/17 at 08:00 Polyethylene Glycol (Miralax) 17 gm BID PO Last administered on 06/09/17 09: 05; Admin Dose 17 GM; Start 05/30/17 at 21:00; Stop 06/14/17 at 08:00 Hydromorphone HCl (Dilaudid) 1 mg Q4H PRN IV PAIN Last administered on 21:54; Admin Dose 1 MG; Start 05/30/17 at 23:30 Acetaminophen/ Hydrocodone Bitart ([place] (7.5-325)) 1 tab Q4H PRN PO Pain Last administered on 06/08/17 09:03; Admin Dose 1 TAB; Start 06/01/17 at 15:30 Methylprednisolone Sodium Succinate 80 mg 80 mg Q8 IV Last administered on 13:42; Admin Dose 80 MG; Start 06/02/17 at 22:00 Fentanyl 100 ml @ 2.5 mls/hr TITRATE IV Last administered on 06/07/17 02:34 ; Admin Dose 10 MLS/HR; Start 06/05/17 at 02:30 Sodium Chloride 1,000 ml @ 70 mls/hr [id number] IV Last administered on 13:40; Admin Dose 70 MLS/HR; Start 06/05/17 at 05:30 Piperacillin Sod/ Tazobactam Sod 100 ml @ 200 mls/hr Q8 IVPB Last administered on 06/09/17 13:42; Admin Dose 200 MLS/HR; Start 06/05/17 at 09: 00 Norepinephrine 16 mg/Dextrose 500 ml @ 0 mls/hr TITRATE IV Last administered on 06/06/17 18:18; Admin Dose 1.87 MLS/HR; Start 06/05/17 at 17:00 Vancomycin HCl/ Sodium Chloride (Vancocin/NS) 250 ml @ 83.333 mls/ hr Q8H IVPB Last administered on 06/09/17 11:21; Admin Dose 83.333 MLS/HR; Start at 03:00 Miscellaneous Information (Pending [facility] Order For Wound Care) This patient pickard... PRN PRN XX WOUND CARE; Start 06/08/17 at 15:30 Pantoprazole 40 mg 40 mg DAILY@06 PO Last administered on 06/09/17 05:25; Admin Dose 40 MG; Start 06/09/17 at 06:00 Potassium Chloride (KCl 40 MEQ/250 ML NS) 250 ml @ 62.5 mls/hr ONCE ONCE IVPB Last administered on 06/09/17 13:40; Admin Dose 62.5 MLS/HR; Start at 13:30; Stop 06/09/17 at 17:29 YADIRA SWANSON Jun 09, 2017 13:47
--- NOTE | 2017-06-09 13:47 | PN ---
Date/Time of Note Date/Time of Note DATE: 06/09/17 TIME: 13:43 Assessment/Plan VTE Prophylaxis VTE Prophylaxis Intervention: SCD's Lines/Catheters IV [facility]ter Type (from [facility]): Saline Lock Urinary Cath still in place: Yes Reason Cath still needed: other (indicate) (monitor I&O) Assessment/Plan Chief Complaint/Hosp Course Assessment and plan 1. Hemoptysis. CT scan of the chest showing opacities in both lungs consistent with pneumonia. Patient did have bronchoscopy on May 26, 2017 but had massive amount of bleeding and tracheal area. Patient was intubated and placed in ICU and had right-sided VATS with lysis of adhesions in the of the right upper lobe and right lower lobe lung wedge with resection and lung biopsy on May 31, 2017. Subsequently patient was intubated again on June 05 due to worse breathing. extubated now. Of note, vasculitis workup remains negative. Continue with entry level finance or conditions 2. Acute hypoxic respiratory failure. Continue on bronchodilators and IV steroids per entry level finance 3. Sepsis suspect secondary to pneumonia. Continue antibiotics. 4. Anemia from acute blood loss. Patient status post blood transfusion. Monitor for now. Disposition plan: Patient extubated at this time. Breathing appears to be improving. DC chest tube per entry level finance. Transfer out of ICU once cleared by consultants Discussed plan of care with Dr. Merritt Critical CARE time: 30 minute Problems: Subjective 24 Hr Interval Summary Free Text/Dictation no shortness of breath. no further reports of hemoptysis Exam/Review of Systems Vital Signs Vitals Vital Signs Date Time Temp Pulse Resp B/P Pulse Ox O2 Delivery O2 Flow Rate FiO2 06/09/17 13:00 70 21 103/68 95 Room Air 06/09/17 12:00 98.0 06/09/17 08:17 21 06/08/17 09:10 4.0 Intake and Output 06/08/17 06/08/17 06/09/17 15:00 23:00 07:00 Intake Total 865 ml 1149.99 ml 1110.00 ml Output Total 855 ml 1594 ml 1220 ml Balance 10 ml -444.01 ml -110.00 ml Exam Constitutional: alert, oriented Neck: non-tender, supple Respiratory: other (No obvious wheezing or rhonchi) unchanged. 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, nl mental status Results Result Diagram: 06/09/17 0500 06/09/17 0500 Results 24 hrs Laboratory Tests Test 06/09/17 05:00 06/09/17 10:05 White Blood Count 14.5 H Red Blood Count 2.75 L Hemoglobin 8.8 L Hematocrit 25.9 L Mean Corpuscular Volume 94.2 Mean Corpuscular Hemoglobin 32.0 Mean Corpuscular Hemoglobin Concent 34.0 Red Cell Distribution Width 14.8 H Platelet Count 109 L Mean Platelet Volume 11.2 H Neutrophils % 92.0 H Lymphocytes % 2.3 L Monocytes % 4.6 Eosinophils % 0.0 Basophils % 0.1 Nucleated Red Blood Cells % 0.0 Neutrophils # 13.3 H Lymphocytes # 0.3 L Monocytes # 0.7 Eosinophils # 0.0 Basophils # 0.0 Nucleated Red Blood Cells # 0.0 Sodium Level 139 Potassium Level 3.1 L Chloride Level 106 Carbon Dioxide Level 25 Anion Gap 11 Blood Urea Nitrogen 7 Creatinine 0.31 L Glucose Level 148 Calcium Level 7.7 L Vancomycin Level Trough 10.5 Medications Medications Current Medications Ondansetron HCl (Zofran Inj) 4 mg Q6H PRN IV NAUSEA AND/OR VOMITING Last administered on 05/26/17 05:33; Admin Dose 4 MG; Start 05/20/17 at 02:00 Acetaminophen (Tylenol Tab) 650 mg Q6H PRN PO PAIN LEVEL 1-3 OR FEVER Last administered on 05/21/17 23:08; Admin Dose 650 MG; Start 05/20/17 at 02:00 Morphine Sulfate (morphine) 2 mg Q4H PRN IV PAIN LEVEL 7-10; Start 05/20/17 at 02:00; Status Future Hold Hydrocodone Bit/ Homatropine Methylb (Hycodan Liquid) 5 ml Q4 PRN PO cough Last administered on 05/29/17 12:04; Admin Dose 5 ML; Start 05/22/17 at 19:30 Benzonatate (Tessalon) 200 mg TID PO Last administered on 06/09/17 12:26; Admin Dose 200 MG; Start 05/29/17 at 14:00 Guaifenesin/ Codeine Phosphate (Robitussin Ac Liquid Cup) 5 ml Q4H PRN PO cough Last administered on 05/29/17 21:23; Admin Dose 5 ML; Start 05/29/17 at 13:00 Bisacodyl (Dulcolax) 10 mg DAILY PRN PO CONSTIPATION; Start 05/30/17 at 17:00 ; Stop 06/14/17 at 08:00 Polyethylene Glycol (Miralax) 17 gm BID PO Last administered on 06/09/17 09: 05; Admin Dose 17 GM; Start 05/30/17 at 21:00; Stop 06/14/17 at 08:00 Hydromorphone HCl (Dilaudid) 1 mg Q4H PRN IV PAIN Last administered on 21:54; Admin Dose 1 MG; Start 05/30/17 at 23:30 Acetaminophen/ Hydrocodone Bitart ([place] (7.5-325)) 1 tab Q4H PRN PO Pain Last administered on 06/08/17 09:03; Admin Dose 1 TAB; Start 06/01/17 at 15:30 Methylprednisolone Sodium Succinate 80 mg 80 mg Q8 IV Last administered on 13:42; Admin Dose 80 MG; Start 06/02/17 at 22:00 Fentanyl 100 ml @ 2.5 mls/hr TITRATE IV Last administered on 06/07/17 02:34 ; Admin Dose 10 MLS/HR; Start 06/05/17 at 02:30 Sodium Chloride 1,000 ml @ 70 mls/hr [id number] IV Last administered on 13:40; Admin Dose 70 MLS/HR; Start 06/05/17 at 05:30 Piperacillin Sod/ Tazobactam Sod 100 ml @ 200 mls/hr Q8 IVPB Last administered on 06/09/17 13:42; Admin Dose 200 MLS/HR; Start 06/05/17 at 09: 00 Norepinephrine 16 mg/Dextrose 500 ml @ 0 mls/hr TITRATE IV Last administered on 06/06/17 18:18; Admin Dose 1.87 MLS/HR; Start 06/05/17 at 17:00 Vancomycin HCl/ Sodium Chloride (Vancocin/NS) 250 ml @ 83.333 mls/ hr Q8H IVPB Last administered on 06/09/17 11:21; Admin Dose 83.333 MLS/HR; Start at 03:00 Miscellaneous Information (Pending [facility] Order For Wound Care) This patient pickard... PRN PRN XX WOUND CARE; Start 06/08/17 at 15:30 Pantoprazole 40 mg 40 mg DAILY@06 PO Last administered on 06/09/17 05:25; Admin Dose 40 MG; Start 06/09/17 at 06:00 Potassium Chloride (KCl 40 MEQ/250 ML NS) 250 ml @ 62.5 mls/hr ONCE ONCE IVPB Last administered on 06/09/17 13:40; Admin Dose 62.5 MLS/HR; Start at 13:30; Stop 06/09/17 at 17:29 YADIRA SWANSON Jun 09, 2017 13:47
[2017-06-10] VITALS (24 sets, daily range): BP systolic 90–115; BP diastolic 49–80; PULSE 58–90; RESP 16–22
[2017-06-10] MEDS: ALBUTEROL 0.083% (NEB) 2.5 MG/3 ML AMP HHN SCH ×4 (03:00→20:23)
[2017-06-10] MEDS: VANCOMYCIN 1.25 GM in SOD CHLORIDE 0.9% 250 ML IVPB SCH ×3 (03:08→18:57)
[2017-06-10] MEDS: SOD CHLORIDE 0.9% 1,000 ML IV SCH ×3 (05:10→20:46)
[2017-06-10] MEDS: METHYLPREDNISOLONE 125 MG INJ IV SCH ×3 (05:50→21:47)
[2017-06-10] MEDS: PIPER-TAZO 3.375 GM IV (PMX) 100 ML IVPB SCH ×3 (05:50→21:47)
[2017-06-10] MEDS: PANTOPRAZOLE (EC) 40 MG TAB PO SCH (05:50)
[2017-06-10] MEDS: BENZONATATE 100 MG CAP PO SCH ×3 (08:53→20:19)
[2017-06-10] MEDS: POLYETHYLENE GLYCOL 17 GM PACKET PO SCH ×2 (08:53→21:00)
--- NOTE | 2017-06-10 08:56 | RADRPT ---
PROCEDURE: XR Chest 1 View. CLINICAL INDICATION: Shortness of breath. Pneumothorax. TECHNIQUE: AP view of the chest was obtained. COMPARISON: Yesterday FINDINGS: The cardiomediastinal silhouette is within normal limits. Left-sided central line is unchanged. Bila teral chest tubes are stable. No pneumothorax as visualized. Patchy atelectasis versus mild infiltra mendoza are seen in the right mid and upper lung and appears stable. Atelectasis is noted at the left kari ng base. The osseous structures are unchanged. IMPRESSION: Stable bilateral chest tubes. No visualized pneumothorax. Stable patchy atelectasis versus infiltrates in the right mid and upper lung. Atelectasis at the left lung base. RPTAT: AA .Eris Wilson MD, Date Time Electronically viewed and signed by .Eris Wilson MD, MD on 06/10/2017 08:55 .P/
--- NOTE | 2017-06-10 09:29 | CONS ---
Date/Time of Note Date/Time of Note DATE: 06/10/17 TIME: 09:26 Assessment/Plan Assessment/Plan Additional Assessment/Plan Chest x-ray was reviewed from today which is showing continued improvement in right upper lobe infiltrate. Bilateral chest tubes are in place. No pneumothorax is seen on either side. Assessment recommendations; 1. Patient admitted with alveolar hemorrhage of unknown etiology at this point. Patient has had extensive workup including vasculitis workup , open lung biopsies which have been nondiagnostic. 2. Patient has had a stormy course in the hospital requiring 2 intubations due to extensive mucus plugging of the right mainstem bronchus status post multiple bronchoscopies. 3. Anemia, with stable hematocrit now. 4. Hemoptysis with complete interval resolution with significant continued radiological improvement as well. Continue current supportive care. Continue current Solu-Medrol dosing. Discontinue chest percussion due to episodes of significant alveolar hemorrhage. Consultation Date/Type/Reason Admit Date/Time May 19, 2017 at 23:53 Type of Consultation: Pulmonary/critical care 24 HR Interval Summary Free Text/Dictation Patient's condition is stable. Remains awake and alert. Denies any further hemoptysis. Denies any shortness of breath, wheezing or cough. General exam; young woman, awake and alert. Currently no distress. Exam/Review of Systems Vital Signs Vitals Vital Signs Date Time Temp Pulse Resp B/P Pulse Ox O2 Delivery O2 Flow Rate FiO2 06/10/17 08:11 16 98 21 06/10/17 06:00 64 103/67 Room Air 06/10/17 04:00 98.0 06/08/17 09:10 4.0 Intake and Output 06/09/17 06/09/17 06/10/17 15:00 23:00 07:00 Intake Total 1372.50 ml 1167.499 ml 841.333 ml Output Total 1370 ml 1626 ml 1742 ml Balance 2.50 ml -458.501 ml -900.667 ml Exam HEENT exam; supple neck, no JVD. No lymphadenopathy. Midline trachea. No thyromegaly. Patient has good dentition. Pupils are midsize and reactive to light. Chest exam; clear to auscultation bilaterally. S1-S2 audible, no murmurs. Regular rhythm. Bilateral chest tubes are in place. No air leak seen in Pleur- evac chamber. Abdomen exam; soft, nontender. No organomegaly. Bowel sounds. Extremities; no peripheral edema. No clubbing. Pulses 1+ bilaterally. MECHANIC INSULATOR exam; no focal deficit. Results Result Diagram: 06/10/17 0500 06/10/17 0500 Results 24 hrs Laboratory Tests Test 06/09/17 10:00 06/09/17 10:05 06/10/17 05:00 Magnesium Level 2.0 Vancomycin Level Trough 10.5 White Blood Count 14.9 H Red Blood Count 2.99 L Hemoglobin 9.8 L Hematocrit 28.5 L Mean Corpuscular Volume 95.3 Mean Corpuscular Hemoglobin 32.8 Mean Corpuscular Hemoglobin Concent 34.4 Red Cell Distribution Width 14.6 H Platelet Count 106 L Mean Platelet Volume 11.1 H Neutrophils % 95.7 H Lymphocytes % 1.3 L Monocytes % 2.3 Eosinophils % 0.0 Basophils % 0.1 Nucleated Red Blood Cells % 0.0 Neutrophils # 14.3 H Lymphocytes # 0.2 L Monocytes # 0.4 Eosinophils # 0.0 Basophils # 0.0 Nucleated Red Blood Cells # 0.0 Sodium Level 138 Potassium Level 3.5 Chloride Level 107 Carbon Dioxide Level 26 Anion Gap 9 Blood Urea Nitrogen 6 L Creatinine 0.32 L Glucose Level 158 Calcium Level 7.9 L Medications Medications Current Medications Ondansetron HCl (Zofran Inj) 4 mg Q6H PRN IV NAUSEA AND/OR VOMITING Last administered on 05/26/17 05:33; Admin Dose 4 MG; Start 05/20/17 at 02:00 Acetaminophen (Tylenol Tab) 650 mg Q6H PRN PO PAIN LEVEL 1-3 OR FEVER Last administered on 05/21/17 23:08; Admin Dose 650 MG; Start 05/20/17 at 02:00 Morphine Sulfate (morphine) 2 mg Q4H PRN IV PAIN LEVEL 7-10; Start 05/20/17 at 02:00; Status Future Hold Hydrocodone Bit/ Homatropine Methylb (Hycodan Liquid) 5 ml Q4 PRN PO cough Last administered on 05/29/17 12:04; Admin Dose 5 ML; Start 05/22/17 at 19:30 Benzonatate (Tessalon) 200 mg TID PO Last administered on 06/10/17 08:53; Admin Dose 200 MG; Start 05/29/17 at 14:00 Guaifenesin/ Codeine Phosphate (Robitussin Ac Liquid Cup) 5 ml Q4H PRN PO cough Last administered on 05/29/17 21:23; Admin Dose 5 ML; Start 05/29/17 at 13:00 Bisacodyl (Dulcolax) 10 mg DAILY PRN PO CONSTIPATION; Start 05/30/17 at 17:00 ; Stop 06/14/17 at 08:00 Polyethylene Glycol (Miralax) 17 gm BID PO Last administered on 06/09/17 09: 05; Admin Dose 17 GM; Start 05/30/17 at 21:00; Stop 06/14/17 at 08:00 Hydromorphone HCl (Dilaudid) 1 mg Q4H PRN IV PAIN Last administered on 21:54; Admin Dose 1 MG; Start 05/30/17 at 23:30 Acetaminophen/ Hydrocodone Bitart ([place] (7.5-325)) 1 tab Q4H PRN PO Pain Last administered on 06/08/17 09:03; Admin Dose 1 TAB; Start 06/01/17 at 15:30 Methylprednisolone Sodium Succinate 80 mg 80 mg Q8 IV Last administered on 05:50; Admin Dose 80 MG; Start 06/02/17 at 22:00 Fentanyl 100 ml @ 2.5 mls/hr TITRATE IV Last administered on 06/07/17 02:34 ; Admin Dose 10 MLS/HR; Start 06/05/17 at 02:30 Sodium Chloride 1,000 ml @ 70 mls/hr [id number] IV Last administered on 05:10; Admin Dose 70 MLS/HR; Start 06/05/17 at 05:30 Piperacillin Sod/ Tazobactam Sod 100 ml @ 200 mls/hr Q8 IVPB Last administered on 06/10/17 05:50; Admin Dose 200 MLS/HR; Start 06/05/17 at 09: 00 Norepinephrine 16 mg/Dextrose 500 ml @ 0 mls/hr TITRATE IV Last administered on 06/06/17 18:18; Admin Dose 1.87 MLS/HR; Start 06/05/17 at 17:00 Vancomycin HCl/ Sodium Chloride (Vancocin/NS) 250 ml @ 83.333 mls/ hr Q8H IVPB Last administered on 06/10/17 03:08; Admin Dose 83.333 MLS/HR; Start at 03:00 Miscellaneous Information (Pending [facility] Order For Wound Care) This patient pickard... PRN PRN XX WOUND CARE; Start 06/08/17 at 15:30 Pantoprazole (Protonix Tab) 40 mg DAILY@06 PO Last administered on 06/10/17 05:50; Admin Dose 40 MG; Start 06/09/17 at 06:00 PHOEBE HARRIS Jun 10, 2017 09:29
--- NOTE | 2017-06-10 12:14 | PN ---
Date/Time of Note Date/Time of Note DATE: 06/10/17 TIME: 12:07 Assessment/Plan VTE Prophylaxis VTE Prophylaxis Intervention: SCD's Lines/Catheters IV C[facility]ter Type (from [facility] Saline Lock Urinary Cath still in place: Yes Reason Cath still needed: urinary retention Assessment/Plan Chief Complaint/Hosp Course Assessment and plan: 46-year-old female with: 1. Hemoptysis. CT scan of the chest showing opacities in both lungs consistent with pneumonia. Patient did have bronchoscopy on May 26, 2017 but had massive amount of bleeding and tracheal area. Patient was intubated and placed in ICU and had right-sided VATS with lysis of adhesions in the of the right upper lobe and right lower lobe lung wedge with resection and lung biopsy on May 31, 2017. Subsequently patient was intubated again on June 05 due to worse breathing, but extubated now. Has left-sided chest tube in place as well secondary to left sided pneumothorax that occurred a few days ago. Of note, vasculitis workup remains negative. Subsequent chest x- rays show improvement in both lungs. -Monitor drainage from chest tubes for now, follow-up cardiothoracic surgery recommendations - continue with recommendations from pulmonary team as well. 2. Acute hypoxic respiratory failure. Continue on bronchodilators and IV steroids per website developer 3. Sepsis suspect secondary to pneumonia. Continue antibiotics. 4. Anemia from acute blood loss. Patient status post blood transfusion. Monitor for now. Disposition plan: Patient extubated at this time. Breathing appears to be improving. DC chest tube per cardiothoracic surgery and pulmonology recommendations, transfer out of ICU once cleared by consultants Critical CARE time spent today: 45 minutes Problems: Subjective 24 Hr Interval Summary Free Text/Dictation No acute events overnight. Seen by pulmonary team. Exam/Review of Systems Vital Signs Vitals Vital Signs Date Time Temp Pulse Resp B/P Pulse Ox O2 Delivery O2 Flow Rate FiO2 06/10/17 08:11 16 98 21 06/10/17 08:00 62 06/10/17 06:00 103/67 Room Air 06/10/17 04:00 98.0 06/08/17 09:10 4.0 Intake and Output 06/09/17 06/09/17 06/10/17 15:00 23:00 07:00 Intake Total 1372.50 ml 1167.499 ml 841.333 ml Output Total 1370 ml 1626 ml 1742 ml Balance 2.50 ml -458.501 ml -900.667 ml Exam Constitutional: alert, oriented Neck: non-tender, supple Respiratory: other (No obvious wheezing or rhonchi) unchanged. 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, nl mental status Results Result Diagram: 06/10/17 0500 06/10/17 0500 Results 24 hrs Laboratory Tests Test 06/10/17 05:00 White Blood Count 14.9 H Red Blood Count 2.99 L Hemoglobin 9.8 L Hematocrit 28.5 L Mean Corpuscular Volume 95.3 Mean Corpuscular Hemoglobin 32.8 Mean Corpuscular Hemoglobin Concent 34.4 Red Cell Distribution Width 14.6 H Platelet Count 106 L Mean Platelet Volume 11.1 H Neutrophils % 95.7 H Lymphocytes % 1.3 L Monocytes % 2.3 Eosinophils % 0.0 Basophils % 0.1 Nucleated Red Blood Cells % 0.0 Neutrophils # 14.3 H Lymphocytes # 0.2 L Monocytes # 0.4 Eosinophils # 0.0 Basophils # 0.0 Nucleated Red Blood Cells # 0.0 Sodium Level 138 Potassium Level 3.5 Chloride Level 107 Carbon Dioxide Level 26 Anion Gap 9 Blood Urea Nitrogen 6 L Creatinine 0.32 L Glucose Level 158 Calcium Level 7.9 L Medications Medications Current Medications Ondansetron HCl (Zofran Inj) 4 mg Q6H PRN IV NAUSEA AND/OR VOMITING Last administered on 05/26/17 05:33; Admin Dose 4 MG; Start 05/20/17 at 02:00 Acetaminophen (Tylenol Tab) 650 mg Q6H PRN PO PAIN LEVEL 1-3 OR FEVER Last administered on 05/21/17 23:08; Admin Dose 650 MG; Start 05/20/17 at 02:00 Morphine Sulfate (morphine) 2 mg Q4H PRN IV PAIN LEVEL 7-10; Start 05/20/17 at 02:00; Status Future Hold Hydrocodone Bit/ Homatropine Methylb (Hycodan Liquid) 5 ml Q4 PRN PO cough Last administered on 05/29/17 12:04; Admin Dose 5 ML; Start 05/22/17 at 19:30 Benzonatate (Tessalon) 200 mg TID PO Last administered on 06/10/17 08:53; Admin Dose 200 MG; Start 05/29/17 at 14:00 Guaifenesin/ Codeine Phosphate (Robitussin Ac Liquid Cup) 5 ml Q4H PRN PO cough Last administered on 05/29/17 21:23; Admin Dose 5 ML; Start 05/29/17 at 13:00 Bisacodyl (Dulcolax) 10 mg DAILY PRN PO CONSTIPATION; Start 05/30/17 at 17:00 ; Stop 06/14/17 at 08:00 Polyethylene Glycol (Miralax) 17 gm BID PO Last administered on 06/09/17 09: 05; Admin Dose 17 GM; Start 05/30/17 at 21:00; Stop 06/14/17 at 08:00 Hydromorphone HCl (Dilaudid) 1 mg Q4H PRN IV PAIN Last administered on 21:54; Admin Dose 1 MG; Start 05/30/17 at 23:30 Acetaminophen/ Hydrocodone Bitart ([place] (7.5-325)) 1 tab Q4H PRN PO Pain Last administered on 06/08/17 09:03; Admin Dose 1 TAB; Start 06/01/17 at 15:30 Methylprednisolone Sodium Succinate 80 mg 80 mg Q8 IV Last administered on 05:50; Admin Dose 80 MG; Start 06/02/17 at 22:00 Fentanyl 100 ml @ 2.5 mls/hr TITRATE IV Last administered on 06/07/17 02:34 ; Admin Dose 10 MLS/HR; Start 06/05/17 at 02:30 Sodium Chloride 1,000 ml @ 70 mls/hr [id number] IV Last administered on 05:10; Admin Dose 70 MLS/HR; Start 06/05/17 at 05:30 Piperacillin Sod/ Tazobactam Sod 100 ml @ 200 mls/hr Q8 IVPB Last administered on 06/10/17 05:50; Admin Dose 200 MLS/HR; Start 06/05/17 at 09: 00 Norepinephrine 16 mg/Dextrose 500 ml @ 0 mls/hr TITRATE IV Last administered on 06/06/17 18:18; Admin Dose 1.87 MLS/HR; Start 06/05/17 at 17:00 Vancomycin HCl/ Sodium Chloride (Vancocin/NS) 250 ml @ 83.333 mls/ hr Q8H IVPB Last administered on 06/10/17 12:01; Admin Dose 83.333 MLS/HR; Start at 03:00 [facility] This patient pickard... PRN PRN XX WOUND CARE; Start 06/08/17 at 15:30 Pantoprazole (Protonix Tab) 40 mg DAILY@06 PO Last administered on 06/10/17 05:50; Admin Dose 40 MG; Start 06/09/17 at 06:00 KELLY FRYE Jun 10, 2017 12:14
--- NOTE | 2017-06-10 16:13 | PN ---
Date/Time of Note Date/Time of Note DATE: 06/10/17 TIME: 16:13 Assessment/Plan Lines/Catheters IV Catheter Type (from Nrs): Saline Lock Carlson in Place (from Nrsg): Yes Assessment/Plan Chief Complaint/Hosp Course IMPRESSION: Multifocal pneumonia, possible vasculitis. SP VATS Lung BX IMPRESSION: will place CT on water seal repeat CXR Problems: Subjective 24 Hr Interval Summary Constitutional: improved Pain Control: mild Exam/Review of Systems Vital Signs Vitals Vital Signs Date Time Temp Pulse Resp B/P Pulse Ox O2 Delivery O2 Flow Rate FiO2 06/10/17 15:00 78 22 102/60 95 Room Air 06/10/17 13:43 21 06/10/17 12:00 98.1 06/08/17 09:10 4.0 Intake and Output 06/09/17 06/09/17 06/10/17 15:00 23:00 07:00 Intake Total 1372.50 ml 1167.499 ml 911.333 ml Output Total 1370 ml 1626 ml 1742 ml Balance 2.50 ml -458.501 ml -830.667 ml Exam ENMT: mucosa pink and moist, nl external ears & nose, nl lips & teeth, nl nasal mucosa & septum Neck: non-tender, supple Respiratory: clear to auscultation, normal air movement Cardiovascular: nl pulses, regular rate and rhythm Gastrointestinal: nl liver, spleen, non-tender, soft Results Result Diagram: 06/10/17 0500 06/10/17 0500 NASH ZAVALA MD Jun 10, 2017 16:13
--- NOTE | 2017-06-10 17:12 | RADRPT ---
PROCEDURE: XR Chest. CLINICAL INDICATION: Shortness of breath. TECHNIQUE: Single frontal view. COMPARISON: 06/10/2017. FINDINGS: The left subclavian vein catheter and bilateral chest tubes remain in satisfactory position. There i s mild atelectasis in the right upper and midlung zones, unchanged. The lungs are otherwise clear. The heart size is normal. There is no pleural effusion. There is a small right pneumothorax measuring approximate 5%. There is no left pneumothorax IMPRESSION: 1. Small right pneumothorax measuring approximately 5%. 2. No left pneumothorax. 3. No other change from 06/10/2017. RPTAT: QQ .Wale Villanueva MD, MD Date Time Electronically viewed and signed by .Wale Villanueva MD, MD on 06/10/2017 17:12 .R/
[2017-06-10] MEDS: HYDROCODONE/APAP (7.5/325) TAB PO PRN (20:31)
[2017-06-11] VITALS (19 sets, daily range): BP systolic 93–122; BP diastolic 47–77; PULSE 54–93; RESP 15–22
[2017-06-11] MEDS: ALBUTEROL 0.083% (NEB) 2.5 MG/3 ML AMP HHN SCH ×4 (01:24→20:23)
[2017-06-11] MEDS: VANCOMYCIN 1.25 GM in SOD CHLORIDE 0.9% 250 ML IVPB SCH ×3 (02:28→18:35)
[2017-06-11] MEDS: METHYLPREDNISOLONE 125 MG INJ IV SCH ×3 (05:18→22:09)
[2017-06-11] MEDS: PIPER-TAZO 3.375 GM IV (PMX) 100 ML IVPB SCH ×3 (05:18→22:10)
[2017-06-11] MEDS: PANTOPRAZOLE (EC) 40 MG TAB PO SCH (05:18)
--- NOTE | 2017-06-11 07:55 | CONS ---
Date/Time of Note Date/Time of Note DATE: 06/11/17 TIME: 07:53 Assessment/Plan Assessment/Plan Additional Assessment/Plan Assessment recommendations; 1. Patient admitted with significant alveolar hemorrhage with a stormy hospital course requiring 2 intubations and multiple bronchoscopies for right mainstem mucus plugging due to blood clots, patient however has improved markedly over the last few days. 2. Status post open lung biopsy which has been nondiagnostic, connective tissue disease workup also is nondiagnostic so far. 3. Anemia from a little hemorrhage with stable hematocrit now. 4. Mild thrombocytopenia. 5. Possibly underlying vasculitis. Patient has responded well to high-dose Solu-Medrol. Decrease Solu-Medrol to 60 mg every 8 hours. Chest tubes can be removed. Patient can be transferred to the medical floor. Consultation Date/Type/Reason Admit Date/Time May 19, 2017 at 23:53 Type of Consultation: Pulmonary/critical care 24 HR Interval Summary Free Text/Dictation Patient's condition is stable. Denies any shortness breath, any further hemoptysis. General exam; young woman, awake alert currently no distress. Exam/Review of Systems Vital Signs Vitals Vital Signs Date Time Temp Pulse Resp B/P Pulse Ox O2 Delivery O2 Flow Rate FiO2 06/11/17 06:00 60 17 106/69 96 Room Air 06/11/17 04:00 98.1 06/11/17 01:24 21 06/08/17 09:10 4.0 Intake and Output 06/10/17 06/10/17 06/11/17 15:00 23:00 07:00 Intake Total 1215.0 ml 910.666 ml 770.666 ml Output Total 1480 ml 1070 ml 910 ml Balance -265.0 ml -159.334 ml -139.334 ml Exam HEENT exam; supple neck, no JVD. No lymphadenopathy. Midline trachea. No thyromegaly. Patient has good dentition. Chest exam; clear to auscultation. Bilateral chest tubes are in place. There is no air leak in the Pleur-evac chamber. S1-S2 audible, no murmurs. Regular rhythm. Abdomen exam; soft, nontender. No organomegaly. Bowel sounds audible. Extremity exam; no peripheral edema. No clubbing. WINDOWS INFRASTRUCTURE ENGINEER exam; no focal deficit. Results Result Diagram: 06/11/17 0513 06/11/17 0513 Results 24 hrs Laboratory Tests Test 06/11/17 05:13 White Blood Count 13.0 H Red Blood Count 2.91 L Hemoglobin 9.6 L Hematocrit 27.8 L Mean Corpuscular Volume 95.5 Mean Corpuscular Hemoglobin 33.0 Mean Corpuscular Hemoglobin Concent 34.5 Red Cell Distribution Width 14.4 Platelet Count 92 L Mean Platelet Volume 11.4 H Neutrophils % 95.8 H Lymphocytes % 1.6 L Monocytes % 2.0 Eosinophils % 0.0 Basophils % 0.1 Nucleated Red Blood Cells % 0.0 Neutrophils # 12.4 H Lymphocytes # 0.2 L Monocytes # 0.3 Eosinophils # 0.0 Basophils # 0.0 Nucleated Red Blood Cells # 0.0 Sodium Level 136 Potassium Level 3.3 L Chloride Level 107 Carbon Dioxide Level 24 Anion Gap 8 Blood Urea Nitrogen 7 Creatinine 0.29 L Glucose Level 151 Calcium Level 7.7 L Medications Medications Current Medications Ondansetron HCl (Zofran Inj) 4 mg Q6H PRN IV NAUSEA AND/OR VOMITING Last administered on 05/26/17 05:33; Admin Dose 4 MG; Start 05/20/17 at 02:00 Acetaminophen (Tylenol Tab) 650 mg Q6H PRN PO PAIN LEVEL 1-3 OR FEVER Last administered on 05/21/17 23:08; Admin Dose 650 MG; Start 05/20/17 at 02:00 Morphine Sulfate (morphine) 2 mg Q4H PRN IV PAIN LEVEL 7-10; Start 05/20/17 at 02:00; Status Future Hold Hydrocodone Bit/ Homatropine Methylb (Hycodan Liquid) 5 ml Q4 PRN PO cough Last administered on 05/29/17 12:04; Admin Dose 5 ML; Start 05/22/17 at 19:30 Benzonatate (Tessalon) 200 mg TID PO Last administered on 06/10/17 20:19; Admin Dose 200 MG; Start 05/29/17 at 14:00 Guaifenesin/ Codeine Phosphate (Robitussin Ac Liquid Cup) 5 ml Q4H PRN PO cough Last administered on 05/29/17 21:23; Admin Dose 5 ML; Start 05/29/17 at 13:00 Bisacodyl (Dulcolax) 10 mg DAILY PRN PO CONSTIPATION; Start 05/30/17 at 17:00 ; Stop 06/14/17 at 08:00 Polyethylene Glycol (Miralax) 17 gm BID PO Last administered on 06/09/17 09: 05; Admin Dose 17 GM; Start 05/30/17 at 21:00; Stop 06/14/17 at 08:00 Hydromorphone HCl (Dilaudid) 1 mg Q4H PRN IV PAIN Last administered on 21:54; Admin Dose 1 MG; Start 05/30/17 at 23:30 Acetaminophen/ Hydrocodone Bitart ([place] (7.5-325)) 1 tab Q4H PRN PO Pain Last administered on 06/10/17 20:31; Admin Dose 1 TAB; Start 06/01/17 at 15:30 Methylprednisolone Sodium Succinate 80 mg 80 mg Q8 IV Last administered on 05:18; Admin Dose 80 MG; Start 06/02/17 at 22:00 Fentanyl 100 ml @ 2.5 mls/hr TITRATE IV Last administered on 06/07/17 02:34 ; Admin Dose 10 MLS/HR; Start 06/05/17 at 02:30 Sodium Chloride 1,000 ml @ 70 mls/hr [id number] IV Last administered on 20:46; Admin Dose 70 MLS/HR; Start 06/05/17 at 05:30 Piperacillin Sod/ Tazobactam Sod 100 ml @ 200 mls/hr Q8 IVPB Last administered on 06/11/17 05:18; Admin Dose 200 MLS/HR; Start 06/05/17 at 09: 00 Norepinephrine 16 mg/Dextrose 500 ml @ 0 mls/hr TITRATE IV Last administered on 06/06/17 18:18; Admin Dose 1.87 MLS/HR; Start 06/05/17 at 17:00 Vancomycin HCl/ Sodium Chloride (Vancocin/NS) 250 ml @ 83.333 mls/ hr Q8H IVPB Last administered on 06/11/17 02:28; Admin Dose 83.333 MLS/HR; Start at 03:00 Miscellaneous Information (Pending Santyl Order For Wound Care) This patient pickard... PRN PRN XX WOUND CARE; Start 06/08/17 at 15:30 Pantoprazole (Protonix Tab) 40 mg DAILY@06 PO Last administered on 06/11/17t 05:18; Admin Dose 40 MG; Start 06/09/17 at 06:00 PHOEBE HARRIS Jun 11, 2017 07:55
--- NOTE | 2017-06-11 08:28 | RADRPT ---
PROCEDURE: XR Chest. CLINICAL INDICATION: Shortness of breath. TECHNIQUE: Single frontal view. COMPARISON: 06/10/2017. FINDINGS: The left subclavian vein catheter and bilateral chest tubes remain in satisfactory position. There i s mild atelectasis in the right upper and midlung zones, unchanged. The lungs are otherwise clear. The heart size is normal. There is no pleural effusion. There is a small right pneumothorax measuring approximate 5%. There is no left pneumothorax IMPRESSION: 1. Small right pneumothorax measuring approximately 5%. 2. No left pneumothorax. 3. Bilateral chest tubes. 4. No change from 06/10/2017. RPTAT: QQ .Wale Villanueva MD, Date Time Electronically viewed and signed by .Wale Villanueva MD, on 06/11/2017 08:28 .R/
[2017-06-11] MEDS: POLYETHYLENE GLYCOL 17 GM PACKET PO SCH ×2 (09:00→21:00)
[2017-06-11] MEDS: BENZONATATE 100 MG CAP PO SCH ×3 (09:30→22:09)
[2017-06-11] MEDS: SOD CHLORIDE 0.9% 1,000 ML IV SCH (09:30)
[2017-06-11] MEDS ORDERED: POTASSIUM CHLORIDE (SR) 20 MEQ TAB PO STA (10:54)
--- NOTE | 2017-06-11 15:23 | PN ---
Date/Time of Note Date/Time of Note DATE: 06/11/17 TIME: 15:21 Assessment/Plan VTE Prophylaxis VTE Prophylaxis Intervention: SCD's Lines/Catheters IV Catheter Type (from Rust): Central Line Central line still needed: Yes Urinary Cath still in place: No Assessment/Plan Chief Complaint/Hosp Course Assessment and plan 1. Hemoptysis. CT scan of the chest showing opacities in both lungs consistent with pneumonia. Patient did have bronchoscopy on May 26, 2017 but had massive amount of bleeding and tracheal area. Patient was intubated and placed in ICU and had right-sided VATS with lysis of adhesions in the of the right upper lobe and right lower lobe lung wedge with resection and lung biopsy on May 31, 2017. Subsequently patient was intubated again on June 05 due to worse breathing. extubated now. Of note, vasculitis workup remains negative. Continue with link wire fabric machine tender recommendations 2. Acute hypoxic respiratory failure. Continue on bronchodilators and IV steroids per link wire fabric machine tender 3. Sepsis suspect secondary to pneumonia. Continue antibiotics. 4. Anemia from acute blood loss. Patient status post blood transfusion. Monitor for now. Disposition plan: Patient extubated at this time. Breathing appears to be improving. DC chest tube per surgeon. Transfer to [facility] Discussed plan of care with Dr. Merritt Critical CARE time: 30 minute Problems: Subjective 24 Hr Interval Summary Free Text/Dictation Alert and oriented. No further reports of hemoptysis. No respiratory distress seen. Exam/Review of Systems Vital Signs Vitals Vital Signs Date Time Temp Pulse Resp B/P Pulse Ox O2 Delivery O2 Flow Rate FiO2 06/11/17 12:00 98.3 78 17 98/65 96 Room Air 06/11/17 01:24 21 06/08/17 09:10 4.0 Intake and Output 06/10/17 06/10/17 06/11/17 15:00 23:00 07:00 Intake Total 1215.0 ml 910.666 ml 770.666 ml Output Total 1480 ml 1070 ml 910 ml Balance -265.0 ml -159.334 ml -139.334 ml Exam Constitutional: alert, oriented Neck: non-tender, supple Respiratory: other (No obvious wheezing or rhonchi) unchanged. chest tube on left flank Cardiovascular: other (Regular rate) Gastrointestinal: non-tender, soft Musculoskeletal: nl extremities to inspection Neurological: MEDICAL OFFICE SPECIALIST II-XII intact, nl mental status Results Result Diagram: 06/11/1713 06/11/17 0513 Results 24 hrs Laboratory Tests Test 06/11/17 05:13 White Blood Count 13.0 H Red Blood Count 2.91 L Hemoglobin 9.6 L Hematocrit 27.8 L Mean Corpuscular Volume 95.5 Mean Corpuscular Hemoglobin 33.0 Mean Corpuscular Hemoglobin Concent 34.5 Red Cell Distribution Width 14.4 Platelet Count 92 L Mean Platelet Volume 11.4 H Neutrophils % 95.8 H Lymphocytes % 1.6 L Monocytes % 2.0 Eosinophils % 0.0 Basophils % 0.1 Nucleated Red Blood Cells % 0.0 Neutrophils # 12.4 H Lymphocytes # 0.2 L Monocytes # 0.3 Eosinophils # 0.0 Basophils # 0.0 Nucleated Red Blood Cells # 0.0 Sodium Level 136 Potassium Level 3.3 L Chloride Level 107 Carbon Dioxide Level 24 Anion Gap 8 Blood Urea Nitrogen 7 Creatinine 0.29 L Glucose Level 151 Calcium Level 7.7 L Medications Medications Current Medications Ondansetron HCl (Zofran Inj) 4 mg Q6H PRN IV NAUSEA AND/OR VOMITING Last administered on 05/26/17 05:33; Admin Dose 4 MG; Start 05/20/17 at 02:00 Acetaminophen (Tylenol Tab) 650 mg Q6H PRN PO PAIN LEVEL 1-3 OR FEVER Last administered on 05/21/17 23:08; Admin Dose 650 MG; Start 05/20/17 at 02:00 Morphine Sulfate (morphine) 2 mg Q4H PRN IV PAIN LEVEL 7-10; Start 05/20/17 at 02:00; Status Future Hold Hydrocodone Bit/ Homatropine Methylb (Hycodan Liquid) 5 ml Q4 PRN PO cough Last administered on 05/29/17 12:04; Admin Dose 5 ML; Start 05/22/17 at 19:30 Benzonatate (Tessalon) 200 mg TID PO Last administered on 06/11/17 09:30; Admin Dose 200 MG; Start 05/29/17 at 14:00 Guaifenesin/ Codeine Phosphate (Robitussin Ac Liquid Cup) 5 ml Q4H PRN PO cough Last administered on 05/29/17 21:23; Admin Dose 5 ML; Start 05/29/17 at 13:00 Bisacodyl (Dulcolax) 10 mg DAILY PRN PO CONSTIPATION; Start 05/30/17 at 17:00 ; Stop 06/14/17 at 08:00 Polyethylene Glycol (Miralax) 17 gm BID PO Last administered on 06/09/17 09: 05; Admin Dose 17 GM; Start 05/30/17 at 21:00; Stop 06/14/17 at 08:00 Hydromorphone HCl (Dilaudid) 1 mg Q4H PRN IV PAIN Last administered on 21:54; Admin Dose 1 MG; Start 05/30/17 at 23:30 Acetaminophen/ Hydrocodone Bitart 1 tab 1 tab Q4H PRN PO Pain Last administered on 06/10/17 20:31; Admin Dose 1 TAB; Start 06/01/17 at 15:30 Piperacillin Sod/ Tazobactam Sod 100 ml @ 200 mls/hr Q8 IVPB Last administered on 06/11/17 05:18; Admin Dose 200 MLS/HR; Start 06/05/17 at 09: 00 Vancomycin HCl/ Sodium Chloride (Vancocin/NS) 250 ml @ 83.333 mls/ hr Q8H IVPB Last administered on 06/11/17 11:01; Admin Dose 83.333 MLS/HR; Start at 03:00 Miscellaneous Information (Pending Santyl Order For Wound Care) This patient pickard... PRN PRN XX WOUND CARE; Start 06/08/17 at 15:30 Pantoprazole (Protonix Tab) 40 mg DAILY@06 PO Last administered on 06/11/17 05:18; Admin Dose 40 MG; Start 06/09/17 at 06:00 Methylprednisolone Sodium Succinate (Solu-Medrol) 60 mg Q8 IV ; Start 06/11/17 at 14:00 YADIRA SWANSON Jun 11, 2017 15:23
[2017-06-12] VITALS (13 sets, daily range): BP systolic 99–103; BP diastolic 55–64; PULSE 66–87; RESP 18–19
[2017-06-12] MEDS: ALBUTEROL 0.083% (NEB) 2.5 MG/3 ML AMP HHN SCH ×4 (01:30→19:47)
[2017-06-12] MEDS: VANCOMYCIN 1.25 GM in SOD CHLORIDE 0.9% 250 ML IVPB SCH ×3 (02:56→19:28)
[2017-06-12] MEDS: PIPER-TAZO 3.375 GM IV (PMX) 100 ML IVPB SCH ×3 (05:36→21:09)
[2017-06-12] MEDS: METHYLPREDNISOLONE 125 MG INJ IV SCH ×3 (05:37→21:09)
[2017-06-12] MEDS: PANTOPRAZOLE (EC) 40 MG TAB PO SCH (05:38)
[2017-06-12] MEDS: POLYETHYLENE GLYCOL 17 GM PACKET PO SCH ×2 (09:00→21:00)
[2017-06-12] MEDS: BENZONATATE 100 MG CAP PO SCH ×3 (09:36→21:08)
--- NOTE | 2017-06-12 10:25 | CONS ---
Date/Time of Note Date/Time of Note DATE: 06/12/17 TIME: 10:21 Consult Date/Type/Reason Admit Date/Time May 19, 2017 at 23:53 Type of Consultation: Pulmonary/critical care Subjective Comfortable this morning. No further hemoptysis. Sitting up on room air bilateral chest tubes in place. Objective Vital Signs Date Time Temp Pulse Resp B/P Pulse Ox O2 Delivery O2 Flow Rate FiO2 06/12/17 08:30 98.3 69 18 102/61 96 06/12/17 01:30 21 06/11/17 16:00 Room Air 06/08/17 09:10 4.0 Intake and Output 06/11/17 06/11/17 06/12/17 14:59 22:59 06:59 Intake Total 905.0 ml 390 ml 300 ml Output Total 1045 ml 570 ml 2800 ml Balance -140.0 ml -180 ml -2500 ml Exam PHYSICAL EXAMINATION GENERAL: Well-nourished well-developed lady comfortable at rest on room air oxygen. VITAL SIGNS: see below. HEENT: Pupils equal, round, and reactive to light. CARDIAC: S1, S2, no added sounds or murmurs CHEST: Diminished air entry bilaterally. ABDOMEN: Mildly distended. Bowel sounds present no guarding or rebound EXTREMITIES: No cyanosis, clubbing edema +1 NEUROLOGIC: Generalized weakness Results/Medications Result Diagram: 06/12/17 0630 06/12/17 0630 Results 24 hrs Laboratory Tests Test 06/12/17 06:30 White Blood Count 15.5 H Red Blood Count 3.11 L Hemoglobin 10.2 L Hematocrit 29.4 L Mean Corpuscular Volume 94.5 Mean Corpuscular Hemoglobin 32.8 Mean Corpuscular Hemoglobin Concent 34.7 Red Cell Distribution Width 14.4 Platelet Count 103 L Mean Platelet Volume 11.5 H Neutrophils % 94.6 H Lymphocytes % 1.9 L Monocytes % 2.9 Eosinophils % 0.0 Basophils % 0.1 Nucleated Red Blood Cells % 0.0 Neutrophils # 14.7 H Lymphocytes # 0.3 L Monocytes # 0.5 Eosinophils # 0.0 Basophils # 0.0 Nucleated Red Blood Cells # 0.0 Sodium Level 137 Potassium Level 3.6 Chloride Level 107 Carbon Dioxide Level 26 Anion Gap 8 Blood Urea Nitrogen 7 Creatinine 0.32 L Glucose Level 120 Calcium Level 8.3 L Medications Current Medications Ondansetron HCl (Zofran Inj) 4 mg Q6H PRN IV NAUSEA AND/OR VOMITING Last administered on 05/26/17 05:33; Admin Dose 4 MG; Start 05/20/17 at 02:00 Acetaminophen (Tylenol Tab) 650 mg Q6H PRN PO PAIN LEVEL 1-3 OR FEVER Last administered on 05/21/17 23:08; Admin Dose 650 MG; Start 05/20/17 at 02:00 Morphine Sulfate (morphine) 2 mg Q4H PRN IV PAIN LEVEL 7-10; Start 05/20/17 at 02:00; Status Future Hold Hydrocodone Bit/ Homatropine Methylb (Hycodan Liquid) 5 ml Q4 PRN PO cough Last administered on 05/29/17 12:04; Admin Dose 5 ML; Start 05/22/17 at 19:30 Benzonatate (Tessalon) 200 mg TID PO Last administered on 06/12/17 09:36; Admin Dose 200 MG; Start 05/29/17 at 14:00 Guaifenesin/ Codeine Phosphate (Robitussin Ac Liquid Cup) 5 ml Q4H PRN PO cough Last administered on 05/29/17 21:23; Admin Dose 5 ML; Start 05/29/17 at 13:00 Bisacodyl (Dulcolax) 10 mg DAILY PRN PO CONSTIPATION; Start 05/30/17 at 17:00 ; Stop 06/14/17 at 08:00 Polyethylene Glycol (Miralax) 17 gm BID PO Last administered on 06/09/17 09: 05; Admin Dose 17 GM; Start 05/30/17 at 21:00; Stop 06/14/17 at 08:00 Hydromorphone HCl (Dilaudid) 1 mg Q4H PRN IV PAIN Last administered on 21:54; Admin Dose 1 MG; Start 05/30/17 at 23:30 Acetaminophen/ Hydrocodone Bitart 1 tab 1 tab Q4H PRN PO Pain Last administered on 06/10/17 20:31; Admin Dose 1 TAB; Start 06/01/17 at 15:30 Piperacillin Sod/ Tazobactam Sod 100 ml @ 200 mls/hr Q8 IVPB Last administered on 06/12/17 05:36; Admin Dose 200 MLS/HR; Start 06/05/17 at 09: 00 Vancomycin HCl/ Sodium Chloride (Vancocin/NS) 250 ml @ 83.333 mls/ hr Q8H IVPB Last administered on 06/12/17 02:56; Admin Dose 83.333 MLS/HR; Start at 03:00 Miscellaneous Information (Pending Santyl Order For Wound Care) This patient pickard... PRN PRN XX WOUND CARE; Start 06/08/17 at 15:30 Pantoprazole (Protonix Tab) 40 mg DAILY@06 PO Last administered on 06/12/17 05:38; Admin Dose 40 MG; Start 06/09/17 at 06:00 Methylprednisolone Sodium Succinate (Solu-Medrol) 60 mg Q8 IV Last administered on 06/12/17 05:37; Admin Dose 60 MG; Start 06/11/17 at 14:00 Assessment/Plan Chief Complaint/Hosp Course IMP: 1. Hypoxemic Resp Failure--s/p VATS bx for DAH complicated by right sided PTX and mucus plugging with complete ATX. Status post intubation and bronchoscopy 2 2. Resolution of lung atelectasis. 3. 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 Also, consider idiopathic pulmonary hemosiderosis. 4. Left sided iatrogenic PTX-s/p chest tube radiographically improved RECS: 1. Supplemental O2 as needed 2. Chest tubes placed on waterseal. Thoracic surgery evaluation to DC chest tubes 3. Continue steroids, slow taper. 4. Consider DC Carlson catheter PT evaluation Problems: MYKE MOREL MD, [facility] Jun 12, 2017 10:25
--- NOTE | 2017-06-12 12:12 | PN ---
Date/Time of Note Date/Time of Note DATE: 06/12/17 TIME: 12:10 Assessment/Plan VTE Prophylaxis VTE Prophylaxis Intervention: SCD's Lines/Catheters IV Catheter Type (from Nrs): Central Line Central line still needed: Yes Urinary Cath still in place: Yes Reason Cath still needed: other (indicate) (monitor I&O) Assessment/Plan Chief Complaint/Hosp Course Assessment and plan 1. Hemoptysis. CT scan of the chest showing opacities in both lungs consistent with pneumonia. Patient did have bronchoscopy on May 26, 2017 but had massive amount of bleeding and tracheal area. Patient was intubated and placed in ICU and had right-sided VATS with lysis of adhesions in the of the right upper lobe and right lower lobe lung wedge with resection and lung biopsy on May 31, 2017. Subsequently patient was intubated again on June 05 due to worse breathing. extubated now. Of note, vasculitis workup remains negative. Continue with picker box operator recommendations. d/c chest tube per surgeon 2. Acute hypoxic respiratory failure. Continue on bronchodilators and IV steroids per picker box operator. improved 3. Sepsis suspect secondary to pneumonia. Continue antibiotics. 4. Anemia from acute blood loss. Patient status post blood transfusion. Monitor for now. Disposition plan: Breathing better. Continue with pulmonary regimen. DC chest tube per surgeon Discussed plan of care with Dr. Merritt Problems: Subjective 24 Hr Interval Summary Free Text/Dictation No signs of respiratory distress seen at this time. Family at bedside. Appears comfortable at present Exam/Review of Systems Vital Signs Vitals Vital Signs Date Time Temp Pulse Resp B/P Pulse Ox O2 Delivery O2 Flow Rate FiO2 06/12/17 12:09 98.6 93 18 102/58 96 06/12/17 01:30 21 06/11/17 16:00 Room Air 06/08/17 09:10 4.0 Intake and Output 06/11/17 06/11/17 06/12/17 15:00 23:00 07:00 Intake Total 905.0 ml 390 ml 300 ml Output Total 1245 ml 370 ml 2800 ml Balance -340.0 ml 20 ml -2500 ml Exam Constitutional: alert, oriented Neck: non-tender, supple Respiratory: other (No obvious wheezing or rhonchi) unchanged. chest tube in place Cardiovascular: other (Regular rate) Gastrointestinal: non-tender, soft Musculoskeletal: nl extremities to inspection Neurological: PATTERN MAKER II-XII intact, nl mental status Results Result Diagram: 06/12/17 0630 06/12/17 0630 Results 24 hrs Laboratory Tests Test 06/12/17 06:30 White Blood Count 15.5 H Red Blood Count 3.11 L Hemoglobin 10.2 L Hematocrit 29.4 L Mean Corpuscular Volume 94.5 Mean Corpuscular Hemoglobin 32.8 Mean Corpuscular Hemoglobin Concent 34.7 Red Cell Distribution Width 14.4 Platelet Count 103 L Mean Platelet Volume 11.5 H Neutrophils % 94.6 H Lymphocytes % 1.9 L Monocytes % 2.9 Eosinophils % 0.0 Basophils % 0.1 Nucleated Red Blood Cells % 0.0 Neutrophils # 14.7 H Lymphocytes # 0.3 L Monocytes # 0.5 Eosinophils # 0.0 Basophils # 0.0 Nucleated Red Blood Cells # 0.0 Sodium Level 137 Potassium Level 3.6 Chloride Level 107 Carbon Dioxide Level 26 Anion Gap 8 Blood Urea Nitrogen 7 Creatinine 0.32 L Glucose Level 120 Calcium Level 8.3 L Medications Medications Current Medications Ondansetron HCl (Zofran Inj) 4 mg Q6H PRN IV NAUSEA AND/OR VOMITING Last administered on 05/26/17 05:33; Admin Dose 4 MG; Start 05/20/17 at 02:00 Acetaminophen (Tylenol Tab) 650 mg Q6H PRN PO PAIN LEVEL 1-3 OR FEVER Last administered on 05/21/17 23:08; Admin Dose 650 MG; Start 05/20/17 at 02:00 Morphine Sulfate (morphine) 2 mg Q4H PRN IV PAIN LEVEL 7-10; Start 05/20/17 at 02:00; Status Future Hold Hydrocodone Bit/ Homatropine Methylb (Hycodan Liquid) 5 ml Q4 PRN PO cough Last administered on 05/29/17 12:04; Admin Dose 5 ML; Start 05/22/17 at 19:30 Benzonatate (Tessalon) 200 mg TID PO Last administered on 06/12/17 09:36; Admin Dose 200 MG; Start 05/29/17 at 14:00 Guaifenesin/ Codeine Phosphate (Robitussin Ac Liquid Cup) 5 ml Q4H PRN PO cough Last administered on 05/29/17 21:23; Admin Dose 5 ML; Start 05/29/17 at 13:00 Bisacodyl (Dulcolax) 10 mg DAILY PRN PO CONSTIPATION; Start 05/30/17 at 17:00 ; Stop 06/14/17 at 08:00 Polyethylene Glycol (Miralax) 17 gm BID PO Last administered on 06/09/17 09: 05; Admin Dose 17 GM; Start 05/30/17 at 21:00; Stop 06/14/17 at 08:00 Hydromorphone HCl (Dilaudid) 1 mg Q4H PRN IV PAIN Last administered on 21:54; Admin Dose 1 MG; Start 05/30/17 at 23:30 Acetaminophen/ Hydrocodone Bitart 1 tab 1 tab Q4H PRN PO Pain Last administered on 06/10/17 20:31; Admin Dose 1 TAB; Start 06/01/17 at 15:30 Piperacillin Sod/ Tazobactam Sod 100 ml @ 200 mls/hr Q8 IVPB Last administered on 06/12/17 05:36; Admin Dose 200 MLS/HR; Start 06/05/17 at 09: 00 Vancomycin HCl/ Sodium Chloride (Vancocin/NS) 250 ml @ 83.333 mls/ hr Q8H IVPB Last administered on 06/12/17 02:56; Admin Dose 83.333 MLS/HR; Start at 03:00 Miscellaneous Information (Pending Santyl Order For Wound Care) This patient pickard... PRN PRN XX WOUND CARE; Start 06/08/17 at 15:30 Pantoprazole (Protonix Tab) 40 mg DAILY@06 PO Last administered on 06/12/17 05:38; Admin Dose 40 MG; Start 06/09/17 at 06:00 Methylprednisolone Sodium Succinate (Solu-Medrol) 60 mg Q8 IV Last administered on 06/12/17 05:37; Admin Dose 60 MG; Start 06/11/17 at 14:00 YADIRA SWANSON Jun 12, 2017 12:12
[2017-06-13] VITALS (11 sets, daily range): BP systolic 91–104; BP diastolic 52–64; PULSE 69–87; RESP 18
[2017-06-13] MEDS: ALBUTEROL 0.083% (NEB) 2.5 MG/3 ML AMP HHN SCH ×4 (01:38→19:48)
[2017-06-13] MEDS: VANCOMYCIN 1.25 GM in SOD CHLORIDE 0.9% 250 ML IVPB SCH ×2 (02:53→12:05)
[2017-06-13] MEDS: METHYLPREDNISOLONE 125 MG INJ IV SCH ×3 (06:15→21:58)
[2017-06-13] MEDS: PIPER-TAZO 3.375 GM IV (PMX) 100 ML IVPB SCH (06:15)
[2017-06-13] MEDS: PANTOPRAZOLE (EC) 40 MG TAB PO SCH (06:15)
[2017-06-13] MEDS: POLYETHYLENE GLYCOL 17 GM PACKET PO SCH ×2 (09:00→22:00)
--- NOTE | 2017-06-13 11:48 | RADRPT ---
PROCEDURE: XR Chest. CLINICAL INDICATION: Shortness of breath. TECHNIQUE: Single frontal view. COMPARISON: None. FINDINGS: The left subclavian vein catheter and bilateral chest tubes remain in satisfactory position. There i s mild atelectasis in the right upper and midlung zones, unchanged. The lungs are otherwise clear. The heart size is normal. There is no pleural effusion. There is a small right pneumothorax measuring approximate 5%. There is no left pneumothorax IMPRESSION: 1. Small right pneumothorax measuring approximately 5%. 2. No left pneumothorax. 3. Bilateral chest tubes. 4. No change from 06/11/2017. RPTAT: QQ .Wale Villanueva MD, MD Date Time Electronically viewed and signed by .Wale Villanueva MD, MD on 06/13/2017 11:48 .R/
[2017-06-13] MEDS: BENZONATATE 100 MG CAP PO SCH ×3 (12:06→21:58)
--- NOTE | 2017-06-13 12:29 | PN ---
Date/Time of Note Date/Time of Note DATE: 06/13/17 TIME: 12:29 Assessment/Plan Lines/Catheters IV Catheter Type (from Nrsg): Central Line Carlson in Place (from Nrsg): Yes Assessment/Plan Chief Complaint/Hosp Course IMPRESSION: Multifocal pneumonia, possible vasculitis. SP VATS Lung BX IMPRESSION: PTX resolved will DC CT Problems: Subjective 24 Hr Interval Summary Constitutional: improved Pain Control: mild Exam/Review of Systems Vital Signs Vitals Vital Signs Date Time Temp Pulse Resp B/P Pulse Ox O2 Delivery O2 Flow Rate FiO2 06/13/17 12:08 87 06/13/17 11:54 98.1 18 91/52 95 06/13/17 08:14 21 06/11/17 16:00 Room Air Intake and Output 06/12/17 06/12/17 06/13/17 15:00 23:00 07:00 Intake Total 350 ml 850 ml Output Total 2200 ml Balance 350 ml -1350 ml Exam Neck: non-tender, supple Respiratory: clear to auscultation, normal air movement Cardiovascular: nl pulses, regular rate and rhythm Gastrointestinal: nl liver, spleen, non-tender, soft Results Result Diagram: 06/13/17 0633 06/13/17 0633 NASH ZAVALA MD Jun 13, 2017 12:29
--- NOTE | 2017-06-13 12:53 | CONS ---
Date/Time of Note Date/Time of Note DATE: 06/13/17 TIME: 12:50 Assessment/Plan Assessment/Plan Additional Assessment/Plan Chest x-ray was reviewed from today which is showing continued improvement in right upper lobe infiltrative changes. Bilateral chest tubes are in place. No pneumothorax is seen. Next Assessment recommendations; 1. Patient admitted with alveolar hemorrhage and has had a stormy hospital course requiring 2 intubations and multiple bronchoscopies for clearing up of debris from right mainstem bronchus. 2. Status post VATS open lung biopsy which has been nondiagnostic. 3. Anemia, status post blood product transfusion with stable hematocrit. 4. Etiology of hemoptysis is unclear at this point. Extensive workup has been negative. 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 Patient has responded very well to Solu-Medrol. 5. Left iatrogenic pneumothorax. Continue current treatment. Chest tubes likely will be removed today. Continue Solu-Medrol at current dosing. Consultation Date/Type/Reason Admit Date/Time May 19, 2017 at 23:53 Type of Consultation: Pulmonary/critical care 24 HR Interval Summary Free Text/Dictation Patient's condition is stable. Denies any shortness breath, chest pain, any further hemoptysis for the last few days. General exam; young woman, awake alert, currently in no distress. Exam/Review of Systems Vital Signs Vitals Vital Signs Date Time Temp Pulse Resp B/P Pulse Ox O2 Delivery O2 Flow Rate FiO2 06/13/17 12:08 87 06/13/17 11:54 98.1 18 91/52 95 06/13/17 08:14 21 06/11/17 16:00 Room Air Intake and Output 06/12/17 06/12/17 06/13/17 15:00 23:00 07:00 Intake Total 350 ml 850 ml Output Total 2200 ml Balance 350 ml -1350 ml Exam HEENT exam; supple neck, no JVD. No lymphadenopathy. Midline trachea. No thyromegaly. Patient has multiple carious teeth. Neck Chest exam; clear to auscultation. S1-S2 audible, no murmurs. Regular rhythm. Bilateral chest tubes are in place. There is no air leak in the Pleur-evac chambers. Abdomen exam; soft, nontender. No organomegaly. Bowel sounds audible. Extremity exam; no peripheral edema. PM HEAD COOK exam; no focal deficit. Results Result Diagram: 06/13/1733 06/13/17632 Results 24 hrs Laboratory Tests Test 06/12/17 17:55 06/13/17 06:33 Vancomycin Level Trough 10.6 White Blood Count 16.5 H Red Blood Count 3.16 L Hemoglobin 10.4 L Hematocrit 30.0 L Mean Corpuscular Volume 94.9 Mean Corpuscular Hemoglobin 32.9 Mean Corpuscular Hemoglobin Concent 34.7 Red Cell Distribution Width 14.5 Platelet Count 110 L Mean Platelet Volume 11.0 H Neutrophils % 95.1 H Lymphocytes % 1.8 L Monocytes % 2.5 Eosinophils % 0.0 Basophils % 0.1 Nucleated Red Blood Cells % 0.0 Neutrophils # 15.7 H Lymphocytes # 0.3 L Monocytes # 0.4 Eosinophils # 0.0 Basophils # 0.0 Nucleated Red Blood Cells # 0.0 Sodium Level 137 Potassium Level 3.5 Chloride Level 106 Carbon Dioxide Level 24 Anion Gap 11 Blood Urea Nitrogen 9 Creatinine 0.32 L Glucose Level 122 Calcium Level 8.3 L Phosphorus Level 3.4 Magnesium Level 2.1 Medications Medications Current Medications Ondansetron HCl (Zofran Inj) 4 mg Q6H PRN IV NAUSEA AND/OR VOMITING Last administered on 05/26/17 05:33; Admin Dose 4 MG; Start 05/20/17 at 02:00 Acetaminophen (Tylenol Tab) 650 mg Q6H PRN PO PAIN LEVEL 1-3 OR FEVER Last administered on 05/21/17 23:08; Admin Dose 650 MG; Start 05/20/17 at 02:00 Morphine Sulfate (morphine) 2 mg Q4H PRN IV PAIN LEVEL 7-10; Start 05/20/17 at 02:00; Status Future Hold Hydrocodone Bit/ Homatropine Methylb (Hycodan Liquid) 5 ml Q4 PRN PO cough Last administered on 05/29/17 12:04; Admin Dose 5 ML; Start 05/22/17 at 19:30 Benzonatate (Tessalon) 200 mg TID PO Last administered on 06/13/17 12:06; Admin Dose 200 MG; Start 05/29/17 at 14:00 Guaifenesin/ Codeine Phosphate (Robitussin Ac Liquid Cup) 5 ml Q4H PRN PO cough Last administered on 05/29/17 21:23; Admin Dose 5 ML; Start 05/29/17 at 13:00 Bisacodyl (Dulcolax) 10 mg DAILY PRN PO CONSTIPATION; Start 05/30/17 at 17:00 ; Stop 06/14/17 at 08:00 Polyethylene Glycol (Miralax) 17 gm BID PO Last administered on 06/09/17 09: 05; Admin Dose 17 GM; Start 05/30/17 at 21:00; Stop 06/14/17 at 08:00 Hydromorphone HCl (Dilaudid) 1 mg Q4H PRN IV PAIN Last administered on 21:54; Admin Dose 1 MG; Start 05/30/17 at 23:30 Acetaminophen/ Hydrocodone Bitart ([place] (7.5-325)) 1 tab Q4H PRN PO Pain Last administered on 06/10/17 20:31; Admin Dose 1 TAB; Start 06/01/17 at 15:30 Miscellaneous Information (Pending [facility] Order For Wound Care) This patient pickard... PRN PRN XX WOUND CARE; Start 06/08/17 at 15:30 Pantoprazole (Protonix Tab) 40 mg DAILY@06 PO Last administered on 06/13/17 06:15; Admin Dose 40 MG; Start 06/09/17 at 06:00 Methylprednisolone Sodium Succinate (Solu-Medrol) 60 mg Q8 IV Last administered on 06/13/17 06:15; Admin Dose 60 MG; Start 06/11/17 at 14:00 PHOEBE HARRIS Jun 13, 2017 12:53
--- NOTE | 2017-06-13 15:45 | PN ---
Date/Time of Note Date/Time of Note DATE: 06/13/17 TIME: 15:45 Assessment/Plan Lines/Catheters IV Catheter Type (from Nrsg): Central Line Carlson in Place (from Nrsg): Yes Assessment/Plan Chief Complaint/Hosp Course IMPRESSION: Multifocal pneumonia, possible vasculitis. SP VATS Lung BX IMPRESSION: PTX resolved will DC CT Problems: Subjective 24 Hr Interval Summary Constitutional: improved Pain Control: mild Exam/Review of Systems Vital Signs Vitals Vital Signs Date Time Temp Pulse Resp B/P Pulse Ox O2 Delivery O2 Flow Rate FiO2 06/13/17 12:08 87 06/13/17 11:54 98.1 18 91/52 95 06/13/17 08:14 21 06/11/17 16:00 Room Air Intake and Output 06/12/17 06/12/17 06/13/17 15:00 23:00 07:00 Intake Total 350 ml 850 ml Output Total 2200 ml Balance 350 ml -1350 ml Exam ENMT: mucosa pink and moist, nl external ears & nose, nl lips & teeth, nl nasal mucosa & septum Neck: non-tender, supple Respiratory: clear to auscultation, normal air movement Cardiovascular: nl pulses, regular rate and rhythm Results Result Diagram: 06/13/17 0633 06/13/17 0633 NASH ZAVALA MD Jun 13, 2017 15:45
--- NOTE | 2017-06-13 17:14 | PN ---
Date/Time of Note Date/Time of Note DATE: 06/13/17 TIME: 17:10 Assessment/Plan VTE Prophylaxis VTE Prophylaxis Intervention: SCD's Lines/Catheters [facility] Central Line Central line still needed: Yes Urinary Cath still in place: Yes Reason Cath still needed: other (indicate) Assessment/Plan Chief Complaint/Hosp Course 1. Hemoptysis. Etiology unclear. Chest CT showing patchy airspace opacities in both lungs consistent with multifocal pneumonia. Status post bronchoscopy on 05/26/2017 that revealed bleeding in the trachea and massive amounts of fresh blood coming from the left lung. The patient was consequently intubated and transferred to ICU. The patient was later extubated. S/P right VATS with lysis of adhesions, decortication, right upper lobe, right lower lobe lung wedge resection and lung biopsy on 05/30/2017. The patient had to be reintubated on 06/05/2017 because of worsening hypoxia. The patient was later extubated. The patient's pathology from lung biopsy is negative for any suspicious findings. Serology including coccidiomycosis serology is negative.The etiology could be large vessel vasculitis. 2. Acute hypoxic respiratory failure. Improved. 3. Status post severe sepsis with tachycardia, tachypnea, significant leukocytosis, lactic acidosis, and hyperglycemia [patient non-diabetic] on 06/05. Will stop antibiotics. 4. Anemia secondary to acute blood loss. Status post transfusion of blood products 5. Fluids, electrolytes, and nutrition. Regular diet. 6. DVT prophylaxis. SCDs. 7. Plan. Encourage out of bed. Discontinue antibiotics. Encourage incentive spirometry. Case discussed with Dr. White. Problems: Subjective 24 Hr Interval Summary Free Text/Dictation The patient is status post chest tube removal on 06/13/2017. Exam/Review of Systems Vital Signs Vitals Vital Signs Date Time Temp Pulse Resp B/P Pulse Ox O2 Delivery O2 Flow Rate FiO2 06/13/17 16:31 75 06/13/17 16:10 98.6 18 95/56 97 06/13/17 08:14 21 06/11/17 16:00 Room Air Intake and Output 06/12/17 06/12/17 06/13/17 15:00 23:00 07:00 Intake Total 350 ml 850 ml Output Total 2200 ml Balance 350 ml -1350 ml Exam General: Adequately build 46 year-old female lying in bed in no apparent distress. HEENT: Normocephalic, atraumatic. Eyes: Anicteric sclerae, conjunctivae clear. ENT: Nasal septum midline, oral mucosa is moist. Neck supple, no JVD noticed. Respiratory: Bilaterally diminished breath sounds. No use of accessory muscles of respiration. Cardiovascular: S1, S2 heard. No murmurs or gallops. Tachycardia Abdomen: Soft, nontender, and nondistended. Bowel sounds positive in all 4 quadrants. Genitourinary: Carlson catheter. Extremities: No cyanosis, no clubbing, no edema. Peripheral pulses palpable. Neurologic: Awake, alert, and oriented. Skin: Normal skin turgor. No skin rashes. Results Result Diagram: 06/13/1763206/13/17 06 Results 24 hrs Laboratory Tests Test 06/12/17 17:55 06/13/17 06:33 Vancomycin Level Trough 10.6 White Blood Count 16.5 H Red Blood Count 3.16 L Hemoglobin 10.4 L Hematocrit 30.0 L Mean Corpuscular Volume 94.9 Mean Corpuscular Hemoglobin 32.9 Mean Corpuscular Hemoglobin Concent 34.7 Red Cell Distribution Width 14.5 Platelet Count 110 L Mean Platelet Volume 11.0 H Neutrophils % 95.1 H Lymphocytes % 1.8 L Monocytes % 2.5 Eosinophils % 0.0 Basophils % 0.1 Nucleated Red Blood Cells % 0.0 Neutrophils # 15.7 H Lymphocytes # 0.3 L Monocytes # 0.4 Eosinophils # 0.0 Basophils # 0.0 Nucleated Red Blood Cells # 0.0 Sodium Level 137 Potassium Level 3.5 Chloride Level 106 Carbon Dioxide Level 24 Anion Gap 11 Blood Urea Nitrogen 9 Creatinine 0.32 L Glucose Level 122 Calcium Level 8.3 L Phosphorus Level 3.4 Magnesium Level 2.1 Medications Medications Current Medications Ondansetron HCl (Zofran Inj) 4 mg Q6H PRN IV NAUSEA AND/OR VOMITING Last administered on 05/26/17 05:33; Admin Dose 4 MG; Start 05/20/17 at 02:00 Acetaminophen (Tylenol Tab) 650 mg Q6H PRN PO PAIN LEVEL 1-3 OR FEVER Last administered on 05/21/17 23:08; Admin Dose 650 MG; Start 05/20/17 at 02:00 Morphine Sulfate (morphine) 2 mg Q4H PRN IV PAIN LEVEL 7-10; Start 05/20/17 at 02:00; Status Future Hold Hydrocodone Bit/ Homatropine Methylb (Hycodan Liquid) 5 ml Q4 PRN PO cough Last administered on 05/29/17 12:04; Admin Dose 5 ML; Start 05/22/17 at 19:30 Benzonatate (Tessalon) 200 mg TID PO Last administered on 06/13/17 14:54; Admin Dose 200 MG; Start 05/29/17 at 14:00 Guaifenesin/ Codeine Phosphate (Robitussin Ac Liquid Cup) 5 ml Q4H PRN PO cough Last administered on 05/29/17 21:23; Admin Dose 5 ML; Start 05/29/17 at 13:00 Bisacodyl (Dulcolax) 10 mg DAILY PRN PO CONSTIPATION; Start 05/30/17 at 17:00 ; Stop 06/14/17 at 08:00 Polyethylene Glycol (Miralax) 17 gm BID PO Last administered on 06/09/17 09: 05; Admin Dose 17 GM; Start 05/30/17 at 21:00; Stop 06/14/17 at 08:00 Hydromorphone HCl (Dilaudid) 1 mg Q4H PRN IV PAIN Last administered on 21:54; Admin Dose 1 MG; Start 05/30/17 at 23:30 Acetaminophen/ Hydrocodone Bitart ([place] (7.5-325)) 1 tab Q4H PRN PO Pain Last administered on 06/10/17 20:31; Admin Dose 1 TAB; Start 06/01/17 at 15:30 Miscellaneous Information (Pending Santyl Order For Wound Care) This patient pickard... PRN PRN XX WOUND CARE; Start 06/08/17 at 15:30 Pantoprazole (Protonix Tab) 40 mg DAILY@06 PO Last administered on 06/13/17 06:15; Admin Dose 40 MG; Start 06/09/17 at 06:00 Methylprednisolone Sodium Succinate (Solu-Medrol) 60 mg Q8 IV Last administered on 06/13/17 14:56; Admin Dose 60 MG; Start 06/11/17 at 14:00 KIKI FERREIRA NP Jun 13, 2017 17:14
--- NOTE | 2017-06-13 17:20 | RADRPT ---
PROCEDURE: XR Chest. CLINICAL INDICATION: Bilateral chest tube removal TECHNIQUE: A single portable view of the chest was obtained. COMPARISON: 06/13/2017 from 08:42 a.m. FINDINGS: The previously noted bilateral chest tubes have been removed. The cardiomediastinal silhouette is wi thin normal limits. A right-sided pneumothorax is seen measuring approximately 5-10% which is increa sed in size compared to the prior examination. No dense consolidation or pleural effusion is seen. T he left subclavian line is essentially unchanged. The soft tissues and osseous structures are unrem arkable. IMPRESSION: Interval removal of the bilateral chest tubes with increase in size of a right-sided pneumothorax me asuring 5-10% in volume. Results were discussed with the patient's nurse Ling Rivas at 06/13/2017 5:19:39 PM RPTAT: HPNM Physician Shahram Date Time Electronically viewed and signed by Physician Shahram on 06/13/2017 17:19 /
[2017-06-14] VITALS (13 sets, daily range): BP systolic 94–104; BP diastolic 51–62; PULSE 72–85; RESP 17–20
[2017-06-14] MEDS: ALBUTEROL 0.083% (NEB) 2.5 MG/3 ML AMP HHN SCH ×4 (01:22→20:42)
[2017-06-14] MEDS: METHYLPREDNISOLONE 125 MG INJ IV SCH (06:22)
[2017-06-14] MEDS: PANTOPRAZOLE (EC) 40 MG TAB PO SCH (06:22)
[2017-06-14] MEDS: BENZONATATE 100 MG CAP PO SCH ×3 (09:10→21:08)
[2017-06-14] MEDS ORDERED: POTASSIUM CHLORIDE (SR) 20 MEQ TAB PO STA (11:43)
--- NOTE | 2017-06-14 11:47 | CONS ---
Date/Time of Note Date/Time of Note DATE: 06/14/17 TIME: 11:44 Assessment/Plan Assessment/Plan Additional Assessment/Plan Assessment and recommendations; 1. Patient admitted with significant alveolar hemorrhage and has had a stormy hospital course requiring 2 intubations and multiple bronchoscopies as well as open lung biopsy, etiology of alveolar hemorrhage is unclear at this point. However there has been marked overall interval improvement both in terms of symptomatology as well as chest x-ray findings. 2. 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 Decrease Solu-Medrol to 40 mg IV every 8 hours. If the patient does well I would recommend considering discharge in 48 hours. Consultation Date/Type/Reason Admit Date/Time May 19, 2017 at 23:53 Type of Consultation: Pulmonary/critical care 24 HR Interval Summary Free Text/Dictation Patient's condition is stable. Bilateral chest tubes were removed yesterday. Patient denies any shortness breath, wheezing, coughing or any further hemoptysis. General exam; young female, awake alert, currently in no distress. Exam/Review of Systems Vital Signs Vitals Vital Signs Date Time Temp Pulse Resp B/P Pulse Ox O2 Delivery O2 Flow Rate FiO2 06/14/17 11:38 98.3 91 18 94/51 98 06/14/17 07:34 21 06/11/17 16:00 Room Air Intake and Output 06/13/17 06/13/17 06/14/17 15:00 23:00 07:00 Intake Total 910 ml 120 ml Output Total 700 ml 2000 ml Balance 210 ml -1880 ml Exam HEENT exam; supple neck, no JVD. No lymphadenopathy. Midline trachea. No thyromegaly. Patient does have multiple carious teeth. Chest exam; clear to auscultation. S1-S2 audible, no murmurs. Regular rhythm. Abdomen exam; soft, nondistended. No organomegaly. Bowel sounds audible. Extremity exam; no peripheral edema. No clubbing. RECOIL SPRING WINDER exam; focal deficit. Results Result Diagram: 06/14/1758 06/14/1758 Results 24 hrs Laboratory Tests Test 06/14/17 06:58 White Blood Count 14.0 H Red Blood Count 3.16 L Hemoglobin 10.0 L Hematocrit 29.7 L Mean Corpuscular Volume 94.0 Mean Corpuscular Hemoglobin 31.6 Mean Corpuscular Hemoglobin Concent 33.7 Red Cell Distribution Width 14.5 Platelet Count 127 L Mean Platelet Volume 11.1 H Neutrophils % 94.7 H Lymphocytes % 1.5 L Monocytes % 3.1 Eosinophils % 0.0 Basophils % 0.1 Nucleated Red Blood Cells % 0.0 Neutrophils # 13.3 H Lymphocytes # 0.2 L Monocytes # 0.4 Eosinophils # 0.0 Basophils # 0.0 Nucleated Red Blood Cells # 0.0 Sodium Level 137 Potassium Level 3.0 L Chloride Level 104 Carbon Dioxide Level 24 Anion Gap 12 Blood Urea Nitrogen 15 Creatinine 0.37 L Glucose Level 173 Calcium Level 8.1 L Phosphorus Level 2.9 Magnesium Level 2.1 Medications Medications Current Medications Ondansetron HCl (Zofran Inj) 4 mg Q6H PRN IV NAUSEA AND/OR VOMITING Last administered on 05/26/17 05:33; Admin Dose 4 MG; Start 05/20/17 at 02:00 Acetaminophen (Tylenol Tab) 650 mg Q6H PRN PO PAIN LEVEL 1-3 OR FEVER Last administered on 05/21/17 23:08; Admin Dose 650 MG; Start 05/20/17 at 02:00 Morphine Sulfate (morphine) 2 mg Q4H PRN IV PAIN LEVEL 7-10; Start 05/20/17 at 02:00; Status Future Hold Hydrocodone Bit/ Homatropine Methylb (Hycodan Liquid) 5 ml Q4 PRN PO cough Last administered on 05/29/17 12:04; Admin Dose 5 ML; Start 05/22/17 at 19:30 Benzonatate (Tessalon) 200 mg TID PO Last administered on 06/14/17 09:10; Admin Dose 200 MG; Start 05/29/17 at 14:00 Guaifenesin/ Codeine Phosphate (Robitussin Ac Liquid Cup) 5 ml Q4H PRN PO cough Last administered on 05/29/17 21:23; Admin Dose 5 ML; Start 05/29/17 at 13:00 Hydromorphone HCl (Dilaudid) 1 mg Q4H PRN IV PAIN Last administered on 21:54; Admin Dose 1 MG; Start 05/30/17 at 23:30 Acetaminophen/ Hydrocodone Bitart ([place] (7.5-325)) 1 tab Q4H PRN PO Pain Last administered on 06/10/17 20:31; Admin Dose 1 TAB; Start 06/01/17 at 15:30 Miscellaneous Information (Pending [facility] Order For Wound Care) This patient pickard... PRN PRN XX WOUND CARE; Start 06/08/17 at 15:30 Pantoprazole (Protonix Tab) 40 mg DAILY@06 PO Last administered on 06/14/17 06:22; Admin Dose 40 MG; Start 06/09/17 at 06:00 Methylprednisolone Sodium Succinate (Solu-Medrol) 60 mg Q8 IV Last administered on 06/14/17 06:22; Admin Dose 60 MG; Start 06/11/17 at 14:00 PHOEBE HARRIS Jun 14, 2017 11:47
[2017-06-14] MEDS: METHYLPREDNISOLONE 40 MG INJ IV SCH ×2 (13:45→21:07)
--- NOTE | 2017-06-14 13:50 | PN ---
Date/Time of Note Date/Time of Note DATE: 06/14/17 TIME: 13:48 Assessment/Plan VTE Prophylaxis VTE Prophylaxis Intervention: SCD's Lines/Catheters IV [facility] Type [facility]from [facility] Central Line Central line still needed: Yes Urinary Cath still in place: Yes Reason Cath still needed: other (indicate) Assessment/Plan Chief Complaint/Hosp Course 1. Hemoptysis. Etiology unclear. Chest CT showing patchy airspace opacities in both lungs consistent with multifocal pneumonia. Status post bronchoscopy on 05/26/2017 that revealed bleeding in the trachea and massive amounts of fresh blood coming from the left lung. The patient was consequently intubated and transferred to ICU. The patient was later extubated. S/P right VATS with lysis of adhesions, decortication, right upper lobe, right lower lobe lung wedge resection and lung biopsy on 05/30/2017. The patient had to be reintubated on 06/05/2017 because of worsening hypoxia. The patient was later extubated. The patient's pathology from lung biopsy is negative for any suspicious findings. Serology including coccidiomycosis serology is negative.The etiology could be large vessel vasculitis. 2. Acute hypoxic respiratory failure. Improved. 3. Status post severe sepsis with tachycardia, tachypnea, significant leukocytosis, lactic acidosis, and hyperglycemia [patient non-diabetic] on 06/05. Will stop antibiotics. 4. Anemia secondary to acute blood loss. Status post transfusion of blood products 5. Fluids, electrolytes, and nutrition. Regular diet. 6. DVT prophylaxis. SCDs. 7. Plan. Encourage out of bed. Discontinue Carlson. Encourage incentive spirometry. Case discussed with Dr. White. Problems: Subjective 24 Hr Interval Summary Free Text/Dictation Denies any pain. Denies any dyspnea. Exam/Review of Systems Vital Signs Vitals Vital Signs Date Time Temp Pulse Resp B/P Pulse Ox O2 Delivery O2 Flow Rate FiO2 06/14/17 13:31 78 20 95 21 06/14/17 11:38 98.3 94/51 06/11/17 16:00 Room Air Intake and Output 06/13/17 06/13/17 06/14/17 15:00 23:00 07:00 Intake Total 910 ml 120 ml Output Total 700 ml 2000 ml Balance 210 ml -1880 ml Exam General: Adequately build 46 year-old female lying in bed in no apparent distress. HEENT: Normocephalic, atraumatic. Eyes: Anicteric sclerae, conjunctivae clear. ENT: Nasal septum midline, oral mucosa is moist. Neck supple, no JVD noticed. Respiratory: Bilaterally diminished breath sounds. No use of accessory muscles of respiration. Cardiovascular: S1, S2 heard. No murmurs or gallops. Tachycardia Abdomen: Soft, nontender, and nondistended. Bowel sounds positive in all 4 quadrants. Genitourinary: Carlson catheter. Extremities: No cyanosis, no clubbing, no edema. Peripheral pulses palpable. Neurologic: Awake, alert, and oriented. Skin: Normal skin turgor. No skin rashes. Results Result Diagram: 06/14/17 0658 06/14/17 0658 Results 24 hrs Laboratory Tests Test 06/14/17 06:58 White Blood Count 14.0 H Red Blood Count 3.16 L Hemoglobin 10.0 L Hematocrit 29.7 L Mean Corpuscular Volume 94.0 Mean Corpuscular Hemoglobin 31.6 Mean Corpuscular Hemoglobin Concent 33.7 Red Cell Distribution Width 14.5 Platelet Count 127 L Mean Platelet Volume 11.1 H Neutrophils % 94.7 H Lymphocytes % 1.5 L Monocytes % 3.1 Eosinophils % 0.0 Basophils % 0.1 Nucleated Red Blood Cells % 0.0 Neutrophils # 13.3 H Lymphocytes # 0.2 L Monocytes # 0.4 Eosinophils # 0.0 Basophils # 0.0 Nucleated Red Blood Cells # 0.0 Sodium Level 137 Potassium Level 3.0 L Chloride Level 104 Carbon Dioxide Level 24 Anion Gap 12 Blood Urea Nitrogen 15 Creatinine 0.37 L Glucose Level 173 Calcium Level 8.1 L Phosphorus Level 2.9 Magnesium Level 2.1 Medications Medications Current Medications Ondansetron HCl (Zofran Inj) 4 mg Q6H PRN IV NAUSEA AND/OR VOMITING Last administered on 05/26/17 05:33; Admin Dose 4 MG; Start 05/20/17 at 02:00 Acetaminophen (Tylenol Tab) 650 mg Q6H PRN PO PAIN LEVEL 1-3 OR FEVER Last administered on 05/21/17 23:08; Admin Dose 650 MG; Start 05/20/17 at 02:00 Morphine Sulfate (morphine) 2 mg Q4H PRN IV PAIN LEVEL 7-10; Start 05/20/17 at 02:00; Status Future Hold Hydrocodone Bit/ Homatropine Methylb (Hycodan Liquid) 5 ml Q4 PRN PO cough Last administered on 05/29/17 12:04; Admin Dose 5 ML; Start 05/22/17 at 19:30 Benzonatate (Tessalon) 200 mg TID PO Last administered on 06/14/17 13:45; Admin Dose 200 MG; Start 05/29/17 at 14:00 Guaifenesin/ Codeine Phosphate (Robitussin Ac Liquid Cup) 5 ml Q4H PRN PO cough Last administered on 05/29/17 21:23; Admin Dose 5 ML; Start 05/29/17 at 13:00 Hydromorphone HCl (Dilaudid) 1 mg Q4H PRN IV PAIN Last administered on 21:54; Admin Dose 1 MG; Start 05/30/17 at 23:30 Acetaminophen/ Hydrocodone Bitart ([place] (7.5-325)) 1 tab Q4H PRN PO Pain Last administered on 06/10/17 20:31; Admin Dose 1 TAB; Start 06/01/17 at 15:30 Miscellaneous Information (Pending Santyl Order For Wound Care) This patient pickard... PRN PRN XX WOUND CARE; Start 06/08/17 at 15:30 Pantoprazole (Protonix Tab) 40 mg DAILY@06 PO Last administered on 06/14/17 06:22; Admin Dose 40 MG; Start 06/09/17 at 06:00 Methylprednisolone Sodium Succinate (Solu-Medrol) 40 mg Q8 IV Last administered on 06/14/17 13:45; Admin Dose 40 MG; Start 06/14/17 at 14:00 KIKI FERREIRA NP Jun 14, 2017 13:50
[2017-06-14] MEDS: HYDROmorphONE 1 MG/ML SYG IV PRN (22:20)
[2017-06-14] MEDS: HYDROCODONE/APAP (7.5/325) TAB PO PRN (22:21)
[2017-06-15] VITALS (11 sets, daily range): BP systolic 97–113; BP diastolic 54–68; PULSE 66–103; RESP 18
[2017-06-15] MEDS: ALBUTEROL 0.083% (NEB) 2.5 MG/3 ML AMP HHN SCH ×4 (01:20→20:21)
[2017-06-15] MEDS: HYDROCODONE/APAP (7.5/325) TAB PO PRN (02:19)
[2017-06-15] MEDS: PANTOPRAZOLE (EC) 40 MG TAB PO SCH (06:21)
[2017-06-15] MEDS: METHYLPREDNISOLONE 40 MG INJ IV SCH (06:21)
[2017-06-15] MEDS: BENZONATATE 100 MG CAP PO SCH ×3 (09:14→22:11)
--- NOTE | 2017-06-15 10:39 | PN ---
Date/Time of Note Date/Time of Note DATE: 06/15/17 TIME: 10:38 Assessment/Plan VTE Prophylaxis VTE Prophylaxis Intervention: ambulation, SCD's Lines/Catheters IV [facility]from [facility] Central Line Central line still needed: No Urinary Cath still in place: No Assessment/Plan Chief Complaint/Hosp Course 1. Hemoptysis. Etiology unclear. Chest CT showing patchy airspace opacities in both lungs consistent with multifocal pneumonia. Status post bronchoscopy on 05/26/2017 that revealed bleeding in the trachea and massive amounts of fresh blood coming from the left lung. The patient was consequently intubated and transferred to ICU. The patient was later extubated. S/P right VATS with lysis of adhesions, decortication, right upper lobe, right lower lobe lung wedge resection and lung biopsy on 05/30/2017. The patient had to be reintubated on 06/05/2017 because of worsening hypoxia. The patient was later extubated. The patient's pathology from lung biopsy is negative for any suspicious findings. Serology including coccidiomycosis serology is negative.The etiology could be large vessel vasculitis. 2. Acute hypoxic respiratory failure. Improved. 3. Status post severe sepsis with tachycardia, tachypnea, significant leukocytosis, lactic acidosis, and hyperglycemia [patient non-diabetic] on 06/05. Will stop antibiotics. 4. Anemia secondary to acute blood loss. Status post transfusion of blood products 5. Fluids, electrolytes, and nutrition. Regular diet. 6. DVT prophylaxis. SCDs. 7. Plan. Encourage out of bed. Encourage incentive spirometry. Discontinue central line after obtaining a peripheral line. Case discussed with Dr. White. Problems: Subjective 24 Hr Interval Summary Free Text/Dictation Patient doing well. Exam/Review of Systems Vital Signs Vitals Vital Signs Date Time Temp Pulse Resp B/P Pulse Ox O2 Delivery O2 Flow Rate FiO2 06/15/17 08:39 81 06/15/17 08:02 16 97 21 06/15/17 07:46 98.6 103/59 06/11/17 16:00 Room Air Intake and Output 06/14/17 06/14/17 06/15/17 15:00 23:00 07:00 Intake Total 600 ml Balance 600 ml Exam General: Adequately build 46 year-old female lying in bed in no apparent distress. HEENT: Normocephalic, atraumatic. Eyes: Anicteric sclerae, conjunctivae clear. ENT: Nasal septum midline, oral mucosa is moist. Neck supple, no JVD noticed. Respiratory: Bilaterally diminished breath sounds. No use of accessory muscles of respiration. Cardiovascular: S1, S2 heard. No murmurs or gallops. Abdomen: Soft, nontender, and nondistended. Bowel sounds positive in all 4 quadrants. Genitourinary: Carlson catheter. Extremities: No cyanosis, no clubbing, no edema. Peripheral pulses palpable. Neurologic: Awake, alert, and oriented. Skin: Normal skin turgor. No skin rashes. Results Result Diagram: 06/15/17 0832 06/15/17 0832 Results 24 hrs Laboratory Tests Test 06/15/17 08:32 White Blood Count 15.4 H Red Blood Count 3.19 L Hemoglobin 10.1 L Hematocrit 30.3 L Mean Corpuscular Volume 95.0 Mean Corpuscular Hemoglobin 31.7 Mean Corpuscular Hemoglobin Concent 33.3 Red Cell Distribution Width 15.0 H Platelet Count 146 Mean Platelet Volume 10.8 H Neutrophils % 94.4 H Lymphocytes % 2.0 L Monocytes % 3.0 Eosinophils % 0.0 Basophils % 0.1 Nucleated Red Blood Cells % 0.0 Neutrophils # 14.5 H Lymphocytes # 0.3 L Monocytes # 0.5 Eosinophils # 0.0 Basophils # 0.0 Nucleated Red Blood Cells # 0.0 Sodium Level 138 Potassium Level 3.7 Chloride Level 107 Carbon Dioxide Level 24 Anion Gap 11 Blood Urea Nitrogen 21 H Creatinine 0.32 L Glucose Level 152 Calcium Level 8.5 Phosphorus Level 3.0 Magnesium Level 2.2 Medications Medications Current Medications Ondansetron HCl (Zofran Inj) 4 mg Q6H PRN IV NAUSEA AND/OR VOMITING Last administered on 05/26/17 05:33; Admin Dose 4 MG; Start 05/20/17 at 02:00 Acetaminophen (Tylenol Tab) 650 mg Q6H PRN PO PAIN LEVEL 1-3 OR FEVER Last administered on 05/21/17 23:08; Admin Dose 650 MG; Start 05/20/17 at 02:00 Morphine Sulfate (morphine) 2 mg Q4H PRN IV PAIN LEVEL 7-10; Start 05/20/17 at 02:00; Status Future Hold Hydrocodone Bit/ Homatropine Methylb (Hycodan Liquid) 5 ml Q4 PRN PO cough Last administered on 05/29/17 12:04; Admin Dose 5 ML; Start 05/22/17 at 19:30 Benzonatate (Tessalon) 200 mg TID PO Last administered on 06/15/17 09:14; Admin Dose 200 MG; Start 05/29/17 at 14:00 Guaifenesin/ Codeine Phosphate (Robitussin Ac Liquid Cup) 5 ml Q4H PRN PO cough Last administered on 05/29/17 21:23; Admin Dose 5 ML; Start 05/29/17 at 13:00 Hydromorphone HCl (Dilaudid) 1 mg Q4H PRN IV PAIN Last administered on 22:20; Admin Dose 1 MG; Start 05/30/17 at 23:30 Acetaminophen/ Hydrocodone Bitart ([place] (7.5-325)) 1 tab Q4H PRN PO Pain Last administered on 06/15/17 02:19; Admin Dose 1 TAB; Start 06/01/17 at 15:30 Miscellaneous Information (Pending [facility] Order For Wound Care) This patient pickard... PRN PRN XX WOUND CARE; Start 06/08/17 at 15:30 Pantoprazole (Protonix Tab) 40 mg DAILY@06 PO Last administered on 06/15/17 06 :21; Admin Dose 40 MG; Start 06/09/17 at 06:00 Methylprednisolone Sodium Succinate (Solu-Medrol) 40 mg Q8 IV Last administered on 06/15/17 06:21; Admin Dose 40 MG; Start 06/14/17 at 14:00 KIKI FERREIRA NP Jun 15, 2017 10:39
--- NOTE | 2017-06-15 11:32 | CONS ---
Date/Time of Note Date/Time of Note DATE: 06/15/17 TIME: 11:29 Assessment/Plan Assessment/Plan Additional Assessment/Plan Assessment and recommendations; 1. Patient admitted with significant alveolar hemorrhage and has had a stormy hospital course requiring 2 intubations and multiple bronchoscopies for clearing up of blood clots from the right mainstem bronchus. Patient also has had extensive workup for vasculitis which has been negative including open lung biopsy. 2. No further hemoptysis for the last more than 96 hours now. 3. Significant radiological improvement. Discontinue Solu-Medrol. Start the patient on prednisone 40 mg a day. Patient is to follow-up in the outpatient pulmonary clinic for further tapering of prednisone as dictated by her clinical status. Patient can follow up with Dr. Osei, in the office in about 2 weeks time. I did have a detailed discussion with the patient as well as her with help of a Polish nurse dba developer. Consultation Date/Type/Reason Admit Date/Time May 19, 2017 at 23:53 Type of Consultation: Pulmonary/critical care 24 HR Interval Summary Free Text/Dictation Patient's condition is continually improving. Denies any shortness of breath, coughing, wheezing, any further hemoptysis for the last 96 hours. General exam; young woman, awake and alert. Currently in no distress. Exam/Review of Systems Vital Signs Vitals Vital Signs Date Time Temp Pulse Resp B/P Pulse Ox O2 Delivery O2 Flow Rate FiO2 06/15/17 08:39 81 06/15/17 08:02 16 97 21 06/15/17 07:46 98.6 103/59 06/11/17 16:00 Room Air Intake and Output 06/14/17 06/14/17 06/15/17 15:00 23:00 07:00 Intake Total 600 ml Balance 600 ml Exam HEENT exam; supple neck, no JVD. No lymphadenopathy. No thyromegaly. Patient has a multiple carious teeth. Chest exam; clear to auscultation. S1-S2 audible, no murmurs. Regular rhythm. Abdomen exam; soft, nontender. No organomegaly. Bowel sounds audible. Extremity exam; no peripheral edema. No clubbing. 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 Results Result Diagram: 06/15/17 0832 06/15/17 0832 Results 24 hrs Laboratory Tests Test 06/15/17 08:32 White Blood Count 15.4 H Red Blood Count 3.19 L Hemoglobin 10.1 L Hematocrit 30.3 L Mean Corpuscular Volume 95.0 Mean Corpuscular Hemoglobin 31.7 Mean Corpuscular Hemoglobin Concent 33.3 Red Cell Distribution Width 15.0 H Platelet Count 146 Mean Platelet Volume 10.8 H Neutrophils % 94.4 H Lymphocytes % 2.0 L Monocytes % 3.0 Eosinophils % 0.0 Basophils % 0.1 Nucleated Red Blood Cells % 0.0 Neutrophils # 14.5 H Lymphocytes # 0.3 L Monocytes # 0.5 Eosinophils # 0.0 Basophils # 0.0 Nucleated Red Blood Cells # 0.0 Sodium Level 138 Potassium Level 3.7 Chloride Level 107 Carbon Dioxide Level 24 Anion Gap 11 Blood Urea Nitrogen 21 H Creatinine 0.32 L Glucose Level 152 Calcium Level 8.5 Phosphorus Level 3.0 Magnesium Level 2.2 Medications Medications Current Medications Ondansetron HCl (Zofran Inj) 4 mg Q6H PRN IV NAUSEA AND/OR VOMITING Last administered on 05/26/17 05:33; Admin Dose 4 MG; Start 05/20/17 at 02:00 Acetaminophen (Tylenol Tab) 650 mg Q6H PRN PO PAIN LEVEL 1-3 OR FEVER Last administered on 05/21/17 23:08; Admin Dose 650 MG; Start 05/20/17 at 02:00 Morphine Sulfate (morphine) 2 mg Q4H PRN IV PAIN LEVEL 7-10; Start 05/20/17 at 02:00; Status Future Hold Hydrocodone Bit/ Homatropine Methylb (Hycodan Liquid) 5 ml Q4 PRN PO cough Last administered on 05/29/17 12:04; Admin Dose 5 ML; Start 05/22/17 at 19:30 Benzonatate (Tessalon) 200 mg TID PO Last administered on 06/15/17 09:14; Admin Dose 200 MG; Start 05/29/17 at 14:00 Guaifenesin/ Codeine Phosphate (Robitussin Ac Liquid Cup) 5 ml Q4H PRN PO cough Last administered on 05/29/17 21:23; Admin Dose 5 ML; Start 05/29/17 at 13:00 Hydromorphone HCl (Dilaudid) 1 mg Q4H PRN IV PAIN Last administered on 22:20; Admin Dose 1 MG; Start 05/30/17 at 23:30 Acetaminophen/ Hydrocodone Bitart ([place] (7.5-325)) 1 tab Q4H PRN PO Pain Last administered on 06/15/17 02:19; Admin Dose 1 TAB; Start 06/01/17 at 15:30 Miscellaneous Information (Pending [facility] Order For Wound Care) This patient pickard... PRN PRN XX WOUND CARE; Start 06/08/17 at 15:30 Pantoprazole (Protonix Tab) 40 mg DAILY@06 PO Last administered on 06/15/17 06 :21; Admin Dose 40 MG; Start 06/09/17 at 06:00 Methylprednisolone Sodium Succinate (Solu-Medrol) 40 mg Q8 IV Last administered on 06/15/17 06:21; Admin Dose 40 MG; Start 06/14/17 at 14:00 PHOEBE HARRIS Jun 15, 2017 11:32
--- NOTE | 2017-06-15 18:52 | RADRPT ---
PROCEDURE: XR Chest. CLINICAL INDICATION: chest pain TECHNIQUE: Single AP view of the chest were obtained COMPARISON: 06/13/2017 FINDINGS: The heart and mediastinum are within normal limits. The pulmonary vasculature are unremarkable. The aorta is unremarkable. There is no lung consolidation, pleural effusion or pneumothorax. There i s no acute osseous abnormality. IMPRESSION: No acute disease. RPTAT: AA .Ton Vaughan MD, Date Time Electronically viewed and signed by .Ton Vaughan MD, MD on 06/15/2017 18:52 .J/
[2017-06-15] MEDS: HYDROCODONE/HOMATROPINE 5ML CUP PO PRN (20:26)
[2017-06-15] MEDS ORDERED: LORAZEPAM 2 MG INJ IV ONE (22:00)
[2017-06-16] VITALS (9 sets, daily range): BP systolic 94–100; BP diastolic 54–62; PULSE 84–101; RESP 19–20
[2017-06-16] MEDS: ALBUTEROL 0.083% (NEB) 2.5 MG/3 ML AMP HHN SCH ×3 (01:18→14:00)
[2017-06-16] MEDS: PANTOPRAZOLE (EC) 40 MG TAB PO SCH (05:27)
[2017-06-16] MEDS ORDERED: predniSONE 20 MG TAB PO SCH (09:00)
[2017-06-16] MEDS: BENZONATATE 100 MG CAP PO SCH ×2 (09:15→13:51)
--- NOTE | 2017-06-16 11:42 | CONS ---
Date/Time of Note Date/Time of Note DATE: 06/16/17 TIME: 11:39 Assessment/Plan Assessment/Plan Additional Assessment/Plan Assessment and recommendations; 1. Patient admitted with alveolar hemorrhage and has had a stormy hospital course requiring 2 intubations and multiple bronchoscopies. 2. 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 3. Status post extensive workup for vasculitis as well as open lung biopsies which have all been nondiagnostic. Patient doing very well on prednisone. I would recommend discharging her and with outpatient follow-up in the pulmonary clinic in 1 week's time. Continue prednisone at current dosing. Consultation Date/Type/Reason Admit Date/Time May 19, 2017 at 23:53 Type of Consultation: Pulmonary/critical care 24 HR Interval Summary Free Text/Dictation Patient's condition is stable. denies any shortness breath, any further hemoptysis. General exam; young woman, awake alert, currently in no distress. Exam/Review of Systems Vital Signs Vitals Vital Signs Date Time Temp Pulse Resp B/P Pulse Ox O2 Delivery O2 Flow Rate FiO2 06/16/17 08:12 91 06/16/17 08:00 18 21 06/16/17 07:45 99.5 94/55 97 06/16/17 01:18 Nasal Cannula 2.0 Intake and Output 06/15/17 06/15/17 06/16/17 14:59 22:59 06:59 Intake Total 600 ml 750 ml Balance 600 ml 750 ml Exam HEENT exam; supple neck, no JVD. No lymphadenopathy. Midline trachea. No thyromegaly. Patient has multiple carious teeth. Chest exam; clear to auscultation. S1-S2 audible, no murmurs. Regular rhythm. Abdomen exam; soft, nontender. No organomegaly. Bowel sounds audible. Extremity exam; no peripheral edema. Pulses 1+ bilaterally. No clubbing. 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 Results Result Diagram: 06/16/1772306/16/1724 Results 24 hrs Laboratory Tests Test 06/16/17 07:24 White Blood Count 15.4 H Red Blood Count 3.30 L Hemoglobin 10.9 L Hematocrit 31.5 L Mean Corpuscular Volume 95.5 Mean Corpuscular Hemoglobin 33.0 Mean Corpuscular Hemoglobin Concent 34.6 Red Cell Distribution Width 14.9 H Platelet Count 137 L Mean Platelet Volume 10.1 Neutrophils % 90.9 H Lymphocytes % 4.2 L Monocytes % 3.7 Eosinophils % 0.5 Basophils % 0.1 Nucleated Red Blood Cells % 0.0 Neutrophils # 14.0 H Lymphocytes # 0.6 L Monocytes # 0.6 Eosinophils # 0.1 Basophils # 0.0 Nucleated Red Blood Cells # 0.0 Sodium Level 136 Potassium Level 3.7 Chloride Level 104 Carbon Dioxide Level 24 Anion Gap 12 Blood Urea Nitrogen 18 Creatinine 0.34 L Glucose Level 90 # Calcium Level 8.5 Phosphorus Level 3.4 Magnesium Level 1.9 Medications Medications Current Medications Ondansetron HCl (Zofran Inj) 4 mg Q6H PRN IV NAUSEA AND/OR VOMITING Last administered on 05/26/17 05:33; Admin Dose 4 MG; Start 05/20/17 at 02:00 Acetaminophen (Tylenol Tab) 650 mg Q6H PRN PO PAIN LEVEL 1-3 OR FEVER Last administered on 05/21/17 23:08; Admin Dose 650 MG; Start 05/20/17 at 02:00 Morphine Sulfate (morphine) 2 mg Q4H PRN IV PAIN LEVEL 7-10; Start 05/20/17 at 02:00; Status Future Hold Hydrocodone Bit/ Homatropine Methylb (Hycodan Liquid) 5 ml Q4 PRN PO cough Last administered on 06/15/17 20:26; Admin Dose 5 ML; Start 05/22/17 at 19:30 Benzonatate (Tessalon) 200 mg TID PO Last administered on 06/16/17 09:15; Admin Dose 200 MG; Start 05/29/17 at 14:00 Guaifenesin/ Codeine Phosphate (Robitussin Ac Liquid Cup) 5 ml Q4H PRN PO cough Last administered on 05/29/17 21:23; Admin Dose 5 ML; Start 05/29/17 at 13:00 Hydromorphone HCl (Dilaudid) 1 mg Q4H PRN IV PAIN Last administered on 22:20; Admin Dose 1 MG; Start 05/30/17 at 23:30 Acetaminophen/ Hydrocodone Bitart ([place] (7.5-325)) 1 tab Q4H PRN PO Pain Last administered on 06/15/17 02:19; Admin Dose 1 TAB; Start 06/01/17 at 15:30 Miscellaneous Information (Pending [facility] Order For Wound Care) This patient pickard... PRN PRN XX WOUND CARE; Start 06/08/17 at 15:30 Pantoprazole (Protonix Tab) 40 mg DAILY@06 PO Last administered on 06/16/17 05 :27; Admin Dose 40 MG; Start 06/09/17 at 06:00 Prednisone (Prednisone) 40 mg DAILY PO Last administered on 06/16/17 09:14; Admin Dose 40 MG; Start 06/16/17 at 09:00 PHOEBE HARRIS Jun 16, 2017 11:42
--- NOTE | 2017-06-16 12:27 | PDOCDIS ---
Discharge Instructions DIAGNOSIS Discharge Diagnosis Hemoptysis CONDITION Patient Condition: Stable HOME CARE INSTRUCTIONS: Diet Instructions: RegularSpecial Diet: Regular ACTIVITY: Activity Restrictions: Slowly Increase Activity Rest between Activity Avoid heavy lifting Avoid Heavy Housework FOLLOW UP/APPOINTMENTS Follow-up Plan 1. Richi Ennis MD Specialty Cardiothoracic Surgery Office Address [address] [facility]. [address] [place] [address] Office 2. Memo Osei MD Specialty Pulmonary Medicine Office Address [address] [place] [address] Office OTHER ORDERS: Other Orders: 1. Please see a acquisition analyst (preferably Dr. Osei) within 1-2 weeks. Please call your insurance for authorization. 2. Please see Dr. Ennis (thoracic surgeon) in the next week for checking the chest wall incisions. 3. Regular diet. 4. Activities as tolerated. Rest in between activities. 5. Continue to use the incentive spirometry as frequently as you can. 6. No shower until cleared by the thoracic surgeon (Dr. Ennis). Sponge baths OK. 7. Please go to the nearest ER if you have any significant shortness of breath or chest pain, or spitting of blood. 8. Please take the prednisone with food. Do not stop prednisone abruptly. 1. Consulte a un neumlogo (preferiblemente al Dr. Osei) dentro de 1 a 2 semanas. Por favor llame a muro seguro para obtener autorizacin. 2. Consulte al Dr. Ennis (cirudominico torkeron) la prxima semana para revisar las incisiones de la pared torcica. 3. Dieta regular. 4. Actividades segn lo tolerado. Descansa entre actividades. 5. Contine usando la espirometra de incentivo con la frecuencia que pueda. 6. No se duche hasta que el silver mendez lo despeje (Dr. Ennis). Baos de esponja OK. 7. Dirjase a la sol de urgencias ms cercana si tiene dificultad para respirar o dolor en el pecho, o escupir rosa elena. 8. Por favor, tome la prednisona con comida. No suspenda la prednisona abruptamente. KIKI FERREIRA NP Jun 16, 2017 12:27
--- NOTE | 2017-06-16 12:27 | PDOCDIS ---
Discharge Instructions DIAGNOSIS Discharge Diagnosis Hemoptysis CONDITION Patient Condition: Stable HOME CARE INSTRUCTIONS: Diet Instructions: RegularSpecial Diet: Regular ACTIVITY: Activity Restrictions: Slowly Increase Activity Rest between Activity Avoid heavy lifting Avoid Heavy Housework FOLLOW UP/APPOINTMENTS Follow-up Plan 1. Richi Ennis MD Specialty Cardiothoracic Surgery Office Address [address] [facility] [place] [address] Office 2. Memo Osei MD Specialty Pulmonary Medicine Office Address [address] [place] [address] Office OTHER ORDERS: Other Orders: 1. Please see a press tender (preferably Dr. Osei) within 1-2 weeks. Please call your insurance for authorization. 2. Please see Dr. Ennis (thoracic surgeon) in the next week for checking the chest wall incisions. 3. Regular diet. 4. Activities as tolerated. Rest in between activities. 5. Continue to use the incentive spirometry as frequently as you can. 6. No shower until cleared by the thoracic surgeon (Dr. Ennis). Sponge baths OK. 7. Please go to the nearest ER if you have any significant shortness of breath or chest pain, or spitting of blood. 8. Please take the prednisone with food. Do not stop prednisone abruptly. 1. Consulte a un neumlogo (preferiblemente al Dr. Osei) dentro de 1 a 2 semanas. Por favor llame a muro seguro para obtener autorizacin. 2. Consulte al Dr. Ennis (cirudominico torkeron) la prxima semana para revisar las incisiones de la pared torcica. 3. Dieta regular. 4. Actividades segn lo tolerado. Descansa entre actividades. 5. Contine usando la espirometra de incentivo con la frecuencia que pueda. 6. No se duche hasta que el silver mendez lo despeje (Dr. Ennis). Baos de esponja OK. 7. Dirjase a la sol de urgencias ms cercana si tiene dificultad para respirar o dolor en el pecho, o escupir rosa elena. 8. Por favor, tome la prednisona con comida. No suspenda la prednisona abruptamente. KIKI FERREIRA NP Jun 16, 2017 12:27
[2017-06-16] MEDS ORDERED: PANT40TA4 PO (12:38)
[2017-06-16] MEDS ORDERED: PRED20TA PO (12:38)
[2017-06-16] MEDS ORDERED: ALBU8.5H3 INH (12:39)
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
== END 2017-06-16 17:34 | disposition home or self-care (01) | DRG 163 ==
LOC: E/R 19:11 → TEL 23:53 → ICU 05-20 03:46 → MS2 05-25 00:44 → ICU 05-26 11:45 → MS4 06-11 18:04
PROVIDERS: ADMIT Family Medicine; ATTEND Family Medicine
PROC: 5A1945Z Respiratory Ventilation, 24-96 Consecutive Hours (ICD-10-PCS; 2017-05-26)
PROC: 0BH17EZ Insertion of Endotracheal Airway into Trachea, Via Natural or Artificial Opening (ICD-10-PCS; 2017-05-26)
PROC: 0B978ZX Drainage of Left Main Bronchus, Via Natural or Artificial Opening Endoscopic, Diagnostic (ICD-10-PCS; 2017-05-26)
PROC: 30233N1 Transfusion of Nonautologous Red Blood Cells into Peripheral Vein, Percutaneous Approach (ICD-10-PCS; 2017-05-27)
PROC: 0BNK4ZZ Release Right Lung, Percutaneous Endoscopic Approach (ICD-10-PCS; 2017-05-30)
PROC: 0BBF4ZX Excision of Right Lower Lung Lobe, Percutaneous Endoscopic Approach, Diagnostic (ICD-10-PCS; 2017-05-30)
PROC: 0BNN4ZZ Release Right Pleura, Percutaneous Endoscopic Approach (ICD-10-PCS; 2017-05-30)
PROC: 0BC38ZZ Extirpation of Matter from Right Main Bronchus, Via Natural or Artificial Opening Endoscopic (ICD-10-PCS; 2017-05-30)
PROC: 0W9930Z Drainage of Right Pleural Cavity with Drainage Device, Percutaneous Approach (ICD-10-PCS; 2017-05-30)
PROC: 30233N1 Transfusion of Nonautologous Red Blood Cells into Peripheral Vein, Percutaneous Approach (ICD-10-PCS; 2017-05-30)
PROC: 0BBC4ZX Excision of Right Upper Lung Lobe, Percutaneous Endoscopic Approach, Diagnostic (ICD-10-PCS; principal; 2017-05-30 19:00)
PROC: 5A1945Z Respiratory Ventilation, 24-96 Consecutive Hours (ICD-10-PCS; 2017-06-05)
PROC: 0BH17EZ Insertion of Endotracheal Airway into Trachea, Via Natural or Artificial Opening (ICD-10-PCS; 2017-06-05)
PROC: 02HV33Z Insertion of Infusion Device into Superior Vena Cava, Percutaneous Approach (ICD-10-PCS; 2017-06-05)
PROC: 0W9B30Z Drainage of Left Pleural Cavity with Drainage Device, Percutaneous Approach (ICD-10-PCS; 2017-06-05)
PROC: 0BC38ZZ Extirpation of Matter from Right Main Bronchus, Via Natural or Artificial Opening Endoscopic (ICD-10-PCS; 2017-06-05)
PROC: 0BD68ZX Extraction of Right Lower Lobe Bronchus, Via Natural or Artificial Opening Endoscopic, Diagnostic (ICD-10-PCS; 2017-06-05)
PROC: 0BD48ZX Extraction of Right Upper Lobe Bronchus, Via Natural or Artificial Opening Endoscopic, Diagnostic (ICD-10-PCS; 2017-06-05)
PROC: 0BD58ZX Extraction of Right Middle Lobe Bronchus, Via Natural or Artificial Opening Endoscopic, Diagnostic (ICD-10-PCS; 2017-06-05)
PROC: 0BD38ZX Extraction of Right Main Bronchus, Via Natural or Artificial Opening Endoscopic, Diagnostic (ICD-10-PCS; 2017-06-05)
DX: R04.89 Hemorrhage from other sites in respiratory passages (principal); J96.01 Acute respiratory failure with hypoxia; A41.9 Sepsis, unspecified organism; J18.9 Pneumonia, unspecified organism; J94.8 Other specified pleural conditions; N39.0 Urinary tract infection, site not specified; D62 Acute posthemorrhagic anemia; J98.11 Atelectasis; I77.6 Arteritis, unspecified; J95.811 Postprocedural pneumothorax; Y84.8 Other medical procedures as the cause of abnormal reaction of the patient, or of later complication, without mention of misadventure at the time of the procedure
CPT/HCPCS: 31500; 36415; 36430; 36600; 71010; 71260; 71275; 80048; 80053; 80061; 80076; 80202; 81003; 82550; 82553; 82803; 83036; 83605; 83735; 84100; 84132; 84439; 84443; 84484; 85014; 85018; 85025; 85378; 85610; 85651; 85730; 86021; 86038; 86140; 86160; 86226; 86430; 86480; 86635; 86850; 86900; 86901; 86920; 87040; 87070; 87075; 87081; 87102; 87116; 88304; 88307; 93005; 93308; 94002; 94003; 94640; 94664; 94770; 97116; 97162; 97530; C9113; J0456; J0690; J0696; J1100; J1170; J1644; J2060; J2250; J2405; J2543; J2920; J2930; J3010; J3370; J3480; J7030; J7040; J7050; J7060; J7512; P9016; Q9967